=== PATIENT | female | born 1930 | race Caucasian/White ===

== ENCOUNTER 2016-07-08 20:26 | Inpatient (IN) | payer OTHER ==
[~2016-07-08] VITALS: Ht 152.4 cm; Wt 65.4 kg
[~2016-07-08 20:26] MED LIST: ALPR0.25 PO; ASPI-482 PO; ASPI81TA2 PO; BIMA2.5D EACHEYE; CALC-274 PO; CALC600T4 PO; CELE400C PO; CHOL20004 PO; CLON0.1T PO; DILT180C29 PO; DILT180C64 PO; DILT240C66 PO; DOCU-27 PO; DOCU50CA9 PO; FISH1CAP PO; FLUT12HF2 IH; GLUC100018 PO; HYDR-2666 PO; HYDR-971 PO; IPRA3AMP NEB; LANS15CA5 PO; LATA2.5D3 OP; LISI10TA2 PO; MAGN250T5 PO; METO-269 PO; MIRT15TA3 PO; MV,C1TAB19 PO; OXYB10TA PO; PRAV80TA2 PO; PRED20TA PO; PROAIR HFA8.5 GM INH; TIOT18CA IH; [UNRECOGNIZED DRUG - CODE] PO
[2016-07-08] MEDS ORDERED: IPRATRPIUM/ALBUTEROL 0.5/2.5MG 3 ML NEBU. NEB ONE (20:30)
[2016-07-08] MEDS ORDERED: methylPREDNISolone SOD SUCC PF 125 MG/2 ML VIAL. IV ONE (20:30)
[2016-07-08] MEDS ORDERED: NITROGLYCERIN PREMIX 250 ML IV ONE (21:00)
[2016-07-08 21:05] LABS: BASO # 0.1 x10^3/uL (0.0-0.2); BASO % 1 % (0-3); EOS % 0 % (0-3); HEMATOCRIT 34.8 % (36.0-47.0); HEMOGLOBIN 11.5 g/dL (12.0-15.5); LYMPH # 0.2 x10^3/uL (1.0-4.8); LYMPH % 1 % (24-48); MEAN CORPUSCULAR HEMOGLOBIN 31 pg (25-35); MEAN CORPUSCULAR HGB CONC 33 g/dL (31-37); MEAN CORPUSCULAR VOLUME 93 fL (79-100); MONO % 3 % (0-9); NEUT % 95 % (31-73); RED BLOOD COUNT 3.74 x10^6/uL (3.50-5.40); RED CELL DISTRIBUTION WIDTH 15.5 % (11.5-14.5); WHITE BLOOD COUNT 18.2 x10^3/uL (4.0-11.0)
[2016-07-08 21:07] LABS: PLATELET COUNT 960 x10^3/uL (140-400)
[2016-07-08 21:13] LABS: CALCIUM 9.1 mg/dL (8.5-10.1); CREATININE 0.6 mg/dL (0.6-1.0); POTASSIUM 3.8 mmol/L (3.5-5.1)
[2016-07-08 21:42] LABS: PLT ESTIMATE INCREASED (ADEQUATE)
[2016-07-08 22:03] LABS: OBC FLU VALID
--- NOTE | 2016-07-08 22:13 | PHYS DOC ---
Past Medical History Past Medical History: COPD, High Cholesterol, Heart Disease, Hypertension, Other Additional Past Medical Histor: Colon CA,L)hernia, chemotherapy, home oxygen Past Surgical History: Cancer Surgery, Hysterectomy, Oophorectomy, Pacemaker, Other Additional Past Surgical Histo: Colonoscopy,Breast cysts removed bilaterally, pacemaker Alcohol Use: None Drug Use: None Adult General Chief Complaint Chief Complaint: SHORTNESS OF BREATH HPI HPI This 86-year-old female presents via EMS for worsening shortness of breath. Per EMS, the patient was saturating in the mid 80s upon arrival and administered a breathing treatment with mild symptom resolution. She arrives here acutely short of air and requiring supplemental oxygenation. At this time is able to speak in complete sentences with mild respiratory distress. Patient does also have history of mild CHF has mild bilateral lower extremity swelling with her symptoms. She denies any chest pain. She denies any cough or fever. (Of an present really throughout the last week and had a recent hospital admission last week for similar symptoms. She states she never felt better. Review of Systems Review of Systems Constitutional: Denies fever or chills [] Eyes: Denies change in visual acuity, redness, or eye pain [] HENT: Denies nasal congestion or sore throat [] Respiratory: Denies cough, has shortness of breath [] Cardiovascular: No additional information not addressed in HPI [] GI: Denies abdominal pain, nausea, vomiting, bloody stools or diarrhea [] : Denies dysuria or hematuria [] Musculoskeletal: Denies back pain or joint pain [] Integument: Denies rash or skin lesions [] Neurologic: Denies headache, focal weakness or sensory changes [] Endocrine: Denies polyuria or polydipsia [] Current Medications Current Medications Current Medications Medications (Trade) Dose Ordered Sig/Shu Start Time Stop Time Status Last Admin Dose Admin Albuterol/ Ipratropium (Duoneb) 3 ml 1X ONCE 07/08/16 20:30 07/08/16 20:31 DC 07/08/16 20:40 3 ML Methylprednisolone Sodium Succinate 125 mg 125 mg 1X ONCE 07/08/16 20:30 07/08/16 20:31 DC 07/08/16 21:00 125 MG Nitroglycerin/ Dextrose (Nitroglycerin Drip) 250 ml @ 0 mls/hr 1X ONCE 07/08/16 21:00 07/08/16 22:56 DC 07/08/16 21:21 1.5 MLS/HR Allergies Allergies Allergies Coded Allergies Type Severity Reaction Last Updated Verified No Known Drug Allergies 08/19/15 No Physical Exam Physical Exam Constitutional: Well developed, well nourished, no acute distress, non-toxic appearance. [] HENT: Normocephalic, atraumatic, bilateral external ears normal, oropharynx moist, no oral exudates, nose normal. [] Eyes: PERRLA, EOMI, conjunctiva normal, no discharge. [] Neck: Normal range of motion, no tenderness, supple, no stridor. [] Cardiovascular:Heart rate regular rhythm, no murmur [] Lungs & Thorax: Decreased bilateral with mild expiratory wheeze heard bilaterally [] Abdomen: Bowel sounds normal, soft, no tenderness, no masses, no pulsatile masses. [] Skin: Warm, dry, no erythema, no rash. [] Back: No tenderness, no CVA tenderness. [] Extremities: No tenderness, no cyanosis, no clubbing, ROM intact, edema of the bilateral lower extremities. [] Neurologic: Alert and oriented X 3, normal motor function, normal sensory function, no focal deficits noted. [] Psychologic: Affect normal, judgement normal, mood normal. [] Current Patient Data Vital Signs Vital Signs Date Time Temp Pulse Resp B/P Pulse Ox O2 Delivery O2 Flow Rate FiO2 07/08/16 21:46 104 19 139/59 94 Nasal Cannula 2 07/08/16 20:30 98.4 98.4 Lab Values Laboratory Tests Test 07/08/16 20:35 07/08/16 20:50 07/08/16 21:38 Influenza Type A Antigen Negative (NEGATIVE) Influenza Type B Antigen Negative (NEGATIVE) White Blood Count 18.2x10^3/uL (4.0-11.0) H Red Blood Count 3.74x10^6/uL (3.50-5.40) Hemoglobin 11.5g/dL (12.0-15.5) L Hematocrit 34.8% (36.0-47.0) L Mean Corpuscular Volume 93fL (79-100) Mean Corpuscular Hemoglobin 31pg (25-35) Mean Corpuscular Hemoglobin Concent 33g/dL (31-37) Red Cell Distribution Width 15.5% (11.5-14.5) H Platelet Count 960x10^3/uL (140-400) *H Neutrophils (%) (Auto) 95% (31-73) H Lymphocytes (%) (Auto) 1% (24-48) L Monocytes (%) (Auto) 3% (0-9) Eosinophils (%) (Auto) 0% (0-3) Basophils (%) (Auto) 1% (0-3) Neutrophils # (Auto) 17.3x10^3uL (1.8-7.7) H Lymphocytes # (Auto) 0.2x10^3/uL (1.0-4.8) L Monocytes # (Auto) 0.5x10^3/uL (0.0-1.1) Eosinophils # (Auto) 0.1x10^3/uL (0.0-0.7) Basophils # (Auto) 0.1x10^3/uL (0.0-0.2) Platelet Estimate Increased (ADEQUATE) Large Platelets Mod Sodium Level 137mmol/L (136-145) Potassium Level 3.8mmol/L (3.5-5.1) Chloride Level 100mmol/L (98-107) Carbon Dioxide Level 29mmol/L (21-32) Anion Gap 8 (6-14) Blood Urea Nitrogen 15mg/dL (7-20) Creatinine 0.6mg/dL (0.6-1.0) Estimated GFR (Cockcroft-Gault) 95.0 Glucose Level 136mg/dL (70-99) H Calcium Level 9.1mg/dL (8.5-10.1) Troponin I Quantitative 0.065ng/mL (0.000-0.055) QT-Myg-I-Type Natriuretic Peptide 1892pg/mL (0-449) H Lactic Acid Level 1.0mmol/L (0.4-2.0) Laboratory Tests 07/08/16 20:50 Laboratory Tests 07/08/16 20:50 EKG EKG EKG interpreted by me shows a sinus tachycardia with a rate of 116 bpm. There are no acute ischemic findings. Radiology/Procedures Radiology/Procedures Portable one view of the chest as interpreted by me shows a left-sided effusion but no other acute abnormalities. Course & Med Decision Making Course & Med Decision Making Pertinent Labs and Imaging studies reviewed. (See chart for details) This patient with ongoing shortness of breath will be admitted for likely COPD exacerbation and mild CHF exacerbation. She has a mildly elevated BNP of 1800. Her chest film shows a mild left-sided pleural effusion. An IV Solu-Medrol and a breathing treatment and also was placed on IV nitroglycerin drip with significant improvement of her symptoms. Nitroglycerin drip was eventually discontinued and the patient will be admitted to the medical's on a every 4 for repeat DuoNeb treatments and will be evaluated by the hospitalist, Dr. Rolon, in the a.m. The case was discussed with Dr. Rolon who agreed with this assessment and plan. Her laboratory workup does reveal an elevated white count of 18.2 and elevated platelet count of 960 but at this time there is no obvious source of infection and so antibiotics were not administered. Dragon Disclaimer Dragon Disclaimer This electronic medical record was generated, in whole or in part, using a voice recognition dictation system. Departure Departure Impression: Primary Impression: CHF (congestive heart failure) Additional Impression: COPD exacerbation Disposition: ADMITTED INPATIENT Admitting Physician: Carlos Rolon Condition: STABLE Referrals: IAN BLAKE MD (PCP) Problem Qualifiers HEMA MACK DO Jul 08, 2016 22:13
[2016-07-08] MEDS ORDERED: ONDANSETRON PF 4 MG/2 ML VIAL. IV PRN (22:15)
[2016-07-08] MEDS ORDERED: ACETAMINOPHEN 325 MG TABLET. PO PRN (22:15)
[2016-07-08 23:00] VITALS: BP 184/82
[2016-07-08 23:45] VITALS: BP 184/82
--- NOTE | 2016-07-08 23:52 | ACF ---
Admission Forms Criteria HEART FAILURE: COMMON COMPLICATIONS Clinical Indications for Inpatient Care (Place 'X' for any and all applicable criteria): Ongoing inpatient care may be indicated for heart failure with ANY ONE of the following (1)(2)(3)(4)(5): [ ]I. Ongoing need for care for primary condition requiring frequent therapy adjustments because of changes in cardiac function (eg, drug dosage changes for drugs that are renally metabolized) [ ]II. New-onset heart failure [ ]III. Heart failure with decreased urine output not responsive to attempts to optimize volume status [ ]IV. Acute cardiac ischemia causing or associated with failure [X]V. Complications of heart failure, including ANY ONE of the following: [ ]a) Pericardial effusion [ ]b) Symptomatic pleural effusion [ ]c) O2 saturation <90% or PO2 < 60 mm Hg (8.0 kPa) on room air or require baseline supplemental O2 [ ]d) Tachypnea [X]e) Dyspnea [ ]f) Syncope [ ]g) Change in mental status [ ]h) Acute renal insufficiency that is severe (reduction of more than 50% in estimated glomerular filtration rate from baseline) or progressive reduction of more than 25% in estimated glomerular filtration rate from baseline, with creatinine continuing to rise) [ ]i) Hemodynamic instability [ ]j) Anasarca [ ]k) Clinically significant metabolic abnormalities due to heart failure (eg, new-onset metabolic acidosis) Extended stay beyond goal length of stay for primary condition may be needed until ALL of the following are present(1)(3): [ ]a) Stable and effective diuretic regimen established (or patient on stable dialysis regimen if in chronic renal failure) [ ]b) Breathing comfortably at rest [ ]c) Saturation of arterial oxygen greater than 90% or at acceptable baseline [ ]d) Pulmonary edema absent or improved [ ]e) Hemodynamic stability [ ]f) Volume status acceptable on oral medication [ ]g) Peripheral or sacral edema absent or improved [ ]h) Renal function stable and manageable at a lower level of care [ ]i) Complications (eg, pleural effusion) resolved or manageable at a lower level of care [ ]j) Patient or caregiver has received written discharge instructions or educational material addressing activity level, diet, discharge medications, follow-up appointment, weight monitoring, and what to do if symptoms worsen The original [email or web address] content created by [employer] has been revised. The portions of the content which have been revised are identified through the use of italic text or in bold, and [facility] has neither reviewed nor approved the modified material.All other unmodified content is copyright [facility]. Please see references footnoted in the original [facility] edition 2016 Admission Criteria Met?: Yes ROBERTO DARBY Jul 08, 2016 23:51
[2016-07-09] MEDS: CLONIDINE HCL 0.1 MG TABLET PO SCH ×4 (01:12→20:53)
[2016-07-09] MEDS: METOPROLOL SUCC 24HR ER 50 MG TAB.ER.24H. PO SCH ×2 (01:12→20:54)
[2016-07-09 03:00] VITALS: BP 169/80
[2016-07-09 04:54] LABS: BASO % 0 % (0-3); EOS % 0 % (0-3); HEMATOCRIT 28.5 % (36.0-47.0); HEMOGLOBIN 9.5 g/dL (12.0-15.5); LYMPH # 0.2 x10^3/uL (1.0-4.8); LYMPH % 2 % (24-48); MEAN CORPUSCULAR HEMOGLOBIN 31 pg (25-35); MEAN CORPUSCULAR HGB CONC 34 g/dL (31-37); MEAN CORPUSCULAR VOLUME 93 fL (79-100); MONO % 0 % (0-9); NEUT % 97 % (31-73); PLATELET COUNT 821 x10^3/uL (140-400); RED BLOOD COUNT 3.06 x10^6/uL (3.50-5.40); RED CELL DISTRIBUTION WIDTH 15.4 % (11.5-14.5); WHITE BLOOD COUNT 10.6 x10^3/uL (4.0-11.0)
[2016-07-09 05:37] LABS: CALCIUM 9.8 mg/dL (8.5-10.1); CREATININE 0.5 mg/dL (0.6-1.0); GFR 117.3; POTASSIUM 3.7 mmol/L (3.5-5.1)
--- NOTE | 2016-07-09 06:33 | EKG ---
[facility] [address] [place] [address] Test Date: 2016-07-08 Test Time: 20:31:12 Pat Name: GLO GALAN Department: Room: 562 Gender: F Director Summer Sessions: : 1930 Requested By: HEMA MACK Order Number: [id number] Reading MD: Ezra Dale Measurements Intervals [place] Rate: 116 P: 68 [place]: 182 QRS: 50 QRSD: 84 T: 49 QT: 312 QTc: 439 Interpretive Statements SINUS TACHYCARDIA Electronically Signed On 07-09-2016 14:53:51 PIZZA HUT ASSISTANT by Ezra Dale
[2016-07-09 06:50] LABS: ANISOCYTOSIS SLIGHT
[2016-07-09 07:00] VITALS: BP 168/81
--- NOTE | 2016-07-09 07:40 | RAD ---
Indication: Shortness of breath. Time of exam 2111 hours. Comparison is made with prior chest from 06/26/2016. The heart size is stable. The left subclavian cardiac pacer remains in place. The lungs are hyperinflated consistent with COPD. Trace pleural fluid on the left is again noted. No parenchymal infiltrate is seen. There is no pneumothorax. Impression: Stable chest since exam from 06/26/2016.
[2016-07-09] MEDS ORDERED: HYDROCODONE/APAP 5/325MG TABLET. PO PRN (07:45)
[2016-07-09] MEDS ORDERED: IOHEXOL 300 MG/ML 75 ML VIAL IV ONE (08:00)
[2016-07-09] MEDS ORDERED: DEXTROSE 50% 25 GM / 50ML DISP.SYRIN. IV PRN (08:00)
[2016-07-09] MEDS ORDERED: IPRATRPIUM/ALBUTEROL 0.5/2.5MG 3 ML NEBU. NEB SCH (08:00)
[2016-07-09] MEDS ORDERED: ALBUTEROL SULFATE 2.5 MG/3 ML NEBU. NEB PRN (08:00)
[2016-07-09] MEDS: INSULIN ASPART 300 UNITS/3 ML INSULN.PEN SQ SCH ×3 (08:00→17:27)
--- NOTE | 2016-07-09 08:01 | PDOC ---
Provider Note Provider Note See admission H&P dictation #[id number] Impression: 1. Acute on chronic respiratory failure, probably due to COPD exacerbation and CHF: 2. COPD exacerbation: 3. CHF, diastolic dysfunction: 4. Hypertension: 5. Glucose intolerance: 6. Right shoulder blade pain: 7. Thrombocytosis: 8. Debilitation: 9. History of tachyarrhythmias: 10. Mildly elevated troponins: MAJOR HICKMAN MD Jul 09, 2016 08:00
[2016-07-09 08:02] LABS: PLT ESTIMATE INCREASED (ADEQUATE)
[2016-07-09] MEDS: MULTIVITAMIN with MINERAL TABLET. PO SCH (08:41)
[2016-07-09] MEDS: DILTIAZEM HCL 180 MG CAP.ER.24H PO SCH (08:41)
[2016-07-09] MEDS: LISINOPRIL 10 MG TABLET PO SCH (08:41)
[2016-07-09] MEDS: CALCIUM CARBONATE 500 MG TABLET PO SCH ×2 (08:42→17:17)
[2016-07-09] MEDS: ASPIRIN ENTERIC COATED 81 MG TABLET.DR. PO SCH (08:42)
[2016-07-09] MEDS: PREDNISONE 10 MG TABLET PO SCH (08:42)
[2016-07-09] MEDS: OXYBUTYNIN CHLORIDE 5 MG TABLET PO SCH ×2 (08:42→20:52)
[2016-07-09] MEDS ORDERED: GLUCOSAMINE SULFATE 1500 MG PO SCH (09:00)
--- NOTE | 2016-07-09 10:21 | HP ---
ADMIT DATE: 07/09/2016 ATTENDING PHYSICIAN: Ansley Mulligan MD CHIEF COMPLAINT: Shortness of breath. HISTORY OF PRESENT ILLNESS: The patient is an 86-year-old female with a history of COPD, who had recently been hospitalized for sepsis due to urinary tract infection and tachyarrhythmia. She was residing at [facility] doing rehab when she reported that she has been having worsening shortness of breath over the last several days. This became significantly worse on the day of admission and was noted that her O2 sats were in the mid 80s. Despite using supplemental oxygen, which she normally uses anyhow, due to the hypoxia, she was sent to the Emergency Room for further evaluation. The patient denies any cough. She denies any chest pain. She has had some palpitations. She does note that she has some increased swelling in her lower legs in the last day or two. She denies any leg pain. She also complains of left posterior shoulder pain. PAST MEDICAL HISTORY: Significant for COPD with chronic respiratory failure on oxygen, hypertension, hyperlipidemia, chronic anxiety, chronic back pain due to spinal stenosis, overactive bladder, colon cancer in 2014, tachyarrhythmia, glucose intolerance, debilitation and recent sepsis with urinary tract infection approximately 1-2 weeks ago. PAST SURGICAL HISTORY: Right hemicolectomy in 03/2015, permanent pacemaker placement in 11/2013, bilateral cyst removal on the breast, hysterectomy, right ankle surgery. ALLERGIES TO MEDICATIONS: No known drug allergies. FAMILY HISTORY: Noncontributory. SOCIAL HISTORY: The patient is . She smoked cigarettes for many years, but quit in 1996. She does not drink alcohol. Her disabled nephew lives with her and provides for her care. MEDICATIONS: At the time of admission are albuterol metered dose inhaler 2 puffs q.i.d. p.r.n., aspirin 81 mg p.o. daily, [place] 1 drop each eye at bedtime, calcium carbonate 1200 mg p.o. b.i.d., clonidine 0.1 mg p.o. t.i.d., diltiazem CD 180 mg p.o. daily, glucosamine 1500 mg p.o. b.i.d., [place] 5/325 one p.o. q. 6 hours p.r.n., DuoNeb q.i.d., Prevacid 15 mg p.o. daily, lisinopril 10 mg p.o. daily, Toprol-XL 50 mg p.o. at bedtime, Remeron 15 mg one-half tablet at bedtime, multivitamin 1 p.o. daily, oxybutynin extended release 10 mg 1 p.o. daily, pravastatin 80 mg p.o. daily. REVIEW OF SYSTEMS: The patient denies any fevers. She denies any upper respiratory congestion. She has been swallowing without difficulty. She denies any cough. She has had the shortness of breath. She denies any chest pain. She has had some sensation of palpitations. She has had increased lower extremity swelling. She denies any heartburn, reflux, nausea, vomiting, diarrhea, constipation. She did have some constipation when she first got to [facility] but that has resolved and she has had a couple of loose stools after treatment for her constipation, but is doing better overall. She denies any dysuria or hematuria. She is voiding okay. She denies any pain in her lower extremities. She has been weak and that is why she was over at [facility] for rehab. Her mood has been okay. She does have a history of anxiety. PHYSICAL EXAMINATION: VITAL SIGNS: At the time of admission, temperature 98.4, pulse 115, respiratory rate 30, blood pressure 186/102, O2 sat 94% on room air. GENERAL: The patient is alert and appears oriented to person, place. She is in no acute distress at present. She is able to speak in full sentences. She does have nasal cannula oxygen on. HEENT: The pupils are equal and round. The extraocular motions are intact. Sclerae are anicteric. The oropharynx is little bit dry, but otherwise pink. NECK: Without JVD or bruit. There is no thyromegaly. CHEST: Decreased air movement throughout. No wheezes, no rales. There is some minimal tenderness to palpation along the medial superior border of the right scapula, but without any deformity. CARDIOVASCULAR: The heart has a regular rhythm. There is no murmur. She is slightly tachycardic. ABDOMEN: Positive bowel sounds, soft, nontender, mildly distended. No guarding or rebound. EXTREMITIES: There is 1+ edema in the bilateral lower extremities. She currently has KIMMY hose on. NEUROLOGIC: Grossly intact and nonfocal. PSYCHIATRIC: Mood and affect appear appropriate. LABORATORY DATA: At the time of admission, sodium 137, potassium 3.8, chloride 100, CO2 29, BUN 15, creatinine 0.6, glucose 136. WBC 18.2, which improved to 10.6 this morning, hemoglobin 11.5, which decreased to 9.5 this morning, hematocrit 34.8, platelets 960, which decreased slightly to 821. Differential on this morning, CBC shows 93 segs and 6 bands. Influenza A and B was negative. Chest x-ray shows a possible left-sided effusion. EKG on preliminary read shows a sinus tachycardia with a rate of 116, no acute ischemic findings. IMPRESSION: 1. [id number] respiratory failure, probably due to chronic obstructive pulmonary disease exacerbation and possibly congestive heart failure. 2. Chronic obstructive pulmonary disease exacerbation. 3. Apparent probable congestive heart failure with diastolic dysfunction. 4. Hypertension. 5. Glucose intolerance. 6. Right shoulder blade pain. 7. Thrombocytosis, probably reactive since this is new in the past 10 days. 8. Debilitation. 9. History of tachyarrhythmias. 10. Mildly elevated troponins. PLAN: The patient is admitted. Cardiology has been consulted regarding the possible CHF and the tachyarrhythmias. We will restart her usual medications to see if that helps. She has received a dose of Lasix, which did seem to improve her symptoms somewhat. We will do a CTA of the chest to evaluate for pulmonary embolism as she does have some thrombocytosis. We will also begin Lovenox. We will check an ultrasound of the lower extremities to rule out DVT with her recent swelling. We will continue her nebulizer treatments with additional albuterol treatments as needed. We will continue her home medications. We will use sliding scale insulin for her glucose. We will have physical therapy see the patient. Further treatment will be based on how she responds to the above interventions and labs. Consider oncology evaluation if she has continued thrombocytosis. We will check that again tomorrow. MAJOR HICKMAN MD DR: ALONDRA/panda JOB#: [id number] / [id number] BENITA
[2016-07-09 10:57] VITALS: BP 151/73
--- NOTE | 2016-07-09 11:01 | RAD ---
Indication: Bilateral leg swelling. Grayscale, color-flow and duplex Doppler evaluation of both lower extremity deep venous systems was performed. FINDINGS: There is no evidence of right or left lower extremity DVT. Both lower extremity deep venous systems showed normal compressibility with normal response to augmentation and Valsalva. No fluid collection or mass is detected. IMPRESSION: No evidence of right or left lower extremity DVT.
--- NOTE | 2016-07-09 11:19 | RAD ---
Indication: Shortness of air and chest pain. Axial imaging through the chest was performed after the administration of intravenous contrast and utilizing the CT angiography protocol. Multiplanar, 3-D and MIP reformations were also performed. Comparison is made with prior CT chest from 02/12/2016. Left chest wall cardiac pacemaker is in place. Evaluation of the pulmonary arterial system is without evidence of thromboembolism. No filling defects are identified. The thoracic aorta is heavily calcified but nonaneurysmal. No dissection is seen. No pericardial effusion is identified. There are small bilateral pleural effusions, slightly larger on the left. The esophagus appears to be diffusely dilated and fluid-filled. No axillary lymphadenopathy is detected. No definite hilar or mediastinal lymphadenopathy is detected. Parenchymal evaluation demonstrates significant emphysematous changes throughout both lungs. There is dependent atelectasis in the lower lobes. No discrete mass is seen. The upper abdomen is unremarkable. Impression: 1. No evidence of pulmonary embolism or thoracic aortic dissection. 2. Small bilateral pleural effusions. 3. Severe emphysematous changes bilaterally with bibasilar atelectasis. 4. Diffusely dilated and fluid-filled esophagus. PQRS Compliance Statement: One or more of the following individualized dose reduction techniques were utilized for this examination: 1. Automated exposure control 2. Adjustment of the mA and/or kV according to patient size 3. Use of iterative reconstruction technique
--- NOTE | 2016-07-09 11:32 | PDOC2 ---
ELA BORGES HEAD TENNIS PROFESSIONAL 07/09/16 1132: CARDIAC CONSULT DATE OF CONSULT Date of Consult DATE: 07/09/16 TIME: 11:05 REASON FOR CONSULT Reason for Consult: CHF exacerbation REFERRING PHYSICIAN Referring Physician: Wisam SOURCE Source: Chart review, Patient HISTORY OF PRESENT ILLNESS HISTORY OF PRESENT ILLNESS This is a pleasant 86 yo female admitted for complains on increasing SOA. Noted with dyspnea but at the same time continues to have nasal congestion. Noted with 80% O2 sat upon admission compensated by O2 and breathing treatment. Denies any chest pain, palpitations. She was recently discharge and was transferred to [facility] [place] home. Has been having some insomnia and continue to have intermittent mid upper back pain. PAST MEDICAL HISTORY Past Medical History Cardiovascular: HTN, Hyperlipidemia, Other (aortic atherosclerosis; carotid sinus hypersensitivity) Pulmonary: COPD Heme/Onc: Cancer (colon) Psych: Anxiety Musculoskeletal: low back pain (chronic), Osteoarthritis Infectious disease: No pertinent hx ENT: Other (glaucoma) Renal/: Urinary Incontinence (OAB) Endocrine: Osteopenia Dermatology: No pertinent hx PAST SURGICAL HISTORY Past Surgical History Pacemaker (11/2013), Arthroscopy (right ankle), Hysterectomy, Colon Resection ( Right hemicolectomy in 03/2015), Other (bilateral cyst removal on breast) FAMILY HISTORY Family History noncontributory SOCIAL HISTORY Social History Smoke: No (quit) ALCOHOL: none Drugs: None Lives: with Family (nephew) CURRENT MEDICATIONS CURRENT MEDICATIONS Current Medications Medications (Trade) Dose Ordered Sig/Shu Route PRN Reason Start Time Stop Time Status Last Admin Dose Admin Albuterol/ Ipratropium (Duoneb) 3 ml 1X ONCE NEB 07/08/16 20:30 07/08/16 20:31 DC 07/08/16 20:40 Methylprednisolone Sodium Succinate 125 mg 125 mg 1X ONCE IV 07/08/16 20:30 07/08/16 20:31 DC 07/08/16 21:00 Nitroglycerin/ Dextrose (Nitroglycerin Drip) 250 ml @ 0 mls/hr 1X ONCE IV 07/08/16 21:00 07/08/16 22:56 DC 07/08/16 21:21 Albuterol/ Ipratropium (Duoneb) 3 ml RTQID NEB 07/09/16 08:00 07/09/16 09:26 DC 07/09/16 08:53 Clonidine HCl (Catapres) 0.1 mg TID PO 07/09/16 00:45 07/09/16 08:41 Metoprolol Succinate (Toprol Xl) 50 mg HS PO 07/09/16 01:00 07/09/16 01:12 Aspirin (Ecotrin) 81 mg DAILY PO 07/09/16 09:00 07/09/16 08:42 Diltiazem HCl (Cardizem 24hr Cd) 180 mg DAILY PO 07/09/16 09:00 07/09/16 08:41 Lisinopril (Prinivil) 10 mg DAILY PO 07/09/16 09:00 07/09/16 08:41 Calcium Carbonate/ Glycine (Oscal) 1,000 mg BIDAFTMEAL PO 07/09/16 09:00 07/09/16 08:42 Multivitamins/ Calcium (Thera M Plus) 1 tab DAILY PO 07/09/16 09:00 07/09/16 08:41 Oxybutynin Chloride (Ditropan) 5 mg BID PO 07/09/16 09:00 07/09/16 08:42 Prednisone (Prednisone) 30 mg DAILY PO 07/09/16 09:00 07/09/16 08:42 Iohexol (Omnipaque 300 Mg/ml) 75 ml 1X ONCE IV 07/09/16 08:00 07/09/16 08:04 DC 07/09/16 10:59 ALLERGIES ALLERGIES: Coded Allergies: No Known Drug Allergies (Unverified , 08/19/15) ROS Review of System 14 point ROS evaluated with pertinent positives noted per HPI PHYSICAL EXAM General: Alert, Oriented X3, Cooperative, mild distress HEENT: Atraumatic, Mucous membr. moist/pink Lungs: Other (bibasilar crackles) Heart: Regular rate, Normal S1, Normal S2, Other (2/6 systolic murmur to LLS border) Abdomen: Soft, No tenderness Extremities: No cyanosis, Other (2+ bilateral LE pitting edema) Skin: No breakdown Neuro: Normal speech, Sensation intact Psych/Mental Status: Mental status NL, Mood NL MUSCULOSKELETAL: Osteoarthritic changes both hands VITALS VITALS Vital Signs Date Time Temp Pulse Resp B/P Pulse Ox O2 Delivery O2 Flow Rate FiO2 07/09/16 10:57 97.9 84 18 151/73 93 Nasal Cannula 2.0 97.9 LABS Lab: Laboratory Tests Test 07/08/16 20:35 07/08/16 20:50 07/08/16 21:38 07/09/16 04:30 Influenza Type A Antigen Negative (NEGATIVE) Influenza Type B Antigen Negative (NEGATIVE) White Blood Count 18.2x10^3/uL (4.0-11.0) 10.6x10^3/uL (4.0-11.0) Red Blood Count 3.74x10^6/uL (3.50-5.40) 3.06x10^6/uL (3.50-5.40) Hemoglobin 11.5g/dL (12.0-15.5) 9.5g/dL (12.0-15.5) Hematocrit 34.8% (36.0-47.0) 28.5% (36.0-47.0) Mean Corpuscular Volume 93fL (79-100) 93fL (79-100) Mean Corpuscular Hemoglobin 31pg (25-35) 31pg (25-35) Mean Corpuscular Hemoglobin Concent 33g/dL (31-37) 34g/dL (31-37) Red Cell Distribution Width 15.5% (11.5-14.5) 15.4% (11.5-14.5) Platelet Count 960x10^3/uL (140-400) 821x10^3/uL (140-400) Neutrophils (%) (Auto) 95% (31-73) 97% (31-73) Lymphocytes (%) (Auto) 1% (24-48) 2% (24-48) Monocytes (%) (Auto) 3% (0-9) 0% (0-9) Eosinophils (%) (Auto) 0% (0-3) 0% (0-3) Basophils (%) (Auto) 1% (0-3) 0% (0-3) Neutrophils # (Auto) 17.3x10^3uL (1.8-7.7) 10.3x10^3uL (1.8-7.7) Lymphocytes # (Auto) 0.2x10^3/uL (1.0-4.8) 0.2x10^3/uL (1.0-4.8) Monocytes # (Auto) 0.5x10^3/uL (0.0-1.1) 0.0x10^3/uL (0.0-1.1) Eosinophils # (Auto) 0.1x10^3/uL (0.0-0.7) 0.0x10^3/uL (0.0-0.7) Basophils # (Auto) 0.1x10^3/uL (0.0-0.2) 0.0x10^3/uL (0.0-0.2) Platelet Estimate Increased (ADEQUATE) Increased (ADEQUATE) Large Platelets Mod Sodium Level 137mmol/L (136-145) 139mmol/L (136-145) Potassium Level 3.8mmol/L (3.5-5.1) 3.7mmol/L (3.5-5.1) Chloride Level 100mmol/L (98-107) 104mmol/L (98-107) Carbon Dioxide Level 29mmol/L (21-32) 26mmol/L (21-32) Anion Gap 8 (6-14) 9 (6-14) Blood Urea Nitrogen 15mg/dL (7-20) 14mg/dL (7-20) Creatinine 0.6mg/dL (0.6-1.0) 0.5mg/dL (0.6-1.0) Estimated GFR (Cockcroft-Gault) 95.0 117.3 Glucose Level 136mg/dL (70-99) 157mg/dL (70-99) Calcium Level 9.1mg/dL (8.5-10.1) 9.8mg/dL (8.5-10.1) Troponin I Quantitative 0.065ng/mL (0.000-0.055) 0.065ng/mL (0.000-0.055) SQ-Hso-T-Type Natriuretic Peptide 1892pg/mL (0-449) Lactic Acid Level 1.0mmol/L (0.4-2.0) Segmented Neutrophils % 93% (35-66) Band Neutrophils % 6% (0-9) Lymphocytes % 1% (24-48) Anisocytosis Slight Test 07/09/16 08:08 Glucose (Fingerstick) 141mg/dL (70-99) ECHOCARDIOGRAM ECHOCARDIOGRAM <Conclusion> The left ventricular systolic function is normal and the ejection fraction is within normal range. The Ejection Fraction is 65-70%. There is normal LV segmental wall motion. The right ventricular systolic function is normal. DATE: 06/26/16 1738 STRESS TEST STRESS TEST Conclusion 1. No evidence of significant ischemia or previous myocardial infarction appreciated. 2. Ejection fraction documented to be 91% with normal wall motion on gated SPECT images. Calculations appeared to be visually overestimated. 3. Normal nuclear imaging scan. DATE: 11/17/13 1329 ASSESSMENT/PLAN ASSESSMENT/PLAN 1. Dyspnea/hypoxia: highly suspect AECOPD. Demand mediated minimal elevation in troponin at 0.06 s/t hypoxia, EKG sinus tach without acute changes. Possible viral syndrome with COPD and will defer to PCP. 2. Leukocytosis/thrombocytosis: Reactive? PLT 810. Recent sepsis/UTI. Defer to PCP. 3. Acute on Chronic diastolic CHF: Superimposed by AECOPD notable for small bilateral pleural effusion via CT chest. Appears better while upright, currently with nasal congestion. Recent TTE with normal wall motion and EF. x1 IV lasix. 4. Accelerated HTN: improving. Continue with regimen 6. 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 Recent setting adjustment due to arrhythmia described below otherwise normal functioning device per interrogation 7. HLP: on statin. 8. Arrhythmia: Prior atrial tach. Remains to have episode of possible PMTs x2 episodes overnight otherwise has been SR. Was recently placed on amiodarone for short term therapy and now off? Continue on metoprolol and cardizem. Will discuss with primary manpower development manager. 9. Possible achalasia: Noted with diffusely dilated and fluid-filled esophagus which could be contributing to her mid upper back pain. Defer to PCP, GI consult? Problems: RASHID TREVINO MD 07/10/16 1653: CARDIAC CONSULT ALLERGIES ALLERGIES: Coded Allergies: No Known Drug Allergies (Unverified , 08/19/15) ASSESSMENT/PLAN ASSESSMENT/PLAN Patient seen and examined 07/09/16. Agree with TRANSPORTATION CONSULTANT's assessment and plan. Acute resp failure due to combination of acute COPD exacerbation and acute on chronic syst HF. Continue intravenous lasix for diuresis. Recent echo showed normal LV function. BP better controlled since admission. Continue current meds. Thank you for your consultation. Problems: ELA BORGES HEAD TENNIS PROFESSIONAL Jul 09, 2016 11:32 RASHID TREVINO MD Jul 10, 2016 16:53
[2016-07-09 14:49] VITALS: BP 154/76
[2016-07-09] MEDS: PANTOPRAZOLE 40 MG TABLET. PO SCH (15:21)
[2016-07-09] MEDS: IPRATRPIUM/ALBUTEROL 0.5/2.5MG 3 ML NEBU. NEB SCH ×2 (15:29→21:20)
[2016-07-09] MEDS ORDERED: FUROSEMIDE 20 MG/2 ML VIAL IVP ONE (16:00)
[2016-07-09] MEDS: ENOXAPARIN 40 MG/0.4 ML DISP.SYRIN. SQ SCH (17:13)
[2016-07-09 19:00] VITALS: BP 143/68
[2016-07-09] MEDS: ATORVASTATIN CALCIUM 20 MG TABLET PO SCH (20:54)
[2016-07-09] MEDS: MIRTAZAPINE 15 MG TABLET PO SCH (20:54)
[2016-07-09 23:11] VITALS: BP 137/68
[2016-07-10] VITALS (7 sets, daily range): BP systolic 126–164; BP diastolic 49–72
[2016-07-10] MEDS: LATANOPROST 0.005% OPHTH SOLUTION 2.5ML BOTTLE. OU SCH ×2 (00:43→21:21)
[2016-07-10] MEDS: INSULIN ASPART 300 UNITS/3 ML INSULN.PEN SQ SCH ×4 (00:48→21:18)
[2016-07-10 05:40] LABS: BASO % 0 % (0-3); EOS % 0 % (0-3); HEMOGLOBIN 8.8 g/dL (12.0-15.5); LYMPH # 0.7 x10^3/uL (1.0-4.8); LYMPH % 6 % (24-48); MEAN CORPUSCULAR HEMOGLOBIN 32 pg (25-35); MEAN CORPUSCULAR HGB CONC 34 g/dL (31-37); MEAN CORPUSCULAR VOLUME 93 fL (79-100); MONO % 11 % (0-9); NEUT % 84 % (31-73); PLATELET COUNT 757 x10^3/uL (140-400); RED BLOOD COUNT 2.81 x10^6/uL (3.50-5.40); RED CELL DISTRIBUTION WIDTH 15.2 % (11.5-14.5); WHITE BLOOD COUNT 11.9 x10^3/uL (4.0-11.0)
[2016-07-10 06:15] LABS: CALCIUM 8.6 mg/dL (8.5-10.1); CREATININE 0.6 mg/dL (0.6-1.0); POTASSIUM 4.1 mmol/L (3.5-5.1)
[2016-07-10 07:25] LABS: BILIRUBIN,URINE NEGATIVE (NEG); GLUCOSE,URINE NEGATIVE (NEG); NITRITE,URINE POSITIVE (NEG); PROTEIN,URINE NEGATIVE (NEG-TRACE); UROBILINOGEN,URINE 0.2 mg/dL (0.2 mg/dL)
[2016-07-10 07:42] LABS: BACTERIA,URINE MANY /HPF (0-FEW); RBC,URINE RARE /HPF (0-2); SQUAMOUS EPITHELIAL CELL,UR FEW /LPF; WBC,URINE 20-40 /HPF (0-4)
[2016-07-10] MEDS: IPRATRPIUM/ALBUTEROL 0.5/2.5MG 3 ML NEBU. NEB SCH ×4 (08:00→20:05)
[2016-07-10] MEDS: DILTIAZEM HCL 180 MG CAP.ER.24H PO SCH (08:29)
[2016-07-10] MEDS: PREDNISONE 10 MG TABLET PO SCH (08:29)
[2016-07-10] MEDS: CALCIUM CARBONATE 500 MG TABLET PO SCH ×2 (08:30→17:05)
[2016-07-10] MEDS: LISINOPRIL 10 MG TABLET PO SCH (08:30)
[2016-07-10] MEDS: CLONIDINE HCL 0.1 MG TABLET PO SCH ×3 (08:30→21:20)
[2016-07-10] MEDS: MULTIVITAMIN with MINERAL TABLET. PO SCH (08:31)
[2016-07-10] MEDS: OXYBUTYNIN CHLORIDE 5 MG TABLET PO SCH ×2 (08:31→21:11)
[2016-07-10] MEDS: ASPIRIN ENTERIC COATED 81 MG TABLET.DR. PO SCH (08:31)
--- NOTE | 2016-07-10 08:56 | PDOC ---
PROGRESS NOTES Subjective Subjective Patient reports breathing is some better. Denies feeling of dysphagia, still having some mid-back pain. Objective Objective Vital Signs Date Time Temp Pulse Resp B/P Pulse Ox O2 Delivery O2 Flow Rate FiO2 07/10/16 07:00 96.5 69 20 161/49 96 Nasal Cannula 3.0 96.5 Intake and Output 07/10/16 07:00 Intake Total 1100 ml Output Total 1050 ml Balance 50 ml Intake Oral 1100 ml Output Urine Total 1050 ml # Voids 5 # Bowel Movements 1 Physical Exam Abdomen: Normal bowel sounds, Soft, No tenderness Heart: Regular rate Extremities: No edema General: Alert, Oriented X3, No acute distress Lungs: Other (BS moderately decreased throughout but otherwise CTA) Assessment Assessment Problems Medical Problems: (1) CHF (congestive heart failure) Status: Acute (2) COPD (chronic obstructive pulmonary disease) Status: Acute (3) COPD exacerbation Status: Acute Plan Plan of Care 1. Acute on chronic respiratory failure with COPD - stable, not hypoxic on her usual O2 per NC. Continue nebs and po Prednisone. CTA chest negative for PE. 2. possible achalasia - CTA chest showed dilated, fluid-filled esophagus. Consult GI for help with further tx. Patient denies a history of esophageal stenosis. Does not feel she has difficulty swallowing. Does have the recent persistent mid-back pain. 3. CHF with mild diastolic dysfunction - stable. 4. tachyarrhythmias - stable, continue meds as per cardiology. 5. glucose intolerance - FSBG elevated because patient received 125mg Solumedrol in ER. Should improve, continue SS insulin. Change to ADA diet. 6. possible UTI - UA with 20-40 WBC's. Patient denies symptoms, await culture report. 7. thrombocytosis - reactive? Slowly improving, continue to follow. Continue Lovenox. 8. HTN - controlled, continue present meds. 9. debility - continue therapies while she is here. Comment Review of Relevant I have reviewed the following items forest (where applicable) has been applied. Labs Laboratory Tests Test 07/08/16 20:35 07/08/16 20:50 07/08/16 21:38 07/08/16 23:26 Influenza Type A Antigen Negative (NEGATIVE) Influenza Type B Antigen Negative (NEGATIVE) White Blood Count 18.2x10^3/uL (4.0-11.0) Red Blood Count 3.74x10^6/uL (3.50-5.40) Hemoglobin 11.5g/dL (12.0-15.5) Hematocrit 34.8% (36.0-47.0) Mean Corpuscular Volume 93fL (79-100) Mean Corpuscular Hemoglobin 31pg (25-35) Mean Corpuscular Hemoglobin Concent 33g/dL (31-37) Red Cell Distribution Width 15.5% (11.5-14.5) Platelet Count 960x10^3/uL (140-400) Neutrophils (%) (Auto) 95% (31-73) Lymphocytes (%) (Auto) 1% (24-48) Monocytes (%) (Auto) 3% (0-9) Eosinophils (%) (Auto) 0% (0-3) Basophils (%) (Auto) 1% (0-3) Neutrophils # (Auto) 17.3x10^3uL (1.8-7.7) Lymphocytes # (Auto) 0.2x10^3/uL (1.0-4.8) Monocytes # (Auto) 0.5x10^3/uL (0.0-1.1) Eosinophils # (Auto) 0.1x10^3/uL (0.0-0.7) Basophils # (Auto) 0.1x10^3/uL (0.0-0.2) Platelet Estimate Increased (ADEQUATE) Large Platelets Mod Sodium Level 137mmol/L (136-145) Potassium Level 3.8mmol/L (3.5-5.1) Chloride Level 100mmol/L (98-107) Carbon Dioxide Level 29mmol/L (21-32) Anion Gap 8 (6-14) Blood Urea Nitrogen 15mg/dL (7-20) Creatinine 0.6mg/dL (0.6-1.0) Estimated GFR (Cockcroft-Gault) 95.0 Glucose Level 136mg/dL (70-99) Calcium Level 9.1mg/dL (8.5-10.1) Troponin I Quantitative 0.065ng/mL (0.000-0.055) SY-Jyq-T-Type Natriuretic Peptide 1892pg/mL (0-449) Lactic Acid Level 1.0mmol/L (0.4-2.0) Nasal Screen MRSA (PCR) Negative (Negative) Test 07/09/16 04:30 07/09/16 08:08 07/09/16 11:25 07/09/16 12:00 White Blood Count 10.6x10^3/uL (4.0-11.0) Red Blood Count 3.06x10^6/uL (3.50-5.40) Hemoglobin 9.5g/dL (12.0-15.5) Hematocrit 28.5% (36.0-47.0) Mean Corpuscular Volume 93fL (79-100) Mean Corpuscular Hemoglobin 31pg (25-35) Mean Corpuscular Hemoglobin Concent 34g/dL (31-37) Red Cell Distribution Width 15.4% (11.5-14.5) Platelet Count 821x10^3/uL (140-400) Neutrophils (%) (Auto) 97% (31-73) Lymphocytes (%) (Auto) 2% (24-48) Monocytes (%) (Auto) 0% (0-9) Eosinophils (%) (Auto) 0% (0-3) Basophils (%) (Auto) 0% (0-3) Neutrophils # (Auto) 10.3x10^3uL (1.8-7.7) Lymphocytes # (Auto) 0.2x10^3/uL (1.0-4.8) Monocytes # (Auto) 0.0x10^3/uL (0.0-1.1) Eosinophils # (Auto) 0.0x10^3/uL (0.0-0.7) Basophils # (Auto) 0.0x10^3/uL (0.0-0.2) Segmented Neutrophils % 93% (35-66) Band Neutrophils % 6% (0-9) Lymphocytes % 1% (24-48) Platelet Estimate Increased (ADEQUATE) Anisocytosis Slight Sodium Level 139mmol/L (136-145) Potassium Level 3.7mmol/L (3.5-5.1) Chloride Level 104mmol/L (98-107) Carbon Dioxide Level 26mmol/L (21-32) Anion Gap 9 (6-14) Blood Urea Nitrogen 14mg/dL (7-20) Creatinine 0.5mg/dL (0.6-1.0) Estimated GFR (Cockcroft-Gault) 117.3 Glucose Level 157mg/dL (70-99) Calcium Level 9.8mg/dL (8.5-10.1) Troponin I Quantitative 0.065ng/mL (0.000-0.055) 0.063ng/mL (0.000-0.055) Glucose (Fingerstick) 141mg/dL (70-99) 159mg/dL (70-99) Test 07/09/16 16:35 07/09/16 20:54 07/10/16 04:45 07/10/16 06:30 Glucose (Fingerstick) 192mg/dL (70-99) 164mg/dL (70-99) White Blood Count 11.9x10^3/uL (4.0-11.0) Red Blood Count 2.81x10^6/uL (3.50-5.40) Hemoglobin 8.8g/dL (12.0-15.5) Hematocrit 26.0% (36.0-47.0) Mean Corpuscular Volume 93fL (79-100) Mean Corpuscular Hemoglobin 32pg (25-35) Mean Corpuscular Hemoglobin Concent 34g/dL (31-37) Red Cell Distribution Width 15.2% (11.5-14.5) Platelet Count 757x10^3/uL (140-400) Neutrophils (%) (Auto) 84% (31-73) Lymphocytes (%) (Auto) 6% (24-48) Monocytes (%) (Auto) 11% (0-9) Eosinophils (%) (Auto) 0% (0-3) Basophils (%) (Auto) 0% (0-3) Neutrophils # (Auto) 9.9x10^3uL (1.8-7.7) Lymphocytes # (Auto) 0.7x10^3/uL (1.0-4.8) Monocytes # (Auto) 1.3x10^3/uL (0.0-1.1) Eosinophils # (Auto) 0.0x10^3/uL (0.0-0.7) Basophils # (Auto) 0.0x10^3/uL (0.0-0.2) Sodium Level 141mmol/L (136-145) Potassium Level 4.1mmol/L (3.5-5.1) Chloride Level 105mmol/L (98-107) Carbon Dioxide Level 30mmol/L (21-32) Anion Gap 6 (6-14) Blood Urea Nitrogen 16mg/dL (7-20) Creatinine 0.6mg/dL (0.6-1.0) Estimated GFR (Cockcroft-Gault) 95.0 Glucose Level 110mg/dL (70-99) Calcium Level 8.6mg/dL (8.5-10.1) Urine Collection Type Unknown Urine Color Yellow Urine Clarity Clear Urine pH 6.0 Urine Specific [place] 1.010 Urine Protein Negativemg/dL (NEG-TRACE) Urine Glucose (UA) Negativemg/dL (NEG) Urine Ketones (Stick) Negativemg/dL (NEG) Urine Blood Negative (NEG) Urine Nitrite Positive (NEG) Urine Bilirubin Negative (NEG) Urine Urobilinogen Dipstick 0.2mg/dL (0.2 mg/dL) Urine Leukocyte Esterase Moderate (NEG) Urine RBC Rare/HPF (0-2) Urine WBC 20-40/HPF (0-4) Urine Squamous Epithelial Cells Few/LPF Urine Bacteria Many/HPF (0-FEW) Test 07/10/16 07:35 Glucose (Fingerstick) 103mg/dL (70-99) Laboratory Tests Test 07/09/16 11:25 07/09/16 12:00 07/09/16 16:35 07/09/16 20:54 Glucose (Fingerstick) 159mg/dL (70-99) 192mg/dL (70-99) 164mg/dL (70-99) Troponin I Quantitative 0.063ng/mL (0.000-0.055) Test 07/10/16 04:45 07/10/16 06:30 07/10/16 07:35 White Blood Count 11.9x10^3/uL (4.0-11.0) Red Blood Count 2.81x10^6/uL (3.50-5.40) Hemoglobin 8.8g/dL (12.0-15.5) Hematocrit 26.0% (36.0-47.0) Mean Corpuscular Volume 93fL (79-100) Mean Corpuscular Hemoglobin 32pg (25-35) Mean Corpuscular Hemoglobin Concent 34g/dL (31-37) Red Cell Distribution Width 15.2% (11.5-14.5) Platelet Count 757x10^3/uL (140-400) Neutrophils (%) (Auto) 84% (31-73) Lymphocytes (%) (Auto) 6% (24-48) Monocytes (%) (Auto) 11% (0-9) Eosinophils (%) (Auto) 0% (0-3) Basophils (%) (Auto) 0% (0-3) Neutrophils # (Auto) 9.9x10^3uL (1.8-7.7) Lymphocytes # (Auto) 0.7x10^3/uL (1.0-4.8) Monocytes # (Auto) 1.3x10^3/uL (0.0-1.1) Eosinophils # (Auto) 0.0x10^3/uL (0.0-0.7) Basophils # (Auto) 0.0x10^3/uL (0.0-0.2) Sodium Level 141mmol/L (136-145) Potassium Level 4.1mmol/L (3.5-5.1) Chloride Level 105mmol/L (98-107) Carbon Dioxide Level 30mmol/L (21-32) Anion Gap 6 (6-14) Blood Urea Nitrogen 16mg/dL (7-20) Creatinine 0.6mg/dL (0.6-1.0) Estimated GFR (Cockcroft-Gault) 95.0 Glucose Level 110mg/dL (70-99) Calcium Level 8.6mg/dL (8.5-10.1) Urine Collection Type Unknown Urine Color Yellow Urine Clarity Clear Urine pH 6.0 Urine Specific [place] 1.010 Urine Protein Negativemg/dL (NEG-TRACE) Urine Glucose (UA) Negativemg/dL (NEG) Urine Ketones (Stick) Negativemg/dL (NEG) Urine Blood Negative (NEG) Urine Nitrite Positive (NEG) Urine Bilirubin Negative (NEG) Urine Urobilinogen Dipstick 0.2mg/dL (0.2 mg/dL) Urine Leukocyte Esterase Moderate (NEG) Urine RBC Rare/HPF (0-2) Urine WBC 20-40/HPF (0-4) Urine Squamous Epithelial Cells Few/LPF Urine Bacteria Many/HPF (0-FEW) Glucose (Fingerstick) 103mg/dL (70-99) Microbiology 07/08/16 Blood Culture - Preliminary, Resulted NO GROWTH AFTER 1 DAY Medications Current Medications Albuterol/ Ipratropium (Duoneb) 3 ml 1X ONCE NEB Last administered on 20:40; Start 07/08/16 at 20:30; Stop 07/08/16 at 20:31; Status DC Methylprednisolone Sodium Succinate 125 mg 125 mg 1X ONCE IV Last administered on 07/08/16 21:00; Start 07/08/16 at 20:30; Stop 07/08/16 at 20:31 ; Status DC Nitroglycerin/ Dextrose (Nitroglycerin Drip) 250 ml @ 0 mls/hr 1X ONCE IV Last administered on 07/08/16 21:21; Start 07/08/16 at 21:00; Stop 07/08/16 at 22:56; Status DC Ondansetron HCl (Zofran) 4 mg PRN Q8HRS PRN IV NAUSEA/VOMITING; Start 07/08/16 at 22:15; Stop 07/09/16 at 22:14; Status DC Acetaminophen (Tylenol) 650 mg PRN Q4HRS PRN PO FEVER; Start 07/08/16 at 22:15 ; Stop 07/09/16 at 22:14; Status DC Albuterol/ Ipratropium (Duoneb) 3 ml RTQID NEB Last administered on 07/09/16 08:53; Start 07/09/16 at 08:00; Stop 07/09/16 at 09:26; Status DC Clonidine HCl (Catapres) 0.1 mg TID PO Last administered on 07/09/16 20:53; Start 07/09/16 at 00:45 Metoprolol Succinate (Toprol Xl) 50 mg HS PO Last administered on 07/09/16 20: 54; Start 07/09/16 at 01:00 Acetaminophen/ Hydrocodone Bitart (Lortab 5/325) 1 tab PRN Q6HRS PRN PO PAIN; Start 07/09/16 at 00:45 Enoxaparin Sodium (Lovenox Per Pharmacy Prophylaxis Dosing) 1 each PRN DAILY PRN MC SEE COMMENTS; Start 07/09/16 at 07:45; Stop 07/09/16 at 16:14; Status DC Aspirin (Ecotrin) 81 mg DAILY PO Last administered on 07/09/16 08:42; Start at 09:00 Diltiazem HCl (Cardizem 24hr Cd) 180 mg DAILY PO Last administered on 08:41; Start 07/09/16 at 09:00 Acetaminophen/ Hydrocodone Bitart (Lortab 5/325) 1 tab PRN Q6HRS PRN PO PAIN; Start 07/09/16 at 07:45; Stop 07/09/16 at 16:14; Status DC Albuterol/ Ipratropium (Duoneb) 3 ml RTQID NEB Last administered on 07/09/16 21:20; Start 07/09/16 at 09:00 Lisinopril (Prinivil) 10 mg DAILY PO Last administered on 07/09/16 08:41; Start 07/09/16 at 09:00 Mirtazapine (Remeron) 15 mg QHS PO Last administered on 07/09/16 20:54; Start 07/09/16 at 21:00 Latanoprost (Xalatan) 1 drop QHS OU Last administered on 07/10/16 00:43; Start 07/09/16 at 21:00 Calcium Carbonate/ Glycine (Oscal) 1,000 mg BIDAFTMEAL PO Last administered on 07/09/16 17:17; Start 07/09/16 at 09:00 Non-Formulary Medication 1,500 mg BID PO ; Start 07/09/16 at 09:00; Stop at 09:00; Status DC Pantoprazole Sodium (Protonix) 40 mg DAILYBFRLUN PO Last administered on 15:21; Start 07/09/16 at 11:30 Multivitamins/ Calcium (Thera M Plus) 1 tab DAILY PO Last administered on 08:41; Start 07/09/16 at 09:00 Oxybutynin Chloride (Ditropan) 5 mg BID PO Last administered on 07/09/16 20:52 ; Start 07/09/16 at 09:00 Atorvastatin Calcium (Lipitor) 20 mg QHS PO Last administered on 07/09/16 20: 54; Start 07/09/16 at 21:00 Albuterol Sulfate (Ventolin Neb Soln) 2.5 mg PRN Q4HRS PRN NEB SHORTNESS OF BREATH; Start 07/09/16 at 08:00 Prednisone (Prednisone) 30 mg DAILY PO Last administered on 07/09/16 08:42; Start 07/09/16 at 09:00 Insulin Aspart (Novolog) 0-7 UNITS TIDWMEALS SQ Last administered on 07/10/16 00:48; Start 07/09/16 at 08:00 Dextrose 12.5 gm PRN Q15MIN PRN IV SEE COMMENTS; Start 07/09/16 at 08:00 Iohexol (Omnipaque 300 Mg/ml) 75 ml 1X ONCE IV Last administered on 07/09/16 10:59; Start 07/09/16 at 08:00; Stop 07/09/16 at 08:04; Status DC Furosemide (Lasix) 20 mg 1X ONCE IVP Last administered on 07/09/16 17:13; Start 07/09/16 at 16:00; Stop 07/09/16 at 16:01; Status DC Enoxaparin Sodium (Lovenox 40mg Syringe) 40 mg Q24H SQ Last administered on 17:13; Start 07/09/16 at 17:00 Active Scripts Active Duoneb 0.5-3(2.5) Mg/3 Ml (Albuterol/Ipratropium) 3 Ml Ampul.neb 3 Ml NEB QID Reported Ledbetter 5-325 Tablet (Acetaminophen/Hydrocodone Bitart) 1 Each Tablet 1 Tab PO PRN Q6HRS PRN Oxybutynin Chloride Er (Oxybutynin Chloride) 10 Mg Tab.er.24 1 Tab PO DAILY Mirtazapine 15 Mg Tablet 0.5 Tab PO QHS Lisinopril 10 Mg Tablet 1 Tab PO DAILY Aspir 81 (Aspirin) 81 Mg Tablet.dr 1 Tab PO DAILY Clonidine Hcl 0.1 Mg Tablet 1 Tab PO TID Lumigan (Bimatoprost) 2.5 Ml Drops 1 Drop EACHEYE QHS Calcium (Calcium Carbonate) 600 Mg Tablet 1,200 Mg PO BID Glucosamine Sulfate (Glucosamine Sulfate 2KCL) 1,000 Mg Tablet 1,500 Mg PO BID Pravastatin Sodium 80 Mg Tablet 80 Mg PO HS Toprol Xl (Metoprolol Succinate) 50 Mg Tab.er.24h 50 Mg PO HS Diltiazem 24HR Cd (Diltiazem Hcl) 180 Mg Cap.er.24h 180 Mg PO DAILY Multi For Her Tablet (Mv,Ca,Min/Iron Fum/Fa/Vit K) 1 Each Tablet 1 Each PO DAILY Lansoprazole 15 Mg Capsule.dr 15 Mg PO DAILYBFRLUN Proair Hfa Inhaler (Albuterol Sulfate) 8.5 Gm Hfa.aer.ad 2 Puff INH PRN Q6HRS PRN Vitals/I & O Vital Sign - Last 24 Hours 07/09/16 07/09/16 07/09/16 07/09/16 08:54 10:57 11:28 14:49 Temp 97.9 98.0 97.9 98.0 Pulse 84 89 Resp 18 18 B/P 151/73 154/76 Pulse Ox 89 93 90 O2 Delivery Room Air Nasal Cannula Nasal Cannula Nasal Cannula O2 Flow Rate 2.0 2.0 2.0 07/09/16 07/09/16 07/09/16 07/09/16 15:22 15:30 19:00 20:00 Temp 98.3 98.3 Pulse 89 79 Resp 18 B/P 154/76 143/68 Pulse Ox 94 O2 Delivery Nasal Cannula Room Air Nasal Cannula O2 Flow Rate 2.0 3.0 07/09/16 07/09/16 07/09/16 07/09/16 20:53 20:54 21:22 23:11 Temp 98.1 98.1 Pulse 84 84 87 Resp 20 B/P 144/67 144/67 137/68 Pulse Ox 85 96 O2 Delivery Nasal Cannula Nasal Cannula O2 Flow Rate 2.0 2.0 07/10/16 07/10/16 03:39 07:00 Temp 97.9 96.5 97.9 96.5 Pulse 73 69 Resp 18 20 B/P 126/64 161/49 Pulse Ox 94 96 O2 Delivery Nasal Cannula Nasal Cannula O2 Flow Rate 2.0 3.0 Intake and Output 07/09/16 07/09/16 07/10/16 15:00 23:00 07:00 Intake Total 380 ml 720 ml Output Total 700 ml 350 ml Balance 380 ml 20 ml -350 ml IAN BLAKE MD Jul 10, 2016 08:56
--- NOTE | 2016-07-10 10:08 | PDOC2 ---
GI CONSULT Reason For Consult: Achalasia HPI: HPI: 86 y/o female admitted for dyspnea/hypoxia (improving). Had Chest CTA yesterday which was significant for diffusely dilated and fluid-filled esophagus ; GI consulted for possible achalasia. Denies dysphagia, odynophagia, chest pain. Has had some right shoulder blade pain for awhile which at first she thought was related to an injury/overuse or arthritis, but now denies aggravating or alleviating factors. No weight loss, change in appetite - eating well. H/o GERD controlled w/ Nexium. 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 Has a little constipation now, planning to drink some prune juice. H/o colon cancer diagnosed on colonoscopy by Dr. Shama Jo in 02/2015, s/p right colectomy 2014. PMH: PMH: HTN, HLD, aortic atherosclerosis, CHF, COPD, GERD, colon cancer, anxiety, back pain, OA, glaucoma, urinary incontinence, osteopenia, pacemaker, right ankle arthroscopy, hysterectomy, right colectomy, breast surgery (removal of cysts) FH: Family History: No pertinent hx Social History: Smoke: Quit ALCOHOL: rare Drugs: None ROS: GEN: Denies fevers, chills, sweats HEENT: Denies blurred vision, sore throat CV: Denies chest pain RESP: +SOA GI: Per HPI : Denies hematuria, dysuria ENDO: Denies weight changes NEURO: Denies confusion, dizziness MSK: +back pain SKIN: Denies jaundice, pruritus VItals: Vitals: Vital Signs Date Time Temp Pulse Resp B/P Pulse Ox O2 Delivery O2 Flow Rate FiO2 07/10/16 08:30 69 161/49 07/10/16 07:00 96.5 20 96 Nasal Cannula 3.0 96.5 Labs: Labs: Laboratory Tests Test 07/09/16 11:25 07/09/16 12:00 07/09/16 16:35 07/09/16 20:54 Glucose (Fingerstick) 159mg/dL (70-99) 192mg/dL (70-99) 164mg/dL (70-99) Troponin I Quantitative 0.063ng/mL (0.000-0.055) Test 07/10/16 04:45 07/10/16 06:30 07/10/16 07:35 White Blood Count 11.9x10^3/uL (4.0-11.0) Red Blood Count 2.81x10^6/uL (3.50-5.40) Hemoglobin 8.8g/dL (12.0-15.5) Hematocrit 26.0% (36.0-47.0) Mean Corpuscular Volume 93fL (79-100) Mean Corpuscular Hemoglobin 32pg (25-35) Mean Corpuscular Hemoglobin Concent 34g/dL (31-37) Red Cell Distribution Width 15.2% (11.5-14.5) Platelet Count 757x10^3/uL (140-400) Neutrophils (%) (Auto) 84% (31-73) Lymphocytes (%) (Auto) 6% (24-48) Monocytes (%) (Auto) 11% (0-9) Eosinophils (%) (Auto) 0% (0-3) Basophils (%) (Auto) 0% (0-3) Neutrophils # (Auto) 9.9x10^3uL (1.8-7.7) Lymphocytes # (Auto) 0.7x10^3/uL (1.0-4.8) Monocytes # (Auto) 1.3x10^3/uL (0.0-1.1) Eosinophils # (Auto) 0.0x10^3/uL (0.0-0.7) Basophils # (Auto) 0.0x10^3/uL (0.0-0.2) Sodium Level 141mmol/L (136-145) Potassium Level 4.1mmol/L (3.5-5.1) Chloride Level 105mmol/L (98-107) Carbon Dioxide Level 30mmol/L (21-32) Anion Gap 6 (6-14) Blood Urea Nitrogen 16mg/dL (7-20) Creatinine 0.6mg/dL (0.6-1.0) Estimated GFR (Cockcroft-Gault) 95.0 Glucose Level 110mg/dL (70-99) Calcium Level 8.6mg/dL (8.5-10.1) Urine Collection Type Unknown Urine Color Yellow Urine Clarity Clear Urine pH 6.0 Urine Specific [place] 1.010 Urine Protein Negativemg/dL (NEG-TRACE) Urine Glucose (UA) Negativemg/dL (NEG) Urine Ketones (Stick) Negativemg/dL (NEG) Urine Blood Negative (NEG) Urine Nitrite Positive (NEG) Urine Bilirubin Negative (NEG) Urine Urobilinogen Dipstick 0.2mg/dL (0.2 mg/dL) Urine Leukocyte Esterase Moderate (NEG) Urine RBC Rare/HPF (0-2) Urine WBC 20-40/HPF (0-4) Urine Squamous Epithelial Cells Few/LPF Urine Bacteria Many/HPF (0-FEW) Glucose (Fingerstick) 103mg/dL (70-99) Allergies: Coded Allergies: No Known Drug Allergies (Unverified , 08/19/15) Medications: Current Medications Medications (Trade) Dose Ordered Sig/Shu Route PRN Reason Start Time Stop Time Status Last Admin Dose Admin Mirtazapine (Remeron) 15 mg QHS PO 07/09/16 21:00 07/09/16 20:54 Latanoprost (Xalatan) 1 drop QHS OU 07/09/16 21:00 07/10/16 00:43 Pantoprazole Sodium (Protonix) 40 mg DAILYBFRLUN PO 07/09/16 11:30 07/09/16 15:21 Atorvastatin Calcium (Lipitor) 20 mg QHS PO 07/09/16 21:00 07/09/16 20:54 Furosemide (Lasix) 20 mg 1X ONCE IVP 07/09/16 16:00 07/09/16 16:01 DC 07/09/16 17:13 Enoxaparin Sodium (Lovenox 40mg Syringe) 40 mg Q24H SQ 07/09/16 17:00 07/09/16 17:13 Imaging: Imaging: CXR 07/08/16 Impression: Stable chest since exam from 06/26/2016. LE US 07/09/16 IMPRESSION: No evidence of right or left lower extremity DVT. Chest CTA 07/09/16 Impression: 1. No evidence of pulmonary embolism or thoracic aortic dissection. 2. Small bilateral pleural effusions. 3. Severe emphysematous changes bilaterally with bibasilar atelectasis. 4. Diffusely dilated and fluid-filled esophagus. PE: GEN: NAD HEENT: Atraumatic, PERRLA LUNGS: CTAB HEART: RRR, no murmurs ABD: NABS, S/ND/NT, no masses EXTREMITY: No edema SKIN: No rashes, no jaundice NEURO/PSYCH: A & O 3 A/P: A/P: Abnormal CT chest w/ dilated, fluid-dilled esophagus -no dysphagia/odynophagia, does have back pain (right shoulder blade) H/o GERD, Casillas's -last EGD 08/2015, symptoms controlled w/ PPI H/o colon cancer s/p right colectomy -colonoscopy 02/2015, surgery 03/2015 Constipation -just recently, plans to drink pruce juice Leukocytosis, thrombocytosis, anemia -- ?achalasia - no dysphagia, does have some back pain. Will review w/ Dr. Kirkland - ?barium swallow ?esophageal manometry w/ Dr. Shetty as outpt. Continue PPI, will add Miralax. IDALIA MEHTA Jul 10, 2016 10:08
[2016-07-10] MEDS: PANTOPRAZOLE 40 MG TABLET. PO SCH (11:52)
[2016-07-10] MEDS: POLYETHYLENE GLYCOL 3350 17 GM PACKET. PO SCH (11:52)
--- NOTE | 2016-07-10 13:00 | PDOC ---
ELA BORGES PERSONAL LINES ACCOUNT MANAGER 07/10/16 1300: CARDIO Progress Notes Date and Time Date of Service 07/10/2016 Time of Evaluation 1230 Subjective Subjective: No Chest Pain, No shortness of breath, No Palpitations, No Dizziness, Other (slept well last night, appetite better) Vitals Vitals Vital Signs Date Time Temp Pulse Resp B/P Pulse Ox O2 Delivery O2 Flow Rate FiO2 07/10/16 11:46 98 Nasal Cannula 2.0 07/10/16 11:12 96.5 74 20 161/62 96.5 Weight Weight [ ] Input and Output Intake and Output Intake and Output 07/10/16 07:00 Intake Total 1100 ml Output Total 1050 ml Balance 50 ml Intake Oral 1100 ml Output Urine Total 1050 ml # Voids 5 # Bowel Movements 1 Laboratory Labs Laboratory Tests Test 07/09/16 16:35 07/09/16 20:54 07/10/16 04:45 07/10/16 06:30 Glucose (Fingerstick) 192mg/dL (70-99) 164mg/dL (70-99) White Blood Count 11.9x10^3/uL (4.0-11.0) Red Blood Count 2.81x10^6/uL (3.50-5.40) Hemoglobin 8.8g/dL (12.0-15.5) Hematocrit 26.0% (36.0-47.0) Mean Corpuscular Volume 93fL (79-100) Mean Corpuscular Hemoglobin 32pg (25-35) Mean Corpuscular Hemoglobin Concent 34g/dL (31-37) Red Cell Distribution Width 15.2% (11.5-14.5) Platelet Count 757x10^3/uL (140-400) Neutrophils (%) (Auto) 84% (31-73) Lymphocytes (%) (Auto) 6% (24-48) Monocytes (%) (Auto) 11% (0-9) Eosinophils (%) (Auto) 0% (0-3) Basophils (%) (Auto) 0% (0-3) Neutrophils # (Auto) 9.9x10^3uL (1.8-7.7) Lymphocytes # (Auto) 0.7x10^3/uL (1.0-4.8) Monocytes # (Auto) 1.3x10^3/uL (0.0-1.1) Eosinophils # (Auto) 0.0x10^3/uL (0.0-0.7) Basophils # (Auto) 0.0x10^3/uL (0.0-0.2) Sodium Level 141mmol/L (136-145) Potassium Level 4.1mmol/L (3.5-5.1) Chloride Level 105mmol/L (98-107) Carbon Dioxide Level 30mmol/L (21-32) Anion Gap 6 (6-14) Blood Urea Nitrogen 16mg/dL (7-20) Creatinine 0.6mg/dL (0.6-1.0) Estimated GFR (Cockcroft-Gault) 95.0 Glucose Level 110mg/dL (70-99) Calcium Level 8.6mg/dL (8.5-10.1) Urine Collection Type Unknown Urine Color Yellow Urine Clarity Clear Urine pH 6.0 Urine Specific [place] 1.010 Urine Protein Negativemg/dL (NEG-TRACE) Urine Glucose (UA) Negativemg/dL (NEG) Urine Ketones (Stick) Negativemg/dL (NEG) Urine Blood Negative (NEG) Urine Nitrite Positive (NEG) Urine Bilirubin Negative (NEG) Urine Urobilinogen Dipstick 0.2mg/dL (0.2 mg/dL) Urine Leukocyte Esterase Moderate (NEG) Urine RBC Rare/HPF (0-2) Urine WBC 20-40/HPF (0-4) Urine Squamous Epithelial Cells Few/LPF Urine Bacteria Many/HPF (0-FEW) Test 07/10/16 07:35 07/10/16 10:49 Glucose (Fingerstick) 103mg/dL (70-99) 122mg/dL (70-99) Microbiology Micro Microbiology 07/08/16 Blood Culture - Preliminary, Resulted NO GROWTH AFTER 1 DAY Physical Exam HEENT: Neck Supple W Full Motion Chest: Symmetric LUNGS: Other (faint bibasialr crackles, diminished) Heart: S1S2, murmurs (3/6 systolic murmur to LLS border) Abdomen: Soft N/T Extremities: No Calf Tenderness, Other (trace LE edema) Neurology: alert, oriented, follow commands Assessment Assessment 1. Dyspnea/hypoxia: highly suspect AECOPD. Demand mediated minimal elevation in troponin at 0.06 r/t hypoxia, EKG sinus tach without acute changes. Possible viral syndrome with COPD and will defer to PCP. Much better today. 2. Leukocytosis/thrombocytosis: Reactive? PLT 810. Recent sepsis/UTI. Defer to PCP. 3. Acute on Chronic diastolic CHF: Superimposed by AECOPD notable for small bilateral pleural effusion via CT chest. Received x1 lasix yesterday. Clinically compensated. Nothing further at this time. 4. Accelerated HTN: mildly labile. Continue current regimen, uptitration, defer to PCP 6. 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 Recent setting adjustment due to arrhythmia described below otherwise normal functioning device per interrogation 7. HLP: on statin. 8. Arrhythmia: Prior atrial tach. Remains to have episode of possible PMTs and atrial tach in the 100-120 but asymptomatic. Was recently placed on amiodarone for short term therapy and now off, suspect due to severe COPD. Continue on metoprolol and cardizem. 9. Possible achalasia: Noted with diffusely dilated and fluid-filled esophagus which could be contributing to her mid upper back pain. GI has been consulted. RASHID TREVINO MD 07/10/16 1654: CARDIO Progress Notes Assessment Assessment Patient seen and examined. Agree with PEDIATRIC CLINICAL DIETICIAN's assessment and plan. Acute on chronic diastolic HF better compensated. BP better controlled. Continue current medical regimen. ELA BORGES APRN Jul 10, 2016 13:00 RASHID TREVINO MD Jul 10, 2016 16:54
[2016-07-10] MEDS ORDERED: BARIUM SULFATE 98% 135 ML SUSP PO ONE (14:00)
[2016-07-10] MEDS ORDERED: BARIUM SULFATE 60% 355 ML SUSP PO ONE (14:00)
--- NOTE | 2016-07-10 14:49 | RAD ---
Indication: Abnormal CT chest demonstrating esophageal dilatation. The patient ingested thin barium and imaging over the esophagus was performed. Correlation is made with recent CT chest from 1 day earlier. The esophagus has a smooth contour. Occasional tertiary contractions are noted. There is decreased primary peristaltic waves consistent with presbyesophagus with mild dilatation present. No esophageal mass or stricture is identified. There is a moderate-sized hiatal hernia. No significant gastroesophageal reflux was identified. Impression: Presbyesophagus. There is a hiatal hernia. The study is otherwise unremarkable.
[2016-07-10] MEDS: ENOXAPARIN 40 MG/0.4 ML DISP.SYRIN. SQ SCH (17:06)
[2016-07-10] MEDS: METOPROLOL SUCC 24HR ER 50 MG TAB.ER.24H. PO SCH (21:00)
[2016-07-10] MEDS: ATORVASTATIN CALCIUM 20 MG TABLET PO SCH (21:10)
[2016-07-10] MEDS: MIRTAZAPINE 15 MG TABLET PO SCH (21:11)
[2016-07-11 02:56] VITALS: BP 132/61
[2016-07-11] MEDS: HYDROCODONE/APAP 5/325MG TABLET. PO PRN ×2 (04:45→22:43)
[2016-07-11 06:22] LABS: HEMATOCRIT 26.8 % (36.0-47.0); HEMOGLOBIN 8.7 g/dL (12.0-15.5); RED BLOOD COUNT 2.88 x10^6/uL (3.50-5.40); RED CELL DISTRIBUTION WIDTH 15.3 % (11.5-14.5); WHITE BLOOD COUNT 11.6 x10^3/uL (4.0-11.0)
[2016-07-11 07:00] VITALS: BP 144/63
[2016-07-11] MEDS: IPRATRPIUM/ALBUTEROL 0.5/2.5MG 3 ML NEBU. NEB SCH ×4 (07:24→20:03)
[2016-07-11] MEDS: POLYETHYLENE GLYCOL 3350 17 GM PACKET. PO SCH (08:45)
[2016-07-11] MEDS: DILTIAZEM HCL 180 MG CAP.ER.24H PO SCH (08:45)
[2016-07-11] MEDS: PREDNISONE 10 MG TABLET PO SCH (08:45)
[2016-07-11] MEDS: CALCIUM CARBONATE 500 MG TABLET PO SCH ×2 (08:45→17:58)
[2016-07-11] MEDS: ASPIRIN ENTERIC COATED 81 MG TABLET.DR. PO SCH (08:45)
[2016-07-11] MEDS: CLONIDINE HCL 0.1 MG TABLET PO SCH ×3 (08:46→20:36)
[2016-07-11] MEDS: OXYBUTYNIN CHLORIDE 5 MG TABLET PO SCH ×2 (08:46→20:36)
[2016-07-11] MEDS: MULTIVITAMIN with MINERAL TABLET. PO SCH (08:46)
[2016-07-11] MEDS: LISINOPRIL 10 MG TABLET PO SCH (08:46)
[2016-07-11 11:00] VITALS: BP 116/70
[2016-07-11] MEDS: PANTOPRAZOLE 40 MG TABLET. PO SCH (11:48)
[2016-07-11] MEDS: INSULIN ASPART 300 UNITS/3 ML INSULN.PEN SQ SCH ×2 (11:48→17:27)
--- NOTE | 2016-07-11 13:24 | PDOC ---
PROGRESS NOTES Subjective Subjective Patient reports intermittent dysphagia, feels like things "stick" in the back of her throat. Denies CP. Does admit to [facility]. Objective Objective Vital Signs Date Time Temp Pulse Resp B/P Pulse Ox O2 Delivery O2 Flow Rate FiO2 07/11/16 11:25 96 Nasal Cannula 2.0 07/11/16 11:00 97.9 70 18 116/70 97.9 Intake and Output 07/11/16 07:00 Intake Total 536 ml Output Total 1000 ml Balance -464 ml Intake Oral 536 ml Output Urine Total 1000 ml # Voids 1 Physical Exam Abdomen: Normal bowel sounds, Soft, No tenderness Heart: Regular rate Extremities: No edema General: Alert, Oriented X3, No acute distress Lungs: Other (BS decreased throughout but CTA) Assessment Assessment Problems Medical Problems: (1) CHF (congestive heart failure) Status: Acute (2) COPD (chronic obstructive pulmonary disease) Status: Acute (3) COPD exacerbation Status: Acute Plan Plan of Care 1. Acute on chronic respiratory failure with AE COPD - doing better. Did have significant hypoxia with PT yesterday. Continue O2, nebs and po Prednisone. 2. CHF with mild diastolic dysfunction - stable, continue present meds. 3. hx tachyarrhythmias - stable. 4. possible UTI - await urine culture report. Blood culture with one bottle positive for gram positive cocci, suspect contaminant. No abx presently, await culture reports. 5. glucose intolerance - FSBG much improved. Continue ADA diet. 6. thrombocytosis - reactive? Slowly decreasing. Continue Lovenox. 7. possible achalasia/dysphagia - barium swallow showed hiatal hernia and presbyesophagus, patient now reports other symptoms. Await further GI input on Wednesday. 8. debility - patient was at [facility] prior to this admission. Continue PT and OT while she is here. Unclear at present whether she will be able to go home at discharge or need to return to . Comment Review of Relevant I have reviewed the following items forest (where applicable) has been applied. Labs Laboratory Tests Test 07/09/16 16:35 07/09/16 20:54 07/10/16 04:45 07/10/16 06:30 Glucose (Fingerstick) 192mg/dL (70-99) 164mg/dL (70-99) White Blood Count 11.9x10^3/uL (4.0-11.0) Red Blood Count 2.81x10^6/uL (3.50-5.40) Hemoglobin 8.8g/dL (12.0-15.5) Hematocrit 26.0% (36.0-47.0) Mean Corpuscular Volume 93fL (79-100) Mean Corpuscular Hemoglobin 32pg (25-35) Mean Corpuscular Hemoglobin Concent 34g/dL (31-37) Red Cell Distribution Width 15.2% (11.5-14.5) Platelet Count 757x10^3/uL (140-400) Neutrophils (%) (Auto) 84% (31-73) Lymphocytes (%) (Auto) 6% (24-48) Monocytes (%) (Auto) 11% (0-9) Eosinophils (%) (Auto) 0% (0-3) Basophils (%) (Auto) 0% (0-3) Neutrophils # (Auto) 9.9x10^3uL (1.8-7.7) Lymphocytes # (Auto) 0.7x10^3/uL (1.0-4.8) Monocytes # (Auto) 1.3x10^3/uL (0.0-1.1) Eosinophils # (Auto) 0.0x10^3/uL (0.0-0.7) Basophils # (Auto) 0.0x10^3/uL (0.0-0.2) Sodium Level 141mmol/L (136-145) Potassium Level 4.1mmol/L (3.5-5.1) Chloride Level 105mmol/L (98-107) Carbon Dioxide Level 30mmol/L (21-32) Anion Gap 6 (6-14) Blood Urea Nitrogen 16mg/dL (7-20) Creatinine 0.6mg/dL (0.6-1.0) Estimated GFR (Cockcroft-Gault) 95.0 Glucose Level 110mg/dL (70-99) Calcium Level 8.6mg/dL (8.5-10.1) Urine Collection Type Unknown Urine Color Yellow Urine Clarity Clear Urine pH 6.0 Urine Specific [place] 1.010 Urine Protein Negativemg/dL (NEG-TRACE) Urine Glucose (UA) Negativemg/dL (NEG) Urine Ketones (Stick) Negativemg/dL (NEG) Urine Blood Negative (NEG) Urine Nitrite Positive (NEG) Urine Bilirubin Negative (NEG) Urine Urobilinogen Dipstick 0.2mg/dL (0.2 mg/dL) Urine Leukocyte Esterase Moderate (NEG) Urine RBC Rare/HPF (0-2) Urine WBC 20-40/HPF (0-4) Urine Squamous Epithelial Cells Few/LPF Urine Bacteria Many/HPF (0-FEW) Test 07/10/16 07:35 07/10/16 10:49 07/10/16 16:07 07/10/16 20:47 Glucose (Fingerstick) 103mg/dL (70-99) 122mg/dL (70-99) 153mg/dL (70-99) 186mg/dL (70-99) Test 07/11/16 05:00 07/11/16 07:49 07/11/16 11:31 White Blood Count 11.6x10^3/uL (4.0-11.0) Red Blood Count 2.88x10^6/uL (3.50-5.40) Hemoglobin 8.7g/dL (12.0-15.5) Hematocrit 26.8% (36.0-47.0) Mean Corpuscular Volume 93fL (79-100) Mean Corpuscular Hemoglobin 30pg (25-35) Mean Corpuscular Hemoglobin Concent 33g/dL (31-37) Red Cell Distribution Width 15.3% (11.5-14.5) Platelet Count 752x10^3/uL (140-400) Glucose (Fingerstick) 79mg/dL (70-99) 123mg/dL (70-99) Laboratory Tests Test 07/10/16 16:07 07/10/16 20:47 07/11/16 05:00 07/11/16 07:49 Glucose (Fingerstick) 153mg/dL (70-99) 186mg/dL (70-99) 79mg/dL (70-99) White Blood Count 11.6x10^3/uL (4.0-11.0) Red Blood Count 2.88x10^6/uL (3.50-5.40) Hemoglobin 8.7g/dL (12.0-15.5) Hematocrit 26.8% (36.0-47.0) Mean Corpuscular Volume 93fL (79-100) Mean Corpuscular Hemoglobin 30pg (25-35) Mean Corpuscular Hemoglobin Concent 33g/dL (31-37) Red Cell Distribution Width 15.3% (11.5-14.5) Platelet Count 752x10^3/uL (140-400) Test 07/11/16 11:31 Glucose (Fingerstick) 123mg/dL (70-99) Microbiology 07/08/16 Blood Culture - Final, Complete Medications Current Medications Albuterol/ Ipratropium (Duoneb) 3 ml 1X ONCE NEB Last administered on 20:40; Start 07/08/16 at 20:30; Stop 07/08/16 at 20:31; Status DC Methylprednisolone Sodium Succinate 125 mg 125 mg 1X ONCE IV Last administered on 07/08/16 21:00; Start 07/08/16 at 20:30; Stop 07/08/16 at 20:31 ; Status DC Nitroglycerin/ Dextrose (Nitroglycerin Drip) 250 ml @ 0 mls/hr 1X ONCE IV Last administered on 07/08/16 21:21; Start 07/08/16 at 21:00; Stop 07/08/16 at 22:56; Status DC Ondansetron HCl (Zofran) 4 mg PRN Q8HRS PRN IV NAUSEA/VOMITING; Start 07/08/16 at 22:15; Stop 07/09/16 at 22:14; Status DC Acetaminophen (Tylenol) 650 mg PRN Q4HRS PRN PO FEVER; Start 07/08/16 at 22:15 ; Stop 07/09/16 at 22:14; Status DC Albuterol/ Ipratropium (Duoneb) 3 ml RTQID NEB Last administered on 07/09/16 08:53; Start 07/09/16 at 08:00; Stop 07/09/16 at 09:26; Status DC Clonidine HCl (Catapres) 0.1 mg TID PO Last administered on 07/11/16 08:46; Start 07/09/16 at 00:45 Metoprolol Succinate (Toprol Xl) 50 mg HS PO Last administered on 07/10/16 21: 00; Start 07/09/16 at 01:00 Acetaminophen/ Hydrocodone Bitart (Lortab 5/325) 1 tab PRN Q6HRS PRN PO PAIN Last administered on 07/11/16 04:45; Start 07/09/16 at 00:45 Enoxaparin Sodium (Lovenox Per Pharmacy Prophylaxis Dosing) 1 each PRN DAILY PRN MC SEE COMMENTS; Start 07/09/16 at 07:45; Stop 07/09/16 at 16:14; Status DC Aspirin (Ecotrin) 81 mg DAILY PO Last administered on 07/11/16 08:45; Start at 09:00 Diltiazem HCl (Cardizem 24hr Cd) 180 mg DAILY PO Last administered on 08:45; Start 07/09/16 at 09:00 Acetaminophen/ Hydrocodone Bitart (Lortab 5/325) 1 tab PRN Q6HRS PRN PO PAIN; Start 07/09/16 at 07:45; Stop 07/09/16 at 16:14; Status DC Albuterol/ Ipratropium (Duoneb) 3 ml RTQID NEB Last administered on 07/11/16 11:24; Start 07/09/16 at 09:00 Lisinopril (Prinivil) 10 mg DAILY PO Last administered on 07/11/16 08:46; Start 07/09/16 at 09:00 Mirtazapine (Remeron) 15 mg QHS PO Last administered on 07/10/16 21:11; Start 07/09/16 at 21:00 Latanoprost (Xalatan) 1 drop QHS OU Last administered on 07/10/16 21:21; Start 07/09/16 at 21:00 Calcium Carbonate/ Glycine (Oscal) 1,000 mg BIDAFTMEAL PO Last administered on 07/11/16 08:45; Start 07/09/16 at 09:00 Non-Formulary Medication 1,500 mg BID PO ; Start 07/09/16 at 09:00; Stop at 09:00; Status DC Pantoprazole Sodium (Protonix) 40 mg DAILYBFRLUN PO Last administered on 11:48; Start 07/09/16 at 11:30 Multivitamins/ Calcium (Thera M Plus) 1 tab DAILY PO Last administered on 08:46; Start 07/09/16 at 09:00 Oxybutynin Chloride (Ditropan) 5 mg BID PO Last administered on 07/11/16 08:46 ; Start 07/09/16 at 09:00 Atorvastatin Calcium (Lipitor) 20 mg QHS PO Last administered on 07/10/16 21: 10; Start 07/09/16 at 21:00 Albuterol Sulfate (Ventolin Neb Soln) 2.5 mg PRN Q4HRS PRN NEB SHORTNESS OF BREATH Last administered on 07/11/16 01:56; Start 07/09/16 at 08:00 Prednisone (Prednisone) 30 mg DAILY PO Last administered on 07/11/16 08:45; Start 07/09/16 at 09:00 Insulin Aspart (Novolog) 0-7 UNITS TIDWMEALS SQ Last administered on 07/10/16 21:18; Start 07/09/16 at 08:00 Dextrose 12.5 gm PRN Q15MIN PRN IV SEE COMMENTS; Start 07/09/16 at 08:00 Iohexol (Omnipaque 300 Mg/ml) 75 ml 1X ONCE IV Last administered on 07/09/16 10:59; Start 07/09/16 at 08:00; Stop 07/09/16 at 08:04; Status DC Furosemide (Lasix) 20 mg 1X ONCE IVP Last administered on 07/09/16 17:13; Start 07/09/16 at 16:00; Stop 07/09/16 at 16:01; Status DC Enoxaparin Sodium (Lovenox 40mg Syringe) 40 mg Q24H SQ Last administered on 17:06; Start 07/09/16 at 17:00 Polyethylene Glycol (miraLAX PACKET) 17 gm DAILY PO Last administered on 08:45; Start 07/10/16 at 11:00 Barium Sulfate (Liquid E-Z Paque) 355 ml 1X ONCE PO Last administered on 14:39; Start 07/10/16 at 14:00; Stop 07/10/16 at 14:06; Status DC Barium Sulfate (E-Z-Hd) 135 ml 1X ONCE PO ; Start 07/10/16 at 14:00; Stop 07/10 at 14:06; Status DC Active Scripts Active Duoneb 0.5-3(2.5) Mg/3 Ml (Albuterol/Ipratropium) 3 Ml Ampul.neb 3 Ml NEB QID Reported Steele 5-325 Tablet (Acetaminophen/Hydrocodone Bitart) 1 Each Tablet 1 Tab PO PRN Q6HRS PRN Oxybutynin Chloride Er (Oxybutynin Chloride) 10 Mg Tab.er.24 1 Tab PO DAILY Mirtazapine 15 Mg Tablet 0.5 Tab PO QHS Lisinopril 10 Mg Tablet 1 Tab PO DAILY Aspir 81 (Aspirin) 81 Mg Tablet. 1 Tab PO DAILY Clonidine Hcl 0.1 Mg Tablet 1 Tab PO TID Lumigan (Bimatoprost) 2.5 Ml Drops 1 Drop EACHEYE QHS Calcium (Calcium Carbonate) 600 Mg Tablet 1,200 Mg PO BID Glucosamine Sulfate (Glucosamine Sulfate 2KCL) 1,000 Mg Tablet 1,500 Mg PO BID Pravastatin Sodium 80 Mg Tablet 80 Mg PO HS Toprol Xl (Metoprolol Succinate) 50 Mg Tab.er.24h 50 Mg PO HS Diltiazem 24HR Cd (Diltiazem Hcl) 180 Mg Cap.er.24h 180 Mg PO DAILY Multi For Her Tablet (Mv,Ca,Min/Iron Fum/Fa/Vit K) 1 Each Tablet 1 Each PO DAILY Lansoprazole 15 Mg Capsule. 15 Mg PO DAILYBFRLUN Proair Hfa Inhaler (Albuterol Sulfate) 8.5 Gm Hfa.aer.ad 2 Puff INH PRN Q6HRS PRN Vitals/I & O Vital Sign - Last 24 Hours 07/10/16 07/10/16 07/10/16 07/10/16 15:18 15:21 15:28 15:30 Temp 97.9 97.9 Pulse 75 75 79 Resp 20 18 B/P 151/70 151/70 164/58 Pulse Ox 95 97 O2 Delivery Nasal Cannula Nasal Cannula Nasal Cannula O2 Flow Rate 2.0 2.0 2.0 07/10/16 07/10/16 07/10/16 07/10/16 19:00 20:00 20:07 21:00 Temp 97.8 97.8 Pulse 75 75 Resp 18 B/P 154/69 154/69 Pulse Ox 95 97 O2 Delivery Nasal Cannula Nasal Cannula Nasal Cannula O2 Flow Rate 2.0 3.0 2.0 07/10/16 07/10/16 07/11/16 07/11/16 21:20 23:00 01:56 02:56 Temp 98.0 97.9 98.0 97.9 Pulse 75 83 74 Resp 20 18 B/P 154/69 138/72 132/61 Pulse Ox 96 96 98 O2 Delivery Room Air Nasal Cannula Nasal Cannula O2 Flow Rate 2.0 3.0 07/11/16 07/11/16 07/11/16 07/11/16 04:45 05:45 07:00 07:25 Temp 98.0 98.0 Pulse 71 Resp 18 B/P 144/63 Pulse Ox 98 98 96 96 O2 Delivery Nasal Cannula Nasal Cannula Nasal Cannula Nasal Cannula O2 Flow Rate 3.0 3.0 2.0 2.0 07/11/16 07/11/16 07/11/16 07/11/16 08:00 08:45 08:46 08:46 Pulse 74 74 74 B/P 132/61 132/61 132/61 O2 Delivery Nasal Cannula O2 Flow Rate 2.0 07/11/16 07/11/16 11:00 11:25 Temp 97.9 97.9 Pulse 70 Resp 18 B/P 116/70 Pulse Ox 94 96 O2 Delivery Nasal Cannula Nasal Cannula O2 Flow Rate 2.0 2.0 Intake and Output 07/10/16 07/10/16 07/11/16 15:00 23:00 07:00 Intake Total 236 ml 300 ml Output Total 1000 ml Balance 236 ml 300 ml -1000 ml IAN BLAKE MD Jul 11, 2016 13:24
[2016-07-11 15:00] VITALS: BP 149/67
[2016-07-11] MEDS: ENOXAPARIN 40 MG/0.4 ML DISP.SYRIN. SQ SCH (17:17)
[2016-07-11 19:00] VITALS: BP 145/82
[2016-07-11] MEDS: ATORVASTATIN CALCIUM 20 MG TABLET PO SCH (20:35)
[2016-07-11] MEDS: LATANOPROST 0.005% OPHTH SOLUTION 2.5ML BOTTLE. OU SCH (20:35)
[2016-07-11] MEDS: MIRTAZAPINE 15 MG TABLET PO SCH (20:35)
[2016-07-11] MEDS: METOPROLOL SUCC 24HR ER 50 MG TAB.ER.24H. PO SCH (20:36)
[2016-07-11 23:04] VITALS: BP 159/83
[2016-07-12 03:00] VITALS: BP 159/69
[2016-07-12 07:00] VITALS: BP 187/89
[2016-07-12] MEDS: IPRATRPIUM/ALBUTEROL 0.5/2.5MG 3 ML NEBU. NEB SCH ×4 (07:12→20:58)
[2016-07-12] MEDS: INSULIN ASPART 300 UNITS/3 ML INSULN.PEN SQ SCH ×3 (07:53→16:49)
[2016-07-12] MEDS: POLYETHYLENE GLYCOL 3350 17 GM PACKET. PO SCH (07:59)
[2016-07-12] MEDS: PREDNISONE 10 MG TABLET PO SCH (07:59)
[2016-07-12] MEDS: LISINOPRIL 10 MG TABLET PO SCH (08:00)
[2016-07-12] MEDS: DILTIAZEM HCL 180 MG CAP.ER.24H PO SCH (08:00)
[2016-07-12] MEDS: CLONIDINE HCL 0.1 MG TABLET PO SCH ×3 (08:00→20:50)
[2016-07-12] MEDS: MULTIVITAMIN with MINERAL TABLET. PO SCH (08:00)
[2016-07-12] MEDS: ASPIRIN ENTERIC COATED 81 MG TABLET.DR. PO SCH (08:00)
[2016-07-12] MEDS: CALCIUM CARBONATE 500 MG TABLET PO SCH ×2 (08:00→17:29)
[2016-07-12] MEDS: OXYBUTYNIN CHLORIDE 5 MG TABLET PO SCH ×2 (08:00→20:49)
[2016-07-12] MEDS: HYDROCODONE/APAP 5/325MG TABLET. PO PRN (08:13)
[2016-07-12 11:00] VITALS: BP 182/74
--- NOTE | 2016-07-12 11:21 | PDOC ---
PROGRESS NOTES Subjective Subjective Patient without complaint. Less GREEN. Objective Objective Vital Signs Date Time Temp Pulse Resp B/P Pulse Ox O2 Delivery O2 Flow Rate FiO2 07/12/16 09:52 Room Air 07/12/16 08:00 2.0 07/12/16 08:00 68 187/89 07/12/16 07:12 95 07/12/16 07:00 97.5 22 97.5 Intake and Output 07/12/16 07:00 Intake Total 680 ml Output Total 1250 ml Balance -570 ml Intake Oral 680 ml Output Urine Total 1250 ml # Voids 1 Physical Exam Abdomen: Normal bowel sounds, Soft, No tenderness Heart: Regular rate Extremities: No edema General: Alert, Oriented X3, No acute distress Lungs: Other (BS decreased throughout but otherwise CTA) Assessment Assessment Problems Medical Problems: (1) CHF (congestive heart failure) Status: Acute (2) COPD (chronic obstructive pulmonary disease) Status: Acute (3) COPD exacerbation Status: Acute Plan Plan of Care 1. Acute on chronic respiratory failure with AE COPD - slowly improving, continue O2 and po Prednisone. 2. UTI - preliminary culture with 100K gram negative rods - will start her on Augmentin. Blood culture with contaminant only. 3. CHF with mild diastolic dysfunction - stable, continue present meds. 4. thrombocytosis - reactive? Was slowly decreasing, check lab in AM. 5. glucose intolerance - diet controlled. 6. HTN - BP labile, continue present meds and follow. 7. tachyarrhythmias - appears stable, continue present meds. 8. dysphagia/possible achalasia - patient reports intermittent feelings of food sticking in the back of her throat. Barium swallow did show hiatal hernia and presbyesophagus. Await GI input tomorrow. 9. debility - slowly improving. Patient not sure yet whether she will feel ready to go home at discharge or whether a little more time at [facility] would be good for her. Continue therapies. SW consult pending. Should be ready for discharge soon. Comment Review of Relevant I have reviewed the following items forest (where applicable) has been applied. Labs Laboratory Tests Test 07/10/16 16:07 07/10/16 20:47 07/11/16 05:00 07/11/16 07:49 Glucose (Fingerstick) 153mg/dL (70-99) 186mg/dL (70-99) 79mg/dL (70-99) White Blood Count 11.6x10^3/uL (4.0-11.0) Red Blood Count 2.88x10^6/uL (3.50-5.40) Hemoglobin 8.7g/dL (12.0-15.5) Hematocrit 26.8% (36.0-47.0) Mean Corpuscular Volume 93fL (79-100) Mean Corpuscular Hemoglobin 30pg (25-35) Mean Corpuscular Hemoglobin Concent 33g/dL (31-37) Red Cell Distribution Width 15.3% (11.5-14.5) Platelet Count 752x10^3/uL (140-400) Test 07/11/16 11:31 07/11/16 16:20 07/11/16 21:13 07/12/16 07:35 Glucose (Fingerstick) 123mg/dL (70-99) 163mg/dL (70-99) 153mg/dL (70-99) 68mg/dL (70-99) Laboratory Tests Test 07/11/16 11:31 07/11/16 16:20 07/11/16 21:13 07/12/16 07:35 Glucose (Fingerstick) 123mg/dL (70-99) 163mg/dL (70-99) 153mg/dL (70-99) 68mg/dL (70-99) Microbiology 07/08/16 Blood Culture - Preliminary, Resulted 07/08/16 Blood Culture Result 1 (JAGDISH) - Preliminary, Resulted 07/10/16 Urine Culture - Preliminary, Resulted 07/10/16 Urine Culture Result 1 (JAGDISH) - Preliminary, Resulted Medications Current Medications Albuterol/ Ipratropium (Duoneb) 3 ml 1X ONCE NEB Last administered on 20:40; Start 07/08/16 at 20:30; Stop 07/08/16 at 20:31; Status DC Methylprednisolone Sodium Succinate 125 mg 125 mg 1X ONCE IV Last administered on 07/08/16 21:00; Start 07/08/16 at 20:30; Stop 07/08/16 at 20:31 ; Status DC Nitroglycerin/ Dextrose (Nitroglycerin Drip) 250 ml @ 0 mls/hr 1X ONCE IV Last administered on 07/08/16 21:21; Start 07/08/16 at 21:00; Stop 07/08/16 at 22:56; Status DC Ondansetron HCl (Zofran) 4 mg PRN Q8HRS PRN IV NAUSEA/VOMITING; Start 07/08/16 at 22:15; Stop 07/09/16 at 22:14; Status DC Acetaminophen (Tylenol) 650 mg PRN Q4HRS PRN PO FEVER; Start 07/08/16 at 22:15 ; Stop 07/09/16 at 22:14; Status DC Albuterol/ Ipratropium (Duoneb) 3 ml RTQID NEB Last administered on 07/09/16 08:53; Start 07/09/16 at 08:00; Stop 07/09/16 at 09:26; Status DC Clonidine HCl (Catapres) 0.1 mg TID PO Last administered on 07/12/16 08:00; Start 07/09/16 at 00:45 Metoprolol Succinate (Toprol Xl) 50 mg HS PO Last administered on 07/11/16 20: 36; Start 07/09/16 at 01:00 Acetaminophen/ Hydrocodone Bitart (Lortab 5/325) 1 tab PRN Q6HRS PRN PO PAIN Last administered on 07/12/16 08:13; Start 07/09/16 at 00:45 Enoxaparin Sodium (Lovenox Per Pharmacy Prophylaxis Dosing) 1 each PRN DAILY PRN MC SEE COMMENTS; Start 07/09/16 at 07:45; Stop 07/09/16 at 16:14; Status DC Aspirin (Ecotrin) 81 mg DAILY PO Last administered on 07/12/16 08:00; Start at 09:00 Diltiazem HCl (Cardizem 24hr Cd) 180 mg DAILY PO Last administered on 08:00; Start 07/09/16 at 09:00 Acetaminophen/ Hydrocodone Bitart (Lortab 5/325) 1 tab PRN Q6HRS PRN PO PAIN; Start 07/09/16 at 07:45; Stop 07/09/16 at 16:14; Status DC Albuterol/ Ipratropium (Duoneb) 3 ml RTQID NEB Last administered on 07/12/16 10:57; Start 07/09/16 at 09:00 Lisinopril (Prinivil) 10 mg DAILY PO Last administered on 07/12/16 08:00; Start 07/09/16 at 09:00 Mirtazapine (Remeron) 15 mg QHS PO Last administered on 07/11/16 20:35; Start 07/09/16 at 21:00 Latanoprost (Xalatan) 1 drop QHS OU Last administered on 07/11/16 20:35; Start 07/09/16 at 21:00 Calcium Carbonate/ Glycine (Oscal) 1,000 mg BIDAFTMEAL PO Last administered on 07/12/16 08:00; Start 07/09/16 at 09:00 Non-Formulary Medication 1,500 mg BID PO ; Start 07/09/16 at 09:00; Stop at 09:00; Status DC Pantoprazole Sodium (Protonix) 40 mg DAILYBFRLUN PO Last administered on 11:48; Start 07/09/16 at 11:30 Multivitamins/ Calcium (Thera M Plus) 1 tab DAILY PO Last administered on 08:00; Start 07/09/16 at 09:00 Oxybutynin Chloride (Ditropan) 5 mg BID PO Last administered on 07/12/16 08:00 ; Start 07/09/16 at 09:00 Atorvastatin Calcium (Lipitor) 20 mg QHS PO Last administered on 07/11/16 20: 35; Start 07/09/16 at 21:00 Albuterol Sulfate (Ventolin Neb Soln) 2.5 mg PRN Q4HRS PRN NEB SHORTNESS OF BREATH Last administered on 07/11/16 01:56; Start 07/09/16 at 08:00 Prednisone (Prednisone) 30 mg DAILY PO Last administered on 07/12/16 07:59; Start 07/09/16 at 09:00 Insulin Aspart (Novolog) 0-7 UNITS TIDWMEALS SQ Last administered on 07/11/16 17:27; Start 07/09/16 at 08:00 Dextrose 12.5 gm PRN Q15MIN PRN IV SEE COMMENTS; Start 07/09/16 at 08:00 Iohexol (Omnipaque 300 Mg/ml) 75 ml 1X ONCE IV Last administered on 07/09/16 10:59; Start 07/09/16 at 08:00; Stop 07/09/16 at 08:04; Status DC Furosemide (Lasix) 20 mg 1X ONCE IVP Last administered on 07/09/16 17:13; Start 07/09/16 at 16:00; Stop 07/09/16 at 16:01; Status DC Enoxaparin Sodium (Lovenox 40mg Syringe) 40 mg Q24H SQ Last administered on 17:17; Start 07/09/16 at 17:00 Polyethylene Glycol (miraLAX PACKET) 17 gm DAILY PO Last administered on 07:59; Start 07/10/16 at 11:00 Barium Sulfate (Liquid E-Z Paque) 355 ml 1X ONCE PO Last administered on 14:39; Start 07/10/16 at 14:00; Stop 07/10/16 at 14:06; Status DC Barium Sulfate (E-Z-Hd) 135 ml 1X ONCE PO ; Start 07/10/16 at 14:00; Stop 07/10 at 14:06; Status DC Active Scripts Active Duoneb 0.5-3(2.5) Mg/3 Ml (Albuterol/Ipratropium) 3 Ml Ampul.neb 3 Ml NEB QID Reported [place] 5-325 Tablet (Acetaminophen/Hydrocodone Bitart) 1 Each Tablet 1 Tab PO PRN Q6HRS PRN Oxybutynin Chloride Er (Oxybutynin Chloride) 10 Mg Tab.er.24 1 Tab PO DAILY Mirtazapine 15 Mg Tablet 0.5 Tab PO QHS Lisinopril 10 Mg Tablet 1 Tab PO DAILY Aspir 81 (Aspirin) 81 Mg Tablet.dr 1 Tab PO DAILY Clonidine Hcl 0.1 Mg Tablet 1 Tab PO TID Lumigan (Bimatoprost) 2.5 Ml Drops 1 Drop EACHEYE QHS Calcium (Calcium Carbonate) 600 Mg Tablet 1,200 Mg PO BID Glucosamine Sulfate (Glucosamine Sulfate 2KCL) 1,000 Mg Tablet 1,500 Mg PO BID Pravastatin Sodium 80 Mg Tablet 80 Mg PO HS Toprol Xl (Metoprolol Succinate) 50 Mg Tab.er.24h 50 Mg PO HS Diltiazem 24HR Cd (Diltiazem Hcl) 180 Mg Cap.er.24h 180 Mg PO DAILY Multi For Her Tablet (Mv,Ca,Min/Iron Fum/Fa/Vit K) 1 Each Tablet 1 Each PO DAILY Lansoprazole 15 Mg Capsule.dr 15 Mg PO DAILYBFRLUN Proair Hfa Inhaler (Albuterol Sulfate) 8.5 Gm Hfa.aer.ad 2 Puff INH PRN Q6HRS PRN Vitals/I & O Vital Sign - Last 24 Hours 07/11/16 07/11/16 07/11/16 07/11/16 11:25 14:51 15:00 15:04 Temp 98.0 98.0 Pulse 70 70 Resp 16 B/P 116/70 149/67 Pulse Ox 96 95 96 O2 Delivery Nasal Cannula Nasal Cannula Nasal Cannula O2 Flow Rate 2.0 2.0 2.0 07/11/16 07/11/16 07/11/16 07/11/16 19:00 19:45 20:04 20:36 Temp 97.4 97.4 Pulse 80 80 Resp 24 B/P 145/82 145/82 Pulse Ox 94 95 O2 Delivery Nasal Cannula Nasal Cannula Nasal Cannula O2 Flow Rate 2.0 2.0 2.0 07/11/16 07/11/16 07/11/16 07/11/16 20:36 22:43 23:04 23:43 Temp 97.4 97.4 Pulse 80 73 Resp 18 20 14 B/P 145/82 159/83 Pulse Ox 94 94 O2 Delivery Nasal Cannula Nasal Cannula O2 Flow Rate 2.0 2.0 07/12/16 07/12/16 07/12/16 07/12/16 03:00 07:00 07:12 08:00 Temp 97.5 97.5 97.5 97.5 Pulse 64 68 68 Resp 20 22 B/P 159/69 187/89 187/89 Pulse Ox 95 96 95 O2 Delivery Nasal Cannula Nasal Cannula Nasal Cannula O2 Flow Rate 2.0 2.0 2.0 07/12/16 07/12/16 07/12/16 07/12/16 08:00 08:00 08:00 08:13 Pulse 68 68 B/P 187/89 187/89 O2 Delivery Nasal Cannula Nasal Cannula O2 Flow Rate 2.0 07/12/16 09:52 O2 Delivery Room Air Intake and Output 07/11/16 07/11/16 07/12/16 15:00 23:00 07:00 Intake Total 480 ml 200 ml Output Total 300 ml 650 ml 300 ml Balance 180 ml -650 ml -100 ml IAN BLAKE MD Jul 12, 2016 11:21
[2016-07-12] MEDS: AMOXICILLIN/K CLAV 875/125MG TABLET. PO SCH ×2 (11:38→20:48)
[2016-07-12] MEDS: PANTOPRAZOLE 40 MG TABLET. PO SCH (11:38)
[2016-07-12 15:00] VITALS: BP 178/88
[2016-07-12] MEDS: ENOXAPARIN 40 MG/0.4 ML DISP.SYRIN. SQ SCH (17:29)
[2016-07-12 19:00] VITALS: BP 147/68
[2016-07-12] MEDS: ATORVASTATIN CALCIUM 20 MG TABLET PO SCH (20:48)
[2016-07-12] MEDS: MIRTAZAPINE 15 MG TABLET PO SCH (20:48)
[2016-07-12] MEDS: LATANOPROST 0.005% OPHTH SOLUTION 2.5ML BOTTLE. OU SCH (20:48)
[2016-07-12] MEDS: METOPROLOL SUCC 24HR ER 50 MG TAB.ER.24H. PO SCH (20:49)
[2016-07-12 23:00] VITALS: BP 164/85
[2016-07-13 03:00] VITALS: BP 165/74
[2016-07-13 07:45] VITALS: BP 212/94
[2016-07-13] MEDS: INSULIN ASPART 300 UNITS/3 ML INSULN.PEN SQ SCH ×3 (08:00→17:00)
[2016-07-13] MEDS: MULTIVITAMIN with MINERAL TABLET. PO SCH (08:12)
--- NOTE | 2016-07-13 08:12 | EKG ---
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
[2016-07-13] MEDS: HYDROCODONE/APAP 5/325MG TABLET. PO PRN (08:13)
[2016-07-13] MEDS: PREDNISONE 10 MG TABLET PO SCH (08:13)
[2016-07-13] MEDS: DILTIAZEM HCL 180 MG CAP.ER.24H PO SCH (08:14)
[2016-07-13] MEDS: CLONIDINE HCL 0.1 MG TABLET PO SCH ×3 (08:14→20:32)
[2016-07-13] MEDS: CALCIUM CARBONATE 500 MG TABLET PO SCH ×2 (08:15→17:28)
[2016-07-13] MEDS: ASPIRIN ENTERIC COATED 81 MG TABLET.DR. PO SCH (08:15)
[2016-07-13] MEDS: AMOXICILLIN/K CLAV 875/125MG TABLET. PO SCH ×2 (08:15→20:31)
[2016-07-13] MEDS ORDERED: LIDO:MAALOX:DONNATAL 1:1:1 15 ML SINGLE DOSE SWSW PRN (08:15)
[2016-07-13] MEDS: OXYBUTYNIN CHLORIDE 5 MG TABLET PO SCH ×2 (08:15→20:32)
[2016-07-13] MEDS: LISINOPRIL 10 MG TABLET PO SCH (08:15)
[2016-07-13] MEDS: POLYETHYLENE GLYCOL 3350 17 GM PACKET. PO SCH (08:15)
--- NOTE | 2016-07-13 08:19 | PDOC ---
PROGRESS NOTES Subjective Subjective Patient reported some substernal chest pain this morning. No SOA. Objective Objective Vital Signs Date Time Temp Pulse Resp B/P Pulse Ox O2 Delivery O2 Flow Rate FiO2 07/13/16 03:00 97.0 66 20 165/74 99 Nasal Cannula 2.0 97.0 Intake and Output 07/13/16 07:00 Intake Total 600 ml Output Total 1100 ml Balance -500 ml Intake Oral 600 ml Output Urine Total 1100 ml # Voids 1 # Bowel Movements 1 Physical Exam Abdomen: Normal bowel sounds, Soft, No tenderness Heart: Regular rate Extremities: No edema General: Alert, Oriented X3, No acute distress Lungs: Other (BS decreased throughout but CTA) Assessment Assessment Problems Medical Problems: (1) CHF (congestive heart failure) Status: Acute (2) COPD (chronic obstructive pulmonary disease) Status: Acute (3) COPD exacerbation Status: Acute Plan Plan of Care 1. Chest pain - suspect GI origin, patient states "maybe I'm hungry". Patient without hx of CAD, had normal Echo several months ago. Will try GI cocktail. Check Troponin. Tele shows sinus/paced rhythm. Cardiology is following her also. 2. Acute on chronic respiratory failure with AE COPD - stable, continue po Prednisone and O2. 3. UTI - culture shows E Coli which is preciado-sensitive, continue po Augmentin. 4. CHF with mild diastolic dysfunction - stable. 5. hx tachyarrhythmias - stable, continue to monitor on tele. 6. thrombocytopenia - reactive? Has been slowly decreasing, lab for today is pending. Continue Lovenox. 7. dysphagia/possible achalasia - barium swallow noted. Patient continues to report intermittent sensation of food sticking. Await further GI input today. 8. chronic anxiety - stable, continue home meds. 9. HTN - somewhat labile, continue present meds and follow. 10. Debility - slowly improving, anticipate patient would benefit from a little more time at [facility] when ready for discharge from the hospital. She agrees with this. Continue therapies while here. Comment Review of Relevant I have reviewed the following items forest (where applicable) has been applied. Labs Laboratory Tests Test 07/11/16 11:31 07/11/16 16:20 07/11/16 21:13 07/12/16 07:35 Glucose (Fingerstick) 123mg/dL (70-99) 163mg/dL (70-99) 153mg/dL (70-99) 68mg/dL (70-99) Test 07/12/16 11:56 07/12/16 16:42 07/12/16 21:05 Glucose (Fingerstick) 141mg/dL (70-99) 152mg/dL (70-99) 169mg/dL (70-99) Laboratory Tests Test 07/12/16 11:56 07/12/16 16:42 07/12/16 21:05 Glucose (Fingerstick) 141mg/dL (70-99) 152mg/dL (70-99) 169mg/dL (70-99) Microbiology 07/08/16 Blood Culture - Preliminary, Resulted 07/08/16 Blood Culture Result 1 (JAGDISH) - Preliminary, Resulted 07/10/16 Urine Culture - Final, Complete 07/10/16 Urine Culture Result 1 (JAGDISH) - Final, Complete 07/10/16 Antimicrobic Susceptibility - Final, Complete Medications Current Medications Albuterol/ Ipratropium (Duoneb) 3 ml 1X ONCE NEB Last administered on 20:40; Start 07/08/16 at 20:30; Stop 07/08/16 at 20:31; Status DC Methylprednisolone Sodium Succinate 125 mg 125 mg 1X ONCE IV Last administered on 07/08/16 21:00; Start 07/08/16 at 20:30; Stop 07/08/16 at 20:31 ; Status DC Nitroglycerin/ Dextrose (Nitroglycerin Drip) 250 ml @ 0 mls/hr 1X ONCE IV Last administered on 07/08/16 21:21; Start 07/08/16 at 21:00; Stop 07/08/16 at 22:56; Status DC Ondansetron HCl (Zofran) 4 mg PRN Q8HRS PRN IV NAUSEA/VOMITING; Start 07/08/16 at 22:15; Stop 07/09/16 at 22:14; Status DC Acetaminophen (Tylenol) 650 mg PRN Q4HRS PRN PO FEVER; Start 07/08/16 at 22:15 ; Stop 07/09/16 at 22:14; Status DC Albuterol/ Ipratropium (Duoneb) 3 ml RTQID NEB Last administered on 07/09/16 08:53; Start 07/09/16 at 08:00; Stop 07/09/16 at 09:26; Status DC Clonidine HCl (Catapres) 0.1 mg TID PO Last administered on 07/12/16 20:50; Start 07/09/16 at 00:45 Metoprolol Succinate (Toprol Xl) 50 mg HS PO Last administered on 07/12/16 20: 49; Start 07/09/16 at 01:00 Acetaminophen/ Hydrocodone Bitart (Lortab 5/325) 1 tab PRN Q6HRS PRN PO PAIN Last administered on 07/12/16 08:13; Start 07/09/16 at 00:45 Enoxaparin Sodium (Lovenox Per Pharmacy Prophylaxis Dosing) 1 each PRN DAILY PRN MC SEE COMMENTS; Start 07/09/16 at 07:45; Stop 07/09/16 at 16:14; Status DC Aspirin (Ecotrin) 81 mg DAILY PO Last administered on 07/12/16 08:00; Start at 09:00 Diltiazem HCl (Cardizem 24hr Cd) 180 mg DAILY PO Last administered on 08:00; Start 07/09/16 at 09:00 Acetaminophen/ Hydrocodone Bitart (Lortab 5/325) 1 tab PRN Q6HRS PRN PO PAIN; Start 07/09/16 at 07:45; Stop 07/09/16 at 16:14; Status DC Albuterol/ Ipratropium (Duoneb) 3 ml RTQID NEB Last administered on 07/12/16 20:58; Start 07/09/16 at 09:00 Lisinopril (Prinivil) 10 mg DAILY PO Last administered on 07/12/16 08:00; Start 07/09/16 at 09:00 Mirtazapine (Remeron) 15 mg QHS PO Last administered on 07/12/16 20:48; Start 07/09/16 at 21:00 Latanoprost (Xalatan) 1 drop QHS OU Last administered on 07/12/16 20:48; Start 07/09/16 at 21:00 Calcium Carbonate/ Glycine (Oscal) 1,000 mg BIDAFTMEAL PO Last administered on 07/12/16 17:29; Start 07/09/16 at 09:00 Non-Formulary Medication 1,500 mg BID PO ; Start 07/09/16 at 09:00; Stop at 09:00; Status DC Pantoprazole Sodium (Protonix) 40 mg DAILYBFRLUN PO Last administered on 11:38; Start 07/09/16 at 11:30 Multivitamins/ Calcium (Thera M Plus) 1 tab DAILY PO Last administered on 08:00; Start 07/09/16 at 09:00 Oxybutynin Chloride (Ditropan) 5 mg BID PO Last administered on 07/12/16 20:49 ; Start 07/09/16 at 09:00 Atorvastatin Calcium (Lipitor) 20 mg QHS PO Last administered on 07/12/16 20: 48; Start 07/09/16 at 21:00 Albuterol Sulfate (Ventolin Neb Soln) 2.5 mg PRN Q4HRS PRN NEB SHORTNESS OF BREATH Last administered on 07/11/16 01:56; Start 07/09/16 at 08:00 Prednisone (Prednisone) 30 mg DAILY PO Last administered on 07/12/16 07:59; Start 07/09/16 at 09:00 Insulin Aspart (Novolog) 0-7 UNITS TIDWMEALS SQ Last administered on 07/11/16 17:27; Start 07/09/16 at 08:00 Dextrose 12.5 gm PRN Q15MIN PRN IV SEE COMMENTS; Start 07/09/16 at 08:00 Iohexol (Omnipaque 300 Mg/ml) 75 ml 1X ONCE IV Last administered on 07/09/16 10:59; Start 07/09/16 at 08:00; Stop 07/09/16 at 08:04; Status DC Furosemide (Lasix) 20 mg 1X ONCE IVP Last administered on 07/09/16 17:13; Start 07/09/16 at 16:00; Stop 07/09/16 at 16:01; Status DC Enoxaparin Sodium (Lovenox 40mg Syringe) 40 mg Q24H SQ Last administered on 17:29; Start 07/09/16 at 17:00 Polyethylene Glycol (miraLAX PACKET) 17 gm DAILY PO Last administered on 07:59; Start 07/10/16 at 11:00 Barium Sulfate (Liquid E-Z Paque) 355 ml 1X ONCE PO Last administered on 14:39; Start 07/10/16 at 14:00; Stop 07/10/16 at 14:06; Status DC Barium Sulfate (E-Z-Hd) 135 ml 1X ONCE PO ; Start 07/10/16 at 14:00; Stop 07/10 at 14:06; Status DC Amoxicillin/ Clavulanate Potassium (Augmentin 875/ 125mg) 1 tab BID PO Last administered on 07/12/16 20:48; Start 07/12/16 at 11:30 Active Scripts Active Duoneb 0.5-3(2.5) Mg/3 Ml (Albuterol/Ipratropium) 3 Ml Ampul.neb 3 Ml NEB QID Reported [place] 5-325 Tablet (Acetaminophen/Hydrocodone Bitart) 1 Each Tablet 1 Tab PO PRN Q6HRS PRN Oxybutynin Chloride Er (Oxybutynin Chloride) 10 Mg Tab.er.24 1 Tab PO DAILY Mirtazapine 15 Mg Tablet 0.5 Tab PO QHS Lisinopril 10 Mg Tablet 1 Tab PO DAILY Aspir 81 (Aspirin) 81 Mg Tablet. 1 Tab PO DAILY Clonidine Hcl 0.1 Mg Tablet 1 Tab PO TID Lumigan (Bimatoprost) 2.5 Ml Drops 1 Drop EACHEYE QHS Calcium (Calcium Carbonate) 600 Mg Tablet 1,200 Mg PO BID Glucosamine Sulfate (Glucosamine Sulfate 2KCL) 1,000 Mg Tablet 1,500 Mg PO BID Pravastatin Sodium 80 Mg Tablet 80 Mg PO HS Toprol Xl (Metoprolol Succinate) 50 Mg Tab.er.24h 50 Mg PO HS Diltiazem 24HR Cd (Diltiazem Hcl) 180 Mg Cap.er.24h 180 Mg PO DAILY Multi For Her Tablet (Mv,Ca,Min/Iron Fum/Fa/Vit K) 1 Each Tablet 1 Each PO DAILY Lansoprazole 15 Mg Capsule.dr 15 Mg PO DAILYBFRLUN Proair Hfa Inhaler (Albuterol Sulfate) 8.5 Gm Hfa.aer.ad 2 Puff INH PRN Q6HRS PRN Vitals/I & O Vital Sign - Last 24 Hours 1/29/07/12/16 07/12/16 07/12/16 08:13 09:52 10:58 11:00 Temp 97.7 97.7 Pulse 74 Resp 24 B/P 182/74 Pulse Ox 95 94 O2 Delivery Nasal Cannula Room Air Nasal Cannula Nasal Cannula O2 Flow Rate 2.0 2.0 07/12/16 07/12/16 07/12/16 07/12/16 15:00 15:41 15:51 19:00 Temp 97.9 97.7 97.9 97.7 Pulse 72 75 71 Resp 20 20 B/P 178/88 172/88 147/68 Pulse Ox 92 95 O2 Delivery Nasal Cannula Nasal Cannula Nasal Cannula O2 Flow Rate 2.0 2.0 2.0 07/12/16 07/12/16 07/12/16 07/12/16 20:00 20:49 20:50 20:58 Pulse 71 71 B/P 147/68 147/68 Pulse Ox 97 O2 Delivery Nasal Cannula Nasal Cannula O2 Flow Rate 2.0 2.0 07/12/16 07/13/16 23:00 03:00 Temp 97.4 97.0 97.4 97.0 Pulse 73 66 Resp 20 20 B/P 164/85 165/74 Pulse Ox 93 99 O2 Delivery Room Air Nasal Cannula O2 Flow Rate 2.0 Intake and Output 07/12/16 07/12/16 07/13/16 15:00 23:00 07:00 Intake Total 480 ml 120 ml Output Total 600 ml 500 ml Balance -120 ml -380 ml IAN BLAKE MD Jul 13, 2016 08:19
[2016-07-13] MEDS: IPRATRPIUM/ALBUTEROL 0.5/2.5MG 3 ML NEBU. NEB SCH ×4 (08:44→19:46)
[2016-07-13 09:30] LABS: CALCIUM 9.9 mg/dL (8.5-10.1); CREATININE 0.7 mg/dL (0.6-1.0); GFR 79.5
[2016-07-13 09:33] LABS: POTASSIUM 5.4 mmol/L (3.5-5.1)
[2016-07-13 10:16] LABS: HEMATOCRIT 30.9 % (36.0-47.0); HEMOGLOBIN 10.1 g/dL (12.0-15.5); RED BLOOD COUNT 3.34 x10^6/uL (3.50-5.40); RED CELL DISTRIBUTION WIDTH 15.4 % (11.5-14.5); WHITE BLOOD COUNT 13.4 x10^3/uL (4.0-11.0)
[2016-07-13 11:00] VITALS: BP 132/54
--- NOTE | 2016-07-13 11:24 | PDOC ---
Subjective: Subjective: Per pt - no pain now. Had dysphagia yesterday, none today. Chest pain this a.m. while in bed before eating breakfast. "Problems w/ esophagus my whole life" - clarifies she means reflux (not dysphagia). Objective: Objective: Per RN - chest pain this morning, no dysphagia, eating okay. Received GI cocktail. Vital Signs: Vital Signs Date Time Temp Pulse Resp B/P Pulse Ox O2 Delivery O2 Flow Rate FiO2 07/13/16 09:13 99 Nasal Cannula 2.0 07/13/16 08:15 67 212/94 07/13/16 07:45 97.5 18 97.5 Labs: Laboratory Tests Test 07/12/16 11:56 07/12/16 16:42 07/12/16 21:05 07/13/16 08:04 Glucose (Fingerstick) 141mg/dL 152mg/dL 169mg/dL 72mg/dL Test 07/13/16 08:39 07/13/16 10:00 Sodium Level 142mmol/L Potassium Level 5.4mmol/L Chloride Level 103mmol/L Carbon Dioxide Level 33mmol/L Anion Gap 6 Blood Urea Nitrogen 11mg/dL Creatinine 0.7mg/dL Estimated GFR (Cockcroft-Gault) 79.5 Glucose Level 100mg/dL Calcium Level 9.9mg/dL Troponin I Quantitative 0.049ng/mL White Blood Count 13.4x10^3/uL Red Blood Count 3.34x10^6/uL Hemoglobin 10.1g/dL Hematocrit 30.9% Mean Corpuscular Volume 93fL Mean Corpuscular Hemoglobin 30pg Mean Corpuscular Hemoglobin Concent 33g/dL Red Cell Distribution Width 15.4% Platelet Count 760x10^3/uL Imaging: Esophagram 07/10/16 Impression: Presbyesophagus. There is a hiatal hernia. The study is otherwise unremarkable. PE: GEN: NAD, up to chair LUNGS: CTAB HEART: RRR ABD: NABS, S/ND/NT NEURO/PSYCH: A & O 3 A/P: Abnormal CT chest w/ dilated, fluid-dilled esophagus -previously denied dysphagia but now says this occurred yesterday (now resolved) -esophagram w/ presbyesophagus, hiatal hernia Chest pain, right shoulder pain -rapid response this a.m., received GI cocktail -troponin ordered, cardio following GERD, Casillas's esophagus -last EGD 08/2015, symptoms controlled w/ PPI H/o colon cancer s/p right colectomy -colonoscopy 02/2015, surgery 03/2015 Hyperkalemia -per primary Leukocytosis, thrombocytosis Acute/chronic resp failure -- Will review need for EGD w/ Dr. Kirkladn. IDALIA MEHTA Jul 13, 2016 11:24
[2016-07-13] MEDS: PANTOPRAZOLE 40 MG TABLET. PO SCH (12:42)
[2016-07-13 15:00] VITALS: BP 148/53
[2016-07-13] MEDS: ENOXAPARIN 40 MG/0.4 ML DISP.SYRIN. SQ SCH (17:29)
[2016-07-13 19:00] VITALS: BP 177/53
[2016-07-13] MEDS: LATANOPROST 0.005% OPHTH SOLUTION 2.5ML BOTTLE. OU SCH (20:30)
[2016-07-13] MEDS: ATORVASTATIN CALCIUM 20 MG TABLET PO SCH (20:31)
[2016-07-13] MEDS: MIRTAZAPINE 15 MG TABLET PO SCH (20:31)
[2016-07-13] MEDS: METOPROLOL SUCC 24HR ER 50 MG TAB.ER.24H. PO SCH (20:32)
[2016-07-13 23:00] VITALS: BP 151/62
[2016-07-14 03:00] VITALS: BP 181/100
[2016-07-14 07:00] VITALS: BP 168/76
[2016-07-14] MEDS: IPRATRPIUM/ALBUTEROL 0.5/2.5MG 3 ML NEBU. NEB SCH ×2 (07:00→12:05)
--- NOTE | 2016-07-14 07:49 | PDOC ---
Provider Note Provider Note See discharge summary dictation #[id number] Further GI workup if needed can be done as an outpatient or through retirement if needed. MAJOR HICKMAN MD Jul 14, 2016 07:49
--- NOTE | 2016-07-14 07:59 | DISCH ---
DISCHARGE DISCHARGE DATE: Jul 14, 2016 FINAL DIAGNOSIS Problems Medical Problems: (1) CHF (congestive heart failure) Status: Acute (2) COPD (chronic obstructive pulmonary disease) Status: Acute (3) COPD exacerbation Status: Acute CONDITION ON DISCHARGE: Stable SNF STAY <30 DAYS: Yes POST DISCHARGE ORDERS ACTIVITY ORDERS: Activity as tolerated WEIGHT BEARING STATUS: No restrictions DIET AFTER DISCHARGE: Cardiac WOUND/INCISION CARE: No wound care needed CHECKS AFTER DISCHARGE CHECKS AFTER DISCHARGE: Check blood press - daily, Check blood sugar, ac/hs FOLLOW-UP PHYSICIAN FOLLOW-UP: Dr Mulligan after discharge from SNU ADDITIONAL FOLLOW-UP: GI per their rec LAB ORDERS FOR FOLLOW-UP: CBC in one week TREATMENT/EQUIPMENT ORDERS ADAPTIVE EQUIPMENT NEEDED: None MAJOR HICKMAN MD Jul 14, 2016 07:59
[2016-07-14] MEDS: INSULIN ASPART 300 UNITS/3 ML INSULN.PEN SQ SCH ×2 (08:00→12:00)
[2016-07-14] MEDS: POLYETHYLENE GLYCOL 3350 17 GM PACKET. PO SCH (08:09)
[2016-07-14] MEDS: LISINOPRIL 10 MG TABLET PO SCH (08:10)
[2016-07-14] MEDS: MULTIVITAMIN with MINERAL TABLET. PO SCH (08:10)
[2016-07-14] MEDS: PREDNISONE 10 MG TABLET PO SCH (08:10)
[2016-07-14] MEDS: CLONIDINE HCL 0.1 MG TABLET PO SCH ×2 (08:12→12:58)
[2016-07-14] MEDS: CALCIUM CARBONATE 500 MG TABLET PO SCH (08:12)
[2016-07-14] MEDS: AMOXICILLIN/K CLAV 875/125MG TABLET. PO SCH (08:13)
[2016-07-14] MEDS: ASPIRIN ENTERIC COATED 81 MG TABLET.DR. PO SCH (08:13)
[2016-07-14] MEDS: DILTIAZEM HCL 180 MG CAP.ER.24H PO SCH (08:13)
[2016-07-14] MEDS: OXYBUTYNIN CHLORIDE 5 MG TABLET PO SCH (08:13)
--- NOTE | 2016-07-14 08:31 | DS ---
DATE OF DISCHARGE: 07/14/2016 ATTENDING PHYSICIAN: Ansley Mulligan M.D. CHIEF COMPLAINT: Shortness of breath. HISTORY OF PRESENT ILLNESS: The patient is an 86-year-old female with a history of COPD who had been having worsening shortness of breath over the several days prior to admission with O2 sats in the mid 80s on the day of admission, despite supplemental oxygen. HOSPITAL COURSE: The patient was seen in the Emergency Room where it was noted that she was hypoxic. She did appear to be having a mild worsening of congestive heart failure with diastolic dysfunction, but primarily this was due to COPD. She responded to nebulizer treatments, steroids, and supplemental oxygen. She was seen in consultation with Cardiology as well due to the congestive heart failure. It was felt that she was relatively compensated after receiving Lasix. She was also having some difficulty with possible dysphagia symptoms. She was seen in consultation with GI. 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 She did have an episode of chest pain during the hospital stay, but that resolved with GI cocktail and it was felt that was likely GI in etiology. She was also noted to have a urinary tract infection and was started on antibiotics for that. At the time of discharge, she was only complaining of some right posterior shoulder pain which was chronic for her. It was controlled. She was eating okay, her breathing was okay with supplemental oxygen. She was not having any chest or abdominal pain. She was afebrile. PHYSICAL EXAMINATION: VITAL SIGNS: Stable. GENERAL: She was alert. CHEST: Had minimal crackles at the bilateral bases with decreased air movement throughout, but was otherwise clear. HEART: Had a regular rate and rhythm without murmur. ABDOMEN: Soft and nontender, without any guarding. LABORATORY DATA: CTA of the chest did not show any pulmonary embolism. There was small bilateral pleural effusions with severe emphysematous changes bilaterally with bibasilar atelectasis. Lower extremity ultrasound did not show any evidence of DVT. The barium swallow was as noted above. DISCHARGE DIAGNOSES: 1. Kpijk-oe-ejjzkhs respiratory failure with acute exacerbation of chronic obstructive pulmonary disease. 2. Urinary tract infection with Escherichia coli. 3. Congestive heart failure with mild diastolic dysfunction. 4. History of tachyarrhythmias. 5. Thrombocytosis. 6. 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 7. Hypertension. 8. Episode of chest pain, noncardiac in etiology. 9. Debilitation. DISCHARGE DIET: Cardiac diet. DISCHARGE ACTIVITY: As tolerated. She will continue with [facility]dc, physical therapy and occupational therapy at the time of discharge. FOLLOWUP: The patient is to follow up with Dr. Mulligan on discharge from the [facility] facility. She will be seen by the physicians at the [facility]. DISCHARGE MEDICATIONS: At the time of discharge are albuterol nebulizer treatments q. 4 hours p.r.n., Augmentin 875 one 1 p.o. b.i.d. for 5 more days, aspirin 81 mg p.o. daily, 1200 mg p.o. b.i.d., clonidine 0.1 mg p.o. t.i.d., diltiazem CD 180 mg p.o. daily, [place] 5/325 one p.o. q. 6 hours p.r.n., sliding scale insulin, DuoNeb q.i.d., GI cocktail p.r.n. chest pain, lisinopril 10 mg p.o. daily, Toprol-XL 50 mg p.o. daily, Remeron 15 mg p.o. at bedtime, multivitamin 1 p.o. daily, oxybutynin ER 10 mg p.o. daily, Protonix 40 mg p.o. daily, MiraLax 17 grams p.o. daily, prednisone 30 mg daily x 2 days, then 20 mg x 2 days, then 10 mg x 2 days, Lumigan one drop each eye at bedtime, glucosamine 1500 mg p.o. b.i.d., and pravastatin 80 mg p.o. daily. MAJOR HICKMAN MD DR: ALONDRA/panda JOB#: [id number] / [id number]
[2016-07-14] MEDS: HYDROCODONE/APAP 5/325MG TABLET. PO PRN (08:37)
--- NOTE | 2016-07-14 10:54 | PDOC ---
Subjective: Subjective: Relates now she recalls occasional difficult swallowing dry biscuits and bread. Also says she has difficult swallowing when she talks while eating. Excited to DC. Objective: Vital Signs: Vital Signs Date Time Temp Pulse Resp B/P Pulse Ox O2 Delivery O2 Flow Rate FiO2 07/14/16 09:37 99 Nasal Cannula 2.0 07/14/16 08:37 2 07/14/16 08:13 64 168/76 07/14/16 07:00 98.2 98.2 Labs: Laboratory Tests Test 07/13/16 11:34 07/13/16 17:56 07/13/16 21:43 Glucose (Fingerstick) 116mg/dL 166mg/dL 185mg/dL PE: GEN: NAD, up to chair LUNGS: nasal cannula HEART: RRR ABD: NABS, S/ND/NT NEURO/PSYCH: A & O 3 A/P: Abnormal CT chest w/ dilated, fluid-filled esophagus -now reports occasional dysphagia w/ bread and w/ talking while eating -esophagram w/ presbyesophagus, hiatal hernia GERD, Casillas's esophagus -last EGD 08/2015, symptoms controlled w/ PPI H/o colon cancer s/p right colectomy -colonoscopy 02/2015, surgery 03/2015 -- Note DC plans today - okay per GI. She doesn't believe she's had a follow-up colonoscopy since cancer diagnosis. Consider as outpatient, along w/ EGD if dysphagia worsens. IDALIA MEHTA Jul 14, 2016 10:54
[2016-07-14 11:21] VITALS: BP 148/61
[2016-07-14] MEDS: PANTOPRAZOLE 40 MG TABLET. PO SCH (11:30)
[2016-07-14 12:58] VITALS: BP 148/61
== END 2016-07-14 17:19 | disposition home health service (06) | DRG 291 ==
LOC: ER 20:26 → 5 SOUTH 21:49
PROVIDERS: ADMIT Family Medicine; ATTEND Family Medicine
DX: I50.33 Acute on chronic diastolic (congestive) heart failure (principal); J96.21 Acute and chronic respiratory failure with hypoxia; J44.1 Chronic obstructive pulmonary disease with (acute) exacerbation; N39.0 Urinary tract infection, site not specified; I11.0 Hypertensive heart disease with heart failure; B96.20 Unspecified Escherichia coli [E. coli] as the cause of diseases classified elsewhere; D47.3 Essential (hemorrhagic) thrombocythemia; E78.00 Pure hypercholesterolemia, unspecified; E78.5 Hyperlipidemia, unspecified; E87.5 Hyperkalemia; F41.9 Anxiety disorder, unspecified; G47.00 Insomnia, unspecified; H40.9 Unspecified glaucoma; K21.9 Gastro-esophageal reflux disease without esophagitis; K59.00 Constipation, unspecified; M85.80 Other specified disorders of bone density and structure, unspecified site; K22.8 Other specified diseases of esophagus; G89.29 Other chronic pain; M54.5 Low back pain; Z85.038 Personal history of other malignant neoplasm of large intestine; Z87.891 Personal history of nicotine dependence; Z90.49 Acquired absence of other specified parts of digestive tract; Z95.0 Presence of cardiac pacemaker; Z90.710 Acquired absence of both cervix and uterus; Z90.721 Acquired absence of ovaries, unilateral; K22.719 Barrett's esophagus with dysplasia, unspecified; K44.9 Diaphragmatic hernia without obstruction or gangrene
CPT/HCPCS: 36415; 71010; 71275; 74220; 80048; 81001; 82947; 83605; 83880; 84484; 85007; 85027; 87040; 87086; 87186; 87205; 87641; 87804; 93005; 93970; 94250; 94620; 94640; 94760; 96365; 96375; J1650; J1815; J2930; J3490; J7512; J7620; Q9967; 97110; 97116; 97530; 99285-25

== ENCOUNTER → 2016-08-11 | Outpatient (CLI) | payer OTHER ==
[2016-07-14 12:58] VITALS: BP 148/61
[~2016-08-11] MED LIST changes: +IOHEXOL 240 MG/ML 50ML VIAL. PO ONE; +IOHEXOL 300 MG/ML 75 ML VIAL IV ONE
--- NOTE | 2016-08-11 11:23 | RAD ---
CT of the chest, abdomen and pelvis with contrast, 08/11/2016: History: Hepatic carcinoma, colon carcinoma Multidetector CT imaging was performed following oral and IV administration of contrast. Comparison is made to a study from 02/12/2016. There are extensive emphysematous changes in the lungs. There are scattered calcified granulomata. There are a few scattered linear parenchymal opacities compatible with atelectasis and/or scarring. These have worsened slightly in the left lower chest. No pulmonary mass or consolidation is seen. There is slight pleural thickening or a trace amount of pleural fluid in the posterior costophrenic angle on the left. There is moderate calcific plaquing of the aorta without evidence of aneurysm. Mild coronary artery calcifications are present. A left-sided transvenous pacemaker remains in place. No mediastinal or hilar adenopathy is evident. There is a small hiatal hernia. No hepatic mass or bile duct dilatation is evident. The gallbladder is unremarkable. No pancreatic abnormality is seen. The spleen is of normal size. Two tiny low-density areas in the left kidney are too small to definitively characterize but are probably cysts. Mild enlargement of the left adrenal gland is unchanged since 05/15/2015. There is moderate aortoiliac atherosclerotic plaquing. No abdominal or pelvic adenopathy is seen. The uterus is surgically absent. There is a moderate amount stool in the colon. Sigmoid diverticula are noted. There is no evidence of bowel obstruction. No free fluid is evident in the abdomen or pelvis. There is a thoracolumbar scoliosis with moderate multilevel degenerative change. IMPRESSION: 1. Emphysema with parenchymal scarring. 2. Aortic atherosclerosis with mild coronary artery calcifications. 3. Small hiatal hernia. 4. Stable mild left adrenal enlargement, suggesting a benign etiology. 5. No specific evidence of metastatic disease in the chest, abdomen or pelvis. PQRS Compliance Statement: One or more of the following individualized dose reduction techniques were utilized for this examination: 1. Automated exposure control 2. Adjustment of the mA and/or kV according to patient size 3. Use of iterative reconstruction technique
== END | disposition home or self-care (01) ==
LOC: CT 08:32
PROVIDERS: ATTEND Internal Medicine Hematology & Oncology
DX: C18.3 Malignant neoplasm of hepatic flexure (principal); J43.9 Emphysema, unspecified; I70.0 Atherosclerosis of aorta; I25.10 Atherosclerotic heart disease of native coronary artery without angina pectoris
CPT/HCPCS: 71260; 74177; Q9966; Q9967

== ENCOUNTER 2016-09-11 17:38 | Emergency (ER) | payer OTHER ==
[~2016-09-11] VITALS: Ht 152.4 cm; Wt 52.2 kg
[~2016-09-11 17:38] MED LIST changes: -IOHEXOL 240 MG/ML 50ML VIAL. PO ONE; -IOHEXOL 300 MG/ML 75 ML VIAL IV ONE
[2016-09-11] MEDS ORDERED: CLONIDINE HCL 0.1 MG TABLET PO ONE (18:45)
--- NOTE | 2016-09-11 19:26 | PHYS DOC ---
Past Medical History Past Medical History: Cancer, COPD, High Cholesterol, Heart Disease, Hypertension, Other Additional Past Medical Histor: Colon CA,L)hernia, chemotherapy, home oxygen Past Surgical History: Cancer Surgery, Hysterectomy, Oophorectomy, Pacemaker, Other Additional Past Surgical Histo: Colonoscopy,Breast cysts removed bilaterally, pacemaker Alcohol Use: None Drug Use: None Adult General Chief Complaint Chief Complaint: HYPERTENSION HPI HPI Patient is a 86 year old female who presents with hypertension. Patient reports her blood pressure has been "too high for a long time". In particular, patient reports that in the morning her BP is high. Today she checked her BP at home and noted SBP >200 and DBP >100. She has been taking her BP meds as scheduled, which include: clonidine, diltiazem, lisinopril, metoprolol. She is feeling well, and denies any complaints. No pain, no MARCELO, no SOB. She did become concerned about her BP when her home health nurse told her if it is ever that high she needs to see a doctor DEMARCUS. Patient did get appt scheduled with her PCP for Wednesday. Review of Systems Review of Systems Constitutional: Denies fever or chills Eyes: Denies change in visual acuity or eye pain HENT: Denies nasal congestion or sore throat Respiratory: Denies cough or shortness of breath Cardiovascular: Denies chest pain GI: Denies abdominal pain, nausea, vomiting, bloody stools or diarrhea : Denies dysuria or hematuria Musculoskeletal: Denies back pain or joint pain Integument: Denies rash or skin lesions Neurologic: Denies headache, focal weakness or sensory changes Current Medications Current Medications Current Medications Medications (Trade) Dose Ordered Sig/Shu Start Time Stop Time Status Last Admin Dose Admin Clonidine HCl (Catapres) 0.1 mg 1X ONCE 09/11/16 18:45 09/11/16 18:46 DC 09/11/16 19:10 0.1 MG Allergies Allergies Allergies Coded Allergies Type Severity Reaction Last Updated Verified No Known Drug Allergies 08/19/15 No Physical Exam Physical Exam Constitutional: Well developed, well nourished, no acute distress, non-toxic appearance HENT: Normocephalic, atraumatic, bilateral external ears normal. Nasal cannula in place (baseline O2) Eyes: EOMI, conjunctiva normal, no discharge Neck: Normal range of motion, no stridor Cardiovascular: Heart rate normal, regular rhythm, no murmur Lungs & Thorax: Bilateral breath sounds clear to auscultation Abdomen: Bowel sounds normal, soft, non-distended, no TTP Skin: Warm, dry, no erythema, no rash Extremities: No obvious deformity, no edema Neurologic: Alert and oriented X 3, no gross deficits noted Psychologic: Affect normal, judgement normal, mood normal Current Patient Data Vital Signs Vital Signs Date Time Temp Pulse Resp B/P Pulse Ox O2 Delivery O2 Flow Rate FiO2 09/11/16 19:10 65 161/70 09/11/16 18:30 16 97 Nasal Cannula 2 09/11/16 17:43 96.6 96.6 EKG EKG [] Radiology/Procedures Radiology/Procedures [] Course & Med Decision Making Course & Med Decision Making Pertinent Labs and Imaging studies reviewed. (See chart for details) Patient is 86 year old female who presents with elevated blood pressure. As she is asymptomatic with no concerning findings on physical exam, will not pursue workup. Will give additional dose of PO clonidine and monitor. Repeat BP 170/76 after meds. Patient remains asymptomatic. I discussed the importance of follow with PCP for management of HTN meds (and she already has appt scheduled for Wednesday). I also gave strict return precautions if she does develop any concerning symptoms. Patient discharged home. Dragon Disclaimer Dragon Disclaimer This electronic medical record was generated, in whole or in part, using a voice recognition dictation system. Departure Departure Impression: Primary Impression: Elevated blood pressure reading Disposition: HOME, SELF-CARE Condition: STABLE Referrals: IAN BLAKE MD (PCP) Patient Instructions: Managing Your High Blood Pressure Additional Instructions: Thank you for allowing us to provide care today in the Emergency Department. Continue to take your blood pressure medication that has already been prescribed. Keep your scheduled follow up appointment with your primary care doctor. Return promptly to the Emergency Department if you develop any new or concerning symptoms. PAULY JEAN MD Sep 11, 2016 19:26
[2016-09-11 19:30] VITALS: BP 164/70
== END 2016-09-11 20:02 | disposition home or self-care (01) ==
LOC: ER 17:38
DX: I11.9 Hypertensive heart disease without heart failure (principal); J45.909 Unspecified asthma, uncomplicated; E78.00 Pure hypercholesterolemia, unspecified; Z90.710 Acquired absence of both cervix and uterus; Z95.0 Presence of cardiac pacemaker; Z90.722 Acquired absence of ovaries, bilateral; Z85.038 Personal history of other malignant neoplasm of large intestine; Z51.11 Encounter for antineoplastic chemotherapy
CPT/HCPCS: 99283

== ENCOUNTER → 2016-12-22 | Outpatient (CLI) | payer OTHER ==
[~2016-12-22] MED LIST changes: +ASPI-630 PO; -ASPI81TA2 PO; -CHOL20004 PO; +CHOL200074 PO; +DOCU-109 PO; -DOCU-27 PO; -HYDR-2666 PO; +HYDR-2758 PO; +MAGN250T10 PO; -MAGN250T5 PO
--- NOTE | 2016-12-22 14:37 | RAD ---
Chest radiograph 12/22/2016 at 1401 hours Indication: Shortness of air Comparison: Chest radiographs 07/08/2016, 06/26/2016 Technique: PA and lateral views of the chest are provided. Findings: A left-sided cardiac device is identified with leads projecting over the right atrium and right ventricle. Cardiomediastinal silhouette is within normal limits. Stable blunting of the left costophrenic angle which may be secondary to small pleural effusion, scarring and/or pleural thickening. Subsegmental atelectasis and/or scarring is noted at the left lung base. Senescent calcifications of the thoracic aorta are present. No pulmonary vascular congestion or pneumothorax. Stable 3 mm calcified pulmonary nodule in the right lung apex. Moderate degenerative changes are identified at the thoracolumbar junction. Impression: 1. Stable blunting of the left costophrenic angle, likely secondary to small pleural effusion, pleural thickening or scarring. 2. No acute airspace disease is identified.
== END | disposition home or self-care (01) ==
LOC: RAD 13:44
PROVIDERS: ATTEND Internal Medicine Pulmonary Disease
DX: R05 Cough (principal); M47.895 Other spondylosis, thoracolumbar region
CPT/HCPCS: 71020

== ENCOUNTER → 2017-02-08 | Outpatient (CLI) | payer OTHER ==
[~2017-02-08] MED LIST changes: +CONTRAST GIVEN MC PRN; +IOHEXOL 240 MG/ML 50ML VIAL. PO ONE; +IOHEXOL 300 MG/ML 75 ML VIAL IV ONE
--- NOTE | 2017-02-08 11:28 | RAD ---
Exam performed: CT chest, abdomen and pelvis with contrast. History: Restaging colon cancer. Date of service: 02/08/17. Comparison: CT chest abdomen pelvis from 08/11/16. Technique: Contiguous helical acquisitions are obtained through the chest, abdomen and pelvis during intravenous administration of 75 cc of Omnipaque 300. Sagittal and coronal reformatted images are obtained and reviewed. CT chest, abdomen and pelvis findings: Extensive bilateral emphysematous changes with linear bibasal scarring. There are a few calcified nodules in both lungs. There are also a couple tiny 2 to 3 mm noncalcified nodules in the left lung base. There is no mediastinal or hilar adenopathy. Extensive atheromatous aortic and coronary calcification is seen. Heart size is normal. No pleural effusion or pneumothorax. Small hiatal hernia. Pacemaker remains in place. Liver, gallbladder, spleen and pancreas appear normal. Unchanged Left adrenal nodule. The right adrenal gland appears normal. Bilateral kidneys are normal in size and attenuation with symmetric excretion of contrast through both kidneys. Tiny cyst in the right inferior renal pole. Diffuse atheromatous calcification of the aorta without aneurysm. There is a new ventral abdominal defect containing omental fat. Small bowel loops are nondilated and unremarkable. Extensive scattered stool in the colon. Urinary bladder is distended. Uterus is not seen, probably hysterectomy. No pelvic lymphadenopathy or fluid collections are seen. No free or focal fluid collections. Interrogation of bone windows demonstrates no bony abnormality is. Spondylotic changes and multilevel degenerative disc disease noted. Impression: 1. No evidence of metastatic disease seen in the chest, abdomen and pelvis. 2. Emphysematous lungs with scattered parenchymal scarring. 3. Atherosclerotic aortic and coronary calcification. 4. Small hiatal hernia and stable left adrenal nodule, possibly benign. 5. New ventral abdominal hernia containing omental fat. 6. Extensive scattered stool throughout the colon. Correlate clinically for constipation. PQRS Compliance Statement: One or more of the following individualized dose reduction techniques were utilized for this examination: 1. Automated exposure control 2. Adjustment of the mA and/or kV according to patient size 3. Use of iterative reconstruction technique
== END | disposition home or self-care (01) ==
LOC: CT 08:38
PROVIDERS: ATTEND Internal Medicine Hematology & Oncology
DX: C18.3 Malignant neoplasm of hepatic flexure (principal); K44.9 Diaphragmatic hernia without obstruction or gangrene; E27.8 Other specified disorders of adrenal gland; K43.9 Ventral hernia without obstruction or gangrene; K59.00 Constipation, unspecified; I10 Essential (primary) hypertension; J44.9 Chronic obstructive pulmonary disease, unspecified; I48.91 Unspecified atrial fibrillation; I50.9 Heart failure, unspecified; Z87.891 Personal history of nicotine dependence; Z79.899 Other long term (current) drug therapy
CPT/HCPCS: 71260; 74177; Q9966; Q9967

== ENCOUNTER → 2017-08-10 | Outpatient (CLI) | payer BC ==
[~2017-08-10] MED LIST changes: -ALPR0.25 PO; -ASPI-482 PO; -ASPI-630 PO; -BIMA2.5D EACHEYE; -CALC-274 PO; -CALC600T4 PO; -CELE400C PO; -CHOL200074 PO; -CLON0.1T PO; +CONTRAST GIVEN MC; -CONTRAST GIVEN MC PRN; -DILT180C29 PO; -DILT180C64 PO; -DILT240C66 PO; -DOCU-109 PO; -DOCU50CA9 PO; -FISH1CAP PO; -FLUT12HF2 IH; -GLUC100018 PO; -HYDR-2758 PO; -HYDR-971 PO; -IOHEXOL 240 MG/ML 50ML VIAL. PO ONE; -IOHEXOL 300 MG/ML 75 ML VIAL IV ONE; -IPRA3AMP NEB; -LANS15CA5 PO; -LATA2.5D3 OP; -LISI10TA2 PO; -MAGN250T10 PO; -METO-269 PO; -MIRT15TA3 PO; -MV,C1TAB19 PO; -OXYB10TA PO; -PRAV80TA2 PO; -PRED20TA PO; -PROAIR HFA8.5 GM INH; -TIOT18CA IH; -[UNRECOGNIZED DRUG - CODE] PO
[2017-08-10] MEDS: IOHEXOL 240 MG/ML 50ML VIAL. PO (09:00)
[2017-08-10] MEDS: IOHEXOL 300 MG/ML 100ML VIAL. IV (10:17)
== END | disposition home or self-care (01) ==
LOC: CT 08:51
DX: C18.3 Malignant neoplasm of hepatic flexure (principal); I77.811 Abdominal aortic ectasia; I70.0 Atherosclerosis of aorta; J43.9 Emphysema, unspecified; J84.10 Pulmonary fibrosis, unspecified; M43.06 Spondylolysis, lumbar region; K44.9 Diaphragmatic hernia without obstruction or gangrene; M41.86 Other forms of scoliosis, lumbar region; K43.9 Ventral hernia without obstruction or gangrene
CPT/HCPCS: 71260; 74177; Q9966; Q9967

== ENCOUNTER 2017-08-26 13:37 | Inpatient (IN) | payer BC ==
[2017-08-26] MEDS: IPRATRPIUM/ALBUTEROL 0.5/2.5MG 3 ML NEBU. NEB ×2 (14:10→21:10)
[2017-08-26 14:12] LABS: ADD MAN DIFF? NO
[2017-08-26 14:15] LABS: BASO % 0 % (0-3); EOS # 0.2 x10^3/uL (0.0-0.7); EOS % 2 % (0-3); HEMATOCRIT 38.3 % (36.0-47.0); HEMOGLOBIN 12.6 g/dL (12.0-15.5); LYMPH # 1.5 x10^3/uL (1.0-4.8); LYMPH % 15 % (24-48); MEAN CORPUSCULAR HEMOGLOBIN 31 pg (25-35); MEAN CORPUSCULAR HGB CONC 33 g/dL (31-37); MEAN CORPUSCULAR VOLUME 94 fL (79-100); MONO # 0.7 x10^3/uL (0.0-1.1); MONO % 7 % (0-9); NEUT # 7.6 x10^3uL (1.8-7.7); NEUT % 75 % (31-73); PLATELET COUNT 282 x10^3/uL (140-400); RED BLOOD COUNT 4.07 x10^6/uL (3.50-5.40); RED CELL DISTRIBUTION WIDTH 14.6 % (11.5-14.5); WHITE BLOOD COUNT 10.1 x10^3/uL (4.0-11.0)
[2017-08-26 14:25] LABS: INR 0.9 (0.8-1.1); PROTHROMBIN TIME PATIENT 11.9 SEC (11.7-14.0)
[2017-08-26 14:34] LABS: ANION GAP 5 (6-14); BLOOD UREA NITROGEN 13 mg/dL (7-20); CALCIUM 9.6 mg/dL (8.5-10.1); CARBON DIOXIDE 30 mmol/L (21-32); CHLORIDE 103 mmol/L (98-107); CREATININE 0.7 mg/dL (0.6-1.0); GFR 79.3; GLUCOSE 113 mg/dL (70-99); POTASSIUM 3.9 mmol/L (3.5-5.1); SODIUM 138 mmol/L (136-145)
[2017-08-26 14:39] LABS: ALBUMIN 3.4 g/dL (3.4-5.0); ALK PHOS 66 U/L (46-116); ALT (SGPT) 25 U/L (14-59); AST (SGOT) 25 U/L (15-37); DIRECT BILIRUBIN < 0.1 mg/dL (0.0-0.2); LIPASE 108 U/L (73-393); MAGNESIUM 1.9 mg/dL (1.8-2.4); TOTAL BILIRUBIN 0.1 mg/dL (0.2-1.0); TOTAL PROTEIN 6.5 g/dL (6.4-8.2)
[2017-08-26 14:41] LABS: TROPONINI < 0.017 ng/mL (0.000-0.055)
[2017-08-26 14:47] LABS: THYROID STIM HORMONE (TSH) 1.796 uIU/mL (0.358-3.74)
[2017-08-26 14:49] LABS: CKMB INDEX 4.6 % (0-4); CKMB MASS 3.8 ng/mL (0.0-3.6); CREATINE KINASE 83 U/L (26-192)
[2017-08-26 14:49] LABS: NT-PRO BNP 434 pg/mL (0-449)
[2017-08-26 14:55] LABS: LACTIC ACID 1.4 mmol/L (0.4-2.0)
[2017-08-26 15:13] LABS: BILIRUBIN,URINE NEGATIVE (NEG); CLARITY,URINE CLEAR; COLOR,URINE YELLOW; GLUCOSE,URINE NEGATIVE (NEG); NITRITE,URINE POSITIVE (NEG); PROTEIN,URINE NEGATIVE (NEG-TRACE); UROBILINOGEN,URINE 0.2 mg/dL (0.2 mg/dL)
[2017-08-26 15:18] LABS: AMPHETAMINE/METHAMPHETAMINE NEG (NEG); BARBITURATES NEG (NEG); BENZODIAZEPINES NEG (NEG); CANNABINOIDS NEG (NEG); COCAINE NEG (NEG); ETHANOL, URINE NEG (NEG); METHADONE NEG (NEG); OPIATES NEG (NEG); PHENCYCLIDINE NEG (NEG)
[2017-08-26 15:23] LABS: BACTERIA,URINE MANY /HPF (0-FEW); RBC,URINE OCC /HPF (0-2); SQUAMOUS EPITHELIAL CELL,UR FEW /LPF
[2017-08-26] MEDS: AZITHRMYCN 500MG IVPB FOR OMNI 250 ML IV (15:25)
[2017-08-26] MEDS: methylPREDNISolone SOD SUCC PF 125 MG/2 ML VIAL. IV (15:25)
[2017-08-26] MEDS ORDERED: ONDANSETRON PF 4 MG/2 ML VIAL. IV (15:45)
[2017-08-26] MEDS: hydrALAZINE 20 MG/ML VIAL. IVP (16:45)
[2017-08-26 19:00] LABS: TROPONINI < 0.017 ng/mL (0.000-0.055)
[2017-08-26] MEDS: cloNIDine HCL 0.1 MG TABLET PO (20:49)
[2017-08-26] MEDS: ATORVASTATIN CALCIUM 20 MG TABLET PO (20:49)
[2017-08-26] MEDS: METOPROLOL SUCC 24HR ER 50 MG TAB.ER.24H. PO (20:50)
[2017-08-26] MEDS: MIRTAZAPINE 15 MG TABLET PO (20:50)
[2017-08-26] MEDS: OXYBUTYNIN CHLORIDE 5 MG TABLET PO (20:50)
[2017-08-26] MEDS: LATANOPROST 0.005% OPHTH SOLUTION 2.5ML BOTTLE. OU (20:57)
[2017-08-26] MEDS ORDERED: GLUCOSAMINE SULFATE 1500 MG PO (21:00)
[2017-08-26] MEDS ORDERED: OXYBUTYNIN CHLORIDE 5 MG TABLET PO (21:45)
[2017-08-26] MEDS: BRIMONIDINE 0.2% OPHTH SOLUTION 5ML BOTTLE. OU (22:28)
[2017-08-26 22:55] LABS: TROPONINI < 0.017 ng/mL (0.000-0.055)
[2017-08-27] MEDS: ALBUTEROL SULFATE 2.5 MG/3 ML NEBU. NEB (04:09)
[2017-08-27] MEDS: cloNIDine HCL 0.1 MG TABLET PO ×4 (04:33→20:23)
[2017-08-27 05:34] LABS: ANION GAP 13 (6-14); BLOOD UREA NITROGEN 14 mg/dL (7-20); CALCIUM 10.2 mg/dL (8.5-10.1); CARBON DIOXIDE 27 mmol/L (21-32); CHLORIDE 102 mmol/L (98-107); CREATININE 0.9 mg/dL (0.6-1.0); GFR 59.4; GLUCOSE 208 mg/dL (70-99); POTASSIUM 3.7 mmol/L (3.5-5.1); SODIUM 142 mmol/L (136-145)
[2017-08-27 05:36] LABS: BASO % 0 % (0-3); EOS % 0 % (0-3); HEMATOCRIT 44.2 % (36.0-47.0); HEMOGLOBIN 14.6 g/dL (12.0-15.5); LYMPH # 0.7 x10^3/uL (1.0-4.8); LYMPH % 6 % (24-48); MEAN CORPUSCULAR HEMOGLOBIN 31 pg (25-35); MEAN CORPUSCULAR HGB CONC 33 g/dL (31-37); MEAN CORPUSCULAR VOLUME 94 fL (79-100); MONO # 0.1 x10^3/uL (0.0-1.1); MONO % 1 % (0-9); NEUT # 10.8 x10^3uL (1.8-7.7); NEUT % 93 % (31-73); PLATELET COUNT 311 x10^3/uL (140-400); RED BLOOD COUNT 4.69 x10^6/uL (3.50-5.40); RED CELL DISTRIBUTION WIDTH 14.8 % (11.5-14.5); WHITE BLOOD COUNT 11.5 x10^3/uL (4.0-11.0)
[2017-08-27 05:42] LABS: ADD MAN DIFF? YES
[2017-08-27] MEDS: IPRATRPIUM/ALBUTEROL 0.5/2.5MG 3 ML NEBU. NEB ×4 (07:16→20:07)
[2017-08-27] MEDS: CALCIUM CARB/VIT D3 500/200 TABLET. PO ×2 (08:00→17:44)
[2017-08-27] MEDS: CALCIUM CARBONATE 500 MG TABLET PO (08:20)
[2017-08-27] MEDS: ASPIRIN ENTERIC COATED 81 MG TABLET.DR. PO (08:21)
[2017-08-27] MEDS: LISINOPRIL 20 MG TABLET PO (08:21)
[2017-08-27] MEDS: MULTIVITAMIN with MINERAL TABLET. PO (08:21)
[2017-08-27] MEDS: OXYBUTYNIN CHLORIDE 5 MG TABLET PO ×2 (08:22→20:22)
[2017-08-27] MEDS: POLYETHYLENE GLYCOL 3350 17 GM PACKET. PO (08:23)
[2017-08-27] MEDS: BRIMONIDINE 0.2% OPHTH SOLUTION 5ML BOTTLE. OU ×2 (08:24→20:21)
[2017-08-27] MEDS ORDERED: NON FORMULARY ITEM (Tiotropium Bromide (Spiriva) 1 CAP) IH (09:00)
[2017-08-27 09:20] LABS: % BANDS 5 % (0-9); % LYMPHS 3 % (24-48); % MONOS 1 % (0-10); % SEGS 91 % (35-66); PLT ESTIMATE ADEQUATE (ADEQUATE)
[2017-08-27] MEDS: methylPREDNISolone SOD SUCC PF 125 MG/2 ML VIAL. IV ×3 (09:27→21:13)
[2017-08-27] MEDS: PANTOPRAZOLE 40 MG TABLET.DR. PO (12:03)
[2017-08-27] MEDS: cefTRIAXone IV Push 1 GM VIAL. IVP (17:45)
[2017-08-27] MEDS: LATANOPROST 0.005% OPHTH SOLUTION 2.5ML BOTTLE. OU (20:21)
[2017-08-27] MEDS: ATORVASTATIN CALCIUM 20 MG TABLET PO (20:22)
[2017-08-27] MEDS: METOPROLOL SUCC 24HR ER 50 MG TAB.ER.24H. PO (20:24)
[2017-08-27] MEDS: MIRTAZAPINE 15 MG TABLET PO (20:24)
[2017-08-27] MEDS ORDERED: LATANOPROST 0.005% OPHTH SOLUTION 2.5ML BOTTLE. OU (21:00)
[2017-08-28] MEDS: ALBUTEROL SULFATE 2.5 MG/3 ML NEBU. NEB (01:39)
[2017-08-28] MEDS: methylPREDNISolone SOD SUCC PF 125 MG/2 ML VIAL. IV ×2 (05:57→20:45)
[2017-08-28] MEDS: IPRATRPIUM/ALBUTEROL 0.5/2.5MG 3 ML NEBU. NEB ×4 (07:25→19:30)
[2017-08-28] MEDS: ASPIRIN ENTERIC COATED 81 MG TABLET.DR. PO (09:17)
[2017-08-28] MEDS: MULTIVITAMIN with MINERAL TABLET. PO (09:17)
[2017-08-28] MEDS: cloNIDine HCL 0.1 MG TABLET PO ×3 (09:17→20:46)
[2017-08-28] MEDS: OXYBUTYNIN CHLORIDE 5 MG TABLET PO ×2 (09:17→20:46)
[2017-08-28] MEDS: CALCIUM CARB/VIT D3 500/200 TABLET. PO ×2 (09:18→16:56)
[2017-08-28] MEDS: POLYETHYLENE GLYCOL 3350 17 GM PACKET. PO (09:18)
[2017-08-28] MEDS: LISINOPRIL 20 MG TABLET PO (09:18)
[2017-08-28] MEDS: PANTOPRAZOLE 40 MG TABLET.DR. PO (09:18)
[2017-08-28] MEDS: BRIMONIDINE 0.2% OPHTH SOLUTION 5ML BOTTLE. OU ×2 (09:23→20:45)
[2017-08-28] MEDS: LACTOBACILLUS RHAMNOSUS GG 1 CAPSULE. PO ×2 (16:56→20:46)
[2017-08-28] MEDS: cefTRIAXone IV Push 1 GM VIAL. IVP (16:57)
[2017-08-28] MEDS: LATANOPROST 0.005% OPHTH SOLUTION 2.5ML BOTTLE. OU (20:45)
[2017-08-28] MEDS: ATORVASTATIN CALCIUM 20 MG TABLET PO (20:46)
[2017-08-28] MEDS: METOPROLOL SUCC 24HR ER 50 MG TAB.ER.24H. PO (20:46)
[2017-08-28] MEDS: MIRTAZAPINE 15 MG TABLET PO (20:46)
[2017-08-29] MEDS: IPRATRPIUM/ALBUTEROL 0.5/2.5MG 3 ML NEBU. NEB ×2 (07:24→11:14)
[2017-08-29] MEDS: MULTIVITAMIN with MINERAL TABLET. PO (09:24)
[2017-08-29] MEDS: LACTOBACILLUS RHAMNOSUS GG 1 CAPSULE. PO (09:24)
[2017-08-29] MEDS: OXYBUTYNIN CHLORIDE 5 MG TABLET PO (09:24)
[2017-08-29] MEDS: LISINOPRIL 20 MG TABLET PO (09:24)
[2017-08-29] MEDS: CALCIUM CARB/VIT D3 500/200 TABLET. PO (09:24)
[2017-08-29] MEDS: predniSONE 10 MG TABLET PO (09:24)
[2017-08-29] MEDS: ASPIRIN ENTERIC COATED 81 MG TABLET.DR. PO (09:25)
[2017-08-29] MEDS: cloNIDine HCL 0.1 MG TABLET PO (09:25)
[2017-08-29] MEDS: PANTOPRAZOLE 40 MG TABLET.DR. PO (09:25)
[2017-08-29] MEDS: BRIMONIDINE 0.2% OPHTH SOLUTION 5ML BOTTLE. OU (09:25)
[2017-08-29] MEDS: POLYETHYLENE GLYCOL 3350 17 GM PACKET. PO (09:26)
== END 2017-08-29 14:35 | disposition home or self-care (01) | DRG 189 ==
LOC: ER 13:37 → 5 SOUTH 14:30
DX: J96.21 Acute and chronic respiratory failure with hypoxia (principal); J44.0 Chronic obstructive pulmonary disease with (acute) lower respiratory infection; N39.0 Urinary tract infection, site not specified; J44.1 Chronic obstructive pulmonary disease with (acute) exacerbation; J20.9 Acute bronchitis, unspecified; E78.5 Hyperlipidemia, unspecified; F41.9 Anxiety disorder, unspecified; H40.9 Unspecified glaucoma; I10 Essential (primary) hypertension; I16.0 Hypertensive urgency; K21.9 Gastro-esophageal reflux disease without esophagitis; K22.70 Barrett's esophagus without dysplasia; M19.90 Unspecified osteoarthritis, unspecified site; K44.9 Diaphragmatic hernia without obstruction or gangrene; M85.80 Other specified disorders of bone density and structure, unspecified site; E78.00 Pure hypercholesterolemia, unspecified; N32.81 Overactive bladder; Z85.038 Personal history of other malignant neoplasm of large intestine; Z87.891 Personal history of nicotine dependence; Z90.710 Acquired absence of both cervix and uterus; Z95.0 Presence of cardiac pacemaker; Z92.21 Personal history of antineoplastic chemotherapy
CPT/HCPCS: 36415; 71045; 80048; 80076; 80307; 81001; 82553; 83605; 83690; 83735; 83880; 84443; 84484; 85007; 85025; 85610; 87086; 87186; 93005; 94640; 94760; 96374; 96375; 99285; 99285-25; J0360; J0456; J0696; J2930; J7512; J7613; J7620

== ENCOUNTER → 2017-08-30 | Outpatient (CLI) | payer BC | END | disposition home or self-care (01) | LOC: ECHO 13:26 | DX: I50.32 Chronic diastolic (congestive) heart failure (principal); I27.20 Pulmonary hypertension, unspecified; R09.89 Other specified symptoms and signs involving the circulatory and respiratory systems | CPT/HCPCS: 93306; 93880 ==

== ENCOUNTER 2017-10-28 10:36 | Emergency (ER) | payer BC ==
[2017-10-28] MEDS: KETOROLAC 60 MG/2 ML INJ. IM (11:23)
== END 2017-10-28 12:05 | disposition home or self-care (01) ==
LOC: ER 10:36
DX: M54.9 Dorsalgia, unspecified (principal); E78.00 Pure hypercholesterolemia, unspecified; I10 Essential (primary) hypertension; J44.9 Chronic obstructive pulmonary disease, unspecified; Z85.038 Personal history of other malignant neoplasm of large intestine; Z95.0 Presence of cardiac pacemaker; M19.90 Unspecified osteoarthritis, unspecified site; Z98.890 Other specified postprocedural states
CPT/HCPCS: 72072; 72100; 96372; 99284; J1885

== ENCOUNTER → 2018-02-08 | Outpatient (CLI) | payer BC ==
[2017-11-10 10:56] VITALS: BP 134/62
[~2018-02-08] MED LIST changes: +ALPR0.25 PO; +AMOX1TAB61 PO; +ASPI-482 PO; +ASPI-630 PO; +BIMA2.5D EACHEYE; +BRIM5DRO EACHEYE; +BRIM5DRO3 EACHEYE; +BUDE10.2 IH; +CALC-274 PO; +CALC-31 PO; +CALC600T4 PO; +CELE400C PO; +CHOL200074 PO; +CLON0.1T PO; -CONTRAST GIVEN MC; +CONTRAST GIVEN. MC PRN; +DILT180C29 PO; +DILT180C64 PO; +DILT240C32 PO; +DILT240C66 PO; +DOCU-109 PO; +DOCU50CA9 PO; +ESOM20CA PO; +FISH1CAP PO; +FLUT12HF2 IH; +GLUC100018 PO; +HYDR-2758 PO; +HYDR-971 PO; +IOHEXOL 240 MG/ML 50ML VIAL. PO ONE; +IOHEXOL 300 MG/ML 100ML VIAL. IV ONE; +IPRA3AMP29 NEB; +LANS15CA5 PO; +LATA2.5D3 OP; +LISI-130 PO; +LISI10TA2 PO; +MAGN250T10 PO; +METO-269 PO; +MIRT15TA3 PO; +MV,C1TAB19 PO; +OXYB10TA PO; +OXYB5TAB7 PO; +POLY17PO29 PO; +PRAV80TA2 PO; +PRED-220 PO; +PRED20TA PO; +PRED50TA PO; +PROAIR HFA8.5 GM INH; +TIOT18CA IH; +TRAM50TA PO; +[UNRECOGNIZED DRUG - CODE] PO
--- NOTE | 2018-02-08 13:53 | RAD ---
CT CHEST ABD PELVIS W/CONTRAST Indication: COLON CA, [id number], PRIOR SENT Technique: Postcontrast CT imaging was performed of the chest, abdomen, pelvis, multiplanar reconstruction images submitted. One or more of the following individualized dose reduction techniques were utilized for this examination: 1. Automated exposure control 2. Adjustment of the mA and/or kV according to patient size 3. Use of iterative reconstruction technique. Contrast: 75 cc Omnipaque 300 Comparison: November 06, [address] exams 08/10/2017 CHEST: Findings: There is coronary calcification. There are again some small mediastinal nodes, no new significantly enlarged nodes identified of the chest. There is some residual pleural-based density on the left most notable at site of previously seen left chest tube on November 06, 2017 exam, component which appears to be some very minimal pleural fluid. However findings have decreased compared with the previous November 06, 2017 exam. There is no significant right pleural fluid. There is again severe emphysema. There is no pneumothorax. There is left electronic cardiac device. There is atherosclerotic calcification thoracic aorta. IMPRESSION: 1. There is some residual left pleural based density, component which appears to be minimal fluid, overall decreased compared with the October 2017 exam. There is again severe emphysema. There is no new significant lymphadenopathy. 2. There is coronary calcification. Abdomen and pelvis: FINDINGS: There is a small hiatal hernia. Both kidneys enhance, no significant hydronephrosis. Small hypodense lesion of the inferior right kidney about 0.4 cm is too small to accurately characterize, stable. There are also a couple of small hypodense foci of the mid to inferior left kidney also which are stable, too small to characterize. Gallbladder is present without obvious intraluminal abnormality by CT. There is atherosclerotic calcification of the abdominal aorta. There is ectasia of the infrarenal abdominal aorta as seen previously up to 2.7 cm, associated irregular plaque and mural thrombosis. There is also plaque of the iliac arteries bilaterally at which there are likely significant stenoses. There is similar nodularity of the left adrenal gland about 2 cm, no right adrenal nodularity. No new focal abnormality is identified of the liver, spleen, pancreas. There is a ventral hernia of the superior abdomen as seen previously, now containing partial wall of the proximal transverse colon as well as some adjacent fat. There is prominent retained stool greatest of the transverse colon. Small bowel is not significantly dilated. Appendix is not confidently identified if still present. There is moderate lumbar levoscoliosis. There is multilevel lumbar degenerative disc disease, greatest L2-3 and L4-5. There is grade 1 anterior spondylolisthesis L5-S1 due to bilateral L5 spondylolysis. There is some variable multilevel lumbar neural foramina compromise such as on the right at L2-3 and on the left L4-5 and L5-S1. There is multilevel lumbar facet degenerative change. Urinary bladder is again somewhat distended. Impression 1. There is stable left adrenal nodularity. 2. There is stable ectatic infrarenal abdominal aorta with associated irregular plaque. There are stenoses of the iliac arteries bilaterally. 3. There is prominent retained stool greater of the transverse colon. There is now partial wall of the proximal transverse colon in superior ventral abdominal hernia. Electronically signed by: Ganesh Nagel MD (02/08/2018 1:49 PM) [id number]
== END | disposition home or self-care (01) ==
LOC: CT 10:05
PROVIDERS: ATTEND Internal Medicine Hematology & Oncology
DX: I77.811 Abdominal aortic ectasia (principal); I70.8 Atherosclerosis of other arteries; K45.8 Other specified abdominal hernia without obstruction or gangrene; M51.36 Other intervertebral disc degeneration, lumbar region; M43.17 Spondylolisthesis, lumbosacral region; J43.9 Emphysema, unspecified; I25.10 Atherosclerotic heart disease of native coronary artery without angina pectoris; I11.9 Hypertensive heart disease without heart failure; E78.5 Hyperlipidemia, unspecified; E78.00 Pure hypercholesterolemia, unspecified; E87.5 Hyperkalemia; K21.9 Gastro-esophageal reflux disease without esophagitis; Z86.2 Personal history of diseases of the blood and blood-forming organs and certain disorders involving the immune mechanism; Z86.79 Personal history of other diseases of the circulatory system; Z87.891 Personal history of nicotine dependence; Z85.038 Personal history of other malignant neoplasm of large intestine; Z85.3 Personal history of malignant neoplasm of breast; Z86.010 Personal history of colon polyps; Z92.21 Personal history of antineoplastic chemotherapy; Z90.722 Acquired absence of ovaries, bilateral; Z90.49 Acquired absence of other specified parts of digestive tract; Z90.710 Acquired absence of both cervix and uterus
CPT/HCPCS: 71260; 74177; Q9966; Q9967

== ENCOUNTER 2018-08-05 08:44 | Inpatient (IN) | payer BC ==
[~2018-08-05] VITALS: Ht 160 cm; Wt 49.2 kg
[2018-08-05] VITALS (25 sets, daily range): BP systolic 93–176; BP diastolic 47–97
[~2018-08-05 08:44] MED LIST changes: +ALBU2.5V8 INH; -CONTRAST GIVEN. MC PRN; +GLUC100020 PO; -HYDR-2758 PO; +HYDR-2761 PO; +HYDR-3164 PO; -HYDR-971 PO; -IOHEXOL 240 MG/ML 50ML VIAL. PO ONE; -IOHEXOL 300 MG/ML 100ML VIAL. IV ONE; -PROAIR HFA8.5 GM INH; -[UNRECOGNIZED DRUG - CODE] PO
[2018-08-05] MEDS ORDERED: LABETALOL 20 MG/4 ML DISP.SYRIN. IVP ONE (09:00)
--- NOTE | 2018-08-05 09:25 | PHYS DOC ---
Past Medical History Past Medical History: Arthritis, Cancer, COPD, GERD, Glaucoma, High Cholesterol , Heart Disease, Hypertension, Other Additional Past Medical Histor: Colon CA,L)hernia,chemotherapy,home oxygen, SPINAL/CAROTID STENOSIS Past Surgical History: Cancer Surgery, Hysterectomy, Oophorectomy, Pacemaker, Other Additional Past Surgical Histo: Colonoscopy,Breast cysts removed bilaterally, pacemaker Alcohol Use: None Drug Use: None Adult General Chief Complaint Chief Complaint: HYPERTENSION HPI HPI Patient is a 88 year old female brought in by embolus with shortness of breath and pressure was 260 for the paramedics patient denies chest pain really is just a very mild frontal headache that is actually resolving she does feel shortness of breath on and off on a long-standing basis she does have COPD she did not take her blood pressure medication yet Review of Systems Review of Systems Constitutional: Denies fever or chills [] Eyes: Denies change in visual acuity, redness, or eye pain [] HENT: Denies nasal congestion or sore throat [] Respiratory: GI: Denies abdominal pain, nausea, vomiting, bloody stools or diarrhea [] : Denies dysuria or hematuria [] Musculoskeletal: Denies back pain or joint pain [] Integument: Denies rash or skin lesions [] All other systems were reviewed and found to be within normal limits, except as documented in this note. Current Medications Current Medications Current Medications Medications (Trade) Dose Ordered Sig/Shu Start Time Stop Time Status Last Admin Dose Admin Labetalol HCl (Normodyne Iv Push) 20 mg 1X ONCE 08/05/18 09:00 08/05/18 09:01 DC 08/05/18 09:08 20 MG Allergies Allergies Allergies Coded Allergies Type Severity Reaction Last Updated Verified No Known Drug Allergies 08/19/15 No Physical Exam Physical Exam Constitutional: Well developed,cachectic, no acute distress, non-toxic appearance. [] HENT: Normocephalic, atraumatic, bilateral external ears normal, oropharynx moist, no oral exudates, nose normal. [] Eyes: PERRLA, EOMI, conjunctiva normal, no discharge. [] Neck: Normal range of motion, no tenderness, supple, no stridor. [] Cardiovascular:Heart rate regular rhythm, Lungs & Thorax: faint crackles lung bases. Abdomen: Bowel sounds normal, soft, no tenderness, no masses, no pulsatile masses. [] Skin: Warm, dry, no erythema, no rash. [] Extremities: No tenderness, no cyanosis, no clubbing, ROM intact, no edema. [] Neurologic: Alert and oriented X 3, normal motor function, normal sensory function, no focal deficits noted. [] Psychologic: Affect normal, judgement normal, mood anxious. [] Current Patient Data Vital Signs Vital Signs Date Time Temp Pulse Resp B/P (MAP) Pulse Ox O2 Delivery O2 Flow Rate FiO2 08/05/18 09:15 76 20 96 08/05/18 09:08 247/113 08/05/18 08:51 97.7 Nasal Cannula 2.0 97.7 Lab Values Laboratory Tests Test 08/05/18 08:45 White Blood Count 11.1 x10^3/uL (4.0-11.0) H Red Blood Count 4.82 x10^6/uL (3.50-5.40) Hemoglobin 14.8 g/dL (12.0-15.5) Hematocrit 45.0 % (36.0-47.0) Mean Corpuscular Volume 93 fL (79-100) Mean Corpuscular Hemoglobin 31 pg (25-35) Mean Corpuscular Hemoglobin Concent 33 g/dL (31-37) Red Cell Distribution Width 15.4 % (11.5-14.5) H Platelet Count 346 x10^3/uL (140-400) Neutrophils (%) (Auto) 80 % (31-73) H Lymphocytes (%) (Auto) 12 % (24-48) L Monocytes (%) (Auto) 7 % (0-9) Eosinophils (%) (Auto) 1 % (0-3) Basophils (%) (Auto) 0 % (0-3) Neutrophils # (Auto) 8.9 x10^3uL (1.8-7.7) H Lymphocytes # (Auto) 1.3 x10^3/uL (1.0-4.8) Monocytes # (Auto) 0.7 x10^3/uL (0.0-1.1) Eosinophils # (Auto) 0.1 x10^3/uL (0.0-0.7) Basophils # (Auto) 0.0 x10^3/uL (0.0-0.2) Prothrombin Time 11.6 SEC (11.7-14.0) L Prothrombin Time INR 0.9 (0.8-1.1) Sodium Level 138 mmol/L (136-145) Potassium Level 3.6 mmol/L (3.5-5.1) Chloride Level 98 mmol/L (98-107) Carbon Dioxide Level 27 mmol/L (21-32) Anion Gap 13 (6-14) Blood Urea Nitrogen 11 mg/dL (7-20) Creatinine 0.6 mg/dL (0.6-1.0) Estimated GFR (Cockcroft-Gault) 94.6 BUN/Creatinine Ratio 18 (6-20) Glucose Level 106 mg/dL (70-99) H Lactic Acid Level 1.4 mmol/L (0.4-2.0) Calcium Level 9.6 mg/dL (8.5-10.1) Total Bilirubin 0.4 mg/dL (0.2-1.0) Aspartate Amino Transferase (AST) 27 U/L (15-37) Alanine Aminotransferase (ALT) 26 U/L (14-59) Alkaline Phosphatase 69 U/L (46-116) Troponin I Quantitative 0.041 ng/mL (0.000-0.055) BE-Orj-S-Type Natriuretic Peptide 1280 pg/mL (0-449) H Total Protein 7.5 g/dL (6.4-8.2) Albumin 3.9 g/dL (3.4-5.0) Albumin/Globulin Ratio 1.1 (1.0-1.7) Laboratory Tests 08/05/18 08:45 Laboratory Tests 08/05/18 08:45 EKG EKG []EKG shows a normal sinus rhythm rate of 91 no STEMI or ischemia identified QTC 449 interpreted by me the time of encounter. Radiology/Procedures Radiology/Procedures [] Impressions: COMPARISON:11/02/2017 FINDINGS: Heart is normal in size. Stable position of left chest wall cardiac pacer with its leads projecting over the heart. Lungs are hyperinflated. No focal consolidation. No pneumothorax or pleural effusion. Mild prominence of interstitium in the left lower lobe. Visualized bony thorax is within normal limits. IMPRESSION: Findings of COPD with superimposed atypical/viral infection not ruled out. Electronically signed by: Alex Remy DO (08/05/2018 9:41 AM) [id number] DICTATED and SIGNED BY: ALEX REMY DO DATE: 08/05/18 0940 Course & Med Decision Making Course & Med Decision Making Pertinent Labs and Imaging studies reviewed. (See chart for details) [] Critical care time was 40 minutes exclusive of procedures. for mgmt of htn emergency bp 275 systolic iv labetalol given in the eR. then bp down to 210 then up to 238 so nicardipine initiated d/w shyann for admit Dragon Disclaimer Dragon Disclaimer This electronic medical record was generated, in whole or in part, using a voice recognition dictation system. Departure Departure Impression: Primary Impression: Hypertensive emergency Disposition: ADMITTED INPATIENT Admitting Physician: Ansley Mulligan Condition: STABLE Referrals: ANSLEY MULLIGAN MD (PCP) JESS GRIFFITH MD Aug 05, 2018 09:25
[2018-08-05 09:32] LABS: BASO % 0 % (0-3); EOS # 0.1 x10^3/uL (0.0-0.7); EOS % 1 % (0-3); HEMOGLOBIN 14.8 g/dL (12.0-15.5); LYMPH # 1.3 x10^3/uL (1.0-4.8); LYMPH % 12 % (24-48); MEAN CORPUSCULAR HEMOGLOBIN 31 pg (25-35); MEAN CORPUSCULAR HGB CONC 33 g/dL (31-37); MEAN CORPUSCULAR VOLUME 93 fL (79-100); MONO # 0.7 x10^3/uL (0.0-1.1); MONO % 7 % (0-9); NEUT # 8.9 x10^3uL (1.8-7.7); NEUT % 80 % (31-73); PLATELET COUNT 346 x10^3/uL (140-400); RED BLOOD COUNT 4.82 x10^6/uL (3.50-5.40); RED CELL DISTRIBUTION WIDTH 15.4 % (11.5-14.5); WHITE BLOOD COUNT 11.1 x10^3/uL (4.0-11.0)
[2018-08-05 09:38] LABS: CALCIUM 9.6 mg/dL (8.5-10.1); CREATININE 0.6 mg/dL (0.6-1.0); GFR 94.6; POTASSIUM 3.6 mmol/L (3.5-5.1)
[2018-08-05 09:43] LABS: PROTHROMBIN TIME PATIENT 11.6 SEC (11.7-14.0)
[2018-08-05 09:44] LABS: ALBUMIN 3.9 g/dL (3.4-5.0); ALBUMIN/GLOBULIN RATIO 1.1 (1.0-1.7); TOTAL BILIRUBIN 0.4 mg/dL (0.2-1.0); TOTAL PROTEIN 7.5 g/dL (6.4-8.2)
--- NOTE | 2018-08-05 09:44 | RAD ---
Indication:weakness, soa x2 days TECHNIQUE:Portable AP chest X-ray COMPARISON:11/02/2017 FINDINGS: Heart is normal in size. Stable position of left chest wall cardiac pacer with its leads projecting over the heart. Lungs are hyperinflated. No focal consolidation. No pneumothorax or pleural effusion. Mild prominence of interstitium in the left lower lobe. Visualized bony thorax is within normal limits. IMPRESSION: Findings of COPD with superimposed atypical/viral infection not ruled out. Electronically signed by: Alex Remy DO (08/05/2018 9:41 AM) [id number]
[2018-08-05] MEDS ORDERED: DOXYCYCLINE HYCLATE 100 MG in IV DEXTROSE 5% 100ML 100 ML IV ONE (10:30)
[2018-08-05] MEDS ORDERED: IPRATRPIUM/ALBUTEROL 0.5/2.5MG 3 ML NEBU. NEB PRN (10:45)
[2018-08-05 10:54] LABS: BILIRUBIN,URINE NEGATIVE (NEG); COLOR,URINE YELLOW; NITRITE,URINE NEGATIVE (NEG); PROTEIN,URINE NEGATIVE (NEG-TRACE); UROBILINOGEN,URINE 0.2 mg/dL (0.2 mg/dL)
[2018-08-05 10:59] LABS: CLARITY,URINE CLEAR; SQUAMOUS EPITHELIAL CELL,UR FEW /LPF
[2018-08-05 11:00] LABS: AMORPHOUS SEDIMENT,UR PRESENT /HPF
[2018-08-05 11:01] LABS: BACTERIA,URINE FEW /HPF (0-FEW); WBC,URINE OCC /HPF (0-4)
--- NOTE | 2018-08-05 11:29 | EKG ---
[facility] [address] [place] [address] Test Date: 2018-08-05 Test Time: 08:56:34 Pat Name: GLO GALAN Department: Room: 105 1 Gender: F [employer]: : [id number] Requested By: JESS GRIFFITH Order Number: [id number] Reading MD: Ezra Dale Measurements Intervals [place] Rate: 91 P: 66 WV: 198 QRS: 46 QRSD: 92 T: 30 QT: 364 QTc: 449 Interpretive Statements SINUS RHYTHM Electronically Signed On 08-16-2018 10:22:42 FINISHER POLISHER by Ezra Dale
[2018-08-05] MEDS ORDERED: PRED-220 PO ×2 (13:13→13:35)
[2018-08-05] MEDS ORDERED: LATA2.5D3 EACHEYE (13:13)
[2018-08-05] MEDS ORDERED: OXYB5TAB7 PO (13:13)
[2018-08-05] MEDS ORDERED: CLON0.1T PO (13:13)
[2018-08-05] MEDS ORDERED: GLUC100018 PO (13:15)
[2018-08-05] MEDS ORDERED: ACET500T68 PO (13:35)
[2018-08-05] MEDS ORDERED: LISINOPRIL 20 MG TABLET PO ONE (14:15)
[2018-08-05] MEDS ORDERED: ACETAMINOPHEN 325 MG TABLET. PO PRN (14:30)
[2018-08-05] MEDS: ASPIRIN ENTERIC COATED 81 MG TABLET.DR. PO SCH (14:36)
[2018-08-05] MEDS: LISINOPRIL 20 MG TABLET PO SCH (14:36)
[2018-08-05] MEDS: OXYBUTYNIN CHLORIDE 5 MG TABLET PO SCH ×2 (14:37→20:51)
[2018-08-05] MEDS: predniSONE 10 MG TABLET PO SCH (14:37)
[2018-08-05] MEDS: cloNIDine HCL 0.1 MG TABLET PO SCH ×2 (14:38→20:50)
[2018-08-05] MEDS: POLYETHYLENE GLYCOL 3350 17 GM PACKET. PO SCH (14:38)
--- NOTE | 2018-08-05 15:47 | NUR ---
Patient of Dr Mulligan admitted to room 105 at 1210. Arrived on Cardene drip at a rate of 5mg/hr. SBP on arrival was in the 170's. Titrated till SBP <160. Patient lives with nephwilfredo Horan who was at bedside at time of admission. Patient did not take any of her BP meds today. Dr Mulligan was called, patients home medications restarted. Patient up to commode with assistance. Had a hard, small, dark colored stool. Will Titrate Cardene off as home medications take affect. Patient ate 75% of lunch, is in no apparent distress. Will continue to monitor.
[2018-08-05] MEDS ORDERED: IPRATRPIUM/ALBUTEROL 0.5/2.5MG 3 ML NEBU. NEB SCH ×2 (16:00)
[2018-08-05] MEDS ORDERED: ACETAMINOPHEN 500 MG TABLET PO PRN (17:15)
[2018-08-05] MEDS: CALCIUM CARB/VIT D3 500/200 TABLET. PO SCH (17:20)
[2018-08-05] MEDS ORDERED: ALBUTEROL SULFATE 2.5 MG/3 ML NEBU. NEB PRN (18:45)
[2018-08-05] MEDS: BUDESONIDE 0.5 MG/2 ML NEBU. NEB SCH (19:41)
[2018-08-05] MEDS ORDERED: LATANOPROST 0.005% OPHTH SOLUTION 2.5ML BOTTLE. OU SCH (21:00)
[2018-08-05] MEDS ORDERED: NON FORMULARY ITEM (Budesonide/Formoterol Fumarate (Symbicort 160-4.5 Mcg Inhaler) 2 PUFF) IH SCH (21:00)
[2018-08-05] MEDS ORDERED: MIRTAZAPINE 7.5 MG TABLET. PO SCH (21:00)
[2018-08-05] MEDS ORDERED: NON FORMULARY ITEM (Glucosamine Sulfate 2KCL (Glucosamine) 500 MG) PO SCH (21:00)
[2018-08-05] MEDS ORDERED: ATORVASTATIN CALCIUM 20 MG TABLET PO SCH (21:00)
[2018-08-06] VITALS (12 sets, daily range): BP systolic 121–164; BP diastolic 57–80
[2018-08-06] MEDS ORDERED: PANTOPRAZOLE 40 MG TABLET.DR. PO SCH (07:30)
[2018-08-06] MEDS: CALCIUM CARB/VIT D3 500/200 TABLET. PO SCH (08:52)
[2018-08-06] MEDS: OXYBUTYNIN CHLORIDE 5 MG TABLET PO SCH (08:53)
[2018-08-06] MEDS: LISINOPRIL 20 MG TABLET PO SCH (08:53)
[2018-08-06] MEDS: BUDESONIDE 0.5 MG/2 ML NEBU. NEB SCH (08:53)
[2018-08-06] MEDS: predniSONE 10 MG TABLET PO SCH (08:53)
[2018-08-06] MEDS: cloNIDine HCL 0.1 MG TABLET PO SCH (08:53)
[2018-08-06] MEDS: POLYETHYLENE GLYCOL 3350 17 GM PACKET. PO SCH (08:54)
[2018-08-06] MEDS: ASPIRIN ENTERIC COATED 81 MG TABLET.DR. PO SCH (08:54)
[2018-08-06] MEDS ORDERED: NON FORMULARY ITEM (Tiotropium Bromide (Spiriva) 1 CAP) IH SCH (09:00)
--- NOTE | 2018-08-06 10:18 | PDOC ---
PROGRESS NOTES Subjective Subjective Patient without complaint, states she feels "much better". Objective Objective Vital Signs Date Time Temp Pulse Resp B/P (MAP) Pulse Ox O2 Delivery O2 Flow Rate FiO2 08/06/18 09:00 58 16 142/74 (96) 98 Nasal Cannula 2.0 08/06/18 08:00 98.0 98.0 Intake and Output 08/06/18 07:00 Intake Total 1026 ml Output Total 300 ml Balance 726 ml Intake Oral 720 ml IV Total 306 ml Output Urine Total 300 ml # Voids 1 # Bowel Movements 1 Physical Exam Abdomen: Normal bowel sounds, Soft, No tenderness Heart: Regular rate Extremities: No edema General: Alert, Oriented X3, No acute distress Lungs: Other (BS decreased throughout but otherwise CTA, no wheezes, no cough during exam) Assessment Assessment Problems Medical Problems: (1) Hypertensive emergency Status: Acute Plan Plan of Care 1. Hypertensive emergency - BP quickly improved with Cardene gtt and initiation of her usual po meds. BP now well controlled, home today on her usual medications. 2. fatigue and malaise - may have had mild viral illness which appears to have resolved. No evidence of UTI on lab. Afebrile, CXR without acute infiltrate. 3. chronic respiratory failure with COPD - stable, not hypoxic on her usual O2. Comment Review of Relevant I have reviewed the following items forest (where applicable) has been applied. Labs Laboratory Tests Test 08/05/18 08:45 08/05/18 10:30 08/05/18 12:13 White Blood Count 11.1 x10^3/uL (4.0-11.0) Red Blood Count 4.82 x10^6/uL (3.50-5.40) Hemoglobin 14.8 g/dL (12.0-15.5) Hematocrit 45.0 % (36.0-47.0) Mean Corpuscular Volume 93 fL (79-100) Mean Corpuscular Hemoglobin 31 pg (25-35) Mean Corpuscular Hemoglobin Concent 33 g/dL (31-37) Red Cell Distribution Width 15.4 % (11.5-14.5) Platelet Count 346 x10^3/uL (140-400) Neutrophils (%) (Auto) 80 % (31-73) Lymphocytes (%) (Auto) 12 % (24-48) Monocytes (%) (Auto) 7 % (0-9) Eosinophils (%) (Auto) 1 % (0-3) Basophils (%) (Auto) 0 % (0-3) Neutrophils # (Auto) 8.9 x10^3uL (1.8-7.7) Lymphocytes # (Auto) 1.3 x10^3/uL (1.0-4.8) Monocytes # (Auto) 0.7 x10^3/uL (0.0-1.1) Eosinophils # (Auto) 0.1 x10^3/uL (0.0-0.7) Basophils # (Auto) 0.0 x10^3/uL (0.0-0.2) Prothrombin Time 11.6 SEC (11.7-14.0) Prothromb Time International Ratio 0.9 (0.8-1.1) Sodium Level 138 mmol/L (136-145) Potassium Level 3.6 mmol/L (3.5-5.1) Chloride Level 98 mmol/L (98-107) Carbon Dioxide Level 27 mmol/L (21-32) Anion Gap 13 (6-14) Blood Urea Nitrogen 11 mg/dL (7-20) Creatinine 0.6 mg/dL (0.6-1.0) Estimated GFR (Cockcroft-Gault) 94.6 BUN/Creatinine Ratio 18 (6-20) Glucose Level 106 mg/dL (70-99) Lactic Acid Level 1.4 mmol/L (0.4-2.0) Calcium Level 9.6 mg/dL (8.5-10.1) Magnesium Level 2.1 mg/dL (1.8-2.4) Total Bilirubin 0.4 mg/dL (0.2-1.0) Aspartate Amino Transf (AST/SGOT) 27 U/L (15-37) Alanine Aminotransferase (ALT/SGPT) 26 U/L (14-59) Alkaline Phosphatase 69 U/L (46-116) Troponin I Quantitative 0.041 ng/mL (0.000-0.055) OE-Gef-N-Type Natriuretic Peptide 1280 pg/mL (0-449) Total Protein 7.5 g/dL (6.4-8.2) Albumin 3.9 g/dL (3.4-5.0) Albumin/Globulin Ratio 1.1 (1.0-1.7) Urine Collection Type Unknown Urine Color Yellow Urine Clarity Clear Urine pH 8.0 Urine Specific [place] 1.010 Urine Protein Negative mg/dL (NEG-TRACE) Urine Glucose (UA) Negative mg/dL (NEG) Urine Ketones (Stick) Trace mg/dL (NEG) Urine Blood Negative (NEG) Urine Nitrite Negative (NEG) Urine Bilirubin Negative (NEG) Urine Urobilinogen Dipstick 0.2 mg/dL (0.2 mg/dL) Urine Leukocyte Esterase Negative (NEG) Urine RBC 1-2 /HPF (0-2) Urine WBC Occ /HPF (0-4) Urine Squamous Epithelial Cells Few /LPF Urine Amorphous Sediment Present /HPF Urine Bacteria Few /HPF (0-FEW) Urine Mucus Slight /LPF Nasal Screen MRSA (PCR) Negative (Negative) Laboratory Tests Test 08/05/18 10:30 08/05/18 12:13 Urine Collection Type Unknown Urine Color Yellow Urine Clarity Clear Urine pH 8.0 Urine Specific [place] 1.010 Urine Protein Negative mg/dL (NEG-TRACE) Urine Glucose (UA) Negative mg/dL (NEG) Urine Ketones (Stick) Trace mg/dL (NEG) Urine Blood Negative (NEG) Urine Nitrite Negative (NEG) Urine Bilirubin Negative (NEG) Urine Urobilinogen Dipstick 0.2 mg/dL (0.2 mg/dL) Urine Leukocyte Esterase Negative (NEG) Urine RBC 1-2 /HPF (0-2) Urine WBC Occ /HPF (0-4) Urine Squamous Epithelial Cells Few /LPF Urine Amorphous Sediment Present /HPF Urine Bacteria Few /HPF (0-FEW) Urine Mucus Slight /LPF Nasal Screen MRSA (PCR) Negative (Negative) Medications Current Medications Labetalol HCl (Normodyne Iv Push) 20 mg 1X ONCE IVP Last administered on at 09:08; Start 08/05/18 at 09:00; Stop 08/05/18 at 09:01; Status DC Doxycycline Hyclate 100 mg/ Dextrose 100 ml @ 50 mls/hr 1X ONCE IV Last administered on 08/05/18at 10:16; Start 08/05/18 at 10:30; Stop 08/05/18 at 12:29 ; Status DC Nicardipine HCl 50 mg/Sodium Chloride 250 ml @ 25 mls/hr CONT PRN IV SEE I/O RECORD Last administered on 08/05/18 10:03; Start 08/05/18 at 10:00 Albuterol/ Ipratropium (Duoneb) 3 ml PRN Q6HRS PRN NEB COUGH; Start 08/05/18 at 10:45; Stop 08/05/18 at 11:32; Status DC Aspirin (Ecotrin) 81 mg DAILY PO Last administered on 08/06/18 08:54; Start at 15:00 Clonidine HCl (Catapres) 0.1 mg TID PO Last administered on 08/06/18 08:53; Start 08/05/18 at 15:00 Lisinopril (Prinivil) 40 mg DAILY PO Last administered on 08/06/18 08:53; Start 08/05/18 at 15:00 Oxybutynin Chloride (Ditropan) 5 mg TID PO Last administered on 08/06/18 08:53 ; Start 08/05/18 at 15:00 Prednisone (Prednisone) 5 mg DAILY PO Last administered on 08/06/18 08:53; Start 08/05/18 at 15:00 Acetaminophen (Tylenol) 650 mg PRN Q6HRS PRN PO MILD PAIN / TEMP Last administered on 08/05/18 14:37; Start 08/05/18 at 14:30; Stop 08/05/18 at 17:08 ; Status DC Non-Formulary Medication (Budesonide/ Formoterol Fumarate (Symbicort 160-4.5 Mcg Inhaler)) 2 puff BID IH ; Start 08/05/18 at 21:00; Status UNV Calcium/Vitamin D (Oscal D 500mg/ 200uts) 1 tab BIDWMEALS PO Last administered on 08/06/18 08:52; Start 08/05/18 at 17:00 Diltiazem HCl (Cardizem 24hr Cd) 240 mg DAILY PO Last administered on 08:52; Start 08/05/18 at 15:00 Pantoprazole Sodium (Protonix) 40 mg DAILYAC PO Last administered on 08/06/18 08:51; Start 08/06/18 at 07:30 Non-Formulary Medication (Glucosamine Sulfate 2KCL (Glucosamine)) 500 mg BID PO ; Start 08/05/18 at 21:00; Status UNV Latanoprost (Xalatan) 1 drop QHS OU Last administered on 08/05/18 20:51; Start 08/05/18 at 21:00 Metoprolol Succinate (Toprol Xl) 50 mg QHS PO Last administered on 08/05/18at 20 :51; Start 08/05/18 at 21:00 Mirtazapine (Remeron) 7.5 mg QHS PO Last administered on 08/05/18 20:50; Start 08/05/18 at 21:00 Polyethylene Glycol (miraLAX PACKET) 17 gm DAILY PO Last administered on 08:54; Start 08/05/18 at 15:00 Atorvastatin Calcium (Lipitor) 20 mg QHS PO Last administered on 08/05/18at 20: 50; Start 08/05/18 at 21:00 Non-Formulary Medication (Tiotropium [place] (Spiriva)) 1 cap DAILY IH ; Start 08/06/18 at 09:00; Status UNV Albuterol/ Ipratropium (Duoneb) 3 ml RTQID NEB ; Start 08/05/18 at 16:00; Stop 08/05/18 at 18:37; Status DC Diltiazem HCl (Cardizem 24hr Cd) 240 mg 1X ONCE PO ; Start 08/05/18 at 14:15; Stop 08/05/18 at 14:16; Status UNV Lisinopril (Prinivil) 40 mg 1X ONCE PO ; Start 08/05/18 at 14:15; Stop at 14:16; Status UNV Albuterol/ Ipratropium (Duoneb) 3 ml RTQID NEB ; Start 08/05/18 at 16:00; Status Cancel Budesonide (Pulmicort) 0.5 mg RTBID NEB Last administered on 08/06/18 08:53; Start 08/05/18 at 20:00 Acetaminophen (Tylenol) 1,000 mg PRN Q6HRS PRN PO MILD PAIN / TEMP Last administered on 08/05/18at 23:42; Start 08/05/18 at 17:15 Albuterol Sulfate (Ventolin Neb Soln) 2.5 mg PRN Q6HRS PRN NEB SHORTNESS OF BREATH Last administered on 2/22/19at 19:41; Start 08/05/18 at 18:45 Active Scripts Active Nexium Capsule (Esomeprazole Magnesium) 20 Mg Capsule.dr 1 Cap PO DAILY OTC. Symbicort 160-4.5 Mcg Inhaler (Budesonide/Formoterol Fumarate) 10.2 Gm Hfa.aer.ad 2 Puff IH BID Reported Acetaminophen 500 Mg Tablet 2 Tab PO PRN Q6HRS PRN Prednisone (Prednisone) 10 Mg Tablet 5 Mg PO DAILY Glucosamine (Glucosamine Sulfate 2KCL) 1,000 Mg Tablet 500 Mg PO BID Oxybutynin Chloride 5 Mg Tablet 5 Mg PO TID Latanoprost 2.5 Ml Drops 1 Drop EACHEYE QHS Clonidine Hcl 0.1 Mg Tablet 0.1 Mg PO TID Miralax (Polyethylene Glycol 3350) 17 Gm Powd.pack 1 Pkt PO DAILY Calcium 500 + D Tablet (Calcium Carbonate/Vitamin D3) 1 Each Tablet 1 Each PO BID Diltiazem 24HR Cd (Diltiazem Hcl) 240 Mg Cap.er.24h 240 Mg PO DAILY Lisinopril 40 Mg Tablet 1 Tab PO DAILY Spiriva (Tiotropium [place]) 18 Mcg Cap.w.dev 1 Cap IH DAILY Mirtazapine 15 Mg Tablet 0.5 Tab PO QHS Aspir 81 (Aspirin) 81 Mg Tablet.dr 1 Tab PO DAILY Pravastatin Sodium 80 Mg Tablet 80 Mg PO HS Toprol Xl (Metoprolol Succinate) 50 Mg Tab.er.24h 50 Mg PO HS Proair Hfa Inhaler (Albuterol Sulfate) 8.5 Gm Hfa.aer.ad 2 Puff INH PRN Q6HRS PRN Vitals/I & O Vital Sign - Last 24 Hours 08/05/18 08/05/18 08/05/18 08/05/18 10:15 10:45 11:09 12:00 Temp 98.1 98.1 Pulse 90 92 90 96 Resp 20 20 18 20 B/P (MAP) 176/82 (113) Pulse Ox 95 93 93 93 O2 Delivery Nasal Cannula O2 Flow Rate 2.0 08/05/18 08/05/18 08/05/18 08/05/18 12:00 12:15 12:30 12:45 Pulse 96 96 96 B/P (MAP) 123/97 (106) 173/77 (109) 172/71 (104) O2 Delivery Nasal Cannula O2 Flow Rate 2.0 08/05/18 08/05/18 08/05/18 08/05/18 13:00 13:15 13:30 13:45 Pulse 86 84 86 94 Resp 18 B/P (MAP) 113/65 (81) 93/47 (62) 121/55 (77) 102/66 (78) Pulse Ox 94 O2 Delivery Nasal Cannula O2 Flow Rate 2.0 08/05/18 08/05/18 08/05/18 08/05/18 14:00 14:15 14:30 14:36 Pulse 92 94 96 98 Resp 18 B/P (MAP) 128/61 (83) 133/59 (83) 141/70 (93) 141/72 Pulse Ox 94 O2 Delivery Nasal Cannula O2 Flow Rate 2.0 08/05/18 08/05/18 08/05/18 08/05/18 14:37 14:38 14:45 15:00 Pulse 99 99 102 108 Resp 20 B/P (MAP) 141/72 141/72 125/64 (84) 150/66 (94) Pulse Ox 94 O2 Delivery Nasal Cannula O2 Flow Rate 2.0 08/05/18 08/05/18 08/05/18 08/05/18 15:15 15:30 15:45 16:00 Temp 97.6 97.6 Pulse 120 96 92 96 Resp 22 B/P (MAP) 117/60 (79) 106/58 (74) 112/53 (72) 114/48 (70) Pulse Ox 96 O2 Delivery Nasal Cannula O2 Flow Rate 2.0 08/05/18 08/05/18 08/05/18 08/05/18 16:00 16:15 17:00 18:00 Pulse 100 109 100 Resp 18 20 B/P (MAP) 145/69 (94) 112/65 (81) 119/61 (80) Pulse Ox 94 93 O2 Delivery Nasal Cannula Nasal Cannula Nasal Cannula O2 Flow Rate 2.0 2.0 2.0 08/05/18 08/05/18 08/05/18 08/05/18 19:00 19:25 20:00 20:00 Temp 98.4 98.4 Pulse 77 80 Resp 20 20 B/P (MAP) 108/57 (74) 115/58 (77) Pulse Ox 98 97 98 O2 Delivery Nasal Cannula Nasal Cannula Nasal Cannula Nasal Cannula O2 Flow Rate 2.0 2.0 2.0 2.0 08/05/18 08/05/18 08/05/18 08/05/18 20:50 20:51 21:00 22:00 Pulse 78 78 83 89 Resp 20 18 B/P (MAP) 115/58 115/58 115/58 (77) 125/58 (80) Pulse Ox 98 98 O2 Delivery Nasal Cannula Nasal Cannula O2 Flow Rate 2.0 2.0 08/05/18 08/05/18 08/06/18 08/06/18 23:00 23:47 00:00 01:00 Temp 97.7 97.7 Pulse 74 76 80 Resp 22 17 14 B/P (MAP) 116/57 (76) 145/68 (93) 132/67 (88) Pulse Ox 97 98 97 O2 Delivery Nasal Cannula Nasal Cannula Nasal Cannula Nasal Cannula O2 Flow Rate 2.0 2.0 2.0 2.0 08/06/18 08/06/18 08/06/18 08/06/18 02:00 03:00 03:31 04:00 Temp 97.8 97.8 Pulse 80 76 69 Resp 16 16 16 B/P (MAP) 164/80 (108) 121/62 (81) 135/66 (89) Pulse Ox 98 98 98 O2 Delivery Nasal Cannula Nasal Cannula Nasal Cannula Nasal Cannula O2 Flow Rate 2.0 2.0 2.0 2.0 08/06/18 08/06/18 08/06/18 08/06/18 05:00 06:00 07:00 08:00 Pulse 62 65 66 Resp 14 14 16 B/P (MAP) 122/61 (81) 148/57 (87) 133/60 (84) Pulse Ox 98 96 95 O2 Delivery Nasal Cannula Nasal Cannula Nasal Cannula Nasal Cannula O2 Flow Rate 2.0 2.0 2.0 2.0 08/06/18 08/06/18 08/06/18 08/06/18 08:00 08:52 08:53 08:53 Temp 98.0 98.0 Pulse 67 69 69 69 Resp 18 B/P (MAP) 135/68 (90) 142/74 142/74 142/74 Pulse Ox 98 O2 Delivery Nasal Cannula O2 Flow Rate 2.0 08/06/18 08/06/18 08:53 09:00 Pulse 58 Resp 16 B/P (MAP) 142/74 (96) Pulse Ox 97 98 O2 Delivery Nasal Cannula Nasal Cannula O2 Flow Rate 2.0 2.0 Intake and Output 08/05/18 08/05/18 08/06/18 15:00 23:00 07:00 Intake Total 290 ml 736 ml Output Total 300 ml 0 ml Balance -10 ml 736 ml IAN BLAKE MD Aug 06, 2018 10:18
--- NOTE | 2018-08-06 11:01 | NUR ---
Discharge Note: GLO GALAN [address] ICU Discharge instructions and discharge home medications reviewed with Patient and a copy given. All questions have been answered and understanding verbalized. The following instructions and handouts were given: f/u appointment with Dr Mulligan on , med rec. Discontinued lines and drains: dressing clean dry and intact. Patient discharged to home with self care via family
--- NOTE | 2018-08-06 11:13 | SSS ---
ADMIT DATE: 08/06/2018 CHIEF COMPLAINT: Fatigue and malaise. HISTORY OF PRESENT ILLNESS: The patient is an 88-year-old female who was brought to the Emergency Room by ambulance with the above complaint. Her nephew is her caregiver at home. He reports that she had just seemed unwell for the past several days and he grew concerned when her symptoms persisted, so he called 911. The paramedics found her systolic blood pressure to be over 200. She was brought to the Emergency Room and her initial blood pressure was 247/113. Treatment was started and she was admitted for further care. PAST MEDICAL HISTORY: Chronic respiratory failure due to chronic obstructive pulmonary disease, hypertension, chronic anxiety, glucose intolerance, GERD with Casillas's esophagus, hiatal hernia, overactive bladder, osteoarthritis, glaucoma, osteopenia, colon cancer in 2014. PAST SURGICAL HISTORY: Hysterectomy, right ankle surgery, permanent pacemaker placement in 2013, right hemicolectomy in 2014. ALLERGIES: The patient has no known drug allergies. HOME MEDICATIONS: Albuterol p.r.n., aspirin 81 mg daily, Lumigan and Alphagan eye drops, Symbicort 160/4.5 two puffs b.i.d., calcium with vitamin D b.i.d., iron 325 mg daily, clonidine 0.1 mg b.i.d., diltiazem CD 240 mg daily, Nexium 20 mg daily, lisinopril 40 mg daily, Toprol-XL 50 mg daily, mirtazapine 15 mg 1/2 tablet at bedtime, MiraLax 17 grams daily, pravastatin 80 mg at bedtime, Spiriva 1 puff daily, prednisone 5 mg daily. FAMILY HISTORY: Noncontributory. SOCIAL HISTORY: The patient is . She lives with her disabled nephew who takes very good care of her at home. She has a long smoking history, but quit smoking cigarettes in the . She does not drink alcohol. REVIEW OF SYSTEMS: The patient has not had fever or chills. She has some chronic dyspnea on exertion due to her COPD, but this does not seem worse to her recently. She has not had an unusual cough. She already received her flu shot for this season. She has been using her usual inhalers and does not feel short of breath at rest on her usual oxygen per nasal cannula. She has not had chest pain or palpitations. She has not had abdominal pain, nausea or vomiting. Her chronic constipation has been good with taking MiraLax almost every day. Her stools look black chronically, but she attributes this to the iron that she takes. She has not had lower extremity swelling. Her mood has been good with her usual medication. She has some chronic mild forgetfulness, which seemed a little worse to her nephew, but she has not noticed any new problems with her memory. PHYSICAL EXAMINATION: GENERAL: The patient is alert and oriented x 3, is sitting up in a chair, in no acute distress. HEENT: PERRL, EOMI, sclerae clear. Oropharynx: Mucous membranes moist. NECK: Supple, without lymphadenopathy. CHEST: Breath sounds decreased throughout, but otherwise clear to auscultation. No wheezes heard. No cough during exam. CARDIOVASCULAR: Regular rhythm without murmur. ABDOMEN: Soft and nontender. Normoactive bowel sounds are present. EXTREMITIES: Without edema. HOSPITAL COURSE: The patient was started on a Cardene drip for control of her hypertensive emergency. Her blood pressure quickly improved with this. She was then given her usual oral medication, which she had not taken yet on the day of admission. The Cardene drip was discontinued and her blood pressure is now very well controlled on her usual medications. The patient does report a several-day history of some mild fatigue and malaise. Her urine is without evidence of infection. A chest x-ray did not show an acute infiltrate. The patient has been afebrile since her admission and states that she feels much better. She may have had a mild viral illness contributing to her symptoms, but this appears to have resolved. Her chronic respiratory failure is stable and she is not hypoxic on her usual oxygen per nasal cannula. The patient states she feels much better and will be discharged home today. FINAL DIAGNOSES: 1. Hypertensive emergency. 2. Fatigue and malaise, probable viral illness. 3. Chronic respiratory failure with chronic obstructive pulmonary disease. 4. Chronic anxiety. 5. Glucose intolerance. DISCHARGE MEDICATIONS: Remain the same as at admission. FOLLOWUP: With Dr. Mulligan next week. IAN MULLIGAN MD DR: NANCI/panda JOB#: [id number] / [id number] MTDD
[2018-09-29] MEDS ORDERED: CEPH-264 PO (08:18)
== END 2018-08-06 10:45 | disposition home or self-care (01) | DRG 305 ==
LOC: ER 08:44 → 1 WEST ICU 09:25
PROVIDERS: ADMIT Family Medicine; ATTEND Family Medicine
DX: I16.1 Hypertensive emergency (principal); J96.10 Chronic respiratory failure, unspecified whether with hypoxia or hypercapnia; B34.9 Viral infection, unspecified; E74.39 Other disorders of intestinal carbohydrate absorption; E78.00 Pure hypercholesterolemia, unspecified; F41.9 Anxiety disorder, unspecified; H40.9 Unspecified glaucoma; I10 Essential (primary) hypertension; J44.9 Chronic obstructive pulmonary disease, unspecified; K21.9 Gastro-esophageal reflux disease without esophagitis; K22.70 Barrett's esophagus without dysplasia; K59.09 Other constipation; M85.80 Other specified disorders of bone density and structure, unspecified site; N32.81 Overactive bladder; M19.90 Unspecified osteoarthritis, unspecified site; Z85.038 Personal history of other malignant neoplasm of large intestine; Z87.891 Personal history of nicotine dependence; Z90.49 Acquired absence of other specified parts of digestive tract; Z90.710 Acquired absence of both cervix and uterus; Z95.0 Presence of cardiac pacemaker
CPT/HCPCS: 36415; 71045; 80053; 81001; 83605; 83735; 83880; 84484; 85025; 85610; 87040; 87641; 93005; 94640; 94760; 96365; 96368; 96375; J3490; J7050; J7512; J7613; J7626; 99291-25; J7030

== ENCOUNTER → 2018-09-15 | Outpatient (CLI) | payer BC, MEDICARE ==
[2018-08-06 10:45] VITALS: BP 121/70
[~2018-09-15] MED LIST changes: +ACET500T68 PO; +CEPH-264 PO; +CONTRAST GIVEN. MC PRN; +IOHEXOL 240 MG/ML 50ML VIAL. PO ONE; +IOHEXOL 300 MG/ML 100ML VIAL. IV ONE; +LATA2.5D3 EACHEYE
--- NOTE | 2018-09-15 17:33 | RAD ---
CT of the abdomen and pelvis with contrast, 09/15/2018: HISTORY: Follow-up hepatic flexure cancer Multidetector CT imaging was performed following oral and IV administration of contrast. Comparison is made to a study from 07/11/2018. There are emphysematous changes in the lung bases with parenchymal scarring. No hepatic mass is seen. No pancreatic abnormality is seen. The spleen is of normal size. There are several tiny low density lesions in both kidneys. These are too small to definitively characterize but are probably cysts. The kidneys show no evidence of obstruction. There is mild low density thickening of the left adrenal gland. There is moderate irregular aortoiliac calcific plaquing with slight dilatation of the infrarenal abdominal aorta. No abdominal or pelvic adenopathy is seen. The uterus appears to be surgically absent. There is increased stool throughout the colon. The small bowel loops are unremarkable. A small hiatal hernia is evident. No free fluid is present in the abdomen. There is a midline ventral hernia along the superior aspect of the umbilicus. There is currently bulging of a knuckle of large bowel into the subcutaneous soft tissues without evidence of incarceration. There is a moderate thoracolumbar scoliosis with moderate associated multilevel degenerative change. changes are present in the spine. IMPRESSION: 1. No CT evidence of metastatic disease in the abdomen or pelvis. 2. Increased stool throughout the colon. 3. Small periumbilical hernia. 4. Additional chronic findings as described above. PQRS Compliance Statement: One or more of the following individualized dose reduction techniques were utilized for this examination: 1. Automated exposure control 2. Adjustment of the mA and/or kV according to patient size 3. Use of iterative reconstruction technique Electronically signed by: Adilson Tejada MD (09/15/2018 5:30 PM) [facility]
== END | disposition home or self-care (01) ==
LOC: CT 10:02
PROVIDERS: ATTEND Internal Medicine Hematology & Oncology
DX: C18.3 Malignant neoplasm of hepatic flexure (principal); J43.9 Emphysema, unspecified; K44.9 Diaphragmatic hernia without obstruction or gangrene; K43.9 Ventral hernia without obstruction or gangrene; M41.85 Other forms of scoliosis, thoracolumbar region; M47.815 Spondylosis without myelopathy or radiculopathy, thoracolumbar region; K42.9 Umbilical hernia without obstruction or gangrene; E27.9 Disorder of adrenal gland, unspecified
CPT/HCPCS: 74177; Q9966; Q9967

== ENCOUNTER 2018-09-23 15:21 | Inpatient (IN) | payer SELFPAY ==
[~2018-09-23] VITALS: Ht 157.5 cm; Wt 48.1 kg
[~2018-09-23 15:21] MED LIST changes: -CEPH-264 PO; -CONTRAST GIVEN. MC PRN; -IOHEXOL 240 MG/ML 50ML VIAL. PO ONE; -IOHEXOL 300 MG/ML 100ML VIAL. IV ONE
--- NOTE | 2018-09-23 16:05 | EKG ---
[facility] [address] [place] [address] Test Date: 2018-09-23 Test Time: 15:39:10 Pat Name: GLO GALAN Department: Room: Gender: F Slope Tender: : 1930 Requested By: MARISELA PARK Order Number: [id number] Reading MD: Ezra Dale Measurements Intervals [place] Rate: 75 P: GA: QRS: 60 QRSD: 84 T: 49 QT: 380 QTc: 427 Interpretive Statements SINUS RHYTHM T ABNORMALITY IN INFERIOR LEADS ABNORMAL ECG RI6.01 Electronically Signed On 10-03-2018 12:33:59 CDT by Ezra Dale
[2018-09-23 16:12] LABS: BASO % 1 % (0-3); EOS # 0.2 x10^3/uL (0.0-0.7); EOS % 2 % (0-3); HEMATOCRIT 43.3 % (36.0-47.0); HEMOGLOBIN 14.1 g/dL (12.0-15.5); LYMPH # 1.1 x10^3/uL (1.0-4.8); LYMPH % 12 % (24-48); MEAN CORPUSCULAR HEMOGLOBIN 31 pg (25-35); MEAN CORPUSCULAR HGB CONC 32 g/dL (31-37); MEAN CORPUSCULAR VOLUME 95 fL (79-100); MONO # 0.8 x10^3/uL (0.0-1.1); MONO % 9 % (0-9); NEUT # 6.8 x10^3uL (1.8-7.7); NEUT % 76 % (31-73); PLATELET COUNT 331 x10^3/uL (140-400); RED BLOOD COUNT 4.56 x10^6/uL (3.50-5.40); RED CELL DISTRIBUTION WIDTH 15.3 % (11.5-14.5); WHITE BLOOD COUNT 8.9 x10^3/uL (4.0-11.0)
[2018-09-23 16:16] LABS: ANION GAP 11 (6-14); BLOOD UREA NITROGEN 17 mg/dL (7-20); CALCIUM 9.9 mg/dL (8.5-10.1); CARBON DIOXIDE 29 mmol/L (21-32); CHLORIDE 101 mmol/L (98-107); CREATININE 0.7 mg/dL (0.6-1.0); GFR 79.2; GLUCOSE 119 mg/dL (70-99); POTASSIUM 3.8 mmol/L (3.5-5.1); SODIUM 141 mmol/L (136-145)
[2018-09-23 16:22] LABS: ALBUMIN 3.9 g/dL (3.4-5.0); ALK PHOS 56 U/L (46-116); ALT (SGPT) 24 U/L (14-59); AST (SGOT) 22 U/L (15-37); DIRECT BILIRUBIN < 0.1 mg/dL (0.0-0.2); LIPASE 123 U/L (73-393); TOTAL BILIRUBIN 0.3 mg/dL (0.2-1.0); TOTAL PROTEIN 7.2 g/dL (6.4-8.2)
--- NOTE | 2018-09-23 16:56 | PHYS DOC ---
Past Medical History Past Medical History: Arthritis, Cancer, COPD, GERD, Glaucoma, High Cholesterol , Heart Disease, Hypertension, Other Additional Past Medical Histor: Colon CA,L)hernia,chemotherapy,home oxygen, SPINAL/CAROTID STENOSIS Past Surgical History: Cancer Surgery, Hysterectomy, Oophorectomy, Pacemaker, Other Additional Past Surgical Histo: Colonoscopy,Breast cysts removed bilaterally, pacemaker Alcohol Use: None Drug Use: None Adult General Chief Complaint Chief Complaint: ABDOMINAL PAIN HPI HPI 88-year-old female presenting the emergency department today with abdominal pain and abdominal distention that started today. She describes it as 5 out of 10. It happened after she ate earlier today. It is a sharp shooting pain that is nonradiating intermittent and without alleviating factors. Yesterday she was feeling fine and before eating earlier today she was without any symptoms. Review of systems is negative for vomiting fevers chills chest pain shortness of breath. All other review of systems is negative. ED course: 88-year-old female presenting with abdominal pain. Labs obtained along with CT abdomen pelvis. Patient is hypertensive here in the emergency department about 230 systolic. Patient was given IV labetalol. Blood work shows normal chemistry. CBC within normal limits. Lactic acid within normal limits. Patient signed out to oncoming team with plans to follow-up on abdominal CT. Current Medications Current Medications Current Medications Medications (Trade) Dose Ordered Sig/Shu Start Time Stop Time Status Last Admin Dose Admin Info (CONTRAST GIVEN -- Rx MONITORING) 1 each PRN DAILY PRN 09/23/18 17:15 09/25/18 17:14 Iohexol (Omnipaque 300 Mg/ml) 75 ml 1X ONCE 09/23/18 17:15 09/23/18 17:16 DC 09/23/18 17:42 75 ML Labetalol HCl (Normodyne Iv Push) 10 mg 1X ONCE 09/23/18 17:30 09/23/18 17:31 DC Allergies Allergies Allergies Coded Allergies Type Severity Reaction Last Updated Verified No Known Drug Allergies 08/19/15 No Physical Exam Physical Exam Constitutional: Well developed, well nourished, no acute distress, non-toxic appearance. [] HENT: Normocephalic, atraumatic, bilateral external ears normal, oropharynx moist, no oral exudates, nose normal. [] Eyes: PERRLA, EOMI, conjunctiva normal, no discharge. [] Neck: Normal range of motion, no tenderness, supple, no stridor. [] Cardiovascular:Heart rate regular rhythm, no murmur [] Lungs & Thorax: Bilateral breath sounds clear to auscultation [] Abdomen: Bowel sounds normal, soft, no tenderness, no masses, no pulsatile masses. mild distension. Skin: Warm, dry, no erythema, no rash. [] Back: No tenderness, no CVA tenderness. [] Extremities: No tenderness, no cyanosis, no clubbing, ROM intact, no edema. Neurologic: Alert and oriented X 3, normal motor function, normal sensory function, no focal deficits noted. [] Psychologic: Affect normal, judgement normal, mood normal. Current Patient Data Vital Signs Vital Signs Date Time Temp Pulse Resp B/P (MAP) Pulse Ox O2 Delivery O2 Flow Rate FiO2 09/23/18 15:21 98.0 78 20 233/111 (151) 97 Room Air 98.0 Lab Values Laboratory Tests Test 09/23/18 15:45 White Blood Count 8.9 x10^3/uL (4.0-11.0) Red Blood Count 4.56 x10^6/uL (3.50-5.40) Hemoglobin 14.1 g/dL (12.0-15.5) Hematocrit 43.3 % (36.0-47.0) Mean Corpuscular Volume 95 fL (79-100) Mean Corpuscular Hemoglobin 31 pg (25-35) Mean Corpuscular Hemoglobin Concent 32 g/dL (31-37) Red Cell Distribution Width 15.3 % (11.5-14.5) H Platelet Count 331 x10^3/uL (140-400) Neutrophils (%) (Auto) 76 % (31-73) H Lymphocytes (%) (Auto) 12 % (24-48) L Monocytes (%) (Auto) 9 % (0-9) Eosinophils (%) (Auto) 2 % (0-3) Basophils (%) (Auto) 1 % (0-3) Neutrophils # (Auto) 6.8 x10^3uL (1.8-7.7) Lymphocytes # (Auto) 1.1 x10^3/uL (1.0-4.8) Monocytes # (Auto) 0.8 x10^3/uL (0.0-1.1) Eosinophils # (Auto) 0.2 x10^3/uL (0.0-0.7) Basophils # (Auto) 0.0 x10^3/uL (0.0-0.2) Sodium Level 141 mmol/L (136-145) Potassium Level 3.8 mmol/L (3.5-5.1) Chloride Level 101 mmol/L (98-107) Carbon Dioxide Level 29 mmol/L (21-32) Anion Gap 11 (6-14) Blood Urea Nitrogen 17 mg/dL (7-20) Creatinine 0.7 mg/dL (0.6-1.0) Estimated GFR (Cockcroft-Gault) 79.2 Glucose Level 119 mg/dL (70-99) H Lactic Acid Level 1.2 mmol/L (0.4-2.0) Calcium Level 9.9 mg/dL (8.5-10.1) Total Bilirubin 0.3 mg/dL (0.2-1.0) Direct Bilirubin < 0.1 mg/dL (0.0-0.2) Aspartate Amino Transferase (AST) 22 U/L (15-37) Alanine Aminotransferase (ALT) 24 U/L (14-59) Alkaline Phosphatase 56 U/L (46-116) Troponin I Quantitative 0.025 ng/mL (0.000-0.055) JR-[id number]-Type Natriuretic Peptide 240 pg/mL (0-449) Total Protein 7.2 g/dL (6.4-8.2) Albumin 3.9 g/dL (3.4-5.0) Lipase 123 U/L (73-393) Laboratory Tests 09/23/18 15:45 Laboratory Tests 09/23/18 15:45 EKG EKG [] Radiology/Procedures Radiology/Procedures [] Course & Med Decision Making Course & Med Decision Making Pertinent Labs and Imaging studies reviewed. (See chart for details) [] Dragon Disclaimer Dragon Disclaimer This electronic medical record was generated, in whole or in part, using a voice recognition dictation system. Departure Departure Impression: Primary Impression: Abdominal pain Referrals: IAN BLAKE MD (PCP) MARISELA PARK MD Sep 23, 2018 16:56
[2018-09-23] MEDS ORDERED: IOHEXOL 300 MG/ML 100ML VIAL. IV ONE (17:15)
[2018-09-23] MEDS ORDERED: CONTRAST GIVEN. MC PRN (17:15)
[2018-09-23] MEDS ORDERED: LABETALOL 20 MG/4 ML DISP.SYRIN. IVP ONE (17:30)
[2018-09-23 18:00] LABS: BILIRUBIN,URINE NEGATIVE (NEG); CLARITY,URINE CLEAR; COLOR,URINE YELLOW; NITRITE,URINE POSITIVE (NEG); PROTEIN,URINE NEGATIVE (NEG-TRACE); UROBILINOGEN,URINE 0.2 mg/dL (0.2 mg/dL)
[2018-09-23 18:31] LABS: BACTERIA,URINE MANY /HPF (0-FEW); RBC,URINE 0 /HPF (0-2); SQUAMOUS EPITHELIAL CELL,UR OCC /LPF
--- NOTE | 2018-09-23 18:38 | RAD ---
INDICATION: ABD PAIN, CONSTIPATION; OMNI 300, 75ML COMPARISON: September 15, 2018 TECHNIQUE: Axial CT images obtained through the abdomen and pelvis with contrast. One or more of the following individualized dose reduction techniques were utilized for this examination: 1. Automated exposure control; 2. Adjustment of the mA and/or kV according to patient size; 3. Use of iterative reconstruction technique. FINDINGS: Lucency at lung bases could be from causes such as emphysema. There is some probable scarring at left lung base. Small hiatal hernia with fluid within. Pacemaker lead partially seen. Severe calcific atherosclerosis with some soft plaque seen as well. Small free fluid. No peripancreatic fluid collection. Splenic calcified granulomas. Nodular thickening of the left adrenal gland measuring up to about 28 mm. No left-sided hydronephrosis. Urinary bladder is partially distended. No right-sided hydronephrosis. Free fluid is seen Large mass stool in a portion of the colon. Anterior abdominal wall hernia with a portion of the stomach extending into the defect. There are some dilated loops of small bowel seen within the abdomen with more distal decompression. There is some edema of the mesentery. The suspected transition point is in the right lower quadrant. Multiple loops converge on this location therefore it is possible that this is from causes such as internal hernia. Degenerative changes the spine with scoliotic curvature with central canal neural foraminal stenosis. Osseous demineralization. Pars defects L5. IMPRESSION: 1. Dilated loops of bowel are identified with more distal decompression. Suspected transition point at right lower quadrant. There is also some edema within the mesentery as well as free fluid and mild wall thickening of some of the loops of small bowel. This is concerning for small bowel obstruction and given the mesenteric edema and fluid is worrisome for higher grade cause. 2. Severe calcific atherosclerosis. 3. Left adrenal nodule. 4. Cystic changes lung bases could be from emphysema. Electronically signed by: Reilly Bazzi MD (09/23/2018 6:35 PM) [facility]
[2018-09-23] MEDS ORDERED: IV NORMAL SALINE 1000ML BAG 1,000 ML IV ONE (18:45)
[2018-09-23] MEDS ORDERED: cefTRIAXone IV Push 1 GM VIAL. IVP ONE (18:45)
[2018-09-23] MEDS ORDERED: hydrALAZINE 20 MG/ML VIAL. IVP ONE (18:45)
[2018-09-23] MEDS ORDERED: ONDANSETRON PF 4 MG/2 ML VIAL. IV PRN (19:00)
[2018-09-23] MEDS: fentaNYL PF VIAL 100 MCG/2 ML VIAL IV PRN ×2 (19:11→22:44)
[2018-09-23] MEDS ORDERED: BENZOCAINE ONE 20% MUCOSAL SPRAY. MM (19:45)
[2018-09-23 20:45] VITALS: BP 204/87
[2018-09-23] MEDS ORDERED: LABETALOL 20 MG/4 ML DISP.SYRIN. IVP PRN (22:00)
[2018-09-23 23:40] VITALS: BP 191/99
[2018-09-24 03:15] VITALS: BP 190/84
[2018-09-24 08:00] VITALS: BP 200/86
--- NOTE | 2018-09-24 08:04 | RAD ---
Abdomen one view including most of the chest HISTORY: NG placement Single view was taken of the upper abdomen and the chest. There is an NG tube which extends just into the stomach. There is mild bowel distention poorly evaluated on the film. Heart is within normal limits in size. There is linear scarring or atelectasis in the left lung base without other confluent infiltrates. IMPRESSION: 1. NG tube extends just into the stomach. Electronically signed by: Chilo Tong MD (09/24/2018 8:01 AM) [facility]
--- NOTE | 2018-09-24 09:58 | RAD ---
Abdomen one view. HISTORY: NG placement Single view the abdomen shows an NG tube in good position in the stomach. There is mild bowel distention. There is scoliosis and degenerative change in lumbar spine. IMPRESSION: 1. NG tube in good position. Electronically signed by: Chilo Tong MD (09/24/2018 9:56 AM) [facility]
[2018-09-24 11:01] VITALS: BP 196/87
--- NOTE | 2018-09-24 11:43 | PDOC2 ---
CONSULT Date of Consult Date of Consult DATE: 09/24/18 TIME: 11:36 Reason for Consult Reason for Consult: SBO Referring Physician Referring Physician: Dr Manriquez Identification/Chief Complaint Chief Complaint abdominal pain Source Source: Chart review, Patient History of Present Illness Reason for Visit: Ms Ramos is a shilpi 88 yo lady admitted yesterday with c/o abdominal pain. Denies n/v. Has had previous surgery or her colon per history. Past Medical History Cardiovascular: HTN, Hyperlipidemia, Other Pulmonary: COPD CENTRAL NERVOUS SYSTEM: Other GI: Diverticulosis, GERD, Other Heme/Onc: Cancer Hepatobiliary: No pertinent hx Psych: Anxiety Musculoskeletal: low back pain, Osteoarthritis Rheumatologic: No pertinent hx Infectious disease: No pertinent hx Renal/: Urinary Incontinence Endocrine: Osteopenia Past Surgical History Past Surgical History: Pacemaker, Arthroscopy, Hysterectomy, Colon Resection, Other Family History Family History: No Significant Social History ALCOHOL: rare Drugs: None Lives: with Family Domestic Violence: Neg Current Problem List Problem List Problems Medical Problems: (1) Abdominal pain Status: Acute (2) Urinary tract infection Status: Acute Current Medications Current Medications Current Medications Iohexol (Omnipaque 300 Mg/ml) 75 ml 1X ONCE IV Last administered on 09/23/18at 17:42; Start 09/23/18 at 17:15; Stop 09/23/18 at 17:16; Status DC Info (CONTRAST GIVEN -- Rx MONITORING) 1 each PRN DAILY PRN MC SEE COMMENTS; Start 09/23/18 at 17:15; Stop 09/25/18 at 17:14 Labetalol HCl (Normodyne Iv Push) 10 mg 1X ONCE IVP Last administered on at 17:52; Start 09/23/18 at 17:30; Stop 09/23/18 at 17:31; Status DC Ceftriaxone Sodium (Rocephin) 1 gm 1X ONCE IVP Last administered on 09/23/18at 18:45; Start 09/23/18 at 18:45; Stop 09/23/18 at 18:46; Status DC Sodium Chloride 1,000 ml @ 100 mls/hr 1X ONCE IV Last administered on at 18:44; Start 09/23/18 at 18:45; Stop 09/24/18 at 04:44; Status DC Hydralazine HCl (Apresoline Inj) 20 mg 1X ONCE IVP Last administered on at 18:45; Start 09/23/18 at 18:45; Stop 09/23/18 at 18:46; Status DC Ondansetron HCl (Zofran) 4 mg PRN Q8HRS PRN IV NAUSEA/VOMITING Last administered on 09/23/18at 19:10; Start 09/23/18 at 19:00; Stop 09/24/18 at 18:59 Fentanyl Citrate (Fentanyl 2ml Vial) 25 mcg PRN Q2HRS PRN IV PAIN Last administered on 09/23/18at 22:44; Start 09/23/18 at 19:00 Hydralazine HCl (Apresoline Inj) 20 mg Q4HRS PRN IVP HYPERTENSION, SEE COMMENTS ; Start 09/23/18 at 19:15 Benzocaine (Hurricaine One) 1 spray 1X ONCE MM Last administered on 09/23/18at 19:45; Start 09/23/18 at 19:45; Stop 09/23/18 at 19:46; Status DC Labetalol HCl (Normodyne Iv Push) 10 mg PRN Q6HRS PRN IVP HYPERTENSION, SEE COMMENTS Last administered on 09/23/18at 22:33; Start 09/23/18 at 22:00 Active Scripts Active Nexium Capsule (Esomeprazole Magnesium) 20 Mg Capsule.dr 1 Cap PO DAILY OTC. Symbicort 160-4.5 Mcg Inhaler (Budesonide/Formoterol Fumarate) 10.2 Gm Hfa.aer.ad 2 Puff IH BID Reported Acetaminophen 500 Mg Tablet 2 Tab PO PRN Q6HRS PRN Prednisone (Prednisone) 10 Mg Tablet 5 Mg PO DAILY Glucosamine (Glucosamine Sulfate 2KCL) 1,000 Mg Tablet 500 Mg PO BID Oxybutynin Chloride 5 Mg Tablet 5 Mg PO TID Latanoprost 2.5 Ml Drops 1 Drop EACHEYE QHS Clonidine Hcl 0.1 Mg Tablet 0.1 Mg PO TID Miralax (Polyethylene Glycol 3350) 17 Gm Powd.pack 1 Pkt PO DAILY Calcium 500 + D Tablet (Calcium Carbonate/Vitamin D3) 1 Each Tablet 1 Each PO BID Diltiazem 24HR Cd (Diltiazem Hcl) 240 Mg Cap.er.24h 240 Mg PO DAILY Lisinopril 40 Mg Tablet 1 Tab PO DAILY Spiriva (Tiotropium [place]) 18 Mcg Cap.w.dev 1 Cap IH DAILY Mirtazapine 15 Mg Tablet 0.5 Tab PO QHS Aspir 81 (Aspirin) 81 Mg Tablet.dr 1 Tab PO DAILY Pravastatin Sodium 80 Mg Tablet 80 Mg PO HS Toprol Xl (Metoprolol Succinate) 50 Mg Tab.er.24h 50 Mg PO HS Proair Hfa Inhaler (Albuterol Sulfate) 8.5 Gm Hfa.aer.ad 2 Puff INH PRN Q6HRS PRN Allergies Allergies: Coded Allergies: No Known Drug Allergies (Unverified , 08/19/15) ROS Review of System negative with exception of present complaints Physical Exam General: Alert, No acute distress HEENT: Atraumatic Lungs: Normal air movement Heart: Regular rate, Other (left upper chest pacemaker in place) Abdomen: Soft, Other (slightly distended, tympanitic, not TTP, well healed midline scar above umbilicus) Skin: Other (warm, dry) Neuro: Normal speech Vitals VITALS Vital Signs Date Time Temp Pulse Resp B/P (MAP) Pulse Ox O2 Delivery O2 Flow Rate FiO2 09/24/18 11:01 98.1 84 18 196/87 (123) 98 Nasal Cannula 3.0 98.1 Labs Labs Laboratory Tests Test 09/23/18 15:45 09/23/18 17:30 White Blood Count 8.9 x10^3/uL (4.0-11.0) Red Blood Count 4.56 x10^6/uL (3.50-5.40) Hemoglobin 14.1 g/dL (12.0-15.5) Hematocrit 43.3 % (36.0-47.0) Mean Corpuscular Volume 95 fL (79-100) Mean Corpuscular Hemoglobin 31 pg (25-35) Mean Corpuscular Hemoglobin Concent 32 g/dL (31-37) Red Cell Distribution Width 15.3 % (11.5-14.5) Platelet Count 331 x10^3/uL (140-400) Neutrophils (%) (Auto) 76 % (31-73) Lymphocytes (%) (Auto) 12 % (24-48) Monocytes (%) (Auto) 9 % (0-9) Eosinophils (%) (Auto) 2 % (0-3) Basophils (%) (Auto) 1 % (0-3) Neutrophils # (Auto) 6.8 x10^3uL (1.8-7.7) Lymphocytes # (Auto) 1.1 x10^3/uL (1.0-4.8) Monocytes # (Auto) 0.8 x10^3/uL (0.0-1.1) Eosinophils # (Auto) 0.2 x10^3/uL (0.0-0.7) Basophils # (Auto) 0.0 x10^3/uL (0.0-0.2) Sodium Level 141 mmol/L (136-145) Potassium Level 3.8 mmol/L (3.5-5.1) Chloride Level 101 mmol/L (98-107) Carbon Dioxide Level 29 mmol/L (21-32) Anion Gap 11 (6-14) Blood Urea Nitrogen 17 mg/dL (7-20) Creatinine 0.7 mg/dL (0.6-1.0) Estimated GFR (Cockcroft-Gault) 79.2 Glucose Level 119 mg/dL (70-99) Lactic Acid Level 1.2 mmol/L (0.4-2.0) Calcium Level 9.9 mg/dL (8.5-10.1) Total Bilirubin 0.3 mg/dL (0.2-1.0) Direct Bilirubin < 0.1 mg/dL (0.0-0.2) Aspartate Amino Transf (AST/SGOT) 22 U/L (15-37) Alanine Aminotransferase (ALT/SGPT) 24 U/L (14-59) Alkaline Phosphatase 56 U/L (46-116) Troponin I Quantitative 0.025 ng/mL (0.000-0.055) WD-Uyz-P-Type Natriuretic Peptide 240 pg/mL (0-449) Total Protein 7.2 g/dL (6.4-8.2) Albumin 3.9 g/dL (3.4-5.0) Lipase 123 U/L (73-393) Urine Color Yellow Urine Clarity Clear Urine pH 7.0 Urine Specific [place] 1.010 Urine Protein Negative mg/dL (NEG-TRACE) Urine Glucose (UA) Negative mg/dL (NEG) Urine Ketones (Stick) Negative mg/dL (NEG) Urine Blood Negative (NEG) Urine Nitrite Positive (NEG) Urine Bilirubin Negative (NEG) Urine Urobilinogen Dipstick 0.2 mg/dL (0.2 mg/dL) Urine Leukocyte Esterase Moderate (NEG) Urine RBC 0 /HPF (0-2) Urine WBC 11-20 /HPF (0-4) Urine Squamous Epithelial Cells Occ /LPF Urine Bacteria Many /HPF (0-FEW) Laboratory Tests Test 09/23/18 15:45 09/23/18 17:30 White Blood Count 8.9 x10^3/uL (4.0-11.0) Red Blood Count 4.56 x10^6/uL (3.50-5.40) Hemoglobin 14.1 g/dL (12.0-15.5) Hematocrit 43.3 % (36.0-47.0) Mean Corpuscular Volume 95 fL (79-100) Mean Corpuscular Hemoglobin 31 pg (25-35) Mean Corpuscular Hemoglobin Concent 32 g/dL (31-37) Red Cell Distribution Width 15.3 % (11.5-14.5) Platelet Count 331 x10^3/uL (140-400) Neutrophils (%) (Auto) 76 % (31-73) Lymphocytes (%) (Auto) 12 % (24-48) Monocytes (%) (Auto) 9 % (0-9) Eosinophils (%) (Auto) 2 % (0-3) Basophils (%) (Auto) 1 % (0-3) Neutrophils # (Auto) 6.8 x10^3uL (1.8-7.7) Lymphocytes # (Auto) 1.1 x10^3/uL (1.0-4.8) Monocytes # (Auto) 0.8 x10^3/uL (0.0-1.1) Eosinophils # (Auto) 0.2 x10^3/uL (0.0-0.7) Basophils # (Auto) 0.0 x10^3/uL (0.0-0.2) Sodium Level 141 mmol/L (136-145) Potassium Level 3.8 mmol/L (3.5-5.1) Chloride Level 101 mmol/L (98-107) Carbon Dioxide Level 29 mmol/L (21-32) Anion Gap 11 (6-14) Blood Urea Nitrogen 17 mg/dL (7-20) Creatinine 0.7 mg/dL (0.6-1.0) Estimated GFR (Cockcroft-Gault) 79.2 Glucose Level 119 mg/dL (70-99) Lactic Acid Level 1.2 mmol/L (0.4-2.0) Calcium Level 9.9 mg/dL (8.5-10.1) Total Bilirubin 0.3 mg/dL (0.2-1.0) Direct Bilirubin < 0.1 mg/dL (0.0-0.2) Aspartate Amino Transf (AST/SGOT) 22 U/L (15-37) Alanine Aminotransferase (ALT/SGPT) 24 U/L (14-59) Alkaline Phosphatase 56 U/L (46-116) Troponin I Quantitative 0.025 ng/mL (0.000-0.055) KB-Zfc-H-Type Natriuretic Peptide 240 pg/mL (0-449) Total Protein 7.2 g/dL (6.4-8.2) Albumin 3.9 g/dL (3.4-5.0) Lipase 123 U/L (73-393) Urine Color Yellow Urine Clarity Clear Urine pH 7.0 Urine Specific [place] 1.010 Urine Protein Negative mg/dL (NEG-TRACE) Urine Glucose (UA) Negative mg/dL (NEG) Urine Ketones (Stick) Negative mg/dL (NEG) Urine Blood Negative (NEG) Urine Nitrite Positive (NEG) Urine Bilirubin Negative (NEG) Urine Urobilinogen Dipstick 0.2 mg/dL (0.2 mg/dL) Urine Leukocyte Esterase Moderate (NEG) Urine RBC 0 /HPF (0-2) Urine WBC 11-20 /HPF (0-4) Urine Squamous Epithelial Cells Occ /LPF Urine Bacteria Many /HPF (0-FEW) Images Images CT done on admission is reviewed Assessment/Plan Assessment/Plan abdominal pain 2/2 SBO vs ileus rec gut rest, IV fluids, NG decompression, serial exams hopefully can manage non operatively if possible will follow Thanks for consult COLTON BRIONES MD Sep 24, 2018 11:43
[2018-09-24] MEDS ORDERED: BENZOCAINE/MENTHOL LOZENGE. PO PRN (11:45)
--- NOTE | 2018-09-24 13:55 | PDOC1 ---
History and Physical Date of Admission Date of Admission 09/23/18 Identification/Chief Complaint Chief Complaint abdominal pain started after eating oatmeal with a box of raisins and persisted during the day and came to ER and found to have a SBO per imaging, stable with NG, surgery has seen. She has been hypertensive but IV BP meds in ER caused hypotension which responded to fluid bolus Source Source: Patient History of Present Illness History of Present Illness abdominal pain started after eating oatmeal with a box of raisins and persisted during the day and came to ER and found to have a SBO per imaging, stable with NG, surgery has seen. She has been hypertensive but IV BP meds in ER caused hypotension which responded to fluid bolus Past Medical History Cardiovascular: HTN, Hyperlipidemia, Other Pulmonary: COPD CENTRAL NERVOUS SYSTEM: Other GI: Diverticulosis, GERD, Other Heme/Onc: Cancer Hepatobiliary: No pertinent hx Psych: Anxiety Rheumatologic: No pertinent hx Infectious disease: No pertinent hx Renal/: Urinary Incontinence Endocrine: Osteopenia Past Surgical History Past Surgical History: Pacemaker, Arthroscopy, Hysterectomy, Colon Resection, Other Family History Family History: No Significant Social History ALCOHOL: rare Drugs: None Current Problem List Problem List Problems Medical Problems: (1) Abdominal pain Status: Acute (2) Urinary tract infection Status: Acute Current Medications Current Medications Current Medications Medications (Trade) Dose Ordered Sig/Shu Start Time Stop Time Status Last Admin Dose Admin Amino Acids/ Glycerin/ Electrolytes 1,000 ml @ 80 mls/hr [id number] 09/24/18 13:30 UNV Benzocaine (Hurricaine One) 1 spray 1X ONCE 09/23/18 19:45 09/23/18 19:46 DC 09/23/18 19:45 1 SPRAY Ceftriaxone Sodium (Rocephin) 1 gm 1X ONCE 09/23/18 18:45 09/23/18 18:46 DC 09/23/18 18:45 1 GM Fentanyl Citrate (Fentanyl 2ml Vial) 25 mcg PRN Q2HRS PRN 09/23/18 19:00 09/23/18 22:44 25 MCG Hydralazine HCl (Apresoline Inj) 20 mg Q4HRS PRN 09/23/18 19:15 Info (CONTRAST GIVEN -- Rx MONITORING) 1 each PRN DAILY PRN 09/23/18 17:15 09/25/18 17:14 Iohexol (Omnipaque 300 Mg/ml) 75 ml 1X ONCE 09/23/18 17:15 09/23/18 17:16 DC 09/23/18 17:42 75 ML Labetalol HCl (Normodyne Iv Push) 10 mg PRN Q6HRS PRN 09/23/18 22:00 09/23/18 22:33 10 MG Ondansetron HCl (Zofran) 4 mg PRN Q8HRS PRN 09/23/18 19:00 09/24/18 18:59 09/23/18 19:10 4 MG Sodium Chloride 1,000 ml @ 100 mls/hr 1X ONCE 09/23/18 18:45 09/24/18 04:44 DC 09/23/18 18:44 100 MLS/HR Throat Lozenges (Cepacol Sore Throat Lozenge) 1 isadora PRN Q2HRS PRN 09/24/18 11:45 Throat Lozenges (Chloraseptic) 1 spray PRN Q2HR PRN 09/24/18 11:45 Allergies Allergies Allergies Coded Allergies Type Severity Reaction Last Updated Verified No Known Drug Allergies 08/19/15 No ROS Review of System CONSTITUTIONAL: No fever or chills EYES: No recent changes SKIN: No rash or itching CARDIOVASCULAR: No chest pain, syncope, palpitations, or edema RESPIRATORY: No SOB or cough GASTROINTESTINAL: see HPI NEUROLOGICAL: No headaches or weakness ENDOCRINE: No cold or heat intolerance GENITOURINARY: No urgency or frequency of urination MUSCULOSKELETAL: No back pain or joint pain LYMPHATICS: No enlarged lymph nodes PSYCHIATRIC: No anxiety or depression Physical Exam Physical Exam GEN.: No apparent distress. Alert and oriented. HEENT: Head is normocephalic, atraumatic NECK: Supple. LUNGS: Clear to auscultation. HEART: RRR, S1, S2 present. Peripheral pulses intact ABDOMEN: Soft, mild distension, no tenderness with palpation. EXTREMITIES: Without any cyanosis. NEUROLOGIC: Normal speech, normal tone PSYCHIATRIC: Normal affect, normal mood. SKIN: cheeks flushed, skin dry Vitals Vitals Vital Signs Date Time Temp Pulse Resp B/P (MAP) Pulse Ox O2 Delivery O2 Flow Rate FiO2 09/24/18 11:01 98.1 84 18 196/87 (123) 98 Nasal Cannula 3.0 98.1 Labs Labs Laboratory Tests Test 09/23/18 15:45 09/23/18 17:30 White Blood Count 8.9 x10^3/uL (4.0-11.0) Red Blood Count 4.56 x10^6/uL (3.50-5.40) Hemoglobin 14.1 g/dL (12.0-15.5) Hematocrit 43.3 % (36.0-47.0) Mean Corpuscular Volume 95 fL (79-100) Mean Corpuscular Hemoglobin 31 pg (25-35) Mean Corpuscular Hemoglobin Concent 32 g/dL (31-37) Red Cell Distribution Width 15.3 % (11.5-14.5) Platelet Count 331 x10^3/uL (140-400) Neutrophils (%) (Auto) 76 % (31-73) Lymphocytes (%) (Auto) 12 % (24-48) Monocytes (%) (Auto) 9 % (0-9) Eosinophils (%) (Auto) 2 % (0-3) Basophils (%) (Auto) 1 % (0-3) Neutrophils # (Auto) 6.8 x10^3uL (1.8-7.7) Lymphocytes # (Auto) 1.1 x10^3/uL (1.0-4.8) Monocytes # (Auto) 0.8 x10^3/uL (0.0-1.1) Eosinophils # (Auto) 0.2 x10^3/uL (0.0-0.7) Basophils # (Auto) 0.0 x10^3/uL (0.0-0.2) Sodium Level 141 mmol/L (136-145) Potassium Level 3.8 mmol/L (3.5-5.1) Chloride Level 101 mmol/L (98-107) Carbon Dioxide Level 29 mmol/L (21-32) Anion Gap 11 (6-14) Blood Urea Nitrogen 17 mg/dL (7-20) Creatinine 0.7 mg/dL (0.6-1.0) Estimated GFR (Cockcroft-Gault) 79.2 Glucose Level 119 mg/dL (70-99) Lactic Acid Level 1.2 mmol/L (0.4-2.0) Calcium Level 9.9 mg/dL (8.5-10.1) Total Bilirubin 0.3 mg/dL (0.2-1.0) Direct Bilirubin < 0.1 mg/dL (0.0-0.2) Aspartate Amino Transf (AST/SGOT) 22 U/L (15-37) Alanine Aminotransferase (ALT/SGPT) 24 U/L (14-59) Alkaline Phosphatase 56 U/L (46-116) Troponin I Quantitative 0.025 ng/mL (0.000-0.055) ND-Qvw-J-Type Natriuretic Peptide 240 pg/mL (0-449) Total Protein 7.2 g/dL (6.4-8.2) Albumin 3.9 g/dL (3.4-5.0) Lipase 123 U/L (73-393) Urine Color Yellow Urine Clarity Clear Urine pH 7.0 Urine Specific [place] 1.010 Urine Protein Negative mg/dL (NEG-TRACE) Urine Glucose (UA) Negative mg/dL (NEG) Urine Ketones (Stick) Negative mg/dL (NEG) Urine Blood Negative (NEG) Urine Nitrite Positive (NEG) Urine Bilirubin Negative (NEG) Urine Urobilinogen Dipstick 0.2 mg/dL (0.2 mg/dL) Urine Leukocyte Esterase Moderate (NEG) Urine RBC 0 /HPF (0-2) Urine WBC 11-20 /HPF (0-4) Urine Squamous Epithelial Cells Occ /LPF Urine Bacteria Many /HPF (0-FEW) Laboratory Tests Test 09/23/18 15:45 09/23/18 17:30 White Blood Count 8.9 x10^3/uL (4.0-11.0) Red Blood Count 4.56 x10^6/uL (3.50-5.40) Hemoglobin 14.1 g/dL (12.0-15.5) Hematocrit 43.3 % (36.0-47.0) Mean Corpuscular Volume 95 fL (79-100) Mean Corpuscular Hemoglobin 31 pg (25-35) Mean Corpuscular Hemoglobin Concent 32 g/dL (31-37) Red Cell Distribution Width 15.3 % (11.5-14.5) Platelet Count 331 x10^3/uL (140-400) Neutrophils (%) (Auto) 76 % (31-73) Lymphocytes (%) (Auto) 12 % (24-48) Monocytes (%) (Auto) 9 % (0-9) Eosinophils (%) (Auto) 2 % (0-3) Basophils (%) (Auto) 1 % (0-3) Neutrophils # (Auto) 6.8 x10^3uL (1.8-7.7) Lymphocytes # (Auto) 1.1 x10^3/uL (1.0-4.8) Monocytes # (Auto) 0.8 x10^3/uL (0.0-1.1) Eosinophils # (Auto) 0.2 x10^3/uL (0.0-0.7) Basophils # (Auto) 0.0 x10^3/uL (0.0-0.2) Sodium Level 141 mmol/L (136-145) Potassium Level 3.8 mmol/L (3.5-5.1) Chloride Level 101 mmol/L (98-107) Carbon Dioxide Level 29 mmol/L (21-32) Anion Gap 11 (6-14) Blood Urea Nitrogen 17 mg/dL (7-20) Creatinine 0.7 mg/dL (0.6-1.0) Estimated GFR (Cockcroft-Gault) 79.2 Glucose Level 119 mg/dL (70-99) Lactic Acid Level 1.2 mmol/L (0.4-2.0) Calcium Level 9.9 mg/dL (8.5-10.1) Total Bilirubin 0.3 mg/dL (0.2-1.0) Direct Bilirubin < 0.1 mg/dL (0.0-0.2) Aspartate Amino Transf (AST/SGOT) 22 U/L (15-37) Alanine Aminotransferase (ALT/SGPT) 24 U/L (14-59) Alkaline Phosphatase 56 U/L (46-116) Troponin I Quantitative 0.025 ng/mL (0.000-0.055) SF-Hyh-P-Type Natriuretic Peptide 240 pg/mL (0-449) Total Protein 7.2 g/dL (6.4-8.2) Albumin 3.9 g/dL (3.4-5.0) Lipase 123 U/L (73-393) Urine Color Yellow Urine Clarity Clear Urine pH 7.0 Urine Specific [place] 1.010 Urine Protein Negative mg/dL (NEG-TRACE) Urine Glucose (UA) Negative mg/dL (NEG) Urine Ketones (Stick) Negative mg/dL (NEG) Urine Blood Negative (NEG) Urine Nitrite Positive (NEG) Urine Bilirubin Negative (NEG) Urine Urobilinogen Dipstick 0.2 mg/dL (0.2 mg/dL) Urine Leukocyte Esterase Moderate (NEG) Urine RBC 0 /HPF (0-2) Urine WBC 11-20 /HPF (0-4) Urine Squamous Epithelial Cells Occ /LPF Urine Bacteria Many /HPF (0-FEW) Images Images REASON: abd pain with distension PROCEDURE: CT ABD PELV W/ IV CONTRST ONLY INDICATION: ABD PAIN, CONSTIPATION; OMNI 300, 75ML COMPARISON: September 15, 2018 TECHNIQUE: Axial CT images obtained through the abdomen and pelvis with contrast. One or more of the following individualized dose reduction techniques were utilized for this examination: 1. Automated exposure control; 2. Adjustment of the mA and/or kV according to patient size; 3. Use of iterative reconstruction technique. FINDINGS: Lucency at lung bases could be from causes such as emphysema. There is some probable scarring at left lung base. Small hiatal hernia with fluid within. Pacemaker lead partially seen. Severe calcific atherosclerosis with some soft plaque seen as well. Small free fluid. No peripancreatic fluid collection. Splenic calcified granulomas. Nodular thickening of the left adrenal gland measuring up to about 28 mm. No left-sided hydronephrosis. Urinary bladder is partially distended. No right-sided hydronephrosis. Free fluid is seen Large mass stool in a portion of the colon. Anterior abdominal wall hernia with a portion of the stomach extending into the defect. There are some dilated loops of small bowel seen within the abdomen with more distal decompression. There is some edema of the mesentery. The suspected transition point is in the right lower quadrant. Multiple loops converge on this location therefore it is possible that this is from causes such as internal hernia. Degenerative changes the spine with scoliotic curvature with central canal neural foraminal stenosis. Osseous demineralization. Pars defects L5. IMPRESSION: 1. Dilated loops of bowel are identified with more distal decompression. Suspected transition point at right lower quadrant. There is also some edema within the mesentery as well as free fluid and mild wall thickening of some of the loops of small bowel. This is concerning for small bowel obstruction and given the mesenteric edema and fluid is worrisome for higher grade cause. 2. Severe calcific atherosclerosis. 3. Left adrenal nodule. 4. Cystic changes lung bases could be from emphysema. VTE Prophylaxis Ordered VTE Prophylaxis Devices: Yes VTE Pharmacological Prophylaxi: No Assessment/Plan Assessment/Plan SBO - admitted for bowel rest, NG decompression, showing improvement on this ams imaging - start ProcalAmine for nutrition and hydration. Raisins likely causative HTN - IV meds until can resume po COPD - cont O2, neb tx Best MÉNDEZ MD Sep 24, 2018 13:55
[2018-09-24] MEDS: dilTIAZem INJ 125 MG in IV DEXTROSE 5% 100ML 100 ML IV PRN ×2 (15:18→22:41)
[2018-09-24 15:41] VITALS: BP 218/102
[2018-09-24] MEDS: ALBUTEROL SULFATE 2.5 MG/3 ML NEBU. NEB SCH ×2 (16:00→20:36)
[2018-09-24] MEDS: PHENOL ORAL SPRAY 177ML BOTTLE. PO PRN (16:08)
[2018-09-24] MEDS: AMINO AC 3%/ELECTROLYTE/GLYCER 1,000 ML IV SCH (16:09)
[2018-09-24] MEDS: hydrALAZINE 20 MG/ML VIAL. IVP PRN (17:03)
[2018-09-24] MEDS: ACETAMINOPHEN 650 MG SUPP.RECT. PR PRN (18:40)
[2018-09-24 19:35] VITALS: BP 168/72
[2018-09-24] MEDS: BUDESONIDE 0.5 MG/2 ML NEBU. NEB SCH (20:34)
[2018-09-24 23:00] VITALS: BP 161/74
[2018-09-25] VITALS (9 sets, daily range): BP systolic 152–188; BP diastolic 66–81
[2018-09-25] MEDS: hydrALAZINE 20 MG/ML VIAL. IVP PRN ×2 (03:52→08:45)
[2018-09-25] MEDS: AMINO AC 3%/ELECTROLYTE/GLYCER 1,000 ML IV SCH ×2 (03:52→17:00)
[2018-09-25] MEDS: dilTIAZem INJ 125 MG in IV DEXTROSE 5% 100ML 100 ML IV PRN ×2 (03:53→18:16)
[2018-09-25 04:20] LABS: BASO % 0 % (0-3); EOS # 0.1 x10^3/uL (0.0-0.7); EOS % 0 % (0-3); HEMATOCRIT 39.8 % (36.0-47.0); HEMOGLOBIN 13.2 g/dL (12.0-15.5); LYMPH # 1.4 x10^3/uL (1.0-4.8); LYMPH % 10 % (24-48); MEAN CORPUSCULAR HEMOGLOBIN 31 pg (25-35); MEAN CORPUSCULAR HGB CONC 33 g/dL (31-37); MEAN CORPUSCULAR VOLUME 95 fL (79-100); MONO # 1.4 x10^3/uL (0.0-1.1); MONO % 10 % (0-9); NEUT % 79 % (31-73); PLATELET COUNT 313 x10^3/uL (140-400); RED BLOOD COUNT 4.21 x10^6/uL (3.50-5.40); RED CELL DISTRIBUTION WIDTH 15.3 % (11.5-14.5)
[2018-09-25 04:42] LABS: CALCIUM 8.9 mg/dL (8.5-10.1); CREATININE 0.5 mg/dL (0.6-1.0); GFR 116.7; POTASSIUM 3.1 mmol/L (3.5-5.1)
--- NOTE | 2018-09-25 07:42 | RAD ---
Supine abdomen HISTORY: Small bowel obstruction AP view was taken of the abdomen. There is an NG tube in the stomach. There is moderate stool in the colon. There are dilated loops of small bowel in the midabdomen with little change compared to the prior study. There is some increased gas in the colon on today's study. IMPRESSION: 1. NG tube unchanged. 2. Persistent small bowel distention. 3. Moderate gas and stool in the colon. Electronically signed by: Chilo Tong MD (09/25/2018 7:39 AM) [facility]
[2018-09-25] MEDS: BUDESONIDE 0.5 MG/2 ML NEBU. NEB SCH ×2 (08:00→19:59)
[2018-09-25] MEDS: ALBUTEROL SULFATE 2.5 MG/3 ML NEBU. NEB SCH ×4 (08:24→19:59)
[2018-09-25] MEDS: PHENOL ORAL SPRAY 177ML BOTTLE. PO PRN (08:46)
--- NOTE | 2018-09-25 09:31 | PDOC ---
PROGRESS NOTES Subjective "I'm not going to make it". Denies abd pain, has mild headache, has discomfort in left cheek sinus. Imaging essentially the same, BP better but still high, WBC up, K+ down. IVF changed to Procalamine yesterday pm. On Cardizem drip and prn Hydralazine for BP Objective Afebrile General: worried Heart: RRR Lungs: CTAB Abd: mild distension but soft and non tender Ext: [no C/C/E WBC: 14 Hgb: 13.2 K+: 3.1 Creat: 0.5 Vital Signs Vital Signs Date Time Temp Pulse Resp B/P (MAP) Pulse Ox O2 Delivery O2 Flow Rate FiO2 09/25/18 08:45 99 191/76 09/25/18 08:26 96 Nasal Cannula 2.0 09/25/18 07:42 97.8 18 97.8 I & O Intake and Output 09/25/18 06:59 Intake Total 0 ml Output Total 550 ml Balance -550 ml Intake Oral 0 ml Output Urine Total 550 ml # Bowel Movements 1 Assessment and Plan A/P: (1) Abdominal pain - SBO - continue with NG decompression, Procalamine, surgery following Status: Acute (2) Urinary tract infection - ceftriaxone pending culture Status: Acute (3) hypertension - IV Cardizem and prn IV hydralazine (4) hypokalemia, monitor, replace Best MÉNDEZ MD Sep 25, 2018 09:31
[2018-09-25] MEDS: cefTRIAXone IV Push 1 GM VIAL. IVP SCH (09:52)
[2018-09-25] MEDS: POTASSIUM CHLORIDE 10MEQ 100 ML IV SCH ×2 (09:52→10:08)
[2018-09-25] MEDS: ACETAMINOPHEN 650 MG SUPP.RECT. PR PRN (09:53)
--- NOTE | 2018-09-25 10:48 | PDOC ---
SURGICAL PROGRESS NOTE Subjective no new complaints Vital Signs Vital Signs Date Time Temp Pulse Resp B/P (MAP) Pulse Ox O2 Delivery O2 Flow Rate FiO2 09/25/18 10:35 97.7 100 20 170/72 (104) 96 Nasal Cannula 2.0 97.7 I&O Intake and Output 09/25/18 07:00 Intake Total 0 ml Output Total 550 ml Balance -550 ml Intake Oral 0 ml Output Urine Total 550 ml # Bowel Movements 1 PATIENT HAS A JOHNSON: No General: No acute distress Abdomen: Soft, No tenderness Labs Laboratory Tests Test 09/23/18 15:45 09/23/18 17:30 09/25/18 03:30 White Blood Count 8.9 x10^3/uL (4.0-11.0) 14.0 x10^3/uL (4.0-11.0) Red Blood Count 4.56 x10^6/uL (3.50-5.40) 4.21 x10^6/uL (3.50-5.40) Hemoglobin 14.1 g/dL (12.0-15.5) 13.2 g/dL (12.0-15.5) Hematocrit 43.3 % (36.0-47.0) 39.8 % (36.0-47.0) Mean Corpuscular Volume 95 fL (79-100) 95 fL (79-100) Mean Corpuscular Hemoglobin 31 pg (25-35) 31 pg (25-35) Mean Corpuscular Hemoglobin Concent 32 g/dL (31-37) 33 g/dL (31-37) Red Cell Distribution Width 15.3 % (11.5-14.5) 15.3 % (11.5-14.5) Platelet Count 331 x10^3/uL (140-400) 313 x10^3/uL (140-400) Neutrophils (%) (Auto) 76 % (31-73) 79 % (31-73) Lymphocytes (%) (Auto) 12 % (24-48) 10 % (24-48) Monocytes (%) (Auto) 9 % (0-9) 10 % (0-9) Eosinophils (%) (Auto) 2 % (0-3) 0 % (0-3) Basophils (%) (Auto) 1 % (0-3) 0 % (0-3) Neutrophils # (Auto) 6.8 x10^3uL (1.8-7.7) 11.0 x10^3uL (1.8-7.7) Lymphocytes # (Auto) 1.1 x10^3/uL (1.0-4.8) 1.4 x10^3/uL (1.0-4.8) Monocytes # (Auto) 0.8 x10^3/uL (0.0-1.1) 1.4 x10^3/uL (0.0-1.1) Eosinophils # (Auto) 0.2 x10^3/uL (0.0-0.7) 0.1 x10^3/uL (0.0-0.7) Basophils # (Auto) 0.0 x10^3/uL (0.0-0.2) 0.0 x10^3/uL (0.0-0.2) Sodium Level 141 mmol/L (136-145) 141 mmol/L (136-145) Potassium Level 3.8 mmol/L (3.5-5.1) 3.1 mmol/L (3.5-5.1) Chloride Level 101 mmol/L (98-107) 104 mmol/L (98-107) Carbon Dioxide Level 29 mmol/L (21-32) 29 mmol/L (21-32) Anion Gap 11 (6-14) 8 (6-14) Blood Urea Nitrogen 17 mg/dL (7-20) 16 mg/dL (7-20) Creatinine 0.7 mg/dL (0.6-1.0) 0.5 mg/dL (0.6-1.0) Estimated GFR (Cockcroft-Gault) 79.2 116.7 Glucose Level 119 mg/dL (70-99) 133 mg/dL (70-99) Lactic Acid Level 1.2 mmol/L (0.4-2.0) Calcium Level 9.9 mg/dL (8.5-10.1) 8.9 mg/dL (8.5-10.1) Total Bilirubin 0.3 mg/dL (0.2-1.0) Direct Bilirubin < 0.1 mg/dL (0.0-0.2) Aspartate Amino Transf (AST/SGOT) 22 U/L (15-37) Alanine Aminotransferase (ALT/SGPT) 24 U/L (14-59) Alkaline Phosphatase 56 U/L (46-116) Troponin I Quantitative 0.025 ng/mL (0.000-0.055) QX-Hoc-T-Type Natriuretic Peptide 240 pg/mL (0-449) Total Protein 7.2 g/dL (6.4-8.2) Albumin 3.9 g/dL (3.4-5.0) Lipase 123 U/L (73-393) Urine Color Yellow Urine Clarity Clear Urine pH 7.0 Urine Specific [place] 1.010 Urine Protein Negative mg/dL (NEG-TRACE) Urine Glucose (UA) Negative mg/dL (NEG) Urine Ketones (Stick) Negative mg/dL (NEG) Urine Blood Negative (NEG) Urine Nitrite Positive (NEG) Urine Bilirubin Negative (NEG) Urine Urobilinogen Dipstick 0.2 mg/dL (0.2 mg/dL) Urine Leukocyte Esterase Moderate (NEG) Urine RBC 0 /HPF (0-2) Urine WBC 11-20 /HPF (0-4) Urine Squamous Epithelial Cells Occ /LPF Urine Bacteria Many /HPF (0-FEW) Laboratory Tests Test 09/25/18 03:30 White Blood Count 14.0 x10^3/uL (4.0-11.0) Red Blood Count 4.21 x10^6/uL (3.50-5.40) Hemoglobin 13.2 g/dL (12.0-15.5) Hematocrit 39.8 % (36.0-47.0) Mean Corpuscular Volume 95 fL (79-100) Mean Corpuscular Hemoglobin 31 pg (25-35) Mean Corpuscular Hemoglobin Concent 33 g/dL (31-37) Red Cell Distribution Width 15.3 % (11.5-14.5) Platelet Count 313 x10^3/uL (140-400) Neutrophils (%) (Auto) 79 % (31-73) Lymphocytes (%) (Auto) 10 % (24-48) Monocytes (%) (Auto) 10 % (0-9) Eosinophils (%) (Auto) 0 % (0-3) Basophils (%) (Auto) 0 % (0-3) Neutrophils # (Auto) 11.0 x10^3uL (1.8-7.7) Lymphocytes # (Auto) 1.4 x10^3/uL (1.0-4.8) Monocytes # (Auto) 1.4 x10^3/uL (0.0-1.1) Eosinophils # (Auto) 0.1 x10^3/uL (0.0-0.7) Basophils # (Auto) 0.0 x10^3/uL (0.0-0.2) Sodium Level 141 mmol/L (136-145) Potassium Level 3.1 mmol/L (3.5-5.1) Chloride Level 104 mmol/L (98-107) Carbon Dioxide Level 29 mmol/L (21-32) Anion Gap 8 (6-14) Blood Urea Nitrogen 16 mg/dL (7-20) Creatinine 0.5 mg/dL (0.6-1.0) Estimated GFR (Cockcroft-Gault) 116.7 Glucose Level 133 mg/dL (70-99) Calcium Level 8.9 mg/dL (8.5-10.1) I have reviewed the following plain films reviewed Problem List Problems Medical Problems: (1) Abdominal pain Status: Acute (2) Urinary tract infection Status: Acute Assessment/Plan SBO try sesame seed oil COLTON BRIONES MD Sep 25, 2018 10:48
[2018-09-26] VITALS (12 sets, daily range): BP systolic 141–191; BP diastolic 65–86
--- NOTE | 2018-09-26 00:39 | RAD ---
AP abdomen x-ray COMPARISON: Abdomen x-ray September 25, 2018. HISTORY: Nasogastric tube placement. FINDINGS: Nasogastric tube is abnormally positioned coiled back upon itself at the lower to midesophagus and should not be used until repositioning to the abdomen. Cardiac pacemaker. Heart size normal. Moderate gaseous distention of bowel loops at the upper abdomen. Large volume of stool. Lower abdomen and pelvis are outside the [id number]. IMPRESSION: Abnormal retrograde coiling of the nasogastric tube at the lower to midesophagus. This should be repositioned to the stomach prior to using. Electronically signed by: Philip Honeycutt MD (09/26/2018 12:36 AM) [facility]
[2018-09-26] MEDS: dilTIAZem INJ 125 MG in IV DEXTROSE 5% 100ML 100 ML IV PRN ×3 (01:10→17:53)
--- NOTE | 2018-09-26 01:49 | RAD ---
AP abdomen x-ray HISTORY: Nasogastric tube placement. COMPARISON: KUB September 26, 2018. FINDINGS: There has been repositioning of the nasogastric tube to the left upper quadrant abdomen radiographic region of the stomach. Lung bases unremarkable. Gaseous distention of the bowel at the upper abdomen and moderate volume of stool again demonstrated. Lower abdomen and pelvis outside the [id number]. IMPRESSION: Nasogastric intubation as described above. Electronically signed by: Philip Honeycutt MD (09/26/2018 1:46 AM) [facility]
[2018-09-26] MEDS: hydrALAZINE 20 MG/ML VIAL. IVP PRN (03:31)
[2018-09-26] MEDS: fentaNYL PF VIAL 100 MCG/2 ML VIAL IV PRN (03:36)
[2018-09-26] MEDS: AMINO AC 3%/ELECTROLYTE/GLYCER 1,000 ML IV SCH ×2 (03:36→18:54)
--- NOTE | 2018-09-26 04:04 | NUR ---
At 2300 pt accidentally removed NG tube. She is alert and oriented x4. She states it was an accident. So we replaced the NG and obtained a KUB. Tube was in wrong place, so it was repositioned and in the correct place after a second KUB. Securing device was placed on nose, tube reinforced with tape on cheek. At 0340, I checked on patient who complained of pain gave her a prn dose of pain medication. At 0400 I went to reassess her pain and patient was found holding NG tube. She had removed securing device and reinforced tape. She states that thing was uncomfortable and I couldn't take it any more. NG tube left out. Pt is still A&O x4. Pt is refusing NG at this time, will update physician in am.
[2018-09-26 06:58] LABS: BASO % 0 % (0-3); EOS % 0 % (0-3); HEMATOCRIT 39.7 % (36.0-47.0); HEMOGLOBIN 12.9 g/dL (12.0-15.5); LYMPH % 5 % (24-48); MEAN CORPUSCULAR HEMOGLOBIN 31 pg (25-35); MEAN CORPUSCULAR HGB CONC 33 g/dL (31-37); MEAN CORPUSCULAR VOLUME 94 fL (79-100); MONO # 1.7 x10^3/uL (0.0-1.1); MONO % 9 % (0-9); NEUT # 16.3 x10^3uL (1.8-7.7); NEUT % 86 % (31-73); PLATELET COUNT 342 x10^3/uL (140-400); RED CELL DISTRIBUTION WIDTH 15.4 % (11.5-14.5)
[2018-09-26 07:03] LABS: CALCIUM 8.4 mg/dL (8.5-10.1); CREATININE 0.6 mg/dL (0.6-1.0); GFR 94.6; POTASSIUM 3.2 mmol/L (3.5-5.1)
[2018-09-26] MEDS: ALBUTEROL SULFATE 2.5 MG/3 ML NEBU. NEB SCH ×4 (07:06→20:24)
[2018-09-26] MEDS: BUDESONIDE 0.5 MG/2 ML NEBU. NEB SCH ×2 (07:06→20:24)
--- NOTE | 2018-09-26 08:26 | PDOC ---
PROGRESS NOTES Subjective Subjective Patient denies abdominal pain or nausea, reports she had a large bowel movement this AM. Objective Objective Vital Signs Date Time Temp Pulse Resp B/P (MAP) Pulse Ox O2 Delivery O2 Flow Rate FiO2 09/26/18 07:42 99.0 108 28 141/69 (93) 96 Nasal Cannula 2.0 99.0 Intake and Output 09/26/18 07:00 Intake Total 1741 ml Output Total 950 ml Balance 791 ml Intake Oral 0 ml IV Total 1741 ml Output Urine Total 200 ml Gastric Drainage Total 750 ml # Voids 1 # Bowel Movements 1 Physical Exam Abdomen: Normal bowel sounds, Soft, No tenderness Heart: Regular rate Extremities: No edema General: Alert, Oriented X3 (mildly forgetful), No acute distress Lungs: Clear to auscultation (BS mildly decreased throughout) Assessment Assessment Problems Medical Problems: (1) Abdominal pain Status: Acute (2) Urinary tract infection Status: Acute Plan Plan of Care 1. SBO - appears to be improving. Good BS present. Patient pulled out several NG tubes last night and nursing had difficulty replacing the third one. Will try without NG today. Ice chips OK. Continue PPN. 2. possible UTI with leukocytosis - WBC's elevated today. Continue Rocephin, await urine culture report. 3. HTN - BP elevated without her usual po meds. Continue Cardizem gtt and add Clonidine patch. 4. COPD - stable, continue nebs and O2. 5. hypokalemia - replace IV today and follow lab. 6. chronic anxiety - stable, will give her usual Remeron tonight. Comment Review of Relevant I have reviewed the following items forest (where applicable) has been applied. Labs Laboratory Tests Test 09/25/18 03:30 09/26/18 05:57 White Blood Count 14.0 x10^3/uL (4.0-11.0) 19.0 x10^3/uL (4.0-11.0) Red Blood Count 4.21 x10^6/uL (3.50-5.40) 4.20 x10^6/uL (3.50-5.40) Hemoglobin 13.2 g/dL (12.0-15.5) 12.9 g/dL (12.0-15.5) Hematocrit 39.8 % (36.0-47.0) 39.7 % (36.0-47.0) Mean Corpuscular Volume 95 fL (79-100) 94 fL (79-100) Mean Corpuscular Hemoglobin 31 pg (25-35) 31 pg (25-35) Mean Corpuscular Hemoglobin Concent 33 g/dL (31-37) 33 g/dL (31-37) Red Cell Distribution Width 15.3 % (11.5-14.5) 15.4 % (11.5-14.5) Platelet Count 313 x10^3/uL (140-400) 342 x10^3/uL (140-400) Neutrophils (%) (Auto) 79 % (31-73) 86 % (31-73) Lymphocytes (%) (Auto) 10 % (24-48) 5 % (24-48) Monocytes (%) (Auto) 10 % (0-9) 9 % (0-9) Eosinophils (%) (Auto) 0 % (0-3) 0 % (0-3) Basophils (%) (Auto) 0 % (0-3) 0 % (0-3) Neutrophils # (Auto) 11.0 x10^3uL (1.8-7.7) 16.3 x10^3uL (1.8-7.7) Lymphocytes # (Auto) 1.4 x10^3/uL (1.0-4.8) 1.0 x10^3/uL (1.0-4.8) Monocytes # (Auto) 1.4 x10^3/uL (0.0-1.1) 1.7 x10^3/uL (0.0-1.1) Eosinophils # (Auto) 0.1 x10^3/uL (0.0-0.7) 0.0 x10^3/uL (0.0-0.7) Basophils # (Auto) 0.0 x10^3/uL (0.0-0.2) 0.0 x10^3/uL (0.0-0.2) Sodium Level 141 mmol/L (136-145) 140 mmol/L (136-145) Potassium Level 3.1 mmol/L (3.5-5.1) 3.2 mmol/L (3.5-5.1) Chloride Level 104 mmol/L (98-107) 103 mmol/L (98-107) Carbon Dioxide Level 29 mmol/L (21-32) 26 mmol/L (21-32) Anion Gap 8 (6-14) 11 (6-14) Blood Urea Nitrogen 16 mg/dL (7-20) 18 mg/dL (7-20) Creatinine 0.5 mg/dL (0.6-1.0) 0.6 mg/dL (0.6-1.0) Estimated GFR (Cockcroft-Gault) 116.7 94.6 Glucose Level 133 mg/dL (70-99) 133 mg/dL (70-99) Calcium Level 8.9 mg/dL (8.5-10.1) 8.4 mg/dL (8.5-10.1) Laboratory Tests Test 09/26/18 05:57 White Blood Count 19.0 x10^3/uL (4.0-11.0) Red Blood Count 4.20 x10^6/uL (3.50-5.40) Hemoglobin 12.9 g/dL (12.0-15.5) Hematocrit 39.7 % (36.0-47.0) Mean Corpuscular Volume 94 fL (79-100) Mean Corpuscular Hemoglobin 31 pg (25-35) Mean Corpuscular Hemoglobin Concent 33 g/dL (31-37) Red Cell Distribution Width 15.4 % (11.5-14.5) Platelet Count 342 x10^3/uL (140-400) Neutrophils (%) (Auto) 86 % (31-73) Lymphocytes (%) (Auto) 5 % (24-48) Monocytes (%) (Auto) 9 % (0-9) Eosinophils (%) (Auto) 0 % (0-3) Basophils (%) (Auto) 0 % (0-3) Neutrophils # (Auto) 16.3 x10^3uL (1.8-7.7) Lymphocytes # (Auto) 1.0 x10^3/uL (1.0-4.8) Monocytes # (Auto) 1.7 x10^3/uL (0.0-1.1) Eosinophils # (Auto) 0.0 x10^3/uL (0.0-0.7) Basophils # (Auto) 0.0 x10^3/uL (0.0-0.2) Sodium Level 140 mmol/L (136-145) Potassium Level 3.2 mmol/L (3.5-5.1) Chloride Level 103 mmol/L (98-107) Carbon Dioxide Level 26 mmol/L (21-32) Anion Gap 11 (6-14) Blood Urea Nitrogen 18 mg/dL (7-20) Creatinine 0.6 mg/dL (0.6-1.0) Estimated GFR (Cockcroft-Gault) 94.6 Glucose Level 133 mg/dL (70-99) Calcium Level 8.4 mg/dL (8.5-10.1) Medications Current Medications Iohexol (Omnipaque 300 Mg/ml) 75 ml 1X ONCE IV Last administered on 09/23/18at 17:42; Start 09/23/18 at 17:15; Stop 09/23/18 at 17:16; Status DC Info (CONTRAST GIVEN -- Rx MONITORING) 1 each PRN DAILY PRN MC SEE COMMENTS; Start 09/23/18 at 17:15; Stop 09/25/18 at 17:14; Status DC Labetalol HCl (Normodyne Iv Push) 10 mg 1X ONCE IVP Last administered on at 17:52; Start 09/23/18 at 17:30; Stop 09/23/18 at 17:31; Status DC Ceftriaxone Sodium (Rocephin) 1 gm 1X ONCE IVP Last administered on 09/23/18at 18:45; Start 09/23/18 at 18:45; Stop 09/23/18 at 18:46; Status DC Sodium Chloride 1,000 ml @ 100 mls/hr 1X ONCE IV Last administered on at 18:44; Start 09/23/18 at 18:45; Stop 09/24/18 at 04:44; Status DC Hydralazine HCl (Apresoline Inj) 20 mg 1X ONCE IVP Last administered on at 18:45; Start 09/23/18 at 18:45; Stop 09/23/18 at 18:46; Status DC Ondansetron HCl (Zofran) 4 mg PRN Q8HRS PRN IV NAUSEA/VOMITING Last administered on 09/23/18at 19:10; Start 09/23/18 at 19:00; Stop 09/24/18 at 18:59 ; Status DC Fentanyl Citrate (Fentanyl 2ml Vial) 25 mcg PRN Q2HRS PRN IV PAIN Last administered on 09/26/18 03:36; Start 09/23/18 at 19:00; Stop 09/26/18 at 08:10 ; Status DC Hydralazine HCl (Apresoline Inj) 20 mg Q4HRS PRN IVP HYPERTENSION, SEE COMMENTS Last administered on 09/26/18at 03:31; Start 09/23/18 at 19:15; Stop at 03:31; Status DC Benzocaine (Hurricaine One) 1 spray 1X ONCE MM Last administered on 09/23/18at 19:45; Start 09/23/18 at 19:45; Stop 09/23/18 at 19:46; Status DC Labetalol HCl (Normodyne Iv Push) 10 mg PRN Q6HRS PRN IVP HYPERTENSION, SEE COMMENTS Last administered on 09/23/18at 22:33; Start 09/23/18 at 22:00 Throat Lozenges (Cepacol Sore Throat Lozenge) 1 isadora PRN Q2HRS PRN PO SORE THROAT 1st Choice; Start 09/24/18 at 11:45 Throat Lozenges (Chloraseptic) 1 spray PRN Q2HR PRN PO SORE THROAT Last administered on 09/25/18at 08:46; Start 09/24/18 at 11:45 Amino Acids/ Glycerin/ Electrolytes 1,000 ml @ 80 mls/hr [id number] IV Last administered on 09/26/18at 03:36; Start 09/24/18 at 13:30 Albuterol Sulfate (Ventolin Neb Soln) 2.5 mg RTQID NEB Last administered on 07:06; Start 09/24/18 at 16:00 Diltiazem HCl 125 mg/Dextrose 125 ml @ 5 mls/hr CONT PRN IV SEE I/O RECORD Last administered on 09/26/18at 01:10; Start 09/24/18 at 14:00 Budesonide (Pulmicort) 0.5 mg RTBID NEB Last administered on 09/26/18at 07:06; Start 09/24/18 at 20:00 Acetaminophen (Tylenol Supp) 650 mg PRN Q6HRS PRN NV MILD PAIN / TEMP Last administered on 09/25/18at 09:53; Start 09/24/18 at 18:30 Potassium Chloride/Water 100 ml @ 100 mls/hr Q1H IV Last administered on at 10:08; Start 09/25/18 at 10:00; Stop 09/25/18 at 11:59; Status DC Ceftriaxone Sodium (Rocephin) 1 gm Q24H IVP Last administered on 09/25/18at 09: 52; Start 09/25/18 at 09:30 Clonidine HCl (Catapres Tts-1) 1 patch WEEKLY TD ; Start 09/26/18 at 09:00 Active Scripts Active Nexium Capsule (Esomeprazole Magnesium) 20 Mg Capsule.dr 1 Cap PO DAILY OTC. Symbicort 160-4.5 Mcg Inhaler (Budesonide/Formoterol Fumarate) 10.2 Gm Hfa.aer.ad 2 Puff IH BID Reported Acetaminophen 500 Mg Tablet 2 Tab PO PRN Q6HRS PRN Prednisone (Prednisone) 10 Mg Tablet 5 Mg PO DAILY Glucosamine (Glucosamine Sulfate 2KCL) 1,000 Mg Tablet 500 Mg PO BID Oxybutynin Chloride 5 Mg Tablet 5 Mg PO TID Latanoprost 2.5 Ml Drops 1 Drop EACHEYE QHS Clonidine Hcl 0.1 Mg Tablet 0.1 Mg PO TID Miralax (Polyethylene Glycol 3350) 17 Gm Powd.pack 1 Pkt PO DAILY Calcium 500 + D Tablet (Calcium Carbonate/Vitamin D3) 1 Each Tablet 1 Each PO BID Diltiazem 24HR Cd (Diltiazem Hcl) 240 Mg Cap.er.24h 240 Mg PO DAILY Lisinopril 40 Mg Tablet 1 Tab PO DAILY Spiriva (Tiotropium [place]) 18 Mcg Cap.w.dev 1 Cap IH DAILY Mirtazapine 15 Mg Tablet 0.5 Tab PO QHS Aspir 81 (Aspirin) 81 Mg Tablet.dr 1 Tab PO DAILY Pravastatin Sodium 80 Mg Tablet 80 Mg PO HS Toprol Xl (Metoprolol Succinate) 50 Mg Tab.er.24h 50 Mg PO HS Proair Hfa Inhaler (Albuterol Sulfate) 8.5 Gm Hfa.aer.ad 2 Puff INH PRN Q6HRS PRN Vitals/I & O Vital Sign - Last 24 Hours 09/25/18 09/25/18 09/25/18 09/25/18 08:26 08:45 10:35 14:26 Temp 97.7 98.1 97.7 98.1 Pulse 99 100 103 Resp 20 18 B/P (MAP) 191/76 170/72 (104) 181/81 (114) Pulse Ox 96 96 98 O2 Delivery Nasal Cannula Nasal Cannula Nasal Cannula O2 Flow Rate 2.0 2.0 2.0 09/25/18 09/25/18 09/25/18 09/25/18 16:05 19:25 19:35 19:59 Temp 98.6 98.6 Pulse 101 Resp 20 B/P (MAP) 173/76 (108) Pulse Ox 96 96 96 O2 Delivery Nasal Cannula Nasal Cannula Nasal Cannula Nasal Cannula O2 Flow Rate 3.0 2.0 2.0 2.0 09/25/18 09/25/18 09/25/18 09/25/18 20:00 21:00 22:00 23:10 Temp 98.1 98.1 Pulse 92 106 104 101 Resp 20 B/P (MAP) 181/79 (113) 152/66 (94) 162/71 (101) 162/71 (101) Pulse Ox 95 O2 Delivery Nasal Cannula O2 Flow Rate 2.0 09/26/18 09/26/18 09/26/18 09/26/18 00:01 01:00 02:00 03:15 Temp 98.1 98.1 Pulse 108 110 108 95 Resp 20 B/P (MAP) 178/86 (116) 183/81 (115) 178/79 (112) 178/79 (112) Pulse Ox 96 O2 Delivery Nasal Cannula O2 Flow Rate 2.0 09/26/18 09/26/18 09/26/18 09/26/18 03:31 03:36 04:00 04:06 Pulse 93 106 Resp 20 20 B/P (MAP) 202/86 157/68 (97) O2 Delivery Nasal Cannula O2 Flow Rate 2.0 09/26/18 09/26/18 09/26/18 05:00 07:07 07:42 Temp 99.0 99.0 Pulse 72 108 Resp 28 B/P (MAP) 164/71 (102) 141/69 (93) Pulse Ox 96 96 O2 Delivery Nasal Cannula Nasal Cannula O2 Flow Rate 2.0 2.0 Intake and Output 09/25/18 09/25/18 09/26/18 15:00 23:00 07:00 Intake Total 1200 ml 541 ml Output Total 750 ml 200 ml Balance 450 ml 341 ml IAN BLAKE MD Sep 26, 2018 08:26
--- NOTE | 2018-09-26 08:31 | RAD ---
ABDOMEN SUPINE UPRIGHT History: SMALL BOWEL OBSTRUCTION Comparison: KUB earlier the same day Findings: Single supine and upright views of the abdomen are submitted. Previously seen enteric catheter is no longer visualized. There is persistent gas dilated bowel probably unchanged, some gas in the colon although also likely loops of dilated small bowel. There is retained stool such as ascending through descending colon and also likely in the rectosigmoid colon. No convincing free air is identified. Impression: 1. Degree of gas distended bowel is likely unchanged. There is again retained stool in segments of the colon. Previously seen enteric catheter is no longer visualized. Electronically signed by: Ganesh Nagel MD (09/26/2018 8:28 AM) [id number]
[2018-09-26] MEDS ORDERED: cloNIDine TTS-1 1 PATCH PATCH.TDWK TD SCH (09:00)
[2018-09-26] MEDS: POTASSIUM CHLORIDE 10MEQ 100 ML IV SCH ×4 (09:05→13:29)
[2018-09-26] MEDS: cefTRIAXone IV Push 1 GM VIAL. IVP SCH (09:09)
[2018-09-26 09:20] LABS: % BANDS 2 % (0-9); % LYMPHS 3 % (24-48); % MONOS 5 % (0-10); % SEGS 90 % (35-66); PLT ESTIMATE ADEQUATE (ADEQUATE); TOXIC VACUOLATION SLIGHT
--- NOTE | 2018-09-26 09:40 | PDOC ---
[employer] 09/26/18 0940: SURGICAL PROGRESS NOTE Subjective large stool last night no pain no nausea Vital Signs Vital Signs Date Time Temp Pulse Resp B/P (MAP) Pulse Ox O2 Delivery O2 Flow Rate FiO2 09/26/18 07:42 99.0 108 28 141/69 (93) 96 Nasal Cannula 2.0 99.0 I&O Intake and Output 09/26/18 07:00 Intake Total 1741 ml Output Total 950 ml Balance 791 ml Intake Oral 0 ml IV Total 1741 ml Output Urine Total 200 ml Gastric Drainage Total 750 ml # Voids 1 # Bowel Movements 1 General: Alert, Oriented X3, Cooperative, No acute distress Abdomen: Soft, No tenderness Labs Laboratory Tests Test 09/25/18 03:30 09/26/18 05:57 White Blood Count 14.0 x10^3/uL (4.0-11.0) 19.0 x10^3/uL (4.0-11.0) Red Blood Count 4.21 x10^6/uL (3.50-5.40) 4.20 x10^6/uL (3.50-5.40) Hemoglobin 13.2 g/dL (12.0-15.5) 12.9 g/dL (12.0-15.5) Hematocrit 39.8 % (36.0-47.0) 39.7 % (36.0-47.0) Mean Corpuscular Volume 95 fL (79-100) 94 fL (79-100) Mean Corpuscular Hemoglobin 31 pg (25-35) 31 pg (25-35) Mean Corpuscular Hemoglobin Concent 33 g/dL (31-37) 33 g/dL (31-37) Red Cell Distribution Width 15.3 % (11.5-14.5) 15.4 % (11.5-14.5) Platelet Count 313 x10^3/uL (140-400) 342 x10^3/uL (140-400) Neutrophils (%) (Auto) 79 % (31-73) 86 % (31-73) Lymphocytes (%) (Auto) 10 % (24-48) 5 % (24-48) Monocytes (%) (Auto) 10 % (0-9) 9 % (0-9) Eosinophils (%) (Auto) 0 % (0-3) 0 % (0-3) Basophils (%) (Auto) 0 % (0-3) 0 % (0-3) Neutrophils # (Auto) 11.0 x10^3uL (1.8-7.7) 16.3 x10^3uL (1.8-7.7) Lymphocytes # (Auto) 1.4 x10^3/uL (1.0-4.8) 1.0 x10^3/uL (1.0-4.8) Monocytes # (Auto) 1.4 x10^3/uL (0.0-1.1) 1.7 x10^3/uL (0.0-1.1) Eosinophils # (Auto) 0.1 x10^3/uL (0.0-0.7) 0.0 x10^3/uL (0.0-0.7) Basophils # (Auto) 0.0 x10^3/uL (0.0-0.2) 0.0 x10^3/uL (0.0-0.2) Sodium Level 141 mmol/L (136-145) 140 mmol/L (136-145) Potassium Level 3.1 mmol/L (3.5-5.1) 3.2 mmol/L (3.5-5.1) Chloride Level 104 mmol/L (98-107) 103 mmol/L (98-107) Carbon Dioxide Level 29 mmol/L (21-32) 26 mmol/L (21-32) Anion Gap 8 (6-14) 11 (6-14) Blood Urea Nitrogen 16 mg/dL (7-20) 18 mg/dL (7-20) Creatinine 0.5 mg/dL (0.6-1.0) 0.6 mg/dL (0.6-1.0) Estimated GFR (Cockcroft-Gault) 116.7 94.6 Glucose Level 133 mg/dL (70-99) 133 mg/dL (70-99) Calcium Level 8.9 mg/dL (8.5-10.1) 8.4 mg/dL (8.5-10.1) Segmented Neutrophils % 90 % (35-66) Band Neutrophils % 2 % (0-9) Lymphocytes % 3 % (24-48) Monocytes % 5 % (0-10) Toxic Vacuolation Slight Platelet Estimate Adequate (ADEQUATE) Large Platelets Occ Giant Platelets Occ Laboratory Tests Test 09/26/18 05:57 White Blood Count 19.0 x10^3/uL (4.0-11.0) Red Blood Count 4.20 x10^6/uL (3.50-5.40) Hemoglobin 12.9 g/dL (12.0-15.5) Hematocrit 39.7 % (36.0-47.0) Mean Corpuscular Volume 94 fL (79-100) Mean Corpuscular Hemoglobin 31 pg (25-35) Mean Corpuscular Hemoglobin Concent 33 g/dL (31-37) Red Cell Distribution Width 15.4 % (11.5-14.5) Platelet Count 342 x10^3/uL (140-400) Neutrophils (%) (Auto) 86 % (31-73) Lymphocytes (%) (Auto) 5 % (24-48) Monocytes (%) (Auto) 9 % (0-9) Eosinophils (%) (Auto) 0 % (0-3) Basophils (%) (Auto) 0 % (0-3) Neutrophils # (Auto) 16.3 x10^3uL (1.8-7.7) Lymphocytes # (Auto) 1.0 x10^3/uL (1.0-4.8) Monocytes # (Auto) 1.7 x10^3/uL (0.0-1.1) Eosinophils # (Auto) 0.0 x10^3/uL (0.0-0.7) Basophils # (Auto) 0.0 x10^3/uL (0.0-0.2) Segmented Neutrophils % 90 % (35-66) Band Neutrophils % 2 % (0-9) Lymphocytes % 3 % (24-48) Monocytes % 5 % (0-10) Toxic Vacuolation Slight Platelet Estimate Adequate (ADEQUATE) Large Platelets Occ Giant Platelets Occ Sodium Level 140 mmol/L (136-145) Potassium Level 3.2 mmol/L (3.5-5.1) Chloride Level 103 mmol/L (98-107) Carbon Dioxide Level 26 mmol/L (21-32) Anion Gap 11 (6-14) Blood Urea Nitrogen 18 mg/dL (7-20) Creatinine 0.6 mg/dL (0.6-1.0) Estimated GFR (Cockcroft-Gault) 94.6 Glucose Level 133 mg/dL (70-99) Calcium Level 8.4 mg/dL (8.5-10.1) Problem List Problems Medical Problems: (1) Abdominal pain Status: Acute (2) Urinary tract infection Status: Acute Assessment/Plan SBO had stool NG out, monitor COLTON BRIONES MD 09/26/18 1609: SURGICAL PROGRESS NOTE Assessment/Plan pt seen agree with above no new surg recs JOSE HILL [employer] Sep 26, 2018 09:40 COLTON BRIONES MD Sep 26, 2018 16:09
--- NOTE | 2018-09-26 13:02 | NUR ---
SS following for discharge planning. SS reviewed pt chart. Pt is from home with family and is currently requiring oxygen. PT/OT ordered as pt may need rehab at discharge. SS will await PT/OT evaluations and recommendations and will proceed accordingly. SS will continue to follow for discharge planning.
[2018-09-26] MEDS: MIRTAZAPINE 7.5 MG TABLET. PO SCH (21:00)
[2018-09-26] MEDS: LACTOBACILLUS RHAMNOSUS GG 1 CAPSULE. PO SCH (21:00)
[2018-09-27] MEDS: dilTIAZem INJ 125 MG in IV DEXTROSE 5% 100ML 100 ML IV PRN (01:36)
[2018-09-27 03:05] VITALS: BP 177/79
[2018-09-27 04:27] LABS: HEMOGLOBIN 12.8 g/dL (12.0-15.5); RED BLOOD COUNT 4.14 x10^6/uL (3.50-5.40); RED CELL DISTRIBUTION WIDTH 15.2 % (11.5-14.5); WHITE BLOOD COUNT 10.5 x10^3/uL (4.0-11.0)
[2018-09-27 04:36] LABS: CALCIUM 8.4 mg/dL (8.5-10.1); CREATININE 0.5 mg/dL (0.6-1.0); GFR 116.7; POTASSIUM 3.6 mmol/L (3.5-5.1)
[2018-09-27] MEDS: AMINO AC 3%/ELECTROLYTE/GLYCER 1,000 ML IV SCH ×2 (04:40→21:42)
[2018-09-27 07:00] VITALS: BP 173/80
[2018-09-27] MEDS: ALBUTEROL SULFATE 2.5 MG/3 ML NEBU. NEB SCH ×4 (07:08→19:40)
[2018-09-27] MEDS: BUDESONIDE 0.5 MG/2 ML NEBU. NEB SCH ×2 (07:09→19:40)
--- NOTE | 2018-09-27 08:20 | PDOC ---
PROGRESS NOTES Subjective Subjective Patient denies abdominal pain or nausea. Would like to try clear liquids. Objective Objective Vital Signs Date Time Temp Pulse Resp B/P (MAP) Pulse Ox O2 Delivery O2 Flow Rate FiO2 09/27/18 07:28 96 Nasal Cannula 2.0 09/27/18 07:00 97.6 100 20 173/80 (111) 97.6 Intake and Output 09/27/18 07:00 Intake Total 1941 ml Output Total 850 ml Balance 1091 ml Intake Oral 0 ml IV Total 125 ml Other 1816 ml Output Urine Total 850 ml # Voids 2 # Bowel Movements 1 Physical Exam Abdomen: Normal bowel sounds, Soft, No tenderness Heart: Regular rate Extremities: No edema General: Alert, Oriented X3 (forgetful), No acute distress Lungs: Clear to auscultation (BS mildly decreased throughout) Assessment Assessment Problems Medical Problems: (1) Abdominal pain Status: Acute (2) Urinary tract infection Status: Acute Plan Plan of Care 1. SBO - improving, tolerating removal of NG tube. Exam benign. Will try clear liquids today. Continue PPN for now. 2. HTN - resume her usual po meds, d/c Clonidine patch and Cardizem gtt. 3. UTI - preliminary culture shows gram negative rods, continue Rocephin. WBC's now WNL.[id number]. 4. COPD - stable, continue nebs and O2. 5. chronic anxiety - stable, resume home medication. 6. mild memory loss - stable, continue supportive care. 7. debility - continue therapies, anticipate she will be able to return home with her nephew when ready for discharge. Comment Review of Relevant I have reviewed the following items forest (where applicable) has been applied. Labs Laboratory Tests Test 09/26/18 05:57 09/27/18 03:50 White Blood Count 19.0 x10^3/uL (4.0-11.0) 10.5 x10^3/uL (4.0-11.0) Red Blood Count 4.20 x10^6/uL (3.50-5.40) 4.14 x10^6/uL (3.50-5.40) Hemoglobin 12.9 g/dL (12.0-15.5) 12.8 g/dL (12.0-15.5) Hematocrit 39.7 % (36.0-47.0) 39.0 % (36.0-47.0) Mean Corpuscular Volume 94 fL (79-100) 94 fL (79-100) Mean Corpuscular Hemoglobin 31 pg (25-35) 31 pg (25-35) Mean Corpuscular Hemoglobin Concent 33 g/dL (31-37) 33 g/dL (31-37) Red Cell Distribution Width 15.4 % (11.5-14.5) 15.2 % (11.5-14.5) Platelet Count 342 x10^3/uL (140-400) 274 x10^3/uL (140-400) Neutrophils (%) (Auto) 86 % (31-73) Lymphocytes (%) (Auto) 5 % (24-48) Monocytes (%) (Auto) 9 % (0-9) Eosinophils (%) (Auto) 0 % (0-3) Basophils (%) (Auto) 0 % (0-3) Neutrophils # (Auto) 16.3 x10^3uL (1.8-7.7) Lymphocytes # (Auto) 1.0 x10^3/uL (1.0-4.8) Monocytes # (Auto) 1.7 x10^3/uL (0.0-1.1) Eosinophils # (Auto) 0.0 x10^3/uL (0.0-0.7) Basophils # (Auto) 0.0 x10^3/uL (0.0-0.2) Segmented Neutrophils % 90 % (35-66) Band Neutrophils % 2 % (0-9) Lymphocytes % 3 % (24-48) Monocytes % 5 % (0-10) Toxic Vacuolation Slight Platelet Estimate Adequate (ADEQUATE) Large Platelets Occ Giant Platelets Occ Sodium Level 140 mmol/L (136-145) 139 mmol/L (136-145) Potassium Level 3.2 mmol/L (3.5-5.1) 3.6 mmol/L (3.5-5.1) Chloride Level 103 mmol/L (98-107) 104 mmol/L (98-107) Carbon Dioxide Level 26 mmol/L (21-32) 26 mmol/L (21-32) Anion Gap 11 (6-14) 9 (6-14) Blood Urea Nitrogen 18 mg/dL (7-20) 15 mg/dL (7-20) Creatinine 0.6 mg/dL (0.6-1.0) 0.5 mg/dL (0.6-1.0) Estimated GFR (Cockcroft-Gault) 94.6 116.7 Glucose Level 133 mg/dL (70-99) 114 mg/dL (70-99) Calcium Level 8.4 mg/dL (8.5-10.1) 8.4 mg/dL (8.5-10.1) Laboratory Tests Test 09/27/18 03:50 White Blood Count 10.5 x10^3/uL (4.0-11.0) Red Blood Count 4.14 x10^6/uL (3.50-5.40) Hemoglobin 12.8 g/dL (12.0-15.5) Hematocrit 39.0 % (36.0-47.0) Mean Corpuscular Volume 94 fL (79-100) Mean Corpuscular Hemoglobin 31 pg (25-35) Mean Corpuscular Hemoglobin Concent 33 g/dL (31-37) Red Cell Distribution Width 15.2 % (11.5-14.5) Platelet Count 274 x10^3/uL (140-400) Sodium Level 139 mmol/L (136-145) Potassium Level 3.6 mmol/L (3.5-5.1) Chloride Level 104 mmol/L (98-107) Carbon Dioxide Level 26 mmol/L (21-32) Anion Gap 9 (6-14) Blood Urea Nitrogen 15 mg/dL (7-20) Creatinine 0.5 mg/dL (0.6-1.0) Estimated GFR (Cockcroft-Gault) 116.7 Glucose Level 114 mg/dL (70-99) Calcium Level 8.4 mg/dL (8.5-10.1) Microbiology 09/23/18 Urine Culture - Preliminary, Resulted 09/23/18 Urine Culture Result 1 (JAGDISH) - Preliminary, Resulted Medications Current Medications Iohexol (Omnipaque 300 Mg/ml) 75 ml 1X ONCE IV Last administered on 09/23/18at 17:42; Start 09/23/18 at 17:15; Stop 09/23/18 at 17:16; Status DC Info (CONTRAST GIVEN -- Rx MONITORING) 1 each PRN DAILY PRN MC SEE COMMENTS; Start 09/23/18 at 17:15; Stop 09/25/18 at 17:14; Status DC Labetalol HCl (Normodyne Iv Push) 10 mg 1X ONCE IVP Last administered on 17:52; Start 09/23/18 at 17:30; Stop 09/23/18 at 17:31; Status DC Ceftriaxone Sodium (Rocephin) 1 gm 1X ONCE IVP Last administered on 09/23/18 18:45; Start 09/23/18 at 18:45; Stop 09/23/18 at 18:46; Status DC Sodium Chloride 1,000 ml @ 100 mls/hr 1X ONCE IV Last administered on 18:44; Start 09/23/18 at 18:45; Stop 09/24/18 at 04:44; Status DC Hydralazine HCl (Apresoline Inj) 20 mg 1X ONCE IVP Last administered on 18:45; Start 09/23/18 at 18:45; Stop 09/23/18 at 18:46; Status DC Ondansetron HCl (Zofran) 4 mg PRN Q8HRS PRN IV NAUSEA/VOMITING Last administered on 09/23/18 19:10; Start 09/23/18 at 19:00; Stop 09/24/18 at 18:59 ; Status DC Fentanyl Citrate (Fentanyl 2ml Vial) 25 mcg PRN Q2HRS PRN IV PAIN Last administered on 09/26/18 03:36; Start 09/23/18 at 19:00; Stop 09/26/18 at 08:10 ; Status DC Hydralazine HCl (Apresoline Inj) 20 mg Q4HRS PRN IVP HYPERTENSION, SEE COMMENTS Last administered on 09/26/18at 03:31; Start 09/23/18 at 19:15; Stop at 03:31; Status DC Benzocaine (Hurricaine One) 1 spray 1X ONCE MM Last administered on 09/23/18 19:45; Start 09/23/18 at 19:45; Stop 09/23/18 at 19:46; Status DC Labetalol HCl (Normodyne Iv Push) 10 mg PRN Q6HRS PRN IVP HYPERTENSION, SEE COMMENTS Last administered on 09/23/18at 22:33; Start 09/23/18 at 22:00 Throat Lozenges (Cepacol Sore Throat Lozenge) 1 isadora PRN Q2HRS PRN PO SORE THROAT 1st Choice; Start 09/24/18 at 11:45 Throat Lozenges (Chloraseptic) 1 spray PRN Q2HR PRN PO SORE THROAT Last administered on 09/25/18 08:46; Start 09/24/18 at 11:45 Amino Acids/ Glycerin/ Electrolytes 1,000 ml @ 80 mls/hr [id number] IV Last administered on 09/27/18at 04:40; Start 09/24/18 at 13:30 Albuterol Sulfate (Ventolin Neb Soln) 2.5 mg RTQID NEB Last administered on 07:08; Start 09/24/18 at 16:00 Diltiazem HCl 125 mg/Dextrose 125 ml @ 5 mls/hr CONT PRN IV SEE I/O RECORD Last administered on 09/27/18 01:36; Start 09/24/18 at 14:00 Budesonide (Pulmicort) 0.5 mg RTBID NEB Last administered on 09/27/18 07:09; Start 09/24/18 at 20:00 Acetaminophen (Tylenol Supp) [address] MILD PAIN / TEMP Last administered on 09/25/18at 09:53; Start 09/24/18 at 18:30 Potassium Chloride/Water 100 ml @ 100 mls/hr Q1H IV Last administered on 10:08; Start 09/25/18 at 10:00; Stop 09/25/18 at 11:59; Status DC Ceftriaxone Sodium (Rocephin) 1 gm Q24H IVP Last administered on 09/26/18 09: 09; Start 09/25/18 at 09:30 Clonidine HCl (Catapres Tts-1) 1 patch WEEKLY TD Last administered on 09:16; Start 09/26/18 at 09:00; Stop 09/27/18 at 08:14; Status DC Potassium Chloride/Water 100 ml @ 100 mls/hr Q1H IV Last administered on 13:29; Start 09/26/18 at 08:30; Stop 09/26/18 at 12:29; Status DC Mirtazapine (Remeron) 7.5 mg QHS PO ; Start 09/26/18 at 21:00 Lactobacillus Rhamnosus (Culturelle) 1 cap BID PO ; Start 09/26/18 at 21:00 Aspirin (Ecotrin) 81 mg DAILY PO ; Start 09/27/18 at 09:00; Status UNV Clonidine HCl (Catapres) 0.1 mg TID PO ; Start 09/27/18 at 09:00; Status UNV Lisinopril (Prinivil) 40 mg DAILY PO ; Start 09/27/18 at 09:00; Status UNV Oxybutynin Chloride (Ditropan) 5 mg TID PO ; Start 09/27/18 at 09:00; Status UNV Non-Formulary Medication (Diltiazem Hcl (Diltiazem 24HR Cd)) 240 mg DAILY PO ; Start 09/27/18 at 09:00; Status UNV Non-Formulary Medication (Esomeprazole Magnesium (Nexium Capsule)) 1 cap DAILY PO ; Start 09/27/18 at 09:00; Status UNV Non-Formulary Medication (Latanoprost ) 1 drop QHS EACHEYE ; Start 09/27/18 at 21:00; Status UNV Non-Formulary Medication (Metoprolol Succinate (Toprol Xl)) 50 mg HS PO ; Start 09/27/18 at 21:00; Status UNV Non-Formulary Medication (Polyethylene Glycol 3350 (Miralax)) 1 pkt DAILY PO ; Start 09/27/18 at 09:00; Status UNV Non-Formulary Medication (Pravastatin Sodium ) 80 mg HS PO ; Start 09/27/18 at 21:00; Status UNV Active Scripts Active Nexium Capsule (Esomeprazole Magnesium) 20 Mg Capsule.dr 1 Cap PO DAILY OTC. Symbicort 160-4.5 Mcg Inhaler (Budesonide/Formoterol Fumarate) 10.2 Gm Hfa.aer.ad 2 Puff IH BID Reported Acetaminophen 500 Mg Tablet 2 Tab PO PRN Q6HRS PRN Prednisone (Prednisone) 10 Mg Tablet 5 Mg PO DAILY Glucosamine (Glucosamine Sulfate 2KCL) 1,000 Mg Tablet 500 Mg PO BID Oxybutynin Chloride 5 Mg Tablet 5 Mg PO TID Latanoprost 2.5 Ml Drops 1 Drop EACHEYE QHS Clonidine Hcl 0.1 Mg Tablet 0.1 Mg PO TID Miralax (Polyethylene Glycol 3350) 17 Gm Powd.pack 1 Pkt PO DAILY Calcium 500 + D Tablet (Calcium Carbonate/Vitamin D3) 1 Each Tablet 1 Each PO BID Diltiazem 24HR Cd (Diltiazem Hcl) 240 Mg Cap.er.24h 240 Mg PO DAILY Lisinopril 40 Mg Tablet 1 Tab PO DAILY Spiriva (Tiotropium [place]) 18 Mcg Cap.w.dev 1 Cap IH DAILY Mirtazapine 15 Mg Tablet 0.5 Tab PO QHS Aspir 81 (Aspirin) 81 Mg Tablet.dr 1 Tab PO DAILY Pravastatin Sodium 80 Mg Tablet 80 Mg PO HS Toprol Xl (Metoprolol Succinate) 50 Mg Tab.er.24h 50 Mg PO HS Proair Hfa Inhaler (Albuterol Sulfate) 8.5 Gm Hfa.aer.ad 2 Puff INH PRN Q6HRS PRN Vitals/I & O Vital Sign - Last 24 Hours 09/26/18 09/26/18 09/26/18 09/26/18 10:48 11:02 14:47 15:13 Temp 98.6 98.3 98.6 98.3 Pulse 109 106 Resp 33 33 B/P (MAP) 146/65 (92) 171/79 (109) Pulse Ox 96 96 97 97 O2 Delivery Nasal Cannula Nasal Cannula Nasal Cannula Nasal Cannula O2 Flow Rate 2.0 2.0 2.0 2.0 09/26/18 09/26/18 09/26/18 09/26/18 19:30 20:26 20:26 20:41 Temp 98.6 98.6 Pulse 102 Resp 22 B/P (MAP) 150/78 (102) Pulse Ox 97 97 97 O2 Delivery Nasal Cannula Nasal Cannula Nasal Cannula Nasal Cannula O2 Flow Rate 2.0 2.0 2.0 2.0 09/26/18 09/26/18 09/27/18 09/27/18 22:30 23:00 03:05 07:00 Temp 98.3 98.0 97.6 98.3 98.0 97.6 Pulse 94 104 86 100 Resp 20 20 20 B/P (MAP) 175/81 (112) 191/85 (120) 177/79 (111) 173/80 (111) Pulse Ox 96 97 97 O2 Delivery Nasal Cannula Nasal Cannula Nasal Cannula O2 Flow Rate 2.0 2.0 2.0 09/27/18 07:28 Pulse Ox 96 O2 Delivery Nasal Cannula O2 Flow Rate 2.0 Intake and Output 09/26/18 09/26/18 09/27/18 15:00 23:00 07:00 Intake Total 1816 ml 125 ml Output Total 200 ml 650 ml Balance 1616 ml -525 ml Nutrition Consultation Dietary Evaluation: Recommendations by RD: Increase Calorie Intake, Protein supplementation, PPN/ TPN Comments: Continue PPN for short-term nutrition needs REC advance diet as able per GI to regular REC oral supplements per pt choice to supply additional calories/protein Expected Outcomes/Goals: diet advancement Malnutrition Findings: Food and Nutrition Intake (Sev: <50% est energy req 5days Weight Status: Appropriate IAN BLAKE MD Sep 27, 2018 08:20
--- NOTE | 2018-09-27 08:47 | PDOC ---
JOSE HILL SENIOR ANDROID DEVELOPER 09/27/18 0847: SURGICAL PROGRESS NOTE Subjective denies pain no nausea stools noted starting clears Vital Signs Vital Signs Date Time Temp Pulse Resp B/P (MAP) Pulse Ox O2 Delivery O2 Flow Rate FiO2 09/27/18 07:28 96 Nasal Cannula 2.0 09/27/18 07:00 97.6 100 20 173/80 (111) 97.6 I&O Intake and Output 09/27/18 06:59 Intake Total 1941 ml Output Total 850 ml Balance 1091 ml Intake Oral 0 ml IV Total 125 ml Other 1816 ml Output Urine Total 850 ml # Voids 2 # Bowel Movements 1 General: Alert, Oriented X3, Cooperative, No acute distress Abdomen: Soft, No tenderness Labs Laboratory Tests Test 09/26/18 05:57 09/27/18 03:50 White Blood Count 19.0 x10^3/uL (4.0-11.0) 10.5 x10^3/uL (4.0-11.0) Red Blood Count 4.20 x10^6/uL (3.50-5.40) 4.14 x10^6/uL (3.50-5.40) Hemoglobin 12.9 g/dL (12.0-15.5) 12.8 g/dL (12.0-15.5) Hematocrit 39.7 % (36.0-47.0) 39.0 % (36.0-47.0) Mean Corpuscular Volume 94 fL (79-100) 94 fL (79-100) Mean Corpuscular Hemoglobin 31 pg (25-35) 31 pg (25-35) Mean Corpuscular Hemoglobin Concent 33 g/dL (31-37) 33 g/dL (31-37) Red Cell Distribution Width 15.4 % (11.5-14.5) 15.2 % (11.5-14.5) Platelet Count 342 x10^3/uL (140-400) 274 x10^3/uL (140-400) Neutrophils (%) (Auto) 86 % (31-73) Lymphocytes (%) (Auto) 5 % (24-48) Monocytes (%) (Auto) 9 % (0-9) Eosinophils (%) (Auto) 0 % (0-3) Basophils (%) (Auto) 0 % (0-3) Neutrophils # (Auto) 16.3 x10^3uL (1.8-7.7) Lymphocytes # (Auto) 1.0 x10^3/uL (1.0-4.8) Monocytes # (Auto) 1.7 x10^3/uL (0.0-1.1) Eosinophils # (Auto) 0.0 x10^3/uL (0.0-0.7) Basophils # (Auto) 0.0 x10^3/uL (0.0-0.2) Segmented Neutrophils % 90 % (35-66) Band Neutrophils % 2 % (0-9) Lymphocytes % 3 % (24-48) Monocytes % 5 % (0-10) Toxic Vacuolation Slight Platelet Estimate Adequate (ADEQUATE) Large Platelets Occ Giant Platelets Occ Sodium Level 140 mmol/L (136-145) 139 mmol/L (136-145) Potassium Level 3.2 mmol/L (3.5-5.1) 3.6 mmol/L (3.5-5.1) Chloride Level 103 mmol/L (98-107) 104 mmol/L (98-107) Carbon Dioxide Level 26 mmol/L (21-32) 26 mmol/L (21-32) Anion Gap 11 (6-14) 9 (6-14) Blood Urea Nitrogen 18 mg/dL (7-20) 15 mg/dL (7-20) Creatinine 0.6 mg/dL (0.6-1.0) 0.5 mg/dL (0.6-1.0) Estimated GFR (Cockcroft-Gault) 94.6 116.7 Glucose Level 133 mg/dL (70-99) 114 mg/dL (70-99) Calcium Level 8.4 mg/dL (8.5-10.1) 8.4 mg/dL (8.5-10.1) Laboratory Tests Test 09/27/18 03:50 White Blood Count 10.5 x10^3/uL (4.0-11.0) Red Blood Count 4.14 x10^6/uL (3.50-5.40) Hemoglobin 12.8 g/dL (12.0-15.5) Hematocrit 39.0 % (36.0-47.0) Mean Corpuscular Volume 94 fL (79-100) Mean Corpuscular Hemoglobin 31 pg (25-35) Mean Corpuscular Hemoglobin Concent 33 g/dL (31-37) Red Cell Distribution Width 15.2 % (11.5-14.5) Platelet Count 274 x10^3/uL (140-400) Sodium Level 139 mmol/L (136-145) Potassium Level 3.6 mmol/L (3.5-5.1) Chloride Level 104 mmol/L (98-107) Carbon Dioxide Level 26 mmol/L (21-32) Anion Gap 9 (6-14) Blood Urea Nitrogen 15 mg/dL (7-20) Creatinine 0.5 mg/dL (0.6-1.0) Estimated GFR (Cockcroft-Gault) 116.7 Glucose Level 114 mg/dL (70-99) Calcium Level 8.4 mg/dL (8.5-10.1) Problem List Problems Medical Problems: (1) Abdominal pain Status: Acute (2) Urinary tract infection Status: Acute Assessment/Plan improving starting diet COLTON BRIONES MD 09/27/18 1302: SURGICAL PROGRESS NOTE Assessment/Plan pt seen up walking the [place] doing better no surg recs will sign off please call if needed Thank you JOSE HILL APRN Sep 27, 2018 08:47 COLTON BRIONES MD Sep 27, 2018 13:02
[2018-09-27] MEDS: LISINOPRIL 20 MG TABLET PO SCH (09:34)
[2018-09-27] MEDS: LACTOBACILLUS RHAMNOSUS GG 1 CAPSULE. PO SCH ×2 (09:35→21:41)
[2018-09-27] MEDS: ASPIRIN ENTERIC COATED 81 MG TABLET.DR. PO SCH (09:35)
[2018-09-27] MEDS: PANTOPRAZOLE 40 MG TABLET.DR. PO SCH (09:35)
[2018-09-27] MEDS: OXYBUTYNIN CHLORIDE 5 MG TABLET PO SCH ×3 (09:35→21:41)
[2018-09-27] MEDS: cloNIDine HCL 0.1 MG TABLET PO SCH ×3 (09:36→21:42)
[2018-09-27] MEDS: POLYETHYLENE GLYCOL 3350 17 GM PACKET. PO SCH (09:36)
[2018-09-27] MEDS: cefTRIAXone IV Push 1 GM VIAL. IVP SCH (09:41)
[2018-09-27 11:00] VITALS: BP 139/99
[2018-09-27 15:00] VITALS: BP 150/70
[2018-09-27 19:20] VITALS: BP 152/66
[2018-09-27] MEDS: LATANOPROST 0.005% OPHTH SOLUTION 2.5ML BOTTLE. OU SCH (21:40)
[2018-09-27] MEDS: METOPROLOL SUCC 24HR ER 50 MG TAB.ER.24H. PO SCH (21:41)
[2018-09-27] MEDS: ATORVASTATIN CALCIUM 20 MG TABLET PO SCH (21:41)
[2018-09-27] MEDS: MIRTAZAPINE 7.5 MG TABLET. PO SCH (21:41)
[2018-09-27 23:20] VITALS: BP 124/58
[2018-09-28] VITALS (7 sets, daily range): BP systolic 123–173; BP diastolic 47–79
[2018-09-28] MEDS: ALBUTEROL SULFATE 2.5 MG/3 ML NEBU. NEB SCH ×4 (07:14→19:54)
[2018-09-28] MEDS: BUDESONIDE 0.5 MG/2 ML NEBU. NEB SCH ×2 (07:14→19:54)
[2018-09-28] MEDS: PANTOPRAZOLE 40 MG TABLET.DR. PO SCH (07:29)
--- NOTE | 2018-09-28 08:20 | PDOC ---
PROGRESS NOTES Subjective Subjective Patient without complaint, feels hungry. Denies abdominal pain. Had BM yesterday. Objective Objective Vital Signs Date Time Temp Pulse Resp B/P (MAP) Pulse Ox O2 Delivery O2 Flow Rate FiO2 09/28/18 07:15 Nasal Cannula 2.0 09/28/18 03:40 98.0 73 18 173/77 (109) 96 98.0 Intake and Output 09/28/18 06:59 Intake Total 1406 ml Output Total 2400 ml Balance -994 ml Intake Oral 400 ml Other 1006 ml Output Urine Total 2400 ml # Bowel Movements 1 Physical Exam Abdomen: Normal bowel sounds, Soft, No tenderness Heart: Regular rate Extremities: No edema General: Alert, Oriented X3 (mildly forgetful), No acute distress Lungs: Clear to auscultation Assessment Assessment Problems Medical Problems: (1) Abdominal pain Status: Acute (2) Urinary tract infection Status: Acute Plan Plan of Care 1. SBO - resolving well. Tolerating clears, will d/c PPN and advance to regular diet. Home tomorrow if patient continues to improve. 2. UTI - E Coli. Change Rocephin to Keflex. 3. HTN - fairly well controlled, continue all her usual home medications. 4. COPD with chronic respiratory failure - stable, continue O2 and nebs. 5. chronic anxiety - stable, continue home medication. 6. mild memory loss - stable, continue supportive care. 7. debility - about at baseline mobility. Has a walker with a seat at home, reminded to use this at all times. Her nephew provides very good care to her at home. Comment Review of Relevant I have reviewed the following items forest (where applicable) has been applied. Labs Laboratory Tests Test 09/27/18 03:50 White Blood Count 10.5 x10^3/uL (4.0-11.0) Red Blood Count 4.14 x10^6/uL (3.50-5.40) Hemoglobin 12.8 g/dL (12.0-15.5) Hematocrit 39.0 % (36.0-47.0) Mean Corpuscular Volume 94 fL (79-100) Mean Corpuscular Hemoglobin 31 pg (25-35) Mean Corpuscular Hemoglobin Concent 33 g/dL (31-37) Red Cell Distribution Width 15.2 % (11.5-14.5) Platelet Count 274 x10^3/uL (140-400) Sodium Level 139 mmol/L (136-145) Potassium Level 3.6 mmol/L (3.5-5.1) Chloride Level 104 mmol/L (98-107) Carbon Dioxide Level 26 mmol/L (21-32) Anion Gap 9 (6-14) Blood Urea Nitrogen 15 mg/dL (7-20) Creatinine 0.5 mg/dL (0.6-1.0) Estimated GFR (Cockcroft-Gault) 116.7 Glucose Level 114 mg/dL (70-99) Calcium Level 8.4 mg/dL (8.5-10.1) Microbiology 09/23/18 Urine Culture - Final, Complete 09/23/18 Urine Culture Result 1 (JAGDISH) - Final, Complete 09/23/18 Antimicrobic Susceptibility - Final, Complete Medications Current Medications Iohexol (Omnipaque 300 Mg/ml) 75 ml 1X ONCE IV Last administered on 09/23/18at 17:42; Start 09/23/18 at 17:15; Stop 09/23/18 at 17:16; Status DC Info (CONTRAST GIVEN -- Rx MONITORING) 1 each PRN DAILY PRN MC SEE COMMENTS; Start 09/23/18 at 17:15; Stop 09/25/18 at 17:14; Status DC Labetalol HCl (Normodyne Iv Push) 10 mg 1X ONCE IVP Last administered on at 17:52; Start 09/23/18 at 17:30; Stop 09/23/18 at 17:31; Status DC Ceftriaxone Sodium (Rocephin) 1 gm 1X ONCE IVP Last administered on 09/23/18at 18:45; Start 09/23/18 at 18:45; Stop 09/23/18 at 18:46; Status DC Sodium Chloride 1,000 ml @ 100 mls/hr 1X ONCE IV Last administered on at 18:44; Start 09/23/18 at 18:45; Stop 09/24/18 at 04:44; Status DC Hydralazine HCl (Apresoline Inj) 20 mg 1X ONCE IVP Last administered on at 18:45; Start 09/23/18 at 18:45; Stop 09/23/18 at 18:46; Status DC Ondansetron HCl (Zofran) 4 mg PRN Q8HRS PRN IV NAUSEA/VOMITING Last administered on 09/23/18 19:10; Start 09/23/18 at 19:00; Stop 09/24/18 at 18:59 ; Status DC Fentanyl Citrate (Fentanyl 2ml Vial) 25 mcg PRN Q2HRS PRN IV PAIN Last administered on 09/26/18 03:36; Start 09/23/18 at 19:00; Stop 09/26/18 at 08:10 ; Status DC Hydralazine HCl (Apresoline Inj) 20 mg Q4HRS PRN IVP HYPERTENSION, SEE COMMENTS Last administered on 09/26/18 03:31; Start 09/23/18 at 19:15; Stop at 03:31; Status DC Benzocaine (Hurricaine One) 1 spray 1X ONCE MM Last administered on 09/23/18at 19:45; Start 09/23/18 at 19:45; Stop 09/23/18 at 19:46; Status DC Labetalol HCl (Normodyne Iv Push) 10 mg PRN Q6HRS PRN IVP HYPERTENSION, SEE COMMENTS Last administered on 09/23/18at 22:33; Start 09/23/18 at 22:00 Throat Lozenges (Cepacol Sore Throat Lozenge) 1 isadora PRN Q2HRS PRN PO SORE THROAT 1st Choice; Start 09/24/18 at 11:45 Throat Lozenges (Chloraseptic) 1 spray PRN Q2HR PRN PO SORE THROAT, 2ND CHOICE Last administered on 09/25/18at 08:46; Start 09/24/18 at 11:45 Amino Acids/ Glycerin/ Electrolytes 1,000 ml @ 80 mls/hr [id number] IV Last administered on 09/27/18at 21:42; Start 09/24/18 at 13:30 Albuterol Sulfate (Ventolin Neb Soln) 2.5 mg RTQID NEB Last administered on at 07:14; Start 09/24/18 at 16:00 Diltiazem HCl 125 mg/Dextrose 125 ml @ 5 mls/hr CONT PRN IV SEE I/O RECORD Last administered on 09/27/18at 01:36; Start 09/24/18 at 14:00 Budesonide (Pulmicort) 0.5 mg RTBID NEB Last administered on 09/28/18 07:14; Start 09/24/18 at 20:00 Acetaminophen (Tylenol Supp) 650 mg PRN Q6HRS PRN ID MILD PAIN / TEMP Last administered on 09/25/18 09:53; Start 09/24/18 at 18:30 Potassium Chloride/Water 100 ml @ 100 mls/hr Q1H IV Last administered on 10:08; Start 09/25/18 at 10:00; Stop 09/25/18 at 11:59; Status DC Ceftriaxone Sodium (Rocephin) 1 gm Q24H IVP Last administered on 09/27/18 09: 41; Start 09/25/18 at 09:30 Clonidine HCl (Catapres Tts-1) 1 patch WEEKLY TD Last administered on 09:16; Start 09/26/18 at 09:00; Stop 09/27/18 at 08:14; Status DC Potassium Chloride/Water 100 ml @ 100 mls/hr Q1H IV Last administered on 13:29; Start 09/26/18 at 08:30; Stop 09/26/18 at 12:29; Status DC Mirtazapine (Remeron) 7.5 mg QHS PO Last administered on 09/27/18 21:41; Start 09/26/18 at 21:00 Lactobacillus Rhamnosus (Culturelle) 1 cap BID PO Last administered on 21:41; Start 09/26/18 at 21:00 Aspirin (Ecotrin) 81 mg DAILY PO Last administered on 09/27/18 09:35; Start at 09:00 Clonidine HCl (Catapres) 0.1 mg TID PO Last administered on 09/27/18 21:42; Start 09/27/18 at 09:00 Lisinopril (Prinivil) 40 mg DAILY PO Last administered on 09/27/18 09:34; Start 09/27/18 at 09:00 Oxybutynin Chloride (Ditropan) 5 mg TID PO Last administered on 09/27/18 21:41 ; Start 09/27/18 at 09:00 Diltiazem HCl (Cardizem 24hr Cd) 240 mg DAILY PO Last administered on 09:35; Start 09/27/18 at 09:00 Pantoprazole Sodium (Protonix) 40 mg DAILYAC PO Last administered on 09/28/18at 07:29; Start 09/27/18 at 08:00 Latanoprost (Xalatan) 1 drop QHS OU Last administered on 09/27/18 21:40; Start 09/27/18 at 21:00 Metoprolol Succinate (Toprol Xl) 50 mg HS PO Last administered on 09/27/18 21: 41; Start 09/27/18 at 21:00 Polyethylene Glycol (miraLAX PACKET) 17 gm DAILY PO Last administered on 09:36; Start 09/27/18 at 09:00 Atorvastatin Calcium (Lipitor) 20 mg QHS PO Last administered on 09/27/18 21: 41; Start 09/27/18 at 21:00 Active Scripts Active Nexium Capsule (Esomeprazole Magnesium) 20 Mg Capsule.dr 1 Cap PO DAILY OTC. Symbicort 160-4.5 Mcg Inhaler (Budesonide/Formoterol Fumarate) 10.2 Gm Hfa.aer.ad 2 Puff IH BID Reported Acetaminophen 500 Mg Tablet 2 Tab PO PRN Q6HRS PRN Prednisone (Prednisone) 10 Mg Tablet 5 Mg PO DAILY Glucosamine (Glucosamine Sulfate 2KCL) 1,000 Mg Tablet 500 Mg PO BID Oxybutynin Chloride 5 Mg Tablet 5 Mg PO TID Latanoprost 2.5 Ml Drops 1 Drop EACHEYE QHS Clonidine Hcl 0.1 Mg Tablet 0.1 Mg PO TID Miralax (Polyethylene Glycol 3350) 17 Gm Powd.pack 1 Pkt PO DAILY Calcium 500 + D Tablet (Calcium Carbonate/Vitamin D3) 1 Each Tablet 1 Each PO BID Diltiazem 24HR Cd (Diltiazem Hcl) 240 Mg Cap.er.24h 240 Mg PO DAILY Lisinopril 40 Mg Tablet 1 Tab PO DAILY Spiriva (Tiotropium [place]) 18 Mcg Cap.w.dev 1 Cap IH DAILY Mirtazapine 15 Mg Tablet 0.5 Tab PO QHS Aspir 81 (Aspirin) 81 Mg Tablet.dr 1 Tab PO DAILY Pravastatin Sodium 80 Mg Tablet 80 Mg PO HS Toprol Xl (Metoprolol Succinate) 50 Mg Tab.er.24h 50 Mg PO HS Proair Hfa Inhaler (Albuterol Sulfate) 8.5 Gm Hfa.aer.ad 2 Puff INH PRN Q6HRS PRN Vitals/I & O Vital Sign - Last 24 Hours 09/27/18 09/27/18 09/27/18 09/27/18 09:34 09:35 09:36 11:00 Temp 98.2 98.2 Pulse 100 100 100 99 Resp 20 B/P (MAP) 173/80 173/80 173/80 139/99 (112) Pulse Ox 97 O2 Delivery Nasal Cannula O2 Flow Rate 2.0 09/27/18 09/27/18 09/27/18 09/27/18 11:15 14:30 15:00 15:34 Temp 98.0 98.0 Pulse 90 79 Resp 20 B/P (MAP) 133/63 150/70 (96) Pulse Ox 99 98 99 O2 Delivery Nasal Cannula Nasal Cannula Nasal Cannula O2 Flow Rate 2.0 2.0 2.0 09/27/18 09/27/18 09/27/18 09/27/18 19:20 19:41 19:42 20:00 Temp 98.0 98.0 Pulse 88 Resp 18 B/P (MAP) 152/66 (94) Pulse Ox 96 99 99 O2 Delivery Nasal Cannula Nasal Cannula Nasal Cannula Nasal Cannula O2 Flow Rate 2.0 2.0 2.0 2.0 09/27/18 09/27/18 09/27/18 09/28/18 21:41 21:42 23:20 03:40 Temp 98.2 98.0 98.2 98.0 Pulse 88 88 80 73 Resp 18 18 B/P (MAP) 152/66 152/66 124/58 (80) 173/77 (109) Pulse Ox 95 96 O2 Delivery Nasal Cannula Nasal Cannula O2 Flow Rate 2.0 2.0 09/28/18 07:15 O2 Delivery Nasal Cannula O2 Flow Rate 2.0 Intake and Output 09/27/18 09/27/18 09/28/18 14:59 22:59 06:59 Intake Total 93 ml 913 ml 400 ml Output Total 300 ml 200 ml 1900 ml Balance -207 ml 713 ml -1500 ml Nutrition Consultation Dietary Evaluation: Recommendations by RD: Increase Calorie Intake, Protein supplementation, PPN/ TPN Comments: Continue PPN for short-term nutrition needs REC advance diet as able per GI to regular REC oral supplements per pt choice to supply additional calories/protein Expected Outcomes/Goals: diet advancement Malnutrition Findings: Food and Nutrition Intake (Sev: <50% est energy req 5days Weight Status: Appropriate IAN BLAKE MD Sep 28, 2018 08:20
[2018-09-28] MEDS: LACTOBACILLUS RHAMNOSUS GG 1 CAPSULE. PO SCH ×2 (09:03→20:23)
[2018-09-28] MEDS: ASPIRIN ENTERIC COATED 81 MG TABLET.DR. PO SCH (09:03)
[2018-09-28] MEDS: POLYETHYLENE GLYCOL 3350 17 GM PACKET. PO SCH (09:03)
[2018-09-28] MEDS: cloNIDine HCL 0.1 MG TABLET PO SCH ×3 (09:04→20:24)
[2018-09-28] MEDS: OXYBUTYNIN CHLORIDE 5 MG TABLET PO SCH ×3 (09:04→20:23)
[2018-09-28] MEDS: LISINOPRIL 20 MG TABLET PO SCH (09:05)
[2018-09-28] MEDS ORDERED: ACETAMINOPHEN 325 MG TABLET. PO PRN (09:45)
[2018-09-28] MEDS: CEPHALEXIN 250 MG CAPSULE. PO SCH ×2 (10:00→20:23)
--- NOTE | 2018-09-28 14:34 | NUR ---
SW following pt. Spoke with pt about PT/OT recommendation for SNU. Pt's stated she wants to go home as she has '5 cats waiting for her'. Pt confirmed her nephew lives with her and provides care she needs. Pt also stated she has home 02 and has used HH in the past. SW will arrange HH if ordered by Physician.
[2018-09-28] MEDS: ATORVASTATIN CALCIUM 20 MG TABLET PO SCH (20:22)
[2018-09-28] MEDS: MIRTAZAPINE 7.5 MG TABLET. PO SCH (20:23)
[2018-09-28] MEDS: LATANOPROST 0.005% OPHTH SOLUTION 2.5ML BOTTLE. OU SCH (20:23)
[2018-09-28] MEDS: METOPROLOL SUCC 24HR ER 50 MG TAB.ER.24H. PO SCH (20:27)
[2018-09-29 03:00] VITALS: BP 128/51
[2018-09-29 07:00] VITALS: BP 150/59
[2018-09-29] MEDS: BUDESONIDE 0.5 MG/2 ML NEBU. NEB SCH (07:51)
[2018-09-29] MEDS: ALBUTEROL SULFATE 2.5 MG/3 ML NEBU. NEB SCH ×2 (07:51→12:10)
--- NOTE | 2018-09-29 08:14 | PDOC ---
PROGRESS NOTES Subjective Subjective Patient wants to go home. Denies pain. Forgetful. Objective Objective Vital Signs Date Time Temp Pulse Resp B/P (MAP) Pulse Ox O2 Delivery O2 Flow Rate FiO2 09/29/18 07:53 96 Nasal Cannula 2.0 09/29/18 03:00 99.0 64 19 128/51 (76) 99.0 Intake and Output 09/29/18 07:00 Output Total 0 ml Balance 0 ml Output Urine Total 0 ml # Voids 2 Physical Exam Abdomen: Normal bowel sounds, Soft, No tenderness Heart: Regular rate Extremities: No edema General: Alert, Oriented X3 (forgetful of recent events), No acute distress Lungs: Clear to auscultation Assessment Assessment Problems Medical Problems: (1) Abdominal pain Status: Acute (2) Urinary tract infection Status: Acute Plan Plan of Care 1. Small bowel obstruction - resolved. Tolerating regular diet, no abdominal pain. Home today. Advised Miralax daily. 2. UTI - home on Keflex to complete 7 days of tx. 3. HTN - well controlled with her home medications. 4. chronic anxiety - stable. 5. mild memory loss - at baseline, continue supportive care. 6. COPD with chronic respiratory failure - stable, home on O2 and her usual inhalers. 7. debility - therapies recommending home health and patient agreeable to this, will order. Comment Review of Relevant I have reviewed the following items forest (where applicable) has been applied. Labs Microbiology 09/23/18 Urine Culture - Final, Complete 09/23/18 Urine Culture Result 1 (JAGDISH) - Final, Complete 09/23/18 Antimicrobic Susceptibility - Final, Complete Medications Current Medications Iohexol (Omnipaque 300 Mg/ml) 75 ml 1X ONCE IV Last administered on 09/23/18at 17:42; Start 09/23/18 at 17:15; Stop 09/23/18 at 17:16; Status DC Info (CONTRAST GIVEN -- Rx MONITORING) 1 each PRN DAILY PRN MC SEE COMMENTS; Start 09/23/18 at 17:15; Stop 09/25/18 at 17:14; Status DC Labetalol HCl (Normodyne Iv Push) 10 mg 1X ONCE IVP Last administered on at 17:52; Start 09/23/18 at 17:30; Stop 09/23/18 at 17:31; Status DC Ceftriaxone Sodium (Rocephin) 1 gm 1X ONCE IVP Last administered on 09/23/18 18:45; Start 09/23/18 at 18:45; Stop 09/23/18 at 18:46; Status DC Sodium Chloride 1,000 ml @ 100 mls/hr 1X ONCE IV Last administered on 18:44; Start 09/23/18 at 18:45; Stop 09/24/18 at 04:44; Status DC Hydralazine HCl (Apresoline Inj) 20 mg 1X ONCE IVP Last administered on 18:45; Start 09/23/18 at 18:45; Stop 09/23/18 at 18:46; Status DC Ondansetron HCl (Zofran) 4 mg PRN Q8HRS PRN IV NAUSEA/VOMITING Last administered on 09/23/18 19:10; Start 09/23/18 at 19:00; Stop 09/24/18 at 18:59 ; Status DC Fentanyl Citrate (Fentanyl 2ml Vial) 25 mcg PRN Q2HRS PRN IV PAIN Last administered on 09/26/18 03:36; Start 09/23/18 at 19:00; Stop 09/26/18 at 08:10 ; Status DC Hydralazine HCl (Apresoline Inj) 20 mg Q4HRS PRN IVP HYPERTENSION, SEE COMMENTS Last administered on 09/26/18 03:31; Start 09/23/18 at 19:15; Stop at 03:31; Status DC Benzocaine (Hurricaine One) 1 spray 1X ONCE MM Last administered on 09/23/18 19:45; Start 09/23/18 at 19:45; Stop 09/23/18 at 19:46; Status DC Labetalol HCl (Normodyne Iv Push) 10 mg PRN Q6HRS PRN IVP HYPERTENSION, SEE COMMENTS Last administered on 09/23/18at 22:33; Start 09/23/18 at 22:00 Throat Lozenges (Cepacol Sore Throat Lozenge) 1 isadora PRN Q2HRS PRN PO SORE THROAT 1st Choice; Start 09/24/18 at 11:45 Throat Lozenges (Chloraseptic) 1 spray PRN Q2HR PRN PO SORE THROAT, 2ND CHOICE Last administered on 09/25/18 08:46; Start 09/24/18 at 11:45 Amino Acids/ Glycerin/ Electrolytes 1,000 ml @ 80 mls/hr [id number] IV Last administered on 09/27/18at 21:42; Start 09/24/18 at 13:30; Stop 09/28/18 at 08:17 ; Status DC Albuterol Sulfate (Ventolin Neb Soln) 2.5 mg RTQID NEB Last administered on 07:51; Start 09/24/18 at 16:00 Diltiazem HCl 125 mg/Dextrose 125 ml @ 5 mls/hr CONT PRN IV SEE I/O RECORD Last administered on 09/27/18at 01:36; Start 09/24/18 at 14:00; Stop 09/28/18 at 08:17; Status DC Budesonide (Pulmicort) 0.5 mg RTBID NEB Last administered on 09/29/18 07:51; Start 09/24/18 at 20:00 Acetaminophen (Tylenol Supp) 650 mg PRN Q6HRS PRN AK MILD PAIN / TEMP Last administered on 09/25/18at 09:53; Start 09/24/18 at 18:30 Potassium Chloride/Water 100 ml @ 100 mls/hr Q1H IV Last administered on at 10:08; Start 09/25/18 at 10:00; Stop 09/25/18 at 11:59; Status DC Ceftriaxone Sodium (Rocephin) 1 gm Q24H IVP Last administered on 09/27/18 09: 41; Start 09/25/18 at 09:30; Stop 09/28/18 at 08:17; Status DC Clonidine HCl (Catapres Tts-1) 1 patch WEEKLY TD Last administered on 09:16; Start 09/26/18 at 09:00; Stop 09/27/18 at 08:14; Status DC Potassium Chloride/Water 100 ml @ 100 mls/hr Q1H IV Last administered on 13:29; Start 09/26/18 at 08:30; Stop 09/26/18 at 12:29; Status DC Mirtazapine (Remeron) 7.5 mg QHS PO Last administered on 09/28/18 20:23; Start 09/26/18 at 21:00 Lactobacillus Rhamnosus (Culturelle) 1 cap BID PO Last administered on 20:23; Start 09/26/18 at 21:00 Aspirin (Ecotrin) 81 mg DAILY PO Last administered on 09/28/18 09:03; Start at 09:00 Clonidine HCl (Catapres) 0.1 mg TID PO Last administered on 09/28/18 20:24; Start 09/27/18 at 09:00 Lisinopril (Prinivil) 40 mg DAILY PO Last administered on 09/28/18 09:05; Start 09/27/18 at 09:00 Oxybutynin Chloride (Ditropan) 5 mg TID PO Last administered on 09/28/18 20:23 ; Start 09/27/18 at 09:00 Diltiazem HCl (Cardizem 24hr Cd) 240 mg DAILY PO Last administered on 09:04; Start 09/27/18 at 09:00 Pantoprazole Sodium (Protonix) 40 mg DAILYAC PO Last administered on 09/28/18 07:29; Start 09/27/18 at 08:00 Latanoprost (Xalatan) 1 drop QHS OU Last administered on 09/28/18 20:23; Start 09/27/18 at 21:00 Metoprolol Succinate (Toprol Xl) 50 mg HS PO Last administered on 09/28/18 20: 27; Start 09/27/18 at 21:00 Polyethylene Glycol (miraLAX PACKET) 17 gm DAILY PO Last administered on 09:03; Start 09/27/18 at 09:00 Atorvastatin Calcium (Lipitor) 20 mg QHS PO Last administered on 09/28/18 20: 22; Start 09/27/18 at 21:00 Cephalexin HCl (Keflex) 1,000 mg BID PO Last administered on 09/28/18 20:23; Start 09/28/18 at 09:00 Acetaminophen (Tylenol) 650 mg PRN Q6HRS PRN PO MILD PAIN Last administered on 09/28/18 10:00; Start 09/28/18 at 09:45 Active Scripts Active Nexium Capsule (Esomeprazole Magnesium) 20 Mg Capsule.dr 1 Cap PO DAILY OTC. Symbicort 160-4.5 Mcg Inhaler (Budesonide/Formoterol Fumarate) 10.2 Gm Hfa.aer.ad 2 Puff IH BID Reported Acetaminophen 500 Mg Tablet 2 Tab PO PRN Q6HRS PRN Prednisone (Prednisone) 10 Mg Tablet 5 Mg PO DAILY Glucosamine (Glucosamine Sulfate 2KCL) 1,000 Mg Tablet 500 Mg PO BID Oxybutynin Chloride 5 Mg Tablet 5 Mg PO TID Latanoprost 2.5 Ml Drops 1 Drop EACHEYE QHS Clonidine Hcl 0.1 Mg Tablet 0.1 Mg PO TID Miralax (Polyethylene Glycol 3350) 17 Gm Powd.pack 1 Pkt PO DAILY Calcium 500 + D Tablet (Calcium Carbonate/Vitamin D3) 1 Each Tablet 1 Each PO BID Diltiazem 24HR Cd (Diltiazem Hcl) 240 Mg Cap.er.24h 240 Mg PO DAILY Lisinopril 40 Mg Tablet 1 Tab PO DAILY Spiriva (Tiotropium [place]) 18 Mcg Cap.w.dev 1 Cap IH DAILY Mirtazapine 15 Mg Tablet 0.5 Tab PO QHS Aspir 81 (Aspirin) 81 Mg Tablet.dr 1 Tab PO DAILY Pravastatin Sodium 80 Mg Tablet 80 Mg PO HS Toprol Xl (Metoprolol Succinate) 50 Mg Tab.er.24h 50 Mg PO HS Proair Hfa Inhaler (Albuterol Sulfate) 8.5 Gm Hfa.aer.ad 2 Puff INH PRN Q6HRS PRN Vitals/I & O Vital Sign - Last 24 Hours 09/28/18 09/28/18 09/28/18 09/28/18 09:04 09:04 09:05 11:00 Temp 97.7 97.7 Pulse 94 94 94 86 Resp 18 B/P (MAP) 165/79 165/79 165/79 168/71 (103) Pulse Ox 99 O2 Delivery Nasal Cannula O2 Flow Rate 2.0 09/28/18 09/28/18 09/28/18 09/28/18 11:58 15:00 16:02 16:06 Temp 98.3 98.3 Pulse 77 77 Resp 18 B/P (MAP) 129/53 (78) 129/53 Pulse Ox 99 96 97 O2 Delivery Nasal Cannula Nasal Cannula Nasal Cannula O2 Flow Rate 2.0 2.0 2.0 09/28/18 09/28/18 09/28/18 09/28/18 19:00 19:55 20:00 20:24 Temp 98.8 98.8 Pulse 87 87 Resp 17 B/P (MAP) 123/53 (76) 123/53 Pulse Ox 97 O2 Delivery Nasal Cannula Nasal Cannula Nasal Cannula O2 Flow Rate 2.0 2.0 2.0 09/28/18 09/28/18 09/29/18 09/29/18 20:27 22:53 03:00 07:53 Temp 98.9 99.0 98.9 99.0 Pulse 87 89 64 Resp 17 19 B/P (MAP) 123/53 132/47 (75) 128/51 (76) Pulse Ox 98 95 96 O2 Delivery Nasal Cannula Nasal Cannula Nasal Cannula O2 Flow Rate 2.0 2.0 2.0 Intake and Output 09/28/18 09/28/18 09/29/18 15:00 23:00 07:00 Output Total 0 ml Balance 0 ml Nutrition Consultation Dietary Evaluation: Recommendations by RD: Increase Calorie Intake, Protein supplementation, PPN/ TPN Comments: Continue PPN for short-term nutrition needs REC advance diet as able per GI to regular REC oral supplements per pt choice to supply additional calories/protein Expected Outcomes/Goals: diet advancement Malnutrition Findings: Food and Nutrition Intake (Sev: <50% est energy req 5days Weight Status: Appropriate IAN BLAKE MD Sep 29, 2018 08:14
[2018-09-29] MEDS ORDERED: CEPH-264 PO (08:18)
--- NOTE | 2018-09-29 08:20 | SNU/HH DC ---
DISCHARGE WITH HOME HEALTH DISCHARGE INFORMATION: Final Diagnosis: Problems Medical Problems: (1) Abdominal pain Status: Acute (2) Urinary tract infection Status: Acute Condition on Discharge: Stable CODE STATUS: Code Status: Full HOME HEALTH: Face to Face: I certify this patient is under my care and that I, or a nurse practitioner or physician's butcher assistant working with me, had a face to face encounter that meets the physician face to face encounter requirements with this patient on []. RN For Eval/Treatment: Yes Physical Therapy For: Evalulation/Treatment Occupational Therapy For: Evaluation/Treatment Pt Meets Homebound Status: Unsteady balance w/ amb,, Fatigue w/ amb. POST DISCHARGE ORDERS: Activity Instructions for Disc: Activity as tolerated Weight Bearing Status after Di: As tolerated DIET AFTER DISCHARGE: ADA Wound/Incision Care: No wound care needed CHECKS AFTER DISCHARGE: Checks after discharge: Check blood press - daily, Check blood sugar, ac/hs FOLLOW-UP: DC TO SNF LABS: CBC in one week TREATMENT/EQUIPMENT ORDERS: Adaptive Equipment Issued: None Discharge Respiratory Equipmen: Oxygen CERTIFICATION STATEMENT: Certification Statement: Certification Statement: Based on the above finding, I certify that this patient is confined to the home and needs intermittent custodial care, physical therapy and/or speech therapy, or continues to need occupational therapy.~ This patient is under my care, and I have initiated the establishment of the plan of care.~ This patient will be followed by myself or a community physician who will periodically review the plan of care. Home Meds Active Scripts Esomeprazole Magnesium (NEXIUM CAPSULE) 20 Mg Capsule.dr, 1 CAP PO DAILY, #30 CAP 2 Refills OTC. Prov:IAN BLAKE MD 09/28/17 Budesonide/Formoterol Fumarate (SYMBICORT 160-4.5 MCG INHALER) 10.2 Gm Hfa.aer.ad, 2 PUFF IH BID, #10.6 GM 3 Refills Prov:IAN BLAKE MD 09/28/17 Reported Medications Acetaminophen (ACETAMINOPHEN) 500 Mg Tablet, 2 TAB PO PRN Q6HRS PRN for PAIN, # 60 TAB 1 Refill 08/05/18 Prednisone (PREDNISONE ) 10 Mg Tablet, 5 MG PO DAILY for anti inflammatory, TAB 0 Refills 08/05/18 Glucosamine Sulfate 2KCL (GLUCOSAMINE) 1,000 Mg Tablet, 500 MG PO BID for joint pain, TAB 2/22/19 Oxybutynin Chloride (OXYBUTYNIN CHLORIDE) 5 Mg Tablet, 5 MG PO TID for bladder spasms, TAB 08/05/18 Latanoprost (LATANOPROST) 2.5 Ml Drops, 1 DROP EACHEYE QHS for glaucoma, #7.5 ML 3 Refills 08/05/18 Clonidine Hcl (CLONIDINE HCL) 0.1 Mg Tablet, 0.1 MG PO TID for hypertension, TAB 08/05/18 Polyethylene Glycol 3350 (MIRALAX) 17 Gm Powd.pack, 1 PKT PO DAILY, PKT 08/26/17 Calcium Carbonate/Vitamin D3 (CALCIUM 500 + D TABLET) 1 Each Tablet, 1 EACH PO BID, TAB 08/26/17 Diltiazem Hcl (DILTIAZEM 24HR CD) 240 Mg Cap.er.24h, 240 MG PO DAILY, CAP.SR 08/26/17 Lisinopril (LISINOPRIL) 40 Mg Tablet, 1 TAB PO DAILY, #30 TAB 5 Refills 08/26/17 Tiotropium [place] (SPIRIVA) 18 Mcg Cap.w.dev, 1 CAP IH DAILY, #30 CAP 3 Refills 08/26/17 Mirtazapine (MIRTAZAPINE) 15 Mg Tablet, 0.5 TAB PO QHS, #30 TAB 3 Refills 06/01/16 Aspirin (ASPIR 81) 81 Mg Tablet.dr, 1 TAB PO DAILY, #30 TAB 5 Refills 04/05/15 Pravastatin Sodium (PRAVASTATIN SODIUM) 80 Mg Tablet, 80 MG PO HS, TAB 02/16/15 Metoprolol Succinate (TOPROL XL) 50 Mg Tab.er.24h, 50 MG PO HS for FOR HYPERTENSION, #30 TAB 02/16/15 Albuterol Sulfate (PROAIR HFA INHALER) 8.5 Gm Hfa.aer.ad, 2 PUFF INH PRN Q6HRS PRN for SHORTNESS OF BREATH, INHALER 0 Refills 11/21/13 IAN BLAKE MD Sep 29, 2018 08:20
[2018-09-29] MEDS: ASPIRIN ENTERIC COATED 81 MG TABLET.DR. PO SCH (08:43)
[2018-09-29] MEDS: LACTOBACILLUS RHAMNOSUS GG 1 CAPSULE. PO SCH (08:43)
[2018-09-29] MEDS: CEPHALEXIN 250 MG CAPSULE. PO SCH (08:43)
[2018-09-29] MEDS: OXYBUTYNIN CHLORIDE 5 MG TABLET PO SCH (08:43)
[2018-09-29] MEDS: PANTOPRAZOLE 40 MG TABLET.DR. PO SCH (08:44)
[2018-09-29] MEDS: LISINOPRIL 20 MG TABLET PO SCH (08:45)
[2018-09-29] MEDS: cloNIDine HCL 0.1 MG TABLET PO SCH (08:45)
[2018-09-29] MEDS: POLYETHYLENE GLYCOL 3350 17 GM PACKET. PO SCH (08:46)
[2018-09-29 11:00] VITALS: BP 123/47
--- NOTE | 2018-09-29 11:54 | NUR ---
SW left a voice mail to pt's nephew requesting a call back regarding HH options. Pt did not remember the HH agency she used in the past. ALEXIS MAYES.
--- NOTE | 2018-09-29 12:15 | DS ---
DATE OF DISCHARGE: 09/29/2018 CHIEF COMPLAINT: Abdominal pain. HISTORY OF PRESENT ILLNESS: The patient is an 88-year-old female who presented to the Emergency Room with the above complaint. She reported the onset of abdominal pain and distention, which started earlier on the day of admission apparently after eating breakfast. Her symptoms worsened and she came to the Emergency Room. Evaluation there included a CAT scan of the abdomen and pelvis, which showed a partial small-bowel obstruction. The patient was also noted to be severely hypertensive with an initial blood pressure of 233 systolic. Treatment was started and she was admitted for further care. HOSPITAL COURSE: The patient was started on a Cardizem drip for treatment of her accelerated hypertension and had good improvement in her blood pressure with this. She was made n.p.o. and was started on PPN for nutritional support. She was seen in consultation by Dr. Lind who recommended conservative care. The patient had an NG tube for the first day or two. Her symptoms slowly improved and her abdominal exam also improved. She had a good return of bowel sounds and decreased pain in the abdominal area. The NG tube was discontinued. She was started on clear liquids and her diet was advanced. She is now tolerating a regular diet with a good appetite. She has had almost daily bowel movements since she has been here. She states that she feels much better and will be discharged to home today. She is advised to take MiraLax daily to avoid constipation. The patient had evidence of urinary tract infection at admission and was started on Rocephin. Urine culture was done and was positive for E. coli, which was preciado sensitive. She was changed to oral Keflex and will be discharged home with a prescription of this to complete 7 days of treatment. The patient has chronic respiratory failure due to COPD and is on oxygen at home. Her respiratory status remained stable while she was hospitalized and she is to resume her usual inhalers at home. The patient's usual oral blood pressure medications were resumed when she was no longer n.p.o. and her blood pressure is now well controlled with these. She has chronic anxiety, which is stable. She has some mild memory loss and appears at her baseline with this. She lives at home with her nephew who provides good care for her there. She was seen by physical and occupational therapy and found to have some debility. They recommended home health and the patient was in agreement with this; therefore, home health has been ordered. FINAL DIAGNOSES: 1. Small-bowel obstruction. 2. Urinary tract infection, present on admission. 3. Accelerated hypertension. 4. Chronic anxiety. 5. Mild memory loss. 6. Chronic obstructive pulmonary disease with chronic respiratory failure. 7. Debility. DISCHARGE MEDICATIONS: Remain the same as at admission for her with the addition of Keflex 500 mg 2 tablets b.i.d. x 3 days, then discontinue. FOLLOWUP: With Dr. Mulligan as needed. IAN MULLIGAN MD DR: NANCI/panda JOB#: [id number] / [id number] BENITA
--- NOTE | 2018-09-29 13:22 | NUR ---
KO following pt. Spoke with pt's nephew and pt had used [facility] in the past. KO phoned and faxed HH orders to [facility]. Pt's choice and rights forms signed by pt's nephew and copies placed in chart. ALEXIS MAYES.
--- NOTE | 2018-09-29 13:58 | NUR ---
Discharge Note: GLO GALAN [address] Discharge instructions and discharge home medications reviewed with patient and patient's nephew; and a copy given. All questions have been answered and understanding verbalized. The following instructions and handouts were given: Take Keflex 500 mg, 2 caps twice a day for 3 days (prescription given) Continue current home meds. Elevate right arm to help with the swelling. Patient educated bruising may take week/s to completely resolve. FF up with Dr. Mulligan as needed. Discontinued lines and drains: peripheral IV intact, patient tolerated removal, no complications noted. Patient discharged to home with home health services via wheelchair accompanied by patient's nephew at 1320.
== END 2018-09-29 15:55 | disposition home health service (06) | DRG 389 ==
LOC: ER 15:21 → 2 NORTH 18:50 → 6 SOUTH 09-28 11:23 → 2 NORTH 09-28 13:43 → 6 SOUTH 09-28 14:04
PROVIDERS: ADMIT Family Medicine; ATTEND Family Medicine
PROC: 0D9670Z Drainage of Stomach with Drainage Device, Via Natural or Artificial Opening (ICD-10-PCS; principal; 2018-09-23)
DX: K56.600 Partial intestinal obstruction, unspecified as to cause (principal); N39.0 Urinary tract infection, site not specified; J96.10 Chronic respiratory failure, unspecified whether with hypoxia or hypercapnia; K57.90 Diverticulosis of intestine, part unspecified, without perforation or abscess without bleeding; M19.90 Unspecified osteoarthritis, unspecified site; E27.8 Other specified disorders of adrenal gland; E78.00 Pure hypercholesterolemia, unspecified; E78.5 Hyperlipidemia, unspecified; E87.6 Hypokalemia; F41.9 Anxiety disorder, unspecified; I10 Essential (primary) hypertension; J44.9 Chronic obstructive pulmonary disease, unspecified; K21.9 Gastro-esophageal reflux disease without esophagitis; M85.80 Other specified disorders of bone density and structure, unspecified site; Z85.038 Personal history of other malignant neoplasm of large intestine; Z79.899 Other long term (current) drug therapy; Z90.710 Acquired absence of both cervix and uterus; Z99.81 Dependence on supplemental oxygen
CPT/HCPCS: 36415; 74018; 74021; 74177; 80048; 80076; 81001; 83605; 83690; 83880; 84484; 85007; 85025; 85027; 87086; 87186; 93005; 94640; 94760; 96361; 96374; 96375; J0360; J0696; J2405; J3010; J3480; J3490; J7030; J7613; J7626; Q9967; 97530; 97535; 99291-25

== ENCOUNTER 2018-12-11 15:23 | Emergency (ER) | payer BC ==
[~2018-12-11] VITALS: Ht 152.4 cm; Wt 48.1 kg
[~2018-12-11 15:23] MED LIST changes: +CEPH-264 PO
[2018-12-11] MEDS ORDERED: IV NORMAL SALINE 1000ML BAG 1,000 ML IV SCH (15:45)
--- NOTE | 2018-12-11 15:51 | PHYS DOC ---
Past Medical History Past Medical History: Arthritis, Cancer, COPD, GERD, Glaucoma, High Cholesterol, Heart Disease, Hypertension, UTI, Other Additional Past Medical Histor: Colon CA,L)hernia,chemotherapy,home oxygen,SPINAL/CAROTID STENOSIS Past Surgical History: Cancer Surgery, Hysterectomy, Oophorectomy, Pacemaker, Other Additional Past Surgical Histo: Colonoscopy,Breast cysts removed bilaterally, pacemaker Alcohol Use: None Drug Use: None Adult General Chief Complaint Chief Complaint: ABDOMINAL PAIN HPI HPI Patient is an 88-year-old female who presents to the emergency department for evaluation. She states that since yesterday evening, she began expressing some worsening generalized lower abdominal pain. She has not had any vomiting or fever. She has a history of COPD and is on oxygen chronically, but has also been having some increasing shortness of breath compared to baseline, which she reports is mild. She has not had any cough or chest pain. She has been having regular bowel movements, with the last bowel movement yesterday evening. There are no alleviating, or exacerbating factors to her symptoms otherwise he was hospitalized here a few months ago with a bowel obstruction, treated nonoperatively, reports from her recent hospital stay have been reviewed. The patient does report that her abdomen has been somewhat more distended than baseline recently. Review of Systems Review of Systems Constitutional: Denies fever or chills [] Eyes: Denies change in visual acuity, redness, or eye pain [] HENT: Denies nasal congestion or sore throat [] Respiratory: Denies cough or pleuritic pain[] Cardiovascular: The patient denies any chest pain, palpitations, or orthopnea [] GI: Denies nausea, vomiting, bloody stools or diarrhea [] : Denies dysuria or hematuria [] Musculoskeletal: Denies back pain or joint pain [] Integument: Denies rash or skin lesions [] Neurologic: Denies headache, focal weakness or sensory changes [] Endocrine: Denies polyuria or polydipsia [] All other systems were reviewed and found to be within normal limits, except as documented in this note. Current Medications Current Medications Current Medications Medications (Trade) Dose Ordered Sig/Shu Start Time Stop Time Status Last Admin Dose Admin Ceftriaxone Sodium (Rocephin) 1 gm 1X ONCE 12/11/18 17:30 12/11/18 17:31 DC Fentanyl Citrate (Fentanyl 2ml Vial) 50 mcg 1X ONCE 12/11/18 17:00 12/11/18 17:01 DC 12/11/18 17:24 50 MCG Info (CONTRAST GIVEN -- Rx MONITORING) 1 each PRN DAILY PRN 12/11/18 16:45 12/13/18 16:44 Iohexol (Omnipaque 240 Mg/ml) 50 ml 1X ONCE 12/11/18 16:45 12/11/18 16:46 DC 12/11/18 16:45 50 ML Iohexol (Omnipaque 300 Mg/ml) 75 ml 1X ONCE 12/11/18 16:45 12/11/18 16:46 DC 12/11/18 16:45 75 ML Ondansetron HCl (Zofran) 4 mg 1X ONCE 12/11/18 17:00 12/11/18 17:01 DC 12/11/18 17:24 4 MG Sodium Chloride 1,000 ml @ 100 mls/hr Q10H 12/11/18 15:45 12/12/18 01:44 12/11/18 16:11 100 MLS/HR Allergies Allergies Allergies Coded Allergies Type Severity Reaction Last Updated Verified No Known Drug Allergies 08/19/15 No Physical Exam Physical Exam PHYSICAL EXAM: CONSTITUTIONAL: Well developed, well nourished HEAD: normocephalic, atraumatic EENT: PERRL, EOMI. Conjunctivae normal color, sclerae non-icteric; moist mucous membranes. NECK: Supple, non-tender; no meningismus. LUNGS: There are globally diminished breath sounds, breathing even and unlabored. Normal air movement. HEART: Regular rate and rhythm, no murmur CHEST: No deformity; non-tender ABDOMEN: The abdomen is soft, mildly distended, and non-tender, no masses or bruits. Bowel sounds are diminished. EXTREM: Normal ROM; no deformity, no calf tenderness. Normal pulses palpable in all extremities. There is no pedal edema. SKIN: No rash; no diaphoresis NEURO: Alert; normal speech and cognition; CN's grossly intact; strength grossly intact without focal deficit. BACK: No CVA TTP. Current Patient Data Vital Signs Vital Signs Date Time Temp Pulse Resp B/P (MAP) Pulse Ox O2 Delivery O2 Flow Rate FiO2 12/11/18 17:24 16 12/11/18 15:29 98.4 66 214/98 (136) Nasal Cannula 2.0 98.4 Lab Values Laboratory Tests Test 12/11/18 16:00 12/11/18 16:56 White Blood Count 10.6 x10^3/uL (4.0-11.0) Red Blood Count 4.51 x10^6/uL (3.50-5.40) Hemoglobin 14.4 g/dL (12.0-15.5) Hematocrit 42.4 % (36.0-47.0) Mean Corpuscular Volume 94 fL (79-100) Mean Corpuscular Hemoglobin 32 pg (25-35) Mean Corpuscular Hemoglobin Concent 34 g/dL (31-37) Red Cell Distribution Width 14.2 % (11.5-14.5) Platelet Count 435 x10^3/uL (140-400) H Neutrophils (%) (Auto) 75 % (31-73) H Lymphocytes (%) (Auto) 13 % (24-48) L Monocytes (%) (Auto) 10 % (0-9) H Eosinophils (%) (Auto) 1 % (0-3) Basophils (%) (Auto) 1 % (0-3) Neutrophils # (Auto) 8.0 x10^3uL (1.8-7.7) H Lymphocytes # (Auto) 1.4 x10^3/uL (1.0-4.8) Monocytes # (Auto) 1.1 x10^3/uL (0.0-1.1) Eosinophils # (Auto) 0.1 x10^3/uL (0.0-0.7) Basophils # (Auto) 0.1 x10^3/uL (0.0-0.2) Sodium Level 138 mmol/L (136-145) Potassium Level 4.4 mmol/L (3.5-5.1) Chloride Level 101 mmol/L (98-107) Carbon Dioxide Level 29 mmol/L (21-32) Anion Gap 8 (6-14) Blood Urea Nitrogen 16 mg/dL (7-20) Creatinine 0.7 mg/dL (0.6-1.0) Estimated GFR (Cockcroft-Gault) 79.2 BUN/Creatinine Ratio 23 (6-20) H Glucose Level 123 mg/dL (70-99) H Lactic Acid Level 1.4 mmol/L (0.4-2.0) Calcium Level 10.0 mg/dL (8.5-10.1) Total Bilirubin 0.2 mg/dL (0.2-1.0) Aspartate Amino Transferase (AST) 23 U/L (15-37) Alanine Aminotransferase (ALT) 26 U/L (14-59) Alkaline Phosphatase 61 U/L (46-116) Troponin I Quantitative 0.019 ng/mL (0.000-0.055) RR-Kfz-Z-Type Natriuretic Peptide 437 pg/mL (0-449) Total Protein 7.3 g/dL (6.4-8.2) Albumin 3.8 g/dL (3.4-5.0) Albumin/Globulin Ratio 1.1 (1.0-1.7) Lipase 155 U/L (73-393) Urine Collection Type Unknown Urine Color Yellow Urine Clarity Clear Urine pH 6.5 Urine Specific [place] 1.010 Urine Protein Negative mg/dL (NEG-TRACE) Urine Glucose (UA) Negative mg/dL (NEG) Urine Ketones (Stick) Negative mg/dL (NEG) Urine Blood Negative (NEG) Urine Nitrite Positive (NEG) Urine Bilirubin Negative (NEG) Urine Urobilinogen Dipstick 0.2 mg/dL (0.2 mg/dL) Urine Leukocyte Esterase Large (NEG) Urine RBC Occ /HPF (0-2) Urine WBC Tntc /HPF (0-4) Urine Squamous Epithelial Cells Few /LPF Urine Bacteria Many /HPF (0-FEW) Laboratory Tests 12/11/18 16:00 Laboratory Tests 12/11/18 16:00 EKG EKG [Normal sinus rhythm at a rate of 62 bpm, normal axis, normal intervals. Nonspecific ST/T changes are present, not significantly changed compared to the Patient's prior EKG.] Radiology/Procedures Radiology/Procedures [PROCEDURE: CT ABD PELV W/ORAL&IV CONTRAST CT scan of the abdomen and pelvis with contrast 12/11/2018 CLINICAL HISTORY: Abdominal pain. History of small bowel obstruction. TECHNIQUE: After the oral and intravenous administration of contrast, contiguous, 5 mm axial sections were obtained through the abdomen and pelvis. 75 cc of Omnipaque 300 were administered intravenously during this examination. One or more of the following individualized dose reduction techniques were utilized for this study: 1. Automated exposure control. 2. Adjustment of the mA and/or kV according to patient size. 3. Use of iterative reconstruction technique. FINDINGS: Comparison study is dated 09/23/2018. Images through the lung bases demonstrate minimal dependent subsegmental atelectasis bilaterally. A 3 mm calcified granuloma is seen involving the right lower lobe. There is a small to moderate-sized sliding hiatal hernia. The liver, spleen, pancreas, and right adrenal gland are within normal limits. Fullness of the left adrenal gland is again seen, unchanged. Low-attenuation lesions are seen involving both kidneys which likely represent cysts. These measure 3 to 5 mm in size. Atherosclerotic calcification of the abdominal aorta and its branches is noted. The abdominal aorta tapers normally. A small fat-containing ventral hernia is seen within the midline upper abdomen. This measures 4.2 cm in size. A moderate to large amount of stool is seen throughout the colon. Fecalization and dilatation of distal ileal loops are seen without definite evidence of bowel obstruction. The small bowel obstruction seen on the previous examination has resolved. Images through the pelvis demonstrate the urinary bladder distended with urine. No free fluid is seen. Mild S-shaped curvature of the thoracolumbar spine is seen. Degenerative changes are seen involving lower thoracic and throughout the lumbar spine and both hips. IMPRESSION: No acute abnormality is seen.] PROCEDURE: PORTABLE CHEST 1V EXAM: CHEST 1 VIEW. HISTORY: Shortness of breath. COMPARISON: 08/05/2018. FINDINGS: A frontal view of the chest is obtained. A left-sided pacemaker has its leads in the right atrium and right ventricle. Hyperinflation is consistent with chronic obstructive pulmonary disease. Scarring in the lingula is chronic. A calcified granuloma is noted on the right. There are atherosclerotic calcifications of the aorta. Blunting of the left costophrenic angle is likely from scarring rather than a small effusion. There is no pneumothorax. The heart is mildly enlarged. IMPRESSION: 1. Chronic obstructive pulmonary disease. Chronic lingular scarring. 2. Mild cardiomegaly. Course & Med Decision Making Course & Med Decision Making Pertinent Labs and Imaging studies reviewed. (See chart for details) 5:55 PM:Patient remains stable. I discussed test results, the need for close follow-up, and return precautions. The patient states she does use a laxative daily, and I encouraged her to continue to do so, she is uncertain if she uses Dulcolax and MiraLAX. I recommended close follow-up with her PCP for further management. She will be given an enema in the emergency department. Dragon Disclaimer Dragon Disclaimer This electronic medical record was generated, in whole or in part, using a voice recognition dictation system. Departure Departure Impression: Primary Impression: Abdominal pain Additional Impressions: Urinary tract infection Constipation Disposition: HOME, SELF-CARE Condition: STABLE Referrals: IAN BLAKE MD (PCP) Patient Instructions: Abdominal Pain, Constipation, Adult, Urinary Tract Infection Scripts Sulfamethoxazole/Trimethoprim (BACTRIM DS TABLET) 1 Each Tablet 1 TAB PO BID, #14 TAB Prov: MONALISA BROWN MD 12/11/18 Problem Qualifiers MONALISA BROWN MD Dec 11, 2018 15:51
[2018-12-11 16:06] LABS: BASO # 0.1 x10^3/uL (0.0-0.2); BASO % 1 % (0-3); EOS # 0.1 x10^3/uL (0.0-0.7); EOS % 1 % (0-3); HEMATOCRIT 42.4 % (36.0-47.0); HEMOGLOBIN 14.4 g/dL (12.0-15.5); LYMPH # 1.4 x10^3/uL (1.0-4.8); LYMPH % 13 % (24-48); MEAN CORPUSCULAR HEMOGLOBIN 32 pg (25-35); MEAN CORPUSCULAR HGB CONC 34 g/dL (31-37); MEAN CORPUSCULAR VOLUME 94 fL (79-100); MONO # 1.1 x10^3/uL (0.0-1.1); MONO % 10 % (0-9); NEUT % 75 % (31-73); PLATELET COUNT 435 x10^3/uL (140-400); RED BLOOD COUNT 4.51 x10^6/uL (3.50-5.40); RED CELL DISTRIBUTION WIDTH 14.2 % (11.5-14.5); WHITE BLOOD COUNT 10.6 x10^3/uL (4.0-11.0)
[2018-12-11 16:31] LABS: CREATININE 0.7 mg/dL (0.6-1.0); GFR 79.2; POTASSIUM 4.4 mmol/L (3.5-5.1)
[2018-12-11 16:37] LABS: ALBUMIN 3.8 g/dL (3.4-5.0); ALBUMIN/GLOBULIN RATIO 1.1 (1.0-1.7); TOTAL BILIRUBIN 0.2 mg/dL (0.2-1.0); TOTAL PROTEIN 7.3 g/dL (6.4-8.2)
[2018-12-11] MEDS ORDERED: CONTRAST GIVEN. MC PRN (16:45)
[2018-12-11] MEDS ORDERED: IOHEXOL 240 MG/ML 50ML VIAL. PO ONE (16:45)
[2018-12-11] MEDS ORDERED: IOHEXOL 300 MG/ML 100ML VIAL. IV ONE (16:45)
[2018-12-11 16:59] LABS: BILIRUBIN,URINE NEGATIVE (NEG); CLARITY,URINE CLEAR; COLOR,URINE YELLOW; NITRITE,URINE POSITIVE (NEG); PH,URINE 6.5; PROTEIN,URINE NEGATIVE (NEG-TRACE); UROBILINOGEN,URINE 0.2 mg/dL (0.2 mg/dL)
[2018-12-11] MEDS ORDERED: ONDANSETRON PF 4 MG/2 ML VIAL. IV ONE (17:00)
[2018-12-11] MEDS ORDERED: fentaNYL PF VIAL 100 MCG/2 ML VIAL IV ONE (17:00)
[2018-12-11 17:06] LABS: BACTERIA,URINE MANY /HPF (0-FEW); RBC,URINE OCC /HPF (0-2); SQUAMOUS EPITHELIAL CELL,UR FEW /LPF; WBC,URINE TNTC /HPF (0-4)
--- NOTE | 2018-12-11 17:23 | RAD ---
EXAM: CHEST 1 VIEW. HISTORY: Shortness of breath. COMPARISON: 08/05/2018. FINDINGS: A frontal view of the chest is obtained. A left-sided pacemaker has its leads in the right atrium and right ventricle. Hyperinflation is consistent with chronic obstructive pulmonary disease. Scarring in the lingula is chronic. A calcified granuloma is noted on the right. There are atherosclerotic calcifications of the aorta. Blunting of the left costophrenic angle is likely from scarring rather than a small effusion. There is no pneumothorax. The heart is mildly enlarged. IMPRESSION: 1. Chronic obstructive pulmonary disease. Chronic lingular scarring. 2. Mild cardiomegaly. Electronically signed by: Ulisses Cordon MD (12/11/2018 5:21 PM) [facility]
[2018-12-11] MEDS ORDERED: cefTRIAXone IV Push 1 GM VIAL. IVP ONE (17:30)
--- NOTE | 2018-12-11 17:42 | RAD ---
CT scan of the abdomen and pelvis with contrast 12/11/2018 CLINICAL HISTORY: Abdominal pain. History of small bowel obstruction. TECHNIQUE: After the oral and intravenous administration of contrast, contiguous, 5 mm axial sections were obtained through the abdomen and pelvis. 75 cc of Omnipaque 300 were administered intravenously during this examination. One or more of the following individualized dose reduction techniques were utilized for this study: 1. Automated exposure control. 2. Adjustment of the mA and/or kV according to patient size. 3. Use of iterative reconstruction technique. FINDINGS: Comparison study is dated 09/23/2018. Images through the lung bases demonstrate minimal dependent subsegmental atelectasis bilaterally. A 3 mm calcified granuloma is seen involving the right lower lobe. There is a small to moderate-sized sliding hiatal hernia. The liver, spleen, pancreas, and right adrenal gland are within normal limits. Fullness of the left adrenal gland is again seen, unchanged. Low-attenuation lesions are seen involving both kidneys which likely represent cysts. These measure 3 to 5 mm in size. Atherosclerotic calcification of the abdominal aorta and its branches is noted. The abdominal aorta tapers normally. A small fat-containing ventral hernia is seen within the midline upper abdomen. This measures 4.2 cm in size. A moderate to large amount of stool is seen throughout the colon. Fecalization and dilatation of distal ileal loops are seen without definite evidence of bowel obstruction. The small bowel obstruction seen on the previous examination has resolved. Images through the pelvis demonstrate the urinary bladder distended with urine. No free fluid is seen. Mild S-shaped curvature of the thoracolumbar spine is seen. Degenerative changes are seen involving lower thoracic and throughout the lumbar spine and both hips. IMPRESSION: No acute abnormality is seen. Electronically signed by: Maxwell Hammer MD (12/11/2018 5:39 PM) [facility]
[2018-12-11] MEDS ORDERED: SULF1TAB24 PO (17:59)
[2018-12-11] MEDS ORDERED: SODIUM PHOSPHATES 19/7GM 133 ML ENEMA. PR ONE (18:00)
[2018-12-11] MEDS ORDERED: IPRATRPIUM/ALBUTEROL 0.5/2.5MG 3 ML NEBU. NEB ONE (18:15)
--- NOTE | 2018-12-11 18:24 | EKG ---
[facility] [address] [place] [address] Test Date: 2018-12-11 Test Time: 15:41:30 Pat Name: GLO GALAN Department: Room: Gender: F [employer]: : [id number] Requested By: MONALISA BROWN Order Number: [id number] Reading MD: Measurements Intervals Brave Rate: 65 P: [place]: QRS: 41 QRSD: 86 T: 48 QT: 384 QTc: 404 Interpretive Statements ATRIAL FIBRILLATION QRS(T) CONTOUR ABNORMALITY CANNOT RULE OUT ANTEROSEPTAL MYOCARDIAL DAMAGE ABNORMAL ECG No previous ECG available for comparison
[2018-12-11] MEDS ORDERED: ONDA4TAB7 PO (18:48)
[2018-12-11 19:05] VITALS: BP 132/77
== END 2018-12-11 19:00 | disposition home or self-care (01) ==
LOC: ER 15:23
DX: N39.0 Urinary tract infection, site not specified (principal); K59.00 Constipation, unspecified; I11.9 Hypertensive heart disease without heart failure; K21.9 Gastro-esophageal reflux disease without esophagitis; J44.9 Chronic obstructive pulmonary disease, unspecified; Z90.710 Acquired absence of both cervix and uterus; Z95.0 Presence of cardiac pacemaker; Z90.722 Acquired absence of ovaries, bilateral; Z85.038 Personal history of other malignant neoplasm of large intestine
CPT/HCPCS: 36415; 71045; 74177; 80053; 81001; 83605; 83690; 83880; 84484; 85025; 87086; 93005; 94640; 96374; 96375; 99285; J0696; J2405; J3010; J7030; J7620; Q9966; Q9967

== ENCOUNTER 2019-05-05 17:09 | Inpatient (IN) | payer BC ==
[~2019-05-05] VITALS: Ht 160 cm; Wt 48.5 kg
[~2019-05-05 17:09] MED LIST changes: +ONDA4TAB7 PO; -OXYB10TA PO; +OXYB10TA2 PO; +OXYB5TAB10 PO; -OXYB5TAB7 PO; +SULF1TAB24 PO
--- NOTE | 2019-05-05 18:02 | PHYS DOC ---
Past Medical History Past Medical History: Arthritis, Cancer, COPD, GERD, Glaucoma, High Cholesterol, Heart Disease, Hypertension, UTI, Other Additional Past Medical Histor: Colon CA,L)hernia,chemotherapy,home oxygen,SPINAL/CAROTID STENOSIS Past Surgical History: Cancer Surgery, Hysterectomy, Oophorectomy, Pacemaker, Other Additional Past Surgical Histo: Colonoscopy,Breast cysts removed bilaterally, pacemaker Alcohol Use: None Drug Use: None Adult General Chief Complaint Chief Complaint: ABDOMINAL PAIN HPI HPI 81-year-old female presents to the emergency department with complaints of diarrhea 2 days. She is well describes decreased appetite. Patient states she ate some vegetables soup that had been on the stove however on low and states this started after that. No else is sick in the home. She denies any nausea, vomiting, fever. Denies any recent antibiotics or hospital stays. She denies any complaints of abdominal pain on exam however states she does feel somewhat bloated and feels "rumbling." Family states that she did complaints of abdominal pain over the last day or so. She describes double digits with regards to the number of stools she's had per day. Review of Systems Review of Systems Constitutional: Denies fever or chills [] Respiratory: Denies cough or shortness of breath [] Cardiovascular: No additional information not addressed in HPI [] GI: abdominal bloating, no nausea, vomiting, + diarrhea [] : Denies dysuria or hematuria [] Musculoskeletal: Denies back pain or joint pain [] Integument: Denies rash or skin lesions [] Neurologic: Denies headache, focal weakness or sensory changes [] All other systems were reviewed and found to be within normal limits, except as documented in this note. Current Medications Current Medications Current Medications Medications (Trade) Dose Ordered Sig/Shu Start Time Stop Time Status Last Admin Dose Admin Info (CONTRAST GIVEN -- Rx MONITORING) 1 each PRN DAILY PRN 05/05/19 19:45 05/07/19 19:44 Iohexol (Omnipaque 300 Mg/ml) 100 ml STK-MED ONCE 05/05/19 19:40 05/05/19 19:41 DC Sodium Chloride 1,000 ml @ 1,000 mls/hr 1X ONCE 05/05/19 20:15 05/05/19 21:14 DC 05/05/19 20:23 1,000 MLS/HR Allergies Allergies Allergies Coded Allergies Type Severity Reaction Last Updated Verified No Known Drug Allergies 08/19/15 No Physical Exam Physical Exam Constitutional: Well developed, well nourished, no acute distress, non-toxic appearance. [] HENT: Normocephalic, atraumatic, bilateral external ears normal, oropharynx moist, no oral exudates, nose normal. [] Eyes: PERRLA, EOMI, conjunctiva normal, no discharge. [] Cardiovascular:Heart rate regular rhythm, no murmur [] Lungs & Thorax: Bilateral breath sounds clear to auscultation [] Abdomen: Bowel sounds normal, soft, no tenderness, no masses, no pulsatile masses. [] Skin: Warm, dry, no erythema, no rash. [] Extremities: No tenderness, no edema. [] Neurologic: Alert and oriented X 3, no focal deficits noted. [] Psychologic: Affect normal, judgement normal, mood normal. [] Current Patient Data Vital Signs Vital Signs Date Time Temp Pulse Resp B/P (MAP) Pulse Ox O2 Delivery O2 Flow Rate FiO2 05/05/19 17:40 97.5 73 16 162/74 (103) 94 Room Air 97.5 Lab Values Laboratory Tests Test 05/05/19 18:42 05/05/19 20:05 White Blood Count 15.5 x10^3/uL (4.0-11.0) H Red Blood Count 4.62 x10^6/uL (3.50-5.40) Hemoglobin 14.0 g/dL (12.0-15.5) Hematocrit 42.8 % (36.0-47.0) Mean Corpuscular Volume 93 fL (79-100) Mean Corpuscular Hemoglobin 30 pg (25-35) Mean Corpuscular Hemoglobin Concent 33 g/dL (31-37) Red Cell Distribution Width 15.5 % (11.5-14.5) H Platelet Count 366 x10^3/uL (140-400) Neutrophils (%) (Auto) 87 % (31-73) H Lymphocytes (%) (Auto) 6 % (24-48) L Monocytes (%) (Auto) 7 % (0-9) Eosinophils (%) (Auto) 0 % (0-3) Basophils (%) (Auto) 0 % (0-3) Neutrophils # (Auto) 13.4 x10^3/uL (1.8-7.7) H Lymphocytes # (Auto) 0.9 x10^3/uL (1.0-4.8) L Monocytes # (Auto) 1.1 x10^3/uL (0.0-1.1) Eosinophils # (Auto) 0.0 x10^3/uL (0.0-0.7) Basophils # (Auto) 0.0 x10^3/uL (0.0-0.2) Segmented Neutrophils % 84 % (35-66) H Band Neutrophils % 1 % (0-9) Lymphocytes % 11 % (24-48) L Monocytes % 4 % (0-10) Platelet Estimate Adequate (ADEQUATE) Sodium Level 136 mmol/L (136-145) Potassium Level 4.4 mmol/L (3.5-5.1) Chloride Level 101 mmol/L (98-107) Carbon Dioxide Level 29 mmol/L (21-32) Anion Gap 6 (6-14) Blood Urea Nitrogen 14 mg/dL (7-20) Creatinine 0.8 mg/dL (0.6-1.0) Estimated GFR (Cockcroft-Gault) 67.7 BUN/Creatinine Ratio 18 (6-20) Glucose Level 127 mg/dL (70-99) H Calcium Level 9.9 mg/dL (8.5-10.1) Total Bilirubin 0.3 mg/dL (0.2-1.0) Aspartate Amino Transferase (AST) 20 U/L (15-37) Alanine Aminotransferase (ALT) 17 U/L (14-59) Alkaline Phosphatase 62 U/L (46-116) Troponin I Quantitative < 0.017 ng/mL (0.000-0.055) Total Protein 5.8 g/dL (6.4-8.2) L Albumin 3.2 g/dL (3.4-5.0) L Albumin/Globulin Ratio 1.2 (1.0-1.7) Lipase 87 U/L (73-393) Lactic Acid Level 1.2 mmol/L (0.4-2.0) Laboratory Tests 05/05/19 18:42 Laboratory Tests 05/05/19 18:42 EKG EKG EKG reviewed, normal sinus rhythm, heart rate 73, normal axis, no evidence of acute ST elevation appreciated. Nonurgent EKG, interpretation time 183[] Radiology/Procedures Radiology/Procedures [facility] [address] [place], [place] [id number] IMAGING REPORT Signed PATIENT: GLO GALAN ACCOUNT: [id number] : 1930 LOCATION: ER AGE: 89 SEX: F EXAM STATUS: REG ER ORD. PHYSICIAN: PAULY TELLO MD REASON: abdominal pain PROCEDURE: CT ABD PELV W/ IV CONTRST ONLY Study: CT abdomen/pelvis with intravenous contrast Indication: Abdominal pain. Comparison: Most recently on 12/11/2018 Technique: Helical CT imaging performed of the abdomen and pelvis after the intravenous administration of 75 cc Omnipaque 300 contrast. Sagittal and coronal reformats were obtained. One or more of the following individualized dose reduction techniques were utilized for this examination: 1. Automated exposure control 2. Adjustment of the mA and/or kV according to patient size 3. Use of iterative reconstruction technique. Findings: Emphysema. Small hiatal hernia. Unremarkable liver. Fluid around the gallbladder but favored unlikely related to cholecystitis. Normal common bile duct. No pancreatic mass is identified. Scattered splenic granulomas. Redemonstrated hypertrophy left adrenal gland. Unremarkable right adrenal gland. No newly seen renal mass. No hydroureteronephrosis. Unremarkable urinary bladder. The uterus is not well visualized and presumed surgically absent. Numerous loops of small bowel are pathologically dilated and filled with fluid and air. The stomach is not dilated nor is the proximal aspect of the small bowel raising the question of a closed-loop obstruction. Several areas of transitioning from dilated to collapsed bowel are identified such as within the left lower quadrant on image 12 series 4, as well as within the right lower quadrant on image 18 series 4 and in the central lower abdomen on image 15 series 4. Additionally, a previously only fat-containing ventral upper midline hernia now contains a short segment of colon and there is an abnormal appearance of both the colonic loops entering and exiting the hernia sac. Portions of the colon are dilated as well and it is difficult to localize the cecum as well as difficult to differentiate small and large bowel loops at different locations. No pneumatosis is seen at this time. No free air. Small volume of reactive free fluid throughout the abdomen and pelvis was not present on the prior. Extensive calcified and noncalcified atheromatous plaque throughout the aorta and bilateral iliofemoral systems. Unchanged ectasia of a segment of the infrarenal abdominal aorta. Dense ostial calcific atherosclerosis involving the renal arteries more so than the celiac and SMA as well as at the inferior mesenteric artery origin which is not well seen. 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 Osteopenia. No acute fracture is identified. Remote pars defects bilaterally at L5. Multifactorial severe degenerative changes scattered throughout the spine on a background of degenerative levoscoliosis apex at L2-L3. Impression: 1. The bowel is obstructed with multifocal pathologic dilatation of numerous loops of small bowel.There appears to be dilatation of portions of the colon as well. Note is made that the stomach is not dilated nor is the proximal small bowel. It is difficult to determine the exact cause of this obstruction as there are multiple areas of transitioning from dilated to collapsed bowel in addition to newly seen herniation of a small portion of the transverse colon into an upper ventral midline hernia that previously only contained fat. Though typically not difficult to distinguish between a small bowel obstruction and a colonic obstruction, in this patient it is uncertain if the herniated transverse colon is the etiology versus a closed-loop obstruction. No pneumatosis or perforation is identified however there is reactive small volume free abdominal and pelvic fluid that was not present on the prior. 2. Extensive calcified and noncalcified atheromatous plaque throughout the major arteries of the imaged body. No discrete celiac or SMA occlusion is seen nor ostial stenosis. The MANUEL origin is not well visualized but this was also not visualized on the comparison. No newly seen aneurysmal dilatation. 3. Additional chronic findings as detailed in the body of the report. Electronically signed by: JAMES OLEARY MD (05/05/2019 9:16 PM) [facility] DICTATED and SIGNED BY: JAMES OLEARY MD DATE: 05/05/192115 [] Course & Med Decision Making Course & Med Decision Making Pertinent Labs and Imaging studies reviewed. (See chart for details) []81-year-old female presents to the emergency department with complaints of diarrhea 2 days. She is well describes decreased appetite. Patient states she ate some vegetables soup that had been on the stove however on low and states th is started after that. No else is sick in the home. She denies any nausea, vomiting, fever. Denies any recent antibiotics or hospital stays. She denies any complaints of abdominal pain on exam however states she does feel somewhat bloated and feels "rumbling." Family states that she did complaints of abdominal pain over the last day or so. She describes double digits with regards to the number of stools she's had per day. Laboratory values as well as imaging reviewed White blood count 15.5, lactic acid 1.2. CT reveals evidence of obstructive process difficult to distinguish large versus small bowel obstructive process. There is evidence of herniated transverse colon within the ventral hernia versus a closed of obstructive process. Discussed admission with surgery, Dr. Lind. He agrees with admission, he agrees with no NG tube placement at this time. We'll admit to the hospitalist group for further observation, patient be nothing by mouth at this time. Discussed findings with patient and family at bedside. Dragon Disclaimer Dragon Disclaimer This electronic medical record was generated, in whole or in part, using a voice recognition dictation system. Departure Departure Impression: Primary Impression: Colonic obstruction Additional Impression: COPD (chronic obstructive pulmonary disease) Disposition: 09 ADMITTED INPATIENT Admitting Physician: ALONSO Condition: STABLE Referrals: IAN BLAKE MD (PCP) Problem Qualifiers Additional Impression: COPD (chronic obstructive pulmonary disease) COPD type: unspecified COPD Qualified Codes: J44.9 - Chronic obstructive pulmonary disease, unspecified PAULY TELLO MD May 05, 2019 18:02
[2019-05-05 18:52] LABS: BASO % 0 % (0-3); EOS % 0 % (0-3); HEMATOCRIT 42.8 % (36.0-47.0); LYMPH # 0.9 x10^3/uL (1.0-4.8); LYMPH % 6 % (24-48); MEAN CORPUSCULAR HEMOGLOBIN 30 pg (25-35); MEAN CORPUSCULAR HGB CONC 33 g/dL (31-37); MEAN CORPUSCULAR VOLUME 93 fL (79-100); MONO # 1.1 x10^3/uL (0.0-1.1); MONO % 7 % (0-9); NEUT # 13.4 x10^3/uL (1.8-7.7); NEUT % 87 % (31-73); PLATELET COUNT 366 x10^3/uL (140-400); RED BLOOD COUNT 4.62 x10^6/uL (3.50-5.40); RED CELL DISTRIBUTION WIDTH 15.5 % (11.5-14.5); WHITE BLOOD COUNT 15.5 x10^3/uL (4.0-11.0)
[2019-05-05 19:09] LABS: % BANDS 1 % (0-9); % LYMPHS 11 % (24-48); % MONOS 4 % (0-10); % SEGS 84 % (35-66); PLT ESTIMATE ADEQUATE (ADEQUATE)
[2019-05-05 19:13] LABS: CALCIUM 9.9 mg/dL (8.5-10.1); CREATININE 0.8 mg/dL (0.6-1.0); GFR 67.7; POTASSIUM 4.4 mmol/L (3.5-5.1)
[2019-05-05 19:19] LABS: ALBUMIN 3.2 g/dL (3.4-5.0); ALBUMIN/GLOBULIN RATIO 1.2 (1.0-1.7); TOTAL BILIRUBIN 0.3 mg/dL (0.2-1.0); TOTAL PROTEIN 5.8 g/dL (6.4-8.2)
[2019-05-05] MEDS ORDERED: IOHEXOL 300 MG/ML 100ML VIAL. ONE (19:40)
[2019-05-05] MEDS ORDERED: IOHEXOL 300 MG/ML 100ML VIAL. IV ONE (19:45)
[2019-05-05] MEDS ORDERED: CONTRAST GIVEN. MC PRN (19:45)
[2019-05-05] MEDS ORDERED: IV NORMAL SALINE 1000ML BAG 1,000 ML IV ONE (20:15)
--- NOTE | 2019-05-05 21:19 | RAD ---
Study: CT abdomen/pelvis with intravenous contrast Indication: Abdominal pain. Comparison: Most recently on 12/11/2018 Technique: Helical CT imaging performed of the abdomen and pelvis after the intravenous administration of 75 cc Omnipaque 300 contrast. Sagittal and coronal reformats were obtained. One or more of the following individualized dose reduction techniques were utilized for this examination: 1. Automated exposure control 2. Adjustment of the mA and/or kV according to patient size 3. Use of iterative reconstruction technique. Findings: Emphysema. Small hiatal hernia. Unremarkable liver. Fluid around the gallbladder but favored unlikely related to cholecystitis. Normal common bile duct. No pancreatic mass is identified. Scattered splenic granulomas. Redemonstrated hypertrophy left adrenal gland. Unremarkable right adrenal gland. No newly seen renal mass. No hydroureteronephrosis. Unremarkable urinary bladder. The uterus is not well visualized and presumed surgically absent. Numerous loops of small bowel are pathologically dilated and filled with fluid and air. The stomach is not dilated nor is the proximal aspect of the small bowel raising the question of a closed-loop obstruction. Several areas of transitioning from dilated to collapsed bowel are identified such as within the left lower quadrant on image 12 series 4, as well as within the right lower quadrant on image 18 series 4 and in the central lower abdomen on image 15 series 4. Additionally, a previously only fat-containing ventral upper midline hernia now contains a short segment of colon and there is an abnormal appearance of both the colonic loops entering and exiting the hernia sac. Portions of the colon are dilated as well and it is difficult to localize the cecum as well as difficult to differentiate small and large bowel loops at different locations. No pneumatosis is seen at this time. No free air. Small volume of reactive free fluid throughout the abdomen and pelvis was not present on the prior. Extensive calcified and noncalcified atheromatous plaque throughout the aorta and bilateral iliofemoral systems. Unchanged ectasia of a segment of the infrarenal abdominal aorta. Dense ostial calcific atherosclerosis involving the renal arteries more so than the celiac and SMA as well as at the inferior mesenteric artery origin which is not well seen. 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 Osteopenia. No acute fracture is identified. Remote pars defects bilaterally at L5. Multifactorial severe degenerative changes scattered throughout the spine on a background of degenerative levoscoliosis apex at L2-L3. Impression: 1. The bowel is obstructed with multifocal pathologic dilatation of numerous loops of small bowel.There appears to be dilatation of portions of the colon as well. Note is made that the stomach is not dilated nor is the proximal small bowel. It is difficult to determine the exact cause of this obstruction as there are multiple areas of transitioning from dilated to collapsed bowel in addition to newly seen herniation of a small portion of the transverse colon into an upper ventral midline hernia that previously only contained fat. Though typically not difficult to distinguish between a small bowel obstruction and a colonic obstruction, in this patient it is uncertain if the herniated transverse colon is the etiology versus a closed-loop obstruction. No pneumatosis or perforation is identified however there is reactive small volume free abdominal and pelvic fluid that was not present on the prior. 2. Extensive calcified and noncalcified atheromatous plaque throughout the major arteries of the imaged body. No discrete celiac or SMA occlusion is seen nor ostial stenosis. The MANUEL origin is not well visualized but this was also not visualized on the comparison. No newly seen aneurysmal dilatation. 3. Additional chronic findings as detailed in the body of the report. Electronically signed by: JAMES OLEARY MD (05/05/2019 9:16 PM) [facility]
[2019-05-05] MEDS ORDERED: ONDANSETRON PF 4 MG/2 ML VIAL. IV PRN (22:00)
[2019-05-05] MEDS ORDERED: IV DEXTROSE 5 %-0.45 % NACL 1,000 ML IV ONE (22:30)
[2019-05-05 23:00] VITALS: BP 164/73
[2019-05-06] VITALS (7 sets, daily range): BP systolic 143–250; BP diastolic 12–105
[2019-05-06 04:47] LABS: BASO % 0 % (0-3); EOS % 0 % (0-3); HEMATOCRIT 38.6 % (36.0-47.0); HEMOGLOBIN 12.6 g/dL (12.0-15.5); LYMPH # 1.3 x10^3/uL (1.0-4.8); LYMPH % 12 % (24-48); MEAN CORPUSCULAR HEMOGLOBIN 30 pg (25-35); MEAN CORPUSCULAR HGB CONC 33 g/dL (31-37); MEAN CORPUSCULAR VOLUME 93 fL (79-100); MONO # 0.9 x10^3/uL (0.0-1.1); MONO % 8 % (0-9); NEUT # 8.3 x10^3/uL (1.8-7.7); NEUT % 79 % (31-73); PLATELET COUNT 327 x10^3/uL (140-400); RED BLOOD COUNT 4.14 x10^6/uL (3.50-5.40); RED CELL DISTRIBUTION WIDTH 15.5 % (11.5-14.5); WHITE BLOOD COUNT 10.5 x10^3/uL (4.0-11.0)
[2019-05-06 05:04] LABS: ALBUMIN 2.6 g/dL (3.4-5.0); CALCIUM 8.4 mg/dL (8.5-10.1); CREATININE 0.6 mg/dL (0.6-1.0); GFR 94.3; POTASSIUM 3.9 mmol/L (3.5-5.1); TOTAL BILIRUBIN 0.3 mg/dL (0.2-1.0); TOTAL PROTEIN 5.3 g/dL (6.4-8.2)
--- NOTE | 2019-05-06 10:36 | PDOC ---
Provider Note Provider Note [id number] chronic resp fail copd colon obstruction 02 BD surgery consulted TIBURCIO LOPEZ MD May 06, 2019 10:36
--- NOTE | 2019-05-06 11:15 | CONS ---
DATE OF CONSULTATION: 05/06/2019 I was asked to see this 89-year-old lady for chronic respiratory failure, COPD. HISTORY OF PRESENT ILLNESS: The patient is a poor historian. She has a history of [id number] smoking, quit smoking 10 years ago. She is on 2 L of oxygen continuously for chronic respiratory failure and COPD. She presented to the Emergency Room with diarrhea. She does have shortness of breath, but is not worse than before. She has occasional cough, no sputum production. She has abdominal pain and diarrhea. PAST MEDICAL HISTORY: History of colon cancer, COPD, gastroesophageal reflux disease, chronic respiratory failure, hypercholesterolemia, heart disease, hypertension, hysterectomy, oophorectomy. ALLERGIES: No known drug allergies. MEDICATIONS: Currently, she is on IV fluid. SOCIAL HISTORY: History of [id number] smoking, quit smoking about 10 years ago. FAMILY HISTORY: There is no history of lung disease. REVIEW OF SYSTEMS: As mentioned as above, other systems otherwise negative. PHYSICAL EXAMINATION: GENERAL: Elderly lady. VITAL SIGNS: O2 saturation on 2 liters of oxygen is 95%, respiratory rate 18, heart rate 60, blood pressure 143/59, temperature 98.7. HEENT: Normocephalic, atraumatic. Pupils equal, round, reactive to light. Throat is clear. Nose is clear. NECK: There is no JVD, lymphadenopathy or thyromegaly. CARDIOVASCULAR: Regular rate and rhythm. PMI is not displaced. CHEST: Inspection is normal. LUNGS: There are diminished breath sounds. There is no wheezing. ABDOMEN: Soft. Diminished bowel sounds. EXTREMITIES: There is no edema. LYMPHATICS: There is no lymphadenopathy. NEUROLOGIC: Alert. SKIN: Chronic changes. LABORATORY DATA: I reviewed the following lab data: CT of abdomen and pelvis did show bowel is obstructed with multiple pathologic dilatation of numerous loops of small bowel. Extensive calcified and noncalcified atheromatous plaque throughout the major arteries of the image body noted. No SMA or celiac occlusion. WBC yesterday was 15.5, today 10.5; hemoglobin 12.6; platelets 327. Sodium 140, potassium 3.9, chloride 108, CO2 of 25, glucose 125, BUN 9, creatinine 0.6, AST 14, ALT 11, lipase 87. Lactic acid 1.2. IMPRESSION: 1. Chronic respiratory failure. 2. Chronic obstructive pulmonary disease. 3. Colonic obstruction. 4. History of colon cancer. 5. Ex-smoker. 6. Hypertension. PLAN AND RECOMMENDATIONS: 1. Titrate FiO2 to keep O2 saturation 92%. 2. Start bronchodilator. 3. Surgery is consulted. 4. Start Protonix for stress ulcer prophylaxis. 5. I have discussed the findings and recommendation with the patient and RN. 6. SCDs. Cannot use Lovenox. She may require surgery. Thank you very much for allowing me to participate in care of this very nice lady. TIBURCIO LOPEZ M.D. DR: Lamont JOB#: [id number] / [id number]
--- NOTE | 2019-05-06 11:57 | HP ---
ADMIT DATE: CHIEF COMPLAINT: Abdominal pain, nausea, vomiting, diarrhea. HISTORY OF PRESENT ILLNESS: The patient is a pleasant elderly female who presented to the ER with 2 days of diarrhea, now she has developed abdominal pain as well, rated at 9/10. She has had a decreased appetite. She did try some vegetable soup, but that did not seem to help her. She describes her symptoms as agonizing. She has been having over 10 stools a day. Food seems to make it worse, sitting still makes it a little bit better. I discussed the case with ER physician. We are going to admit the patient with consultation to General Surgery because the CAT scan is showing numerous loops of small bowel that are dilated with fluid and air consistent with probable obstruction. PAST MEDICAL HISTORY: COPD and she wears oxygen at home, GERD, glaucoma, hyperlipidemia, coronary disease, hypertension, UTIs, arthritis, colon cancer, chemotherapy, hernia repair, spinal surgery, carotid stenosis with surgical repair, hysterectomy, pacemaker, breast cyst, colonoscopies. ALLERGIES: None. FAMILY HISTORY: Coronary disease, hypertension and colon cancer. SOCIAL HISTORY: She is retired. She lives at home. She is on 2 liters of oxygen at home. She does not drink, smoke or take drugs. She states she quit smoking a long time ago. MEDICATIONS: Reviewed. She is on 21 home meds including Keflex, Bactrim, Spiriva, ProAir, pravastatin, clonidine, metoprolol, Cardizem, lisinopril, aspirin, Tylenol, mirtazapine, calcium, Symbicort, MiraLax, Zofran, Nexium, prednisone, oxybutynin, glucosamine and glaucoma eye drops. REVIEW OF SYSTEMS: GENERAL: No history of weight change, weakness or fevers. SKIN: No bruising, hair changes or rashes. EYES: No blurred, double or loss of vision. NOSE AND THROAT: No history of nosebleeds, hoarseness or sore throat. HEART: No history of palpitations, chest pain or shortness of breath on exertion. LUNGS: She complains of shortness of breath and she is having problems with exacerbation of her COPD. GASTROINTESTINAL: She complains of abdominal pain and diarrhea and some nausea. GENITOURINARY: No history of frequency, urgency, hesitancy or nocturia. NEUROLOGIC: Denies history of numbness, tingling, tremor or weakness. PSYCHIATRIC: She complains of anxiety. ENDOCRINE: No history of heat or cold intolerance, polyuria or polydipsia. EXTREMITIES: Denies muscle weakness, joint pain, pain on walking or stiffness. PHYSICAL EXAMINATION. VITAL SIGNS: She has temperature 98, pulse 62, respirations 16, blood pressure 143/59, O2 sat is 92% on 2 liters. GENERAL: No apparent distress. Alert and oriented. HEENT: Head is normocephalic, atraumatic, pupils were equally round and reactive to light and accommodation. NECK: Supple, no JVD, no thyromegaly was noted. LUNGS: She has decreased breath sounds throughout. HEART: RRR, S1, S2 present. Peripheral pulses intact, no obvious murmurs were noted. ABDOMEN: She has decreased bowel sounds and her abdomen is tender. EXTREMITIES: Without any cyanosis, clubbing, or edema. Pedal pulses intact, Homans sign is negative. NEUROLOGIC: She is intermittently confused. PSYCHIATRIC: She is anxious. SKIN: No ulcerations or rashes, good skin turgor, no jaundice. VASCULAR: Good capillary refill, neurovascular bundle appears to be intact. LABORATORY DATA: White count 15, hemoglobin 14, platelets 366. Electrolytes: Sodium 136, potassium 4.4, chloride 101, bicarbonate 29, BUN 14, creatinine 0.8, glucose 127. Troponin is 0. Albumin is low at 3.2. CAT scan of the abdomen shows bowel obstruction with multifocal pathologic dilatation of numerous loops of small bowel. ASSESSMENT AND PLAN: Small bowel obstruction and COPD exacerbation, leukocytosis, malnutrition. The patient is being admitted. We will consult GI and General Surgery. We were considering placed an NG if she vomits again. We have consulted Pulmonary Medicine regarding her COPD. I did talk to Dr. Wright just few minutes ago. She is going to give her steroids and breathing treatments. We are going to continue her home meds, DVT prophylaxis. She is full code. Serial enzymes, serial EKGs, cardiac monitoring, p.r.n. Radhaan, n.p.o. for now. I ordered some IV labetalol. PROGNOSIS: Guarded. SADIQ MAURICE DO DR: THIEN/panda JOB#: [id number] / [id number]
[2019-05-06] MEDS: IPRATRPIUM/ALBUTEROL 0.5/2.5MG 3 ML NEBU. NEB SCH ×3 (12:00→21:01)
--- NOTE | 2019-05-06 12:04 | PDOC2 ---
CONSULT Date of Consult Date of Consult DATE: 05/06/19 TIME: 11:58 Reason for Consult Reason for Consult: abdominal pain Referring Physician Referring Physician: JENNIFER (pt of Dr Mulligan) Identification/Chief Complaint Chief Complaint Abdominal pain Source Source: Chart review, Patient (Limited patient input given her baseline mental status) History of Present Illness Reason for Visit: Ms. Ramos is an 89-year-old lady who I saw earlier this year with similar complaints. She has a history of previous abdominal surgery. She presents with abdominal pain and nausea. She lives with her nephew. A baseline issues with mental status Past Medical History Cardiovascular: HTN, Hyperlipidemia, Other Pulmonary: COPD CENTRAL NERVOUS SYSTEM: Other GI: Diverticulosis, GERD, Other Heme/Onc: Cancer Hepatobiliary: No pertinent hx Psych: Anxiety Musculoskeletal: low back pain, Osteoarthritis Rheumatologic: No pertinent hx Infectious disease: No pertinent hx Renal/: Urinary Incontinence Endocrine: Osteopenia Past Surgical History Past Surgical History: Pacemaker, Arthroscopy, Hysterectomy, Colon Resection, Other Family History Family History: No Significant Social History ALCOHOL: rare Drugs: None Lives: with Family Domestic Violence: Neg Current Problem List Problem List Problems Medical Problems: (1) Colonic obstruction Status: Acute (2) COPD (chronic obstructive pulmonary disease) Status: Acute Current Medications Current Medications Current Medications Iohexol (Omnipaque 300 Mg/ml) 75 ml 1X ONCE IV Last administered on 05/05/19at 19:48; Start 05/05/19 at 19:45; Stop 05/05/19 at 19:46; Status DC Info (CONTRAST GIVEN -- Rx MONITORING) 1 each PRN DAILY PRN MC SEE COMMENTS; Start 05/05/19 at 19:45; Stop 05/07/19 at 19:44 Iohexol (Omnipaque 300 Mg/ml) 100 ml STK-MED ONCE .ROUTE ; Start 05/05/19 at 19:40; Stop 05/05/19 at 19:41; Status DC Sodium Chloride 1,000 ml @ 1,000 mls/hr 1X ONCE IV Last administered on 05/05/19at 20:23; Start 05/05/19 at 20:15; Stop 05/05/19 at 21:14; Status DC Ondansetron HCl (Zofran) 4 mg PRN Q8HRS PRN IV NAUSEA/VOMITING 1ST CHOICE; Start 05/05/19 at 22:00; Stop 05/06/19 at 21:59 Dextrose/Sodium Chloride 1,000 ml @ 100 mls/hr 1X ONCE IV Last administered on 05/05/19at 22:53; Start 05/05/19 at 22:30; Stop 05/06/19 at 08:29; Status DC Labetalol HCl (Normodyne Iv Push) 20 mg PRN Q2HR PRN IVP HYPERTENSION; Start 05/06/19 at 10:15 Amino Acids/ Glycerin/ Electrolytes 1,000 ml @ 75 mls/hr [id number] IV ; Start 05/06/19 at 11:00 Albuterol/ Ipratropium (Duoneb) 3 ml RTQID NEB ; Start 05/06/19 at 12:00 Active Scripts Active Zofran (Ondansetron Hcl) 4 Mg Tablet 1 Tab PO Q6HRS PRN Bactrim Ds Tablet (Sulfamethoxazole/Trimethoprim) 1 Each Tablet 1 Tab PO BID Keflex (Cephalexin) 500 Mg Capsule 2 Cap PO BID 3 Days Nexium Capsule (Esomeprazole Magnesium) 20 Mg Capsule.dr 1 Cap PO DAILY OTC. Symbicort 160-4.5 Mcg Inhaler (Budesonide/Formoterol Fumarate) 10.2 Gm Hfa.aer.ad 2 Puff IH BID Reported Acetaminophen 500 Mg Tablet 2 Tab PO PRN Q6HRS PRN Prednisone (Prednisone) 10 Mg Tablet 5 Mg PO DAILY Glucosamine (Glucosamine Sulfate 2KCL) 1,000 Mg Tablet 500 Mg PO BID Oxybutynin Chloride 5 Mg Tablet 5 Mg PO TID Latanoprost 2.5 Ml Drops 1 Drop EACHEYE QHS Clonidine Hcl 0.1 Mg Tablet 0.1 Mg PO TID Miralax (Polyethylene Glycol 3350) 17 Gm Powd.pack 1 Pkt PO DAILY Calcium 500 + D Tablet (Calcium Carbonate/Vitamin D3) 1 Each Tablet 1 Each PO BID Diltiazem 24HR Cd (Diltiazem Hcl) 240 Mg Cap.er.24h 240 Mg PO DAILY Lisinopril 40 Mg Tablet 1 Tab PO DAILY Spiriva (Tiotropium [place]) 18 Mcg Cap.w.dev 1 Cap IH DAILY Mirtazapine 15 Mg Tablet 0.5 Tab PO QHS Aspir 81 (Aspirin) 81 Mg Tablet.dr 1 Tab PO DAILY Pravastatin Sodium 80 Mg Tablet 80 Mg PO HS Toprol Xl (Metoprolol Succinate) 50 Mg Tab.er.24h 50 Mg PO HS Proair Hfa Inhaler (Albuterol Sulfate) 8.5 Gm Hfa.aer.ad 2 Puff INH PRN Q6HRS PRN Allergies Allergies: Coded Allergies: No Known Drug Allergies (Unverified , 08/19/15) ROS PSYCHOLOGICAL ROS: YES: Anxiety, Memory difficulties Gastrointestinal: Yes Nausea, Yes Vomiting, Yes Abdominal Pain Physical Exam General: Alert, Other (anxious, upset that she doesn't know why she is here because no one has talked with her) HEENT: Atraumatic Lungs: Normal air movement Heart: Regular rate Abdomen: Soft, Other (mildly distended, minimal tenderness to palpation, well- healed scars from previous procedures) Extremities: Other (arthritic changes) Skin: Other (warm, dry) Neuro: Normal speech Vitals VITALS Vital Signs Date Time Temp Pulse Resp B/P (MAP) Pulse Ox O2 Delivery O2 Flow Rate FiO2 05/06/19 07:00 98.7 64 16 200/74 (116) 93 Room Air 98.7 05/05/19 23:17 2.0 Labs Labs Laboratory Tests Test 05/05/19 18:42 05/05/19 20:05 05/06/19 04:35 White Blood Count 15.5 x10^3/uL (4.0-11.0) 10.5 x10^3/uL (4.0-11.0) Red Blood Count 4.62 x10^6/uL (3.50-5.40) 4.14 x10^6/uL (3.50-5.40) Hemoglobin 14.0 g/dL (12.0-15.5) 12.6 g/dL (12.0-15.5) Hematocrit 42.8 % (36.0-47.0) 38.6 % (36.0-47.0) Mean Corpuscular Volume 93 fL (79-100) 93 fL (79-100) Mean Corpuscular Hemoglobin 30 pg (25-35) 30 pg (25-35) Mean Corpuscular Hemoglobin Concent 33 g/dL (31-37) 33 g/dL (31-37) Red Cell Distribution Width 15.5 % (11.5-14.5) 15.5 % (11.5-14.5) Platelet Count 366 x10^3/uL (140-400) 327 x10^3/uL (140-400) Neutrophils (%) (Auto) 87 % (31-73) 79 % (31-73) Lymphocytes (%) (Auto) 6 % (24-48) 12 % (24-48) Monocytes (%) (Auto) 7 % (0-9) 8 % (0-9) Eosinophils (%) (Auto) 0 % (0-3) 0 % (0-3) Basophils (%) (Auto) 0 % (0-3) 0 % (0-3) Neutrophils # (Auto) 13.4 x10^3/uL (1.8-7.7) 8.3 x10^3/uL (1.8-7.7) Lymphocytes # (Auto) 0.9 x10^3/uL (1.0-4.8) 1.3 x10^3/uL (1.0-4.8) Monocytes # (Auto) 1.1 x10^3/uL (0.0-1.1) 0.9 x10^3/uL (0.0-1.1) Eosinophils # (Auto) 0.0 x10^3/uL (0.0-0.7) 0.0 x10^3/uL (0.0-0.7) Basophils # (Auto) 0.0 x10^3/uL (0.0-0.2) 0.0 x10^3/uL (0.0-0.2) Segmented Neutrophils % 84 % (35-66) Band Neutrophils % 1 % (0-9) Lymphocytes % 11 % (24-48) Monocytes % 4 % (0-10) Platelet Estimate Adequate (ADEQUATE) Sodium Level 136 mmol/L (136-145) 140 mmol/L (136-145) Potassium Level 4.4 mmol/L (3.5-5.1) 3.9 mmol/L (3.5-5.1) Chloride Level 101 mmol/L (98-107) 108 mmol/L (98-107) Carbon Dioxide Level 29 mmol/L (21-32) 25 mmol/L (21-32) Anion Gap 6 (6-14) 7 (6-14) Blood Urea Nitrogen 14 mg/dL (7-20) 9 mg/dL (7-20) Creatinine 0.8 mg/dL (0.6-1.0) 0.6 mg/dL (0.6-1.0) Estimated GFR (Cockcroft-Gault) 67.7 94.3 BUN/Creatinine Ratio 18 (6-20) 15 (6-20) Glucose Level 127 mg/dL (70-99) 125 mg/dL (70-99) Calcium Level 9.9 mg/dL (8.5-10.1) 8.4 mg/dL (8.5-10.1) Total Bilirubin 0.3 mg/dL (0.2-1.0) 0.3 mg/dL (0.2-1.0) Aspartate Amino Transf (AST/SGOT) 20 U/L (15-37) 14 U/L (15-37) Alanine Aminotransferase (ALT/SGPT) 17 U/L (14-59) 11 U/L (14-59) Alkaline Phosphatase 62 U/L (46-116) 52 U/L (46-116) Troponin I Quantitative < 0.017 ng/mL (0.000-0.055) Total Protein 5.8 g/dL (6.4-8.2) 5.3 g/dL (6.4-8.2) Albumin 3.2 g/dL (3.4-5.0) 2.6 g/dL (3.4-5.0) Albumin/Globulin Ratio 1.2 (1.0-1.7) 1.0 (1.0-1.7) Lipase 87 U/L (73-393) Lactic Acid Level 1.2 mmol/L (0.4-2.0) Laboratory Tests Test 05/05/19 18:42 05/05/19 20:05 05/06/19 04:35 White Blood Count 15.5 x10^3/uL (4.0-11.0) 10.5 x10^3/uL (4.0-11.0) Red Blood Count 4.62 x10^6/uL (3.50-5.40) 4.14 x10^6/uL (3.50-5.40) Hemoglobin 14.0 g/dL (12.0-15.5) 12.6 g/dL (12.0-15.5) Hematocrit 42.8 % (36.0-47.0) 38.6 % (36.0-47.0) Mean Corpuscular Volume 93 fL (79-100) 93 fL (79-100) Mean Corpuscular Hemoglobin 30 pg (25-35) 30 pg (25-35) Mean Corpuscular Hemoglobin Concent 33 g/dL (31-37) 33 g/dL (31-37) Red Cell Distribution Width 15.5 % (11.5-14.5) 15.5 % (11.5-14.5) Platelet Count 366 x10^3/uL (140-400) 327 x10^3/uL (140-400) Neutrophils (%) (Auto) 87 % (31-73) 79 % (31-73) Lymphocytes (%) (Auto) 6 % (24-48) 12 % (24-48) Monocytes (%) (Auto) 7 % (0-9) 8 % (0-9) Eosinophils (%) (Auto) 0 % (0-3) 0 % (0-3) Basophils (%) (Auto) 0 % (0-3) 0 % (0-3) Neutrophils # (Auto) 13.4 x10^3/uL (1.8-7.7) 8.3 x10^3/uL (1.8-7.7) Lymphocytes # (Auto) 0.9 x10^3/uL (1.0-4.8) 1.3 x10^3/uL (1.0-4.8) Monocytes # (Auto) 1.1 x10^3/uL (0.0-1.1) 0.9 x10^3/uL (0.0-1.1) Eosinophils # (Auto) 0.0 x10^3/uL (0.0-0.7) 0.0 x10^3/uL (0.0-0.7) Basophils # (Auto) 0.0 x10^3/uL (0.0-0.2) 0.0 x10^3/uL (0.0-0.2) Segmented Neutrophils % 84 % (35-66) Band Neutrophils % 1 % (0-9) Lymphocytes % 11 % (24-48) Monocytes % 4 % (0-10) Platelet Estimate Adequate (ADEQUATE) Sodium Level 136 mmol/L (136-145) 140 mmol/L (136-145) Potassium Level 4.4 mmol/L (3.5-5.1) 3.9 mmol/L (3.5-5.1) Chloride Level 101 mmol/L (98-107) 108 mmol/L (98-107) Carbon Dioxide Level 29 mmol/L (21-32) 25 mmol/L (21-32) Anion Gap 6 (6-14) 7 (6-14) Blood Urea Nitrogen 14 mg/dL (7-20) 9 mg/dL (7-20) Creatinine 0.8 mg/dL (0.6-1.0) 0.6 mg/dL (0.6-1.0) Estimated GFR (Cockcroft-Gault) 67.7 94.3 BUN/Creatinine Ratio 18 (6-20) 15 (6-20) Glucose Level 127 mg/dL (70-99) 125 mg/dL (70-99) Calcium Level 9.9 mg/dL (8.5-10.1) 8.4 mg/dL (8.5-10.1) Total Bilirubin 0.3 mg/dL (0.2-1.0) 0.3 mg/dL (0.2-1.0) Aspartate Amino Transf (AST/SGOT) 20 U/L (15-37) 14 U/L (15-37) Alanine Aminotransferase (ALT/SGPT) 17 U/L (14-59) 11 U/L (14-59) Alkaline Phosphatase 62 U/L (46-116) 52 U/L (46-116) Troponin I Quantitative < 0.017 ng/mL (0.000-0.055) Total Protein 5.8 g/dL (6.4-8.2) 5.3 g/dL (6.4-8.2) Albumin 3.2 g/dL (3.4-5.0) 2.6 g/dL (3.4-5.0) Albumin/Globulin Ratio 1.2 (1.0-1.7) 1.0 (1.0-1.7) Lipase 87 U/L (73-393) Lactic Acid Level 1.2 mmol/L (0.4-2.0) Images Images CT scan done on presentation is reviewed Assessment/Plan Assessment/Plan Abdominal pain with nausea history of previous surgery Partial obstruction versus ileus Memory issues Recommend cut rest, IV fluids, serial exams. Hope to resolve issue without further surgical intervention. Discussed with COLTON LOPEZ MD May 06, 2019 12:04
[2019-05-06] MEDS: AMINO AC 3%/ELECTROLYTE/GLYCER 1,000 ML IV SCH ×2 (12:17→21:39)
[2019-05-06] MEDS: LABETALOL 20 MG/4 ML DISP.SYRIN. IVP PRN ×4 (12:18→23:41)
[2019-05-06] MEDS: MORPHINE SULFATE 2 MG/ML VIAL. IV PRN (21:39)
[2019-05-06] MEDS ORDERED: FUROSEMIDE 20 MG/2 ML VIAL. IVP ONE (22:00)
[2019-05-07] VITALS (7 sets, daily range): BP systolic 148–210; BP diastolic 67–103
[2019-05-07] MEDS: ENALAPRILAT 1.25 MG/ML VIAL. IVP PRN ×3 (01:37→14:46)
[2019-05-07] MEDS: LABETALOL 20 MG/4 ML DISP.SYRIN. IVP PRN ×4 (02:31→19:57)
[2019-05-07] MEDS: IPRATRPIUM/ALBUTEROL 0.5/2.5MG 3 ML NEBU. NEB SCH ×4 (06:03→20:31)
--- NOTE | 2019-05-07 06:39 | EKG ---
[facility] [address] [place] [address] Test Date: 2019-05-05 Test Time: 18:26:06 Pat Name: GLO GALAN Department: Room: 438 1 Gender: F Insights Manager: : [id number] Requested By: PAULY TELLO Order Number: [id number] Reading MD: Ezra Dale Measurements Intervals Rhodelia Rate: 73 P: 132 RI: 206 QRS: 39 QRSD: 86 T: 28 QT: 374 QTc: 415 Interpretive Statements ATRIAL PACED RHYTHM T ABNORMALITY IN ANTERIOR LEADS NON SPECIFIC ST DEPRESSION ABNORMAL ECG Electronically Signed On 05-08-2019 14:37:28 CONCRETING SUPERVISOR by Ezra Dale
--- NOTE | 2019-05-07 07:37 | PDOC ---
PULMONARY PROGRESS NOTES Subjective on 02, no sob, cough, pain, agitated Vitals Vital Signs Date Time Temp Pulse Resp B/P (MAP) Pulse Ox O2 Delivery O2 Flow Rate FiO2 05/07/19 06:25 192/92 05/07/19 06:14 93 05/07/19 06:05 96 Nasal Cannula 2.0 05/07/19 03:00 97.6 18 97.6 ROS: No Nausea General: Alert, No acute distress HEENT: Other (nc at perrl ) Lungs: Other (deminished) Cardiovascular: S1, S2 Abdomen: Soft, Non-tender Neuro Exam: Alert Extremities: No Edema Skin: Warm Labs Laboratory Tests Test 05/05/19 18:42 05/05/19 20:05 05/06/19 04:35 White Blood Count 15.5 x10^3/uL (4.0-11.0) 10.5 x10^3/uL (4.0-11.0) Red Blood Count 4.62 x10^6/uL (3.50-5.40) 4.14 x10^6/uL (3.50-5.40) Hemoglobin 14.0 g/dL (12.0-15.5) 12.6 g/dL (12.0-15.5) Hematocrit 42.8 % (36.0-47.0) 38.6 % (36.0-47.0) Mean Corpuscular Volume 93 fL (79-100) 93 fL (79-100) Mean Corpuscular Hemoglobin 30 pg (25-35) 30 pg (25-35) Mean Corpuscular Hemoglobin Concent 33 g/dL (31-37) 33 g/dL (31-37) Red Cell Distribution Width 15.5 % (11.5-14.5) 15.5 % (11.5-14.5) Platelet Count 366 x10^3/uL (140-400) 327 x10^3/uL (140-400) Neutrophils (%) (Auto) 87 % (31-73) 79 % (31-73) Lymphocytes (%) (Auto) 6 % (24-48) 12 % (24-48) Monocytes (%) (Auto) 7 % (0-9) 8 % (0-9) Eosinophils (%) (Auto) 0 % (0-3) 0 % (0-3) Basophils (%) (Auto) 0 % (0-3) 0 % (0-3) Neutrophils # (Auto) 13.4 x10^3/uL (1.8-7.7) 8.3 x10^3/uL (1.8-7.7) Lymphocytes # (Auto) 0.9 x10^3/uL (1.0-4.8) 1.3 x10^3/uL (1.0-4.8) Monocytes # (Auto) 1.1 x10^3/uL (0.0-1.1) 0.9 x10^3/uL (0.0-1.1) Eosinophils # (Auto) 0.0 x10^3/uL (0.0-0.7) 0.0 x10^3/uL (0.0-0.7) Basophils # (Auto) 0.0 x10^3/uL (0.0-0.2) 0.0 x10^3/uL (0.0-0.2) Segmented Neutrophils % 84 % (35-66) Band Neutrophils % 1 % (0-9) Lymphocytes % 11 % (24-48) Monocytes % 4 % (0-10) Platelet Estimate Adequate (ADEQUATE) Sodium Level 136 mmol/L (136-145) 140 mmol/L (136-145) Potassium Level 4.4 mmol/L (3.5-5.1) 3.9 mmol/L (3.5-5.1) Chloride Level 101 mmol/L (98-107) 108 mmol/L (98-107) Carbon Dioxide Level 29 mmol/L (21-32) 25 mmol/L (21-32) Anion Gap 6 (6-14) 7 (6-14) Blood Urea Nitrogen 14 mg/dL (7-20) 9 mg/dL (7-20) Creatinine 0.8 mg/dL (0.6-1.0) 0.6 mg/dL (0.6-1.0) Estimated GFR (Cockcroft-Gault) 67.7 94.3 BUN/Creatinine Ratio 18 (6-20) 15 (6-20) Glucose Level 127 mg/dL (70-99) 125 mg/dL (70-99) Calcium Level 9.9 mg/dL (8.5-10.1) 8.4 mg/dL (8.5-10.1) Total Bilirubin 0.3 mg/dL (0.2-1.0) 0.3 mg/dL (0.2-1.0) Aspartate Amino Transf (AST/SGOT) 20 U/L (15-37) 14 U/L (15-37) Alanine Aminotransferase (ALT/SGPT) 17 U/L (14-59) 11 U/L (14-59) Alkaline Phosphatase 62 U/L (46-116) 52 U/L (46-116) Troponin I Quantitative < 0.017 ng/mL (0.000-0.055) Total Protein 5.8 g/dL (6.4-8.2) 5.3 g/dL (6.4-8.2) Albumin 3.2 g/dL (3.4-5.0) 2.6 g/dL (3.4-5.0) Albumin/Globulin Ratio 1.2 (1.0-1.7) 1.0 (1.0-1.7) Lipase 87 U/L (73-393) Lactic Acid Level 1.2 mmol/L (0.4-2.0) Medications Active Scripts Medications Dose Route/Sig Max Daily Dose Days Date Category Dose Instructions Zofran (Ondansetron Hcl) 4 Mg Tablet 1 Tab PO Q6HRS PRN 12/11/18 Rx Bactrim Ds Tablet (Sulfamethoxazole/Trimethoprim) 1 Each Tablet 1 Tab PO BID 12/11/18 Rx Keflex (Cephalexin) 500 Mg Capsule 2 Cap PO BID 3 09/29/18 Rx Acetaminophen 500 Mg Tablet 2 Tab PO PRN Q6HRS PRN 08/05/18 Reported Prednisone (Prednisone) 10 Mg Tablet 5 Mg PO DAILY 08/05/18 Reported Glucosamine (Glucosamine Sulfate 2KCL) 1,000 Mg Tablet 500 Mg PO BID 08/05/18 Reported Oxybutynin Chloride 5 Mg Tablet 5 Mg PO TID 08/05/18 Reported Latanoprost 2.5 Ml Drops 1 Drop EACHEYE QHS 08/05/18 Reported Clonidine Hcl 0.1 Mg Tablet 0.1 Mg PO TID 08/05/18 Reported Nexium Capsule (Esomeprazole Magnesium) 20 Mg Capsule.dr 1 Cap PO DAILY 09/28/17 Rx OTC. Symbicort 160-4.5 Mcg Inhaler (Budesonide/Formoterol Fumarate) 10.2 Gm Hfa.aer.ad 2 Puff IH BID 09/28/17 Rx Miralax (Polyethylene Glycol 3350) 17 Gm Powd.pack 1 Pkt PO DAILY 08/26/17 Reported Calcium 500 + D Tablet (Calcium Carbonate/Vitamin D3) 1 Each Tablet 1 Each PO BID 08/26/17 Reported Diltiazem 24HR Cd (Diltiazem Hcl) 240 Mg Cap.er.24h 240 Mg PO DAILY 08/26/17 Reported Lisinopril 40 Mg Tablet 1 Tab PO DAILY 08/26/17 Reported Spiriva (Tiotropium [place]) 18 Mcg Cap.w.dev 1 Cap IH DAILY 08/26/17 Reported Mirtazapine 15 Mg Tablet 0.5 Tab PO QHS 06/01/16 Reported Aspir 81 (Aspirin) 81 Mg Tablet.dr 1 Tab PO DAILY 04/05/15 Reported Pravastatin Sodium 80 Mg Tablet 80 Mg PO HS 02/16/15 Reported Toprol Xl (Metoprolol Succinate) 50 Mg Tab.er.24h 50 Mg PO HS 02/16/15 Reported Proair Hfa Inhaler (Albuterol Sulfate) 8.5 Gm Hfa.aer.ad 2 Puff INH PRN Q6HRS PRN 11/21/13 Reported Impression . IMPRESSION: 1. Chronic respiratory failure. 2. Chronic obstructive pulmonary disease. 3. Colonic obstruction. 4. History of colon cancer. 5. Ex-smoker. 6. Hypertension. Plan . PLAN AND RECOMMENDATIONS: 1. Titrate FiO2 to keep O2 saturation 92%. 2. cont bronchodilator. 3. Surgery is consulted. npo per surgery 4. Protonix for stress ulcer prophylaxis. 5. SCDs. Cannot use Lovenox. She may require surgery. discussed w patient and RN. TIBURCIO LOPEZ MD May 07, 2019 07:37
--- NOTE | 2019-05-07 10:46 | PDOC ---
[employer] PROGRESS NOTE Chief Complaint Chief Complaint Abdominal pain nausea vomiting diarrhea COPD and she wears oxygen at home GERD glaucoma hyperlipidemia coronary disease hypertension UTIs arthritis colon cancer chemotherapy hernia repair spinal surgery carotid stenosis with surgical repair hysterectomy pacemaker breast cyst colonoscopies History of Present Illness History of Present Illness 05/07 Pt seen and examined Pt resting comfortably DWRN Vitals/I&O Vitals/I&O: Vital Signs Date Time Temp Pulse Resp B/P (MAP) Pulse Ox O2 Delivery O2 Flow Rate FiO2 05/07/19 08:34 117 228/113 05/07/19 07:00 97.9 16 98 Nasal Cannula 2.0 97.9 I & O 05/06/19 05/06/19 05/07/19 15:00 23:00 07:00 Intake Total 600 ml Output Total 2000 ml Balance -1400 ml Physical Exam General: Alert, No acute distress, Other (anxious, upset that she doesn't know why she is here because no one has talked with her) Heart: Regular rate, Normal S1, Normal S2 Lungs: Crackles, Other Abdomen: Soft, Other (mildly distended, minimal tenderness to palpation, well- healed scars from previous procedures) Extremities: Other (arthritic changes) Skin: Other (warm, dry) Review of Systems Review of Systems: No CP, mild SOB Assessment and Plan Assessmemt and Plan Problems Medical Problems: (1) Colonic obstruction Status: Acute (2) COPD (chronic obstructive pulmonary disease) Status: Acute Assessment Abdominal pain nausea vomiting diarrhea COPD and she wears oxygen at home GERD glaucoma hyperlipidemia coronary disease hypertension UTIs arthritis colon cancer chemotherapy hernia repair spinal surgery carotid stenosis with surgical repair hysterectomy pacemaker breast cyst colonoscopies Plan Consult surgery and pulmonology NPO per surgery Conservative management Peripheral nutrition HM PT/OT O2 prn Breathing treatments prn Full code Comment Review of Relevant I have reviewed the following items forest (where applicable) has been applied. Medications: Current Medications Medications (Trade) Dose Ordered Sig/Shu Route PRN Reason Start Time Stop Time Status Last Admin Dose Admin Amino Acids/ Glycerin/ Electrolytes 1,000 ml @ 30 mls/hr Q24H IV 05/06/19 11:00 05/06/19 21:39 Albuterol/ Ipratropium (Duoneb) 3 ml RTQID NEB 05/06/19 12:00 05/07/19 06:03 Furosemide (Lasix) 60 mg 1X ONCE IVP 05/06/19 22:00 05/06/19 22:01 DC 05/06/19 21:38 Morphine Sulfate (Morphine Sulfate) 2 mg PRN Q2HR PRN IV SEVERE PAIN 7-10 05/06/19 21:30 05/06/19 21:39 Enalaprilat (Vasotec Inj) 1.25 mg PRN Q6HRS PRN IVP HYPERTENSION 05/07/19 01:45 05/07/19 08:34 Lorazepam (Ativan Inj) 1 mg PRN Q4HRS PRN IM/IV ANXIETY / AGITATION 05/07/19 08:30 05/07/19 08:33 SADIQ MAURICE III DO May 07, 2019 10:46
--- NOTE | 2019-05-07 10:56 | PDOC ---
SURGICAL PROGRESS NOTE Subjective pt sleeping (had ativan earlier for agitation) I did not wake her per RN pt has been upset, wanting to go home, feels she's "a prisoner" no further n/v Vital Signs Vital Signs Date Time Temp Pulse Resp B/P (MAP) Pulse Ox O2 Delivery O2 Flow Rate FiO2 05/07/19 08:34 117 228/113 05/07/19 07:00 97.9 16 98 Nasal Cannula 2.0 97.9 I&O Intake and Output 05/07/19 07:00 Intake Total 600 ml Output Total 2000 ml Balance -1400 ml Intake Oral 0 ml IV Total 600 ml Output Urine Total 2000 ml # Voids 1 PATIENT HAS A JOHNSON: Yes Labs Laboratory Tests Test 05/05/19 18:42 05/05/19 20:05 05/06/19 04:35 White Blood Count 15.5 x10^3/uL (4.0-11.0) 10.5 x10^3/uL (4.0-11.0) Red Blood Count 4.62 x10^6/uL (3.50-5.40) 4.14 x10^6/uL (3.50-5.40) Hemoglobin 14.0 g/dL (12.0-15.5) 12.6 g/dL (12.0-15.5) Hematocrit 42.8 % (36.0-47.0) 38.6 % (36.0-47.0) Mean Corpuscular Volume 93 fL (79-100) 93 fL (79-100) Mean Corpuscular Hemoglobin 30 pg (25-35) 30 pg (25-35) Mean Corpuscular Hemoglobin Concent 33 g/dL (31-37) 33 g/dL (31-37) Red Cell Distribution Width 15.5 % (11.5-14.5) 15.5 % (11.5-14.5) Platelet Count 366 x10^3/uL (140-400) 327 x10^3/uL (140-400) Neutrophils (%) (Auto) 87 % (31-73) 79 % (31-73) Lymphocytes (%) (Auto) 6 % (24-48) 12 % (24-48) Monocytes (%) (Auto) 7 % (0-9) 8 % (0-9) Eosinophils (%) (Auto) 0 % (0-3) 0 % (0-3) Basophils (%) (Auto) 0 % (0-3) 0 % (0-3) Neutrophils # (Auto) 13.4 x10^3/uL (1.8-7.7) 8.3 x10^3/uL (1.8-7.7) Lymphocytes # (Auto) 0.9 x10^3/uL (1.0-4.8) 1.3 x10^3/uL (1.0-4.8) Monocytes # (Auto) 1.1 x10^3/uL (0.0-1.1) 0.9 x10^3/uL (0.0-1.1) Eosinophils # (Auto) 0.0 x10^3/uL (0.0-0.7) 0.0 x10^3/uL (0.0-0.7) Basophils # (Auto) 0.0 x10^3/uL (0.0-0.2) 0.0 x10^3/uL (0.0-0.2) Segmented Neutrophils % 84 % (35-66) Band Neutrophils % 1 % (0-9) Lymphocytes % 11 % (24-48) Monocytes % 4 % (0-10) Platelet Estimate Adequate (ADEQUATE) Sodium Level 136 mmol/L (136-145) 140 mmol/L (136-145) Potassium Level 4.4 mmol/L (3.5-5.1) 3.9 mmol/L (3.5-5.1) Chloride Level 101 mmol/L (98-107) 108 mmol/L (98-107) Carbon Dioxide Level 29 mmol/L (21-32) 25 mmol/L (21-32) Anion Gap 6 (6-14) 7 (6-14) Blood Urea Nitrogen 14 mg/dL (7-20) 9 mg/dL (7-20) Creatinine 0.8 mg/dL (0.6-1.0) 0.6 mg/dL (0.6-1.0) Estimated GFR (Cockcroft-Gault) 67.7 94.3 BUN/Creatinine Ratio 18 (6-20) 15 (6-20) Glucose Level 127 mg/dL (70-99) 125 mg/dL (70-99) Calcium Level 9.9 mg/dL (8.5-10.1) 8.4 mg/dL (8.5-10.1) Total Bilirubin 0.3 mg/dL (0.2-1.0) 0.3 mg/dL (0.2-1.0) Aspartate Amino Transf (AST/SGOT) 20 U/L (15-37) 14 U/L (15-37) Alanine Aminotransferase (ALT/SGPT) 17 U/L (14-59) 11 U/L (14-59) Alkaline Phosphatase 62 U/L (46-116) 52 U/L (46-116) Troponin I Quantitative < 0.017 ng/mL (0.000-0.055) Total Protein 5.8 g/dL (6.4-8.2) 5.3 g/dL (6.4-8.2) Albumin 3.2 g/dL (3.4-5.0) 2.6 g/dL (3.4-5.0) Albumin/Globulin Ratio 1.2 (1.0-1.7) 1.0 (1.0-1.7) Lipase 87 U/L (73-393) Lactic Acid Level 1.2 mmol/L (0.4-2.0) Problem List Problems Medical Problems: (1) Colonic obstruction Status: Acute (2) COPD (chronic obstructive pulmonary disease) Status: Acute Assessment/Plan SBO had brisk (4L) diuresis after dose of lasix will check KUB to reassess COLTON BRIONES MD May 07, 2019 10:56
[2019-05-07] MEDS: AMINO AC 3%/ELECTROLYTE/GLYCER 1,000 ML IV SCH (12:44)
--- NOTE | 2019-05-07 14:46 | RAD ---
EXAM: ABDOMEN ONE VIEW. HISTORY: Small bowel obstruction. COMPARISON: 09/26/2018. FINDINGS: A frontal view of the abdomen is obtained. There is mild gaseous distention of the colon. There are no distended small bowel loops. There is gas distally. There are surgical clips in the right lower quadrant. Pacemaker leads are partially visualized. There are diffuse atherosclerotic calcifications. There is a moderate lumbar levoscoliosis. IMPRESSION: 1. Mild gaseous distention of the colon. No evidence of obstruction. Electronically signed by: Ulisses Cordon MD (05/07/2019 2:43 PM) [facility]
[2019-05-07] MEDS ORDERED: cloNIDine TTS-2 1 PATCH PATCH TD SCH (15:00)
[2019-05-07] MEDS: METOPROLOL TARTRATE 5 MG/5 ML VIAL. IVP SCH ×2 (15:10→18:26)
--- NOTE | 2019-05-07 23:03 | NUR ---
Report received from SUGEY Cordova and assumed care of patient at this time. Patient in bed and resting comfortably, will continue to monitor.
[2019-05-08] MEDS: METOPROLOL TARTRATE 5 MG/5 ML VIAL. IVP SCH ×3 (00:13→11:58)
[2019-05-08] MEDS: LABETALOL 20 MG/4 ML DISP.SYRIN. IVP PRN ×3 (01:03→08:08)
[2019-05-08 03:03] VITALS: BP 213/113
[2019-05-08 07:00] VITALS: BP 200/158
[2019-05-08] MEDS: IPRATRPIUM/ALBUTEROL 0.5/2.5MG 3 ML NEBU. NEB SCH ×4 (07:43→20:28)
--- NOTE | 2019-05-08 09:20 | PDOC ---
JOSE HILL APRN 05/08/19 0920: SURGICAL PROGRESS NOTE Subjective taking clears denies abdominal pain no n/v no stool yet Vital Signs Vital Signs Date Time Temp Pulse Resp B/P (MAP) Pulse Ox O2 Delivery O2 Flow Rate FiO2 05/08/19 08:08 94 200/158 05/08/19 07:43 96 Nasal Cannula 2.0 05/08/19 07:00 98.0 18 98.0 I&O Intake and Output 05/08/19 07:00 Intake Total 1140 ml Output Total 2000 ml Balance -860 ml Intake Oral 1140 ml Output Urine Total 2000 ml General: Cooperative, No acute distress Abdomen: Soft, No tenderness Problem List Problems Medical Problems: (1) Colonic obstruction Status: Acute (2) COPD (chronic obstructive pulmonary disease) Status: Acute Assessment/Plan improving will continue clears for now, await bowel function COLTON BRIONES MD 05/08/19 1056: SURGICAL PROGRESS NOTE Assessment/Plan pt seen and examined belly very soft, non tender easily reducible fullness LLQ at end of Pfannenstiel incisional scar SBO/ileus, improved no new surgical recs d/w JOSE Jiménez APRN May 08, 2019 09:20 COLTON BRIONES MD May 08, 2019 10:56
[2019-05-08 11:00] VITALS: BP 220/99
--- NOTE | 2019-05-08 11:27 | PDOC ---
[employer] PROGRESS NOTE Chief Complaint Chief Complaint Abdominal pain nausea vomiting diarrhea COPD and she wears oxygen at home GERD glaucoma hyperlipidemia coronary disease hypertension UTIs arthritis colon cancer chemotherapy hernia repair spinal surgery carotid stenosis with surgical repair hysterectomy pacemaker breast cyst colonoscopies History of Present Illness History of Present Illness 05/07 Pt seen and examined Pt resting comfortably DWRN 05/08/19 Pt seen and examined by me Resting comfortably DW RN Chart reviewed Vitals/I&O Vitals/I&O: Vital Signs Date Time Temp Pulse Resp B/P (MAP) Pulse Ox O2 Delivery O2 Flow Rate FiO2 05/08/19 11:06 Nasal Cannula 2.0 05/08/19 11:00 97.7 89 18 220/99 (139) 95 97.7 I & O 05/07/19 05/07/19 05/08/19 15:00 23:00 07:00 Intake Total 0 ml 840 ml 300 ml Output Total 950 ml 250 ml 800 ml Balance -950 ml 590 ml -500 ml Physical Exam General: Alert, Cooperative, No acute distress Heart: Regular rate, Normal S1, Normal S2 Lungs: Clear, Other (deminished) Abdomen: Soft, No tenderness Extremities: No clubbing, Other (arthritic changes) Skin: No rashes, Other (warm, dry) Review of Systems Review of Systems: (-) CP, SOB Assessment and Plan Assessmemt and Plan Problems Medical Problems: (1) Colonic obstruction Status: Acute (2) COPD (chronic obstructive pulmonary disease) Status: Acute Abdominal pain nausea vomiting diarrhea COPD and she wears oxygen at home GERD glaucoma hyperlipidemia coronary disease hypertension UTIs arthritis colon cancer chemotherapy hernia repair spinal surgery carotid stenosis with surgical repair hysterectomy pacemaker breast cyst colonoscopies Plan: continue 1:1 hope to advance diet pending surgery recs d/c disposition pending PT/OT dvt ppx full code Comment Review of Relevant I have reviewed the following items forest (where applicable) has been applied. Medications: Current Medications Medications (Trade) Dose Ordered Sig/Shu Route PRN Reason Start Time Stop Time Status Last Admin Dose Admin Clonidine HCl (Catapres Tts-2) 1 patch WEEKLY TD 05/07/19 15:00 05/07/19 15:11 Metoprolol Tartrate (Lopressor Vial) 5 mg Q6HRS IVP 05/07/19 15:00 05/08/19 05:52 CASTLENIAL K III DO May 08, 2019 11:27
--- NOTE | 2019-05-08 12:04 | NUR ---
SW following for discharge planning. Chart reviewed, discussed with RN, pt is from home with nephew, currently on 1:1, clear liquid diet, confused. Pt has o2 at home. PT/OT has been ordered. SW will continue to follow for discharge planning needs.
[2019-05-08] MEDS: MORPHINE SULFATE 2 MG/ML VIAL. IV PRN (13:41)
--- NOTE | 2019-05-08 14:00 | PDOC ---
PULMONARY PROGRESS NOTES Subjective on , no sob, cough, Vitals Vital Signs Date Time Temp Pulse Resp B/P (MAP) Pulse Ox O2 Delivery O2 Flow Rate FiO2 05/08/19 13:41 Nasal Cannula 2.0 05/08/19 11:58 89 220/99 05/08/19 11:00 97.7 18 95 97.7 ROS: No Nausea, No Chest Pain General: Alert, No acute distress HEENT: Other (nc at perrl ) Lungs: Other (deminished) Cardiovascular: S1, S2 Abdomen: Soft, Non-tender Neuro Exam: Alert Extremities: No Edema Skin: Warm Medications Active Scripts Medications Dose Route/Sig Max Daily Dose Days Date Category Dose Instructions Zofran (Ondansetron Hcl) 4 Mg Tablet 1 Tab PO Q6HRS PRN 12/11/18 Rx Bactrim Ds Tablet (Sulfamethoxazole/Trimethoprim) 1 Each Tablet 1 Tab PO BID 12/11/18 Rx Keflex (Cephalexin) 500 Mg Capsule 2 Cap PO BID 3 09/29/18 Rx Acetaminophen 500 Mg Tablet 2 Tab PO PRN Q6HRS PRN 08/05/18 Reported Prednisone (Prednisone) 10 Mg Tablet 5 Mg PO DAILY 08/05/18 Reported Glucosamine (Glucosamine Sulfate 2KCL) 1,000 Mg Tablet 500 Mg PO BID 08/05/18 Reported Oxybutynin Chloride 5 Mg Tablet 5 Mg PO TID 08/05/18 Reported Latanoprost 2.5 Ml Drops 1 Drop EACHEYE QHS 08/05/18 Reported Clonidine Hcl 0.1 Mg Tablet 0.1 Mg PO TID 08/05/18 Reported Nexium Capsule (Esomeprazole Magnesium) 20 Mg Capsule.dr 1 Cap PO DAILY 09/28/17 Rx OTC. Symbicort 160-4.5 Mcg Inhaler (Budesonide/Formoterol Fumarate) 10.2 Gm Hfa.aer.ad 2 Puff IH BID 09/28/17 Rx Miralax (Polyethylene Glycol 3350) 17 Gm Powd.pack 1 Pkt PO DAILY 08/26/17 Reported Calcium 500 + D Tablet (Calcium Carbonate/Vitamin D3) 1 Each Tablet 1 Each PO BID 08/26/17 Reported Diltiazem 24HR Cd (Diltiazem Hcl) 240 Mg Cap.er.24h 240 Mg PO DAILY 08/26/17 Reported Lisinopril 40 Mg Tablet 1 Tab PO DAILY 08/26/17 Reported Spiriva (Tiotropium [place]) 18 Mcg Cap.w.dev 1 Cap IH DAILY 08/26/17 Reported Mirtazapine 15 Mg Tablet 0.5 Tab PO QHS 06/01/16 Reported Aspir 81 (Aspirin) 81 Mg Tablet.dr 1 Tab PO DAILY 04/05/15 Reported Pravastatin Sodium 80 Mg Tablet 80 Mg PO HS 02/16/15 Reported Toprol Xl (Metoprolol Succinate) 50 Mg Tab.er.24h 50 Mg PO HS 02/16/15 Reported Proair Hfa Inhaler (Albuterol Sulfate) 8.5 Gm Hfa.aer.ad 2 Puff INH PRN Q6HRS PRN 11/21/13 Reported Impression . IMPRESSION: 1. Chronic respiratory failure. 2. Chronic obstructive pulmonary disease. 3. Colonic obstruction. 4. History of colon cancer. 5. Ex-smoker. 6. Hypertension. Plan . PLAN AND RECOMMENDATIONS: 1. Titrate FiO2 to keep O2 saturation 92%. 2. cont bronchodilator. 3. Surgery rec 4. Protonix for stress ulcer prophylaxis. 5. SCDs. Cannot use Lovenox. She may require surgery. 6. Nebs discussed w patient and RN. SURAJ NAVA MD May 08, 2019 14:00
[2019-05-08 15:00] VITALS: BP 238/122
[2019-05-08] MEDS: LISINOPRIL 20 MG TABLET PO SCH (16:12)
[2019-05-08] MEDS: cloNIDine HCL 0.1 MG TABLET PO SCH ×2 (16:13→23:02)
[2019-05-08 19:00] VITALS: BP 117/56
[2019-05-08] MEDS: AMINO AC 3%/ELECTROLYTE/GLYCER 1,000 ML IV SCH (19:43)
[2019-05-08 23:00] VITALS: BP 123/57
[2019-05-08] MEDS: METOPROLOL SUCC 24HR ER 50 MG TAB.ER.24H. PO SCH (23:02)
[2019-05-09 03:00] VITALS: BP 114/58
[2019-05-09 04:50] LABS: CALCIUM 8.6 mg/dL (8.5-10.1); CREATININE 0.6 mg/dL (0.6-1.0); GFR 94.3; POTASSIUM 3.2 mmol/L (3.5-5.1)
[2019-05-09 07:00] VITALS: BP 136/54
[2019-05-09] MEDS: IPRATRPIUM/ALBUTEROL 0.5/2.5MG 3 ML NEBU. NEB SCH ×4 (08:25→19:40)
[2019-05-09] MEDS: LISINOPRIL 20 MG TABLET PO SCH (08:57)
[2019-05-09] MEDS: cloNIDine HCL 0.1 MG TABLET PO SCH ×3 (08:57→21:13)
--- NOTE | 2019-05-09 09:04 | PDOC ---
SURGICAL PROGRESS NOTE Subjective no complaints tolerating liquids d/w nursing -no stool yet Vital Signs Vital Signs Date Time Temp Pulse Resp B/P (MAP) Pulse Ox O2 Delivery O2 Flow Rate FiO2 05/09/19 08:57 67 136/54 05/09/19 08:25 98 Nasal Cannula 3.0 05/09/19 07:00 98.1 16 98.1 I&O Intake and Output 05/09/19 07:00 Intake Total 220 ml Output Total 2050 ml Balance -1830 ml Intake Oral 220 ml Output Urine Total 2050 ml General: Cooperative, No acute distress Abdomen: Soft, Other (ND) Labs Laboratory Tests Test 05/09/19 03:45 Sodium Level 136 mmol/L (136-145) Potassium Level 3.2 mmol/L (3.5-5.1) Chloride Level 102 mmol/L (98-107) Carbon Dioxide Level 31 mmol/L (21-32) Anion Gap 3 (6-14) Blood Urea Nitrogen 11 mg/dL (7-20) Creatinine 0.6 mg/dL (0.6-1.0) Estimated GFR (Cockcroft-Gault) 94.3 Glucose Level 103 mg/dL (70-99) Calcium Level 8.6 mg/dL (8.5-10.1) Laboratory Tests Test 05/09/19 03:45 Sodium Level 136 mmol/L (136-145) Potassium Level 3.2 mmol/L (3.5-5.1) Chloride Level 102 mmol/L (98-107) Carbon Dioxide Level 31 mmol/L (21-32) Anion Gap 3 (6-14) Blood Urea Nitrogen 11 mg/dL (7-20) Creatinine 0.6 mg/dL (0.6-1.0) Estimated GFR (Cockcroft-Gault) 94.3 Glucose Level 103 mg/dL (70-99) Calcium Level 8.6 mg/dL (8.5-10.1) Problem List Problems Medical Problems: (1) Colonic obstruction Status: Acute (2) COPD (chronic obstructive pulmonary disease) Status: Acute Assessment/Plan advance to full liquids JOSE HILL APRN May 09, 2019 09:04
--- NOTE | 2019-05-09 10:32 | PDOC ---
[employer] PROGRESS NOTE Chief Complaint Chief Complaint Abdominal pain nausea vomiting diarrhea COPD and she wears oxygen at home GERD glaucoma hyperlipidemia coronary disease hypertension UTIs arthritis colon cancer chemotherapy hernia repair spinal surgery carotid stenosis with surgical repair hysterectomy pacemaker breast cyst colonoscopies History of Present Illness History of Present Illness 05/07 Pt seen and examined Pt resting comfortably DWRN 05/08/19 Pt seen and examined by me Resting comfortably DW RN Chart reviewed 05/09 Pt seen and examined Pt resting comfortably DWRN Chart reviewed Vitals/I&O Vitals/I&O: Vital Signs Date Time Temp Pulse Resp B/P (MAP) Pulse Ox O2 Delivery O2 Flow Rate FiO2 05/09/19 08:57 67 136/54 05/09/19 08:25 98 Nasal Cannula 3.0 05/09/19 07:00 98.1 16 98.1 I & O 05/08/19 05/08/19 05/09/19 15:00 23:00 07:00 Intake Total 120 ml 100 ml Output Total 1800 ml 250 ml Balance -1680 ml -150 ml Physical Exam General: Cooperative, No acute distress Heart: Regular rate, Normal S1, Normal S2 Lungs: Other (deminished) Abdomen: Soft, Other (ND) Extremities: No clubbing, Other (arthritic changes) Skin: No rashes, Other (warm, dry) Labs Labs: Laboratory Tests Test 05/09/19 03:45 Sodium Level 136 mmol/L (136-145) Potassium Level 3.2 mmol/L (3.5-5.1) Chloride Level 102 mmol/L (98-107) Carbon Dioxide Level 31 mmol/L (21-32) Anion Gap 3 (6-14) Blood Urea Nitrogen 11 mg/dL (7-20) Creatinine 0.6 mg/dL (0.6-1.0) Estimated GFR (Cockcroft-Gault) 94.3 Glucose Level 103 mg/dL (70-99) Calcium Level 8.6 mg/dL (8.5-10.1) Review of Systems Review of Systems: No CP, mild SOB Assessment and Plan Assessmemt and Plan Problems Medical Problems: (1) Colonic obstruction Status: Acute (2) COPD (chronic obstructive pulmonary disease) Status: Acute Assessment Abdominal pain nausea vomiting diarrhea COPD and she wears oxygen at home GERD glaucoma hyperlipidemia coronary disease hypertension UTIs arthritis colon cancer chemotherapy hernia repair spinal surgery carotid stenosis with surgical repair hysterectomy pacemaker breast cyst colonoscopies Plan Pt less agitated today, DC 1:1 hope to advance diet pending surgery recs DC when diet advance tolerated PT/OT dvt ppx full code Comment Review of Relevant I have reviewed the following items forest (where applicable) has been applied. Medications: Current Medications Medications (Trade) Dose Ordered Sig/Shu Route PRN Reason Start Time Stop Time Status Last Admin Dose Admin Clonidine HCl (Catapres) 0.1 mg TID PO 05/08/19 15:30 05/09/19 08:57 Diltiazem HCl (Cardizem 24hr Cd) 240 mg DAILY PO 05/08/19 15:30 05/09/19 08:57 Lisinopril (Prinivil) 40 mg DAILY PO 05/08/19 15:30 05/09/19 08:57 Metoprolol Succinate (Toprol Xl) 50 mg QHS PO 05/08/19 21:00 05/08/19 23:02 SADIQ MAURICE III DO May 09, 2019 10:31
[2019-05-09 11:00] VITALS: BP 120/43
--- NOTE | 2019-05-09 11:57 | SNU/HH DC ---
DISCHARGE ORDERS DISCHARGE INFORMATION: FINAL DIAGNOSIS Problems Medical Problems: (1) Colonic obstruction Status: Acute (2) COPD (chronic obstructive pulmonary disease) Status: Acute CONDITION ON DISCHARGE: Stable CODE STATUS: Code Status: Full [facility]: SNF STAY <30 DAYS: Yes HOSPICE: HOSPICE: No HOSPICE EVAL & TREAT: No LTAC: ADMIT TO LTAC: No POST DISCHARGE ORDERS: ACTIVITY ORDERS: Activity as tolerated WEIGHT BEARING STATUS: As tolerated DIET AFTER DISCHARGE: ADA WOUND/INCISION CARE: No wound care needed CHECKS AFTER DISCHARGE: CHECKS AFTER DISCHARGE: Check blood press - daily FOLLOW-UP: LAB ORDERS FOR FOLLOW-UP: CBC in one week TREATMENT/EQUIPMENT ORDERS: ADAPTIVE EQUIPMENT NEEDED: None RESPIRATORY EQUIPMENT NEEDED: Oxygen Physical Therapy For: Evalulation/Treatment Occupational Therapy For: Evaluation/Treatment DISCHARGE MEDICATIONS: Home Meds Active Scripts Ondansetron Hcl (ZOFRAN) 4 Mg Tablet, 1 TAB PO Q6HRS PRN for NAUSEA/VOMITING, #20 TAB Prov:MONALISA BROWN MD 12/11/18 Sulfamethoxazole/Trimethoprim (BACTRIM DS TABLET) 1 Each Tablet, 1 TAB PO BID, #14 TAB Prov:MONALISA BROWN MD 12/11/18 Cephalexin (KEFLEX) 500 Mg Capsule, 2 CAP PO BID for UTI for 3 Days, #12 CAP Prov:IAN BLAKE MD 09/29/18 Esomeprazole Magnesium (NEXIUM CAPSULE) 20 Mg Capsule.dr, 1 CAP PO DAILY, #30 CAP 2 Refills OTC. Prov:IAN BLAKE MD 09/28/17 Budesonide/Formoterol Fumarate (SYMBICORT 160-4.5 MCG INHALER) 10.2 Gm H fa.aer.ad, 2 PUFF IH BID, #10.6 GM 3 Refills Prov:IAN BLAKE MD 09/28/17 Reported Medications Acetaminophen (ACETAMINOPHEN) 500 Mg Tablet, 2 TAB PO PRN Q6HRS PRN for PAIN, #60 TAB 1 Refill 08/05/18 Prednisone (PREDNISONE ) 10 Mg Tablet, 5 MG PO DAILY for anti inflammatory, TAB 0 Refills 08/05/18 Glucosamine Sulfate 2KCL (GLUCOSAMINE) 1,000 Mg Tablet, 500 MG PO BID for joint pain, TAB 08/05/18 Oxybutynin Chloride (OXYBUTYNIN CHLORIDE) 5 Mg Tablet, 5 MG PO TID for bladder spasms, TAB 08/05/18 Latanoprost (LATANOPROST) 2.5 Ml Drops, 1 DROP EACHEYE QHS for glaucoma, #7.5 ML 3 Refills 08/05/18 Clonidine Hcl (CLONIDINE HCL) 0.1 Mg Tablet, 0.1 MG PO TID for hypertension, TAB 08/05/18 Polyethylene Glycol 3350 (MIRALAX) 17 Gm Powd.pack, 1 PKT PO DAILY, PKT 08/26/17 Calcium Carbonate/Vitamin D3 (CALCIUM 500 + D TABLET) 1 Each Tablet, 1 EACH PO BID, TAB 08/26/17 Diltiazem Hcl (DILTIAZEM 24HR CD) 240 Mg Cap.er.24h, 240 MG PO DAILY, CAP.SR 08/26/17 Lisinopril (LISINOPRIL) 40 Mg Tablet, 1 TAB PO DAILY, #30 TAB 5 Refills 08/26/17 Tiotropium [place] (SPIRIVA) 18 Mcg Cap.w.dev, 1 CAP IH DAILY, #30 CAP 3 Refills 08/26/17 Mirtazapine (MIRTAZAPINE) 15 Mg Tablet, 0.5 TAB PO QHS, #30 TAB 3 Refills 06/01/16 Aspirin (ASPIR 81) 81 Mg Tablet.dr, 1 TAB PO DAILY, #30 TAB 5 Refills 04/05/15 Pravastatin Sodium (PRAVASTATIN SODIUM) 80 Mg Tablet, 80 MG PO HS, TAB 02/16/15 Metoprolol Succinate (TOPROL XL) 50 Mg Tab.er.24h, 50 MG PO HS for FOR HYPERTENSION, #30 TAB 02/16/15 Albuterol Sulfate (PROAIR HFA INHALER) 8.5 Gm Hfa.aer.ad, 2 PUFF INH PRN Q6HRS PRN for SHORTNESS OF BREATH, INHALER 0 Refills 11/21/13 SADIQ MAURICE III DO May 09, 2019 11:57
--- NOTE | 2019-05-09 12:49 | PDOC ---
PULMONARY PROGRESS NOTES Subjective on 02, no sob, cough, Vitals Vital Signs Date Time Temp Pulse Resp B/P (MAP) Pulse Ox O2 Delivery O2 Flow Rate FiO2 05/09/19 12:31 92 Nasal Cannula 2.0 05/09/19 11:00 98.0 71 18 120/43 (68) 98.0 ROS: No Nausea, No Chest Pain General: Alert, No acute distress HEENT: Other (nc at perrl ) Lungs: Other (deminished) Cardiovascular: S1, S2 Abdomen: Soft, Non-tender Neuro Exam: Alert Extremities: No Edema Skin: Warm Labs Laboratory Tests Test 05/09/19 03:45 Sodium Level 136 mmol/L (136-145) Potassium Level 3.2 mmol/L (3.5-5.1) Chloride Level 102 mmol/L (98-107) Carbon Dioxide Level 31 mmol/L (21-32) Anion Gap 3 (6-14) Blood Urea Nitrogen 11 mg/dL (7-20) Creatinine 0.6 mg/dL (0.6-1.0) Estimated GFR (Cockcroft-Gault) 94.3 Glucose Level 103 mg/dL (70-99) Calcium Level 8.6 mg/dL (8.5-10.1) Laboratory Tests Test 05/09/19 03:45 Sodium Level 136 mmol/L (136-145) Potassium Level 3.2 mmol/L (3.5-5.1) Chloride Level 102 mmol/L (98-107) Carbon Dioxide Level 31 mmol/L (21-32) Anion Gap 3 (6-14) Blood Urea Nitrogen 11 mg/dL (7-20) Creatinine 0.6 mg/dL (0.6-1.0) Estimated GFR (Cockcroft-Gault) 94.3 Glucose Level 103 mg/dL (70-99) Calcium Level 8.6 mg/dL (8.5-10.1) Medications Active Scripts Medications Dose Route/Sig Max Daily Dose Days Date Category Dose Instructions Zofran (Ondansetron Hcl) 4 Mg Tablet 1 Tab PO Q6HRS PRN 12/11/18 Rx Bactrim Ds Tablet (Sulfamethoxazole/Trimethoprim) 1 Each Tablet 1 Tab PO BID 12/11/18 Rx Keflex (Cephalexin) 500 Mg Capsule 2 Cap PO BID 3 09/29/18 Rx Acetaminophen 500 Mg Tablet 2 Tab PO PRN Q6HRS PRN 08/05/18 Reported Prednisone (Prednisone) 10 Mg Tablet 5 Mg PO DAILY 08/05/18 Reported Glucosamine (Glucosamine Sulfate 2KCL) 1,000 Mg Tablet 500 Mg PO BID 08/05/18 Reported Oxybutynin Chloride 5 Mg Tablet 5 Mg PO TID 08/05/18 Reported Latanoprost 2.5 Ml Drops 1 Drop EACHEYE QHS 08/05/18 Reported Clonidine Hcl 0.1 Mg Tablet 0.1 Mg PO TID 08/05/18 Reported Nexium Capsule (Esomeprazole Magnesium) 20 Mg Capsule.dr 1 Cap PO DAILY 09/28/17 Rx OTC. Symbicort 160-4.5 Mcg Inhaler (Budesonide/Formoterol Fumarate) 10.2 Gm Hfa.aer.ad 2 Puff IH BID 09/28/17 Rx Miralax (Polyethylene Glycol 3350) 17 Gm Powd.pack 1 Pkt PO DAILY 08/26/17 Reported Calcium 500 + D Tablet (Calcium Carbonate/Vitamin D3) 1 Each Tablet 1 Each PO BID 08/26/17 Reported Diltiazem 24HR Cd (Diltiazem Hcl) 240 Mg Cap.er.24h 240 Mg PO DAILY 08/26/17 Reported Lisinopril 40 Mg Tablet 1 Tab PO DAILY 08/26/17 Reported Spiriva (Tiotropium [place]) 18 Mcg Cap.w.dev 1 Cap IH DAILY 08/26/17 Reported Mirtazapine 15 Mg Tablet 0.5 Tab PO QHS 06/01/16 Reported Aspir 81 (Aspirin) 81 Mg Tablet.dr 1 Tab PO DAILY 04/05/15 Reported Pravastatin Sodium 80 Mg Tablet 80 Mg PO HS 02/16/15 Reported Toprol Xl (Metoprolol Succinate) 50 Mg Tab.er.24h 50 Mg PO HS 02/16/15 Reported Proair Hfa Inhaler (Albuterol Sulfate) 8.5 Gm Hfa.aer.ad 2 Puff INH PRN Q6HRS PRN 11/21/13 Reported Impression . IMPRESSION: 1. Chronic respiratory failure. 2. Chronic obstructive pulmonary disease. 3. Colonic obstruction. 4. History of colon cancer. 5. Ex-smoker. 6. Hypertension. Plan . PLAN AND RECOMMENDATIONS: 1. Titrate FiO2 to keep O2 saturation 92%. 2. cont bronchodilator. 3. Surgery rec, diet advanced 4. Protonix for stress ulcer prophylaxis. 5. SCDs. 6. Nebs dc plans per surgery discussed w patient and RN. SURAJ NAVA MD May 09, 2019 12:49
--- NOTE | 2019-05-09 13:17 | NUR ---
SW following. Discussed with RN, PT/OT recommending SNU. SW met with pt, pt would like SW to speak to her nephew, but is agreeable. KO spoke with Aung, pt 's nephew ([phone]). Aung would like referral sent to [facility]. KO faxed referral to [facility], awaiting acceptance decision and insurance auth. KO will continue to follow.
--- NOTE | 2019-05-09 13:35 | NUR ---
Spoke with pt's nephew Aung. He stated wanted to bring pt home at d/c instead of SNU. Message left for KO [place].
--- NOTE | 2019-05-09 13:43 | NUR ---
SW advised [facility] to disregard SNU referral. Family has decided to take pt home upon discharge. Potential to be a high risk readmit. SW will continue to follow.
[2019-05-09 15:13] VITALS: BP 136/59
[2019-05-09 19:25] VITALS: BP 122/64
[2019-05-09] MEDS: METOPROLOL SUCC 24HR ER 50 MG TAB.ER.24H. PO SCH (21:13)
[2019-05-09 23:17] VITALS: BP 148/58
[2019-05-10 03:34] VITALS: BP 135/88
[2019-05-10] MEDS: AMINO AC 3%/ELECTROLYTE/GLYCER 1,000 ML IV SCH (05:33)
[2019-05-10 07:00] VITALS: BP 148/67
[2019-05-10] MEDS: cloNIDine HCL 0.1 MG TABLET PO SCH (08:07)
[2019-05-10] MEDS: LISINOPRIL 20 MG TABLET PO SCH (08:08)
[2019-05-10] MEDS: IPRATRPIUM/ALBUTEROL 0.5/2.5MG 3 ML NEBU. NEB SCH ×2 (08:28→12:00)
--- NOTE | 2019-05-10 09:38 | PDOC ---
SURGICAL PROGRESS NOTE Subjective no pain--besides heartache + stools Vital Signs Vital Signs Date Time Temp Pulse Resp B/P (MAP) Pulse Ox O2 Delivery O2 Flow Rate FiO2 05/10/19 08:28 96 Nasal Cannula 2.0 05/10/19 08:08 78 135/88 05/10/19 07:00 97.8 16 97.8 I&O Intake and Output 05/10/19 06:59 Intake Total 240 ml Balance 240 ml Intake Oral 240 ml # Voids 3 General: Alert, Cooperative Abdomen: Soft, No tenderness Labs Laboratory Tests Test 05/09/19 03:45 Sodium Level 136 mmol/L (136-145) Potassium Level 3.2 mmol/L (3.5-5.1) Chloride Level 102 mmol/L (98-107) Carbon Dioxide Level 31 mmol/L (21-32) Anion Gap 3 (6-14) Blood Urea Nitrogen 11 mg/dL (7-20) Creatinine 0.6 mg/dL (0.6-1.0) Estimated GFR (Cockcroft-Gault) 94.3 Glucose Level 103 mg/dL (70-99) Calcium Level 8.6 mg/dL (8.5-10.1) Problem List Problems Medical Problems: (1) Colonic obstruction Status: Acute (2) COPD (chronic obstructive pulmonary disease) Status: Acute Assessment/Plan having stools advance diet will sign off, call with questions JOSE HILL APRN May 10, 2019 09:38
[2019-05-10 11:00] VITALS: BP 189/85
--- NOTE | 2019-05-10 11:12 | SNU/HH DC ---
DISCHARGE WITH HOME HEALTH DISCHARGE INFORMATION: Final Diagnosis: Problems Medical Problems: (1) Colonic obstruction Status: Acute (2) COPD (chronic obstructive pulmonary disease) Status: Acute Condition on Discharge: Stable CODE STATUS: Code Status: Full HOME HEALTH: Face to Face: I certify this patient is under my care and that I, or a nurse practitioner or physician's pet care assistant working with me, had a face to face encounter that meets the physician face to face encounter requirements with this patient on []. Medical Complications: Other (resolving small bowel obstruction) RN For Eval/Treatment: Yes Physical Therapy For: Evalulation/Treatment Occupational Therapy For: Evaluation/Treatment Home Health Aide For: Self-care [employer] For: Community Resources Pt Meets Homebound Status: Poor coordination w/ amb. POST DISCHARGE ORDERS: Activity Instructions for Disc: Activity as tolerated Weight Bearing Status after Di: As tolerated DIET AFTER DISCHARGE: ADA Wound/Incision Care: No wound care needed CHECKS AFTER DISCHARGE: Checks after discharge: Check blood press - daily FOLLOW-UP: DC TO SNF LABS: CBC in one week TREATMENT/EQUIPMENT ORDERS: Adaptive Equipment Issued: None Discharge Respiratory Equipmen: Oxygen CERTIFICATION STATEMENT: Certification Statement: Certification Statement: Based on the above finding, I certify that this patient is confined to the home and needs intermittent residential care, physical therapy and/or speech therapy, or continues to need occupational therapy.~ This patient is under my care, and I have initiated the establishment of the plan of care.~ This patient will be followed by myself or a community physician who will periodically review the plan of care. Home Meds Active Scripts Ondansetron Hcl (ZOFRAN) 4 Mg Tablet, 1 TAB PO Q6HRS PRN for NAUSEA/VOMITING, #20 TAB Prov:MONALISA BROWN MD 12/11/18 Sulfamethoxazole/Trimethoprim (BACTRIM DS TABLET) 1 Each Tablet, 1 TAB PO BID, #14 TAB Prov:MONALISA BROWN MD 12/11/18 Cephalexin (KEFLEX) 500 Mg Capsule, 2 CAP PO BID for UTI for 3 Days, #12 CAP Prov:IAN BLAKE MD 09/29/18 Esomeprazole Magnesium (NEXIUM CAPSULE) 20 Mg Capsule.dr, 1 CAP PO DAILY, #30 CAP 2 Refills OTC. Prov:IAN BLAKE MD 09/28/17 Budesonide/Formoterol Fumarate (SYMBICORT 160-4.5 MCG INHALER) 10.2 Gm Hfa.aer.ad, 2 PUFF IH BID, #10.6 GM 3 Refills Prov:IAN BLAKE MD 09/28/17 Reported Medications Acetaminophen (ACETAMINOPHEN) 500 Mg Tablet, 2 TAB PO PRN Q6HRS PRN for PAIN, #60 TAB 1 Refill 08/05/18 Prednisone (PREDNISONE ) 10 Mg Tablet, 5 MG PO DAILY for anti inflammatory, TAB 0 Refills 08/05/18 Glucosamine Sulfate 2KCL (GLUCOSAMINE) 1,000 Mg Tablet, 500 MG PO BID for joint pain, TAB 08/05/18 Oxybutynin Chloride (OXYBUTYNIN CHLORIDE) 5 Mg Tablet, 5 MG PO TID for bladder spasms, TAB 08/05/18 Latanoprost (LATANOPROST) 2.5 Ml Drops, 1 DROP EACHEYE QHS for glaucoma, #7.5 ML 3 Refills 08/05/18 Clonidine Hcl (CLONIDINE HCL) 0.1 Mg Tablet, 0.1 MG PO TID for hypertension, TAB 08/05/18 Polyethylene Glycol 3350 (MIRALAX) 17 Gm Powd.pack, 1 PKT PO DAILY, PKT 08/26/17 Calcium Carbonate/Vitamin D3 (CALCIUM 500 + D TABLET) 1 Each Tablet, 1 EACH PO BID, TAB 08/26/17 Diltiazem Hcl (DILTIAZEM 24HR CD) 240 Mg Cap.er.24h, 240 MG PO DAILY, CAP.SR 08/26/17 Lisinopril (LISINOPRIL) 40 Mg Tablet, 1 TAB PO DAILY, #30 TAB 5 Refills 08/26/17 Tiotropium [place] (SPIRIVA) 18 Mcg Cap.w.dev, 1 CAP IH DAILY, #30 CAP 3 Refills 08/26/17 Mirtazapine (MIRTAZAPINE) 15 Mg Tablet, 0.5 TAB PO QHS, #30 TAB 3 Refills 06/01/16 Aspirin (ASPIR 81) 81 Mg Tablet.dr, 1 TAB PO DAILY, #30 TAB 5 Refills 04/05/15 Pravastatin Sodium (PRAVASTATIN SODIUM) 80 Mg Tablet, 80 MG PO HS, TAB 02/16/15 Metoprolol Succinate (TOPROL XL) 50 Mg Tab.er.24h, 50 MG PO HS for FOR HYPERTENSION, #30 TAB 02/16/15 Albuterol Sulfate (PROAIR HFA INHALER) 8.5 Gm Hfa.aer.ad, 2 PUFF INH PRN Q6HRS PRN for SHORTNESS OF BREATH, INHALER 0 Refills 11/21/13 SADIQ MAURICE III DO May 10, 2019 11:12
--- NOTE | 2019-05-10 11:17 | PDOC ---
[employer] PROGRESS NOTE Chief Complaint Chief Complaint Abdominal pain nausea vomiting diarrhea COPD and she wears oxygen at home GERD glaucoma hyperlipidemia coronary disease hypertension UTIs arthritis colon cancer chemotherapy hernia repair spinal surgery carotid stenosis with surgical repair hysterectomy pacemaker breast cyst colonoscopies History of Present Illness History of Present Illness 05/07 Pt seen and examined Pt resting comfortably DWRN 05/08/19 Pt seen and examined by me Resting comfortably DW RN Chart reviewed 05/09 Pt seen and examined Pt resting comfortably DWRN Chart reviewed\ 05/10/19 Pt seen and examined by me Pt sitting in chair comfortably DW RN Chart reviewed Vitals/I&O Vitals/I&O: Vital Signs Date Time Temp Pulse Resp B/P (MAP) Pulse Ox O2 Delivery O2 Flow Rate FiO2 05/10/19 08:28 96 Nasal Cannula 2.0 05/10/19 08:08 78 135/88 05/10/19 07:00 97.8 16 97.8 I & O 05/09/19 05/09/19 05/10/19 15:00 23:00 07:00 Intake Total 240 ml Balance 240 ml Physical Exam General: Alert, Cooperative Heart: Regular rate, Normal S1, Normal S2 Lungs: Other (deminished) Abdomen: Soft, No tenderness Extremities: No clubbing, Other (arthritic changes) Skin: No rashes, Other (warm, dry) Review of Systems Review of Systems: (-) CP, SOB Assessment and Plan Assessmemt and Plan Problems Medical Problems: (1) Colonic obstruction Status: Acute (2) COPD (chronic obstructive pulmonary disease) Status: Acute glaucoma hyperlipidemia coronary disease hypertension UTIs arthritis colon cancer chemotherapy hernia repair spinal surgery carotid stenosis with surgical repair hysterectomy pacemaker breast cyst colonoscopies Plan: diet advanced D/c home with home health home meds dvt ppx full code Comment Review of Relevant I have reviewed the following items forest (where applicable) has been applied. SADIQ MAURICE III DO May 10, 2019 11:17
--- NOTE | 2019-05-10 11:22 | NUR ---
SW following. Chart reviewed, discussed with RN. Pt is discharging home today with home health. SW left voicemail for pt's nephew, Aung requesting call back. KO met with pt, she does not have a preference as to which agency, and would like Rosalba from [facility] to come meet with her prior to discharging. SW notified Rosalba. KO will continue to follow.
--- NOTE | 2019-05-10 11:44 | PDOC ---
PULMONARY PROGRESS NOTES Subjective on , no sob, cough, Vitals Vital Signs Date Time Temp Pulse Resp B/P (MAP) Pulse Ox O2 Delivery O2 Flow Rate FiO2 05/10/19 11:00 98.1 92 16 189/85 (119) 95 Room Air 98.1 05/10/19 08:28 2.0 ROS: No Nausea, No Chest Pain General: Alert, No acute distress HEENT: Other (nc at perrl ) Lungs: Other (deminished) Cardiovascular: S1, S2 Abdomen: Soft, Non-tender Neuro Exam: Alert Extremities: No Edema Skin: Warm Labs Laboratory Tests Test 05/09/19 03:45 Sodium Level 136 mmol/L (136-145) Potassium Level 3.2 mmol/L (3.5-5.1) Chloride Level 102 mmol/L (98-107) Carbon Dioxide Level 31 mmol/L (21-32) Anion Gap 3 (6-14) Blood Urea Nitrogen 11 mg/dL (7-20) Creatinine 0.6 mg/dL (0.6-1.0) Estimated GFR (Cockcroft-Gault) 94.3 Glucose Level 103 mg/dL (70-99) Calcium Level 8.6 mg/dL (8.5-10.1) Medications Active Scripts Medications Dose Route/Sig Max Daily Dose Days Date Category Dose Instructions Zofran (Ondansetron Hcl) 4 Mg Tablet 1 Tab PO Q6HRS PRN 12/11/18 Rx Bactrim Ds Tablet (Sulfamethoxazole/Trimethoprim) 1 Each Tablet 1 Tab PO BID 12/11/18 Rx Keflex (Cephalexin) 500 Mg Capsule 2 Cap PO BID 3 09/29/18 Rx Acetaminophen 500 Mg Tablet 2 Tab PO PRN Q6HRS PRN 08/05/18 Reported Prednisone (Prednisone) 10 Mg Tablet 5 Mg PO DAILY 08/05/18 Reported Glucosamine (Glucosamine Sulfate 2KCL) 1,000 Mg Tablet 500 Mg PO BID 08/05/18 Reported Oxybutynin Chloride 5 Mg Tablet 5 Mg PO TID 08/05/18 Reported Latanoprost 2.5 Ml Drops 1 Drop EACHEYE QHS 08/05/18 Reported Clonidine Hcl 0.1 Mg Tablet 0.1 Mg PO TID 08/05/18 Reported Nexium Capsule (Esomeprazole Magnesium) 20 Mg Capsule.dr 1 Cap PO DAILY 09/28/17 Rx OTC. Symbicort 160-4.5 Mcg Inhaler (Budesonide/Formoterol Fumarate) 10.2 Gm Hfa.aer.ad 2 Puff IH BID 09/28/17 Rx Miralax (Polyethylene Glycol 3350) 17 Gm Powd.pack 1 Pkt PO DAILY 08/26/17 Reported Calcium 500 + D Tablet (Calcium Carbonate/Vitamin D3) 1 Each Tablet 1 Each PO BID 08/26/17 Reported Diltiazem 24HR Cd (Diltiazem Hcl) 240 Mg Cap.er.24h 240 Mg PO DAILY 08/26/17 Reported Lisinopril 40 Mg Tablet 1 Tab PO DAILY 08/26/17 Reported Spiriva (Tiotropium [place]) 18 Mcg Cap.w.dev 1 Cap IH DAILY 08/26/17 Reported Mirtazapine 15 Mg Tablet 0.5 Tab PO QHS 06/01/16 Reported Aspir 81 (Aspirin) 81 Mg Tablet.dr 1 Tab PO DAILY 04/05/15 Reported Pravastatin Sodium 80 Mg Tablet 80 Mg PO HS 02/16/15 Reported Toprol Xl (Metoprolol Succinate) 50 Mg Tab.er.24h 50 Mg PO HS 02/16/15 Reported Proair Hfa Inhaler (Albuterol Sulfate) 8.5 Gm Hfa.aer.ad 2 Puff INH PRN Q6HRS PRN 11/21/13 Reported Impression . IMPRESSION: 1. Chronic respiratory failure. 2. Chronic obstructive pulmonary disease. 3. Colonic obstruction. 4. History of colon cancer. 5. Ex-smoker. 6. Hypertension. Plan . PLAN AND RECOMMENDATIONS: 1. Titrate FiO2 to keep O2 saturation 92%. 2. cont bronchodilator. 3. Surgery rec, diet advanced 4. Protonix for stress ulcer prophylaxis. 5. SCDs. 6. Nebs dc plans per surgery discussed w patient and RN. SURAJ NAVA MD May 10, 2019 11:44
--- NOTE | 2019-05-10 13:18 | NUR ---
Discharge Note: GLO GALAN [address] Discharge instructions and discharge home medications reviewed with Patient and a copy given. All questions have been answered and understanding verbalized. The following instructions and handouts were given: Diet, activity, medication list and follow up instructions provided to patient. Patient given prescription for [place] [employer]. Home health arranged through social media marketing manager. Discontinued lines and drains: Peripheral IV discontinued and catheter intact. Patient discharged to Home w/services with Family Member via Wheelchair
--- NOTE | 2019-05-15 09:24 | DS ---
DATE OF DISCHARGE: 05/10/2019 ADMISSION DIAGNOSES: Small-bowel obstruction and chronic obstructive pulmonary disease. DISCHARGE DIAGNOSES: Resolving small-bowel obstruction, resolving chronic obstructive pulmonary disease. HOSPITAL COURSE: The patient is a pleasant 89-year-old female who presented with a small-bowel obstruction. She also has underlying COPD. She was admitted. We consulted General Surgery and GI, gave her bowel rest, checked serial imagings, and over the next day or 2 her symptoms resolved. We were able to advance her diet. We discharged to home with home health. DISPOSITION: Home with home health. ACTIVITY: As tolerated. DIET: Low sodium. MEDICATIONS: Please see the MRAD. TOTAL TIME: 32 minutes. SADIQ MAURICE DO DR: THIEN/panda JOB#: [id number] / [id number]
== END 2019-05-10 13:15 | disposition home health service (06) | DRG 191 ==
LOC: ER 17:09 → 4 NORTH 22:14
PROVIDERS: ADMIT Family Medicine; ATTEND Family Medicine
DX: J44.1 Chronic obstructive pulmonary disease with (acute) exacerbation (principal); K56.609 Unspecified intestinal obstruction, unspecified as to partial versus complete obstruction; C18.9 Malignant neoplasm of colon, unspecified; J96.10 Chronic respiratory failure, unspecified whether with hypoxia or hypercapnia; E46 Unspecified protein-calorie malnutrition; Z68.1 Body mass index [BMI] 19.9 or less, adult; K56.7 Ileus, unspecified; E78.00 Pure hypercholesterolemia, unspecified; E78.5 Hyperlipidemia, unspecified; H40.9 Unspecified glaucoma; I10 Essential (primary) hypertension; K21.9 Gastro-esophageal reflux disease without esophagitis; N60.09 Solitary cyst of unspecified breast; K57.90 Diverticulosis of intestine, part unspecified, without perforation or abscess without bleeding; M19.90 Unspecified osteoarthritis, unspecified site; Z80.0 Family history of malignant neoplasm of digestive organs; Z82.49 Family history of ischemic heart disease and other diseases of the circulatory system; Z90.710 Acquired absence of both cervix and uterus; Z85.038 Personal history of other malignant neoplasm of large intestine; Z87.891 Personal history of nicotine dependence; Z99.81 Dependence on supplemental oxygen; F41.9 Anxiety disorder, unspecified; Z87.440 Personal history of urinary (tract) infections
CPT/HCPCS: 36415; 74018; 74177; 80048; 80053; 83605; 83690; 84484; 85007; 85025; 93005; 94640; 94760; 96360; J1940; J2060; J2270; J3490; J7030; J7620; Q9967; 97110; 97116; 97530; 97535; 99285-25; G0378

== ENCOUNTER 2020-06-16 18:00 | Inpatient (IN) | payer BC ==
[~2020-06-16] VITALS: Ht 160 cm; Wt 52.2 kg
[~2020-06-16 18:00] MED LIST changes: -CALC600T4 PO; +CALC600T60 PO; +CEFU250T59 PO; +HYDR-2867 PO; +LABE200T4 PO; +LISI10TA16 PO; -LISI10TA2 PO; +MIRT-7 PO; -MIRT15TA3 PO; -OXYB10TA2 PO; +OXYB10TA26 PO; +POTA20TA4 PO
--- NOTE | 2020-06-16 18:40 | PHYS DOC ---
Past Medical History Past Medical History: COPD, Hypertension Additional Past Medical Histor: Colon CA,L)hernia,chemotherapy,home oxygen,SPINAL/CAROTID STENOSIS Past Surgical History: Pacemaker Additional Past Surgical Histo: Colonoscopy,Breast cysts removed bilaterally, pacemaker Smoking Status: Former Smoker Alcohol Use: None Drug Use: None General Adult EDM: Chief Complaint: ABDOMINAL PAIN HPI: HPI: Patient is a 89 year old female past medical history of COPD hypertension on 3 L nasal cannula baseline presents with a chief complaint of abdominal discomfort. Patient with a history of dementia she is A/O x1. Patient states she feels as if her abdomen is going to explode. She has past medical history of small bowel obstruction. On exam patient's abdoment appears to be distended--- Tender to palpation. No associated nausea vomiting or diarrhea. Review of Systems: Review of Systems: Unable to obtain due to dementia Heart Score: Risk Factors: Risk Factors: DM, Current or recent (<one month) smoker, HTN, HLP, family history of CAD, obesity. Risk Scores: Score 0 - 3: 2.5% MACE over next 6 weeks - Discharge Home Score 4 - 6: 20.3% MACE over next 6 weeks - Admit for Clinical Observation Score 7 - 10: 72.7% MACE over next 6 weeks - Early Invasive Strategies Allergies: Allergies: Allergies Coded Allergies Type Severity Reaction Last Updated Verified No Known Drug Allergies 08/19/15 No Physical Exam: PE: Constitutional: Well developed, well nourished, no acute distress, non-toxic appearance. [] HENT: Normocephalic, atraumatic, bilateral external ears normal, oropharynx moist, no oral exudates, nose normal. [] Eyes:, EOMI, conjunctiva normal, no discharge. [] Neck: Normal range of motion, no tenderness, supple, no stridor. [] Cardiovascular:Heart rate regular rhythm, no murmur [] Lungs & Thorax: Bilateral breath sounds clear to auscultation [] Abdomen:, positive tenderness, distention abdomen, no masses, no pulsatile masses. [] Skin: Warm, dry, no erythema, no rash. [] Back: No tenderness, no CVA tenderness. [] Extremities: No tenderness, no cyanosis, no clubbing, ROM intact, no edema. [] Neurologic: Alert and oriented X x1, normal motor function, normal sensory function, no focal deficits noted. [Hard of hearing] Psychologic: Affect normal, judgement normal, mood normal. [] Current Patient Data: Vital Signs: Vital Signs Date Time Temp Pulse Resp B/P (MAP) Pulse Ox O2 Delivery O2 Flow Rate FiO2 06/16/20 18:04 98.5 87 24 198/96 (130) 96 Nasal Cannula 3.0 98.5 EKG: EKG: [] Radiology/Procedures: Radiology/Procedures: [] Impression: FINDINGS: Heart size is normal. No pericardial effusion. Moderate-sized hiatal hernia. Strandy opacities at dependent portion lungs likely representing atelectasis. Liver, spleen, pancreas, gallbladder and adrenals are unremarkable. No perinephric inflammation or hydronephrosis. No renal or ureteral calculi are identified. Bladder is decompressed not well evaluated. Uterus is absent. No abnormal adnexal mass. Diverticulosis is noted at the sigmoid colon. There is a large amount of stool noted in the descending and transverse colon. There is abrupt transition to decompressed bowel at the ascending colon seen on series 2 image 55. The cecum is dilated and there are numerous dilated loops of small bowel throughout the abdomen. Abdominal aorta has a normal course and caliber. No enlarged abdominal lymph nodes are identified. Abdominal vasculature is patent. No suspicious osseous lesions or acute fractures. IMPRESSION: Examination is limited secondary to the degree of bowel dilatation. Overall findings are suspicious for obstruction however a distinct transition point is not definitively identified. Question possible transition point in the ascending colon in the right lower quadrant series 2 image 56. Colonic obstruction versus closed-loop obstruction is suspected. Continued follow-up imaging is recom mended, preferably with oral contrast. Course & Med Decision Making: Course & Med Decision Making Pertinent Labs and Imaging studies reviewed. (See chart for details) [] After exam Morales catheter ordered. Patient had approximately [address] imaging consistent with a small bowel obstruction. NG tube was ordered and placed by nursing. Patient admitted to the hospitalist with general surgery consult. Julieta Disclaimer: Julieta Disclaimer: This electronic medical record was generated, in whole or in part, using a voice recognition dictation system. Departure Departure Impression: Primary Impression: SBO (small bowel obstruction) Disposition: 09 ADMITTED INPT THIS HOSP Admitting Physician: ALONSO Condition: STABLE Referrals: IAN BLAKE MD (PCP) BC BENITEZ DO Jun 16, 2020 18:40
[2020-06-16 18:49] LABS: BASO % 0 % (0-3); EOS % 0 % (0-3); HEMATOCRIT 41.9 % (36.0-47.0); HEMOGLOBIN 13.9 g/dL (12.0-15.5); LYMPH # 0.8 x10^3/uL (1.0-4.8); LYMPH % 6 % (24-48); MEAN CORPUSCULAR HEMOGLOBIN 32 pg (25-35); MEAN CORPUSCULAR HGB CONC 33 g/dL (31-37); MEAN CORPUSCULAR VOLUME 96 fL (79-100); MONO # 0.5 x10^3/uL (0.0-1.1); MONO % 4 % (0-9); NEUT % 89 % (31-73); PLATELET COUNT 271 x10^3/uL (140-400); RED BLOOD COUNT 4.37 x10^6/uL (3.50-5.40); RED CELL DISTRIBUTION WIDTH 15.7 % (11.5-14.5); WHITE BLOOD COUNT 12.3 x10^3/uL (4.0-11.0)
[2020-06-16 19:09] LABS: CALCIUM 9.5 mg/dL (8.5-10.1); CREATININE 0.7 mg/dL (0.6-1.0); GFR 78.8; POTASSIUM 4.7 mmol/L (3.5-5.1)
[2020-06-16 19:13] LABS: ALBUMIN 3.7 g/dL (3.4-5.0); ALBUMIN/GLOBULIN RATIO 1.2 (1.0-1.7); TOTAL BILIRUBIN 0.3 mg/dL (0.2-1.0); TOTAL PROTEIN 6.7 g/dL (6.4-8.2)
[2020-06-16] MEDS ORDERED: IOHEXOL 300 MG/ML 100ML VIAL. IV ONE (19:15)
[2020-06-16] MEDS ORDERED: CONTRAST GIVEN. MC PRN (19:30)
[2020-06-16 19:42] LABS: % BANDS 5 % (0-9); % EOS 1 % (0-5); % LYMPHS 6 % (24-48); % MONOS 5 % (0-10); % SEGS 83 % (35-66); PLT ESTIMATE ADEQUATE (ADEQUATE); POIKILOCYTOSIS SLIGHT
[2020-06-16 20:06] LABS: BILIRUBIN,URINE NEGATIVE (NEG); CLARITY,URINE CLEAR; COLOR,URINE YELLOW; NITRITE,URINE NEGATIVE (NEG); PH,URINE 7.5 (<5.0-8.0); PROTEIN,URINE NEGATIVE (NEG-TRACE); UROBILINOGEN,URINE 0.2 mg/dL (0.2 mg/dL)
--- NOTE | 2020-06-16 20:06 | RAD ---
Exam: CT of abdomen and pelvis INDICATION: Abdominal pain TECHNIQUE: Sequential axial images through the abdomen and pelvis obtained following the administrati on of 75 mL of Isovue-370 IV contrast. Sagittal and coronal reformatted images were reconstructed fro m the axial data and reviewed. Comparisons: 05/09/2020 FINDINGS: Heart size is normal. No pericardial effusion. Moderate-sized hiatal hernia. Strandy opacities at dep endent portion lungs likely representing atelectasis. Liver, spleen, pancreas, gallbladder and adrenals are unremarkable. No perinephric inflammation or hydronephrosis. No renal or ureteral calculi are identified. Bladder is decompressed not well evaluated. Uterus is absent. No abnormal adnexal mass. Diverticulosis is noted at the sigmoid colon. There is a large amount of stool noted in the descendin g and transverse colon. There is abrupt transition to decompressed bowel at the ascending colon seen on series 2 image 55. The cecum is dilated and there are numerous dilated loops of small bowel throug hout the abdomen. Abdominal aorta has a normal course and caliber. No enlarged abdominal lymph nodes are identified. Ab dominal vasculature is patent. No suspicious osseous lesions or acute fractures. IMPRESSION: Examination is limited secondary to the degree of bowel dilatation. Overall findings are suspicious f or obstruction however a distinct transition point is not definitively identified. Question possible transition point in the ascending colon in the right lower quadrant series 2 image 56. Colonic obstru ction versus closed-loop obstruction is suspected. Continued follow-up imaging is recommended, prefer ably with oral contrast. Exposure: One or more of the following in the visualized dose reduction techniques were utilized for this examination: 1. Automated exposure control 2. Adjustment of the MA and/or KV according to patient size 3. Use of iterative of reconstructive technique Electronically signed by: Maycol Jackson MD (06/16/2020 8:03 PM) [facility]
[2020-06-16 20:15] LABS: BACTERIA,URINE 0 /HPF (0-FEW); RBC,URINE 0 /HPF (0-2); WBC,URINE OCC /HPF (0-4)
[2020-06-16] MEDS ORDERED: ONDANSETRON PF 4 MG/2 ML VIAL. ONE (20:25)
[2020-06-16] MEDS ORDERED: LIDOCAINE/PRILOCAINE TOPICAL CREAM 5GM TUBE. TP ONE (20:30)
[2020-06-16] MEDS ORDERED: MORPHINE SULFATE 2 MG/ML VIAL. IV ONE (20:30)
[2020-06-16] MEDS ORDERED: ONDANSETRON PF 4 MG/2 ML VIAL. IV PRN (20:30)
[2020-06-16] MEDS ORDERED: IV NORMAL SALINE 1000ML BAG 1,000 ML IV ONE (20:30)
--- NOTE | 2020-06-16 21:20 | RAD ---
Exam: Abdomen one view INDICATION: NG placement TECHNIQUE: Frontal view of the chest Comparisons: CT same day FINDINGS: Enteric tube with tip at the mid/lower esophagus. Pacer with leads terminating the right atrium and v entricle. The cardiomediastinal silhouette and pulmonary vessels are within normal limits. The lung and pleural spaces are clear. IMPRESSION: Enteric tube with tip at the distal esophagus. Recommend advancing. Electronically signed by: Maycol Jackson MD (06/16/2020 9:18 PM) JOHNNY
--- NOTE | 2020-06-16 22:01 | RAD ---
Exam: Abdomen one view INDICATION: NG placement TECHNIQUE: Frontal view of the abdomen Comparisons: None FINDINGS: Enteric tube with tip in the midabdomen likely within the distal stomach. Visualized bowel gas pattern is nonobstructive. IMPRESSION: Enteric tube with tip likely at the distal stomach. Electronically signed by: Maycol Jackson MD (06/16/2020 9:58 PM) JOHNNY
[2020-06-16 23:30] VITALS: BP 210/93
--- NOTE | 2020-06-16 23:45 | NUR ---
ADMISSION NOTE: Patient arrived to room 510 via gurney. Accompanied by ED staff. Bed low, locked, call light within reach. NG tube present to Joe hitchcock. Patient has no complaints at this time. Will continue to monitor.
[2020-06-17] VITALS (10 sets, daily range): BP systolic 99–216; BP diastolic 66–97
[2020-06-17] MEDS ORDERED: LABETALOL 20 MG/4 ML DISP.SYRIN. IVP ONE
[2020-06-17] MEDS: MORPHINE SULFATE 2 MG/ML VIAL. IV PRN ×2 (03:13→13:17)
--- NOTE | 2020-06-17 03:17 | NUR ---
150mL of benito/grove liquid noted in suction canister. Somewhat frothy layer on top.
--- NOTE | 2020-06-17 08:33 | PDOC1 ---
History and Physical Date of Admission Date of Admission 06/17/2020 Identification/Chief Complaint Chief Complaint Abdominal pain Source Source: Caregiver, Chart review History of Present Illness History of Present Illness Patient is an 89-year-old female who had a similar presentation on 05/10/2020. Patient has history of dementia COPD hypertension and has history of colon cancer who presented again with abdominal discomfort sudden onset lower abdominal pain no radiation to the back not to the epigastrium nor the right upper quadrant. The patient does not remember if he had a bowel movement. Patient when she was evaluated in the emergency department seem to be in very acute distress, at the time of my evaluation she is in no acute distress her pain level seems to be at 0. The patient has been seen by surgery at the time of my visit and small bowel series has been ordered since they seem to have been the answer on her last hospital stay. In her last hospital stay and we discussed with certified surgical assistant that intervening on the patient would not be appropriate given the risk and they would certainly outweighed the benefit in this case. Patient's healthcare surrogate is her nephew and I have discussed the case with him at length at bedside. All of their concerns were addressed to the best my abilities ER history is as follows: Past Medical History Past Medical History: COPD, Hypertension Additional Past Medical Histor: Colon CA,L)hernia,chemotherapy,home oxygen,SPINAL/CAROTID STENOSIS Past Surgical History: Pacemaker Additional Past Surgical Histo: Colonoscopy,Breast cysts removed bilaterally, pacemaker Smoking Status: Former Smoker Alcohol Use: None Drug Use: None General Adult EDM: Chief Complaint: ABDOMINAL PAIN HPI: HPI: Patient is a 89 year old female past medical history of COPD hypertension on 3 L nasal cannula baseline presents with a chief complaint of abdominal dis comfort. Patient with a history of dementia she is A/O x1. Patient states she feels as if her abdomen is going to explode. She has past medical history of small bowel obstruction. On exam patient's abdoment appears to be distended--- Tender to palpation. No associated nausea vomiting or diarrhea. Past Medical History Cardiovascular: HTN, Syncope, Hyperlipidemia, Other Pulmonary: COPD CENTRAL NERVOUS SYSTEM: Other GI: Constipation, GERD Heme/Onc: Cancer Hepatobiliary: No pertinent hx Psych: Anxiety Rheumatologic: No pertinent hx Infectious disease: No pertinent hx Renal/: Urinary Incontinence Endocrine: Osteopenia, Other Past Surgical History Past Surgical History: Pacemaker, Hysterectomy, Colectomy, Other Family History Family History: No Significant Social History ALCOHOL: none Drugs: None Current Medications Current Medications Current Medications Medications (Trade) Dose Ordered Sig/Shu Start Time Stop Time Status Last Admin Dose Admin Info (CONTRAST GIVEN -- Rx MONITORING) 1 each PRN DAILY PRN 06/16/20 19:30 06/18/20 19:29 Iohexol (Omnipaque 300 Mg/ml) 75 ml 1X ONCE 06/16/20 19:15 06/16/20 19:16 DC 06/16/20 19:28 75 ML Labetalol HCl (Normodyne Iv Push) 20 mg 1X ONCE 06/17/20 00:00 06/17/20 00:01 DC 06/17/20 00:29 20 MG Lidocaine/ Prilocaine (Emla) 1 shraddha 1X ONCE 06/16/20 20:30 06/16/20 20:31 Cancel Morphine Sulfate (Morphine Sulfate) 2 mg 1X ONCE 06/16/20 20:30 06/16/20 20:31 DC 06/16/20 20:28 2 MG Ondansetron HCl (Zofran) 4 mg STK-MED ONCE 06/16/20 20:25 06/16/20 20:25 DC Sodium Chloride 1,000 ml @ 1,000 mls/hr 1X ONCE 06/16/20 20:30 06/16/20 21:29 DC 06/16/20 20:28 1,000 MLS/HR Allergies Allergies Allergies Coded Allergies Type Severity Reaction Last Updated Verified No Known Drug Allergies 08/19/15 No ROS Review of System CONSTITUTIONAL: No fever or chills EYES: No recent changes SKIN: No rash or itching CARDIOVASCULAR: No chest pain, syncope, palpitations, or edema RESPIRATORY: No SOB or cough GASTROINTESTINAL: No nausea, vomiting or abdominal pain NEUROLOGICAL: No headaches or weakness ENDOCRINE: No cold or heat intolerance GENITOURINARY: No urgency or frequency of urination MUSCULOSKELETAL: No back pain or joint pain LYMPHATICS: No enlarged lymph nodes PSYCHIATRIC: No anxiety or depression Physical Exam Physical Exam GEN.: No apparent distress. Alert and oriented. HEENT: Head is normocephalic, atraumatic NECK: Supple. LUNGS: Clear to auscultation. HEART: RRR, S1, S2 present. Peripheral pulses intact ABDOMEN: Soft, nontender. Positive bowel sounds. EXTREMITIES: Without any cyanosis. NEUROLOGIC: Normal speech, normal tone PSYCHIATRIC: Normal affect, normal mood. SKIN: No ulcerations Vitals Vitals Vital Signs Date Time Temp Pulse Resp B/P (MAP) Pulse Ox O2 Delivery O2 Flow Rate FiO2 06/17/20 03:59 68 167/72 (103) 06/17/20 03:52 92 Nasal Cannula 3.0 06/17/20 03:13 15 06/17/20 03:00 97.9 97.9 Labs Labs Laboratory Tests Test 06/16/20 18:40 06/16/20 19:55 06/16/20 21:33 White Blood Count 12.3 x10^3/uL (4.0-11.0) Red Blood Count 4.37 x10^6/uL (3.50-5.40) Hemoglobin 13.9 g/dL (12.0-15.5) Hematocrit 41.9 % (36.0-47.0) Mean Corpuscular Volume 96 fL (79-100) Mean Corpuscular Hemoglobin 32 pg (25-35) Mean Corpuscular Hemoglobin Concent 33 g/dL (31-37) Red Cell Distribution Width 15.7 % (11.5-14.5) Platelet Count 271 x10^3/uL (140-400) Neutrophils (%) (Auto) 89 % (31-73) Lymphocytes (%) (Auto) 6 % (24-48) Monocytes (%) (Auto) 4 % (0-9) Eosinophils (%) (Auto) 0 % (0-3) Basophils (%) (Auto) 0 % (0-3) Neutrophils # (Auto) 11.0 x10^3/uL (1.8-7.7) Lymphocytes # (Auto) 0.8 x10^3/uL (1.0-4.8) Monocytes # (Auto) 0.5 x10^3/uL (0.0-1.1) Eosinophils # (Auto) 0.0 x10^3/uL (0.0-0.7) Basophils # (Auto) 0.0 x10^3/uL (0.0-0.2) Segmented Neutrophils % 83 % (35-66) Band Neutrophils % 5 % (0-9) Lymphocytes % 6 % (24-48) Monocytes % 5 % (0-10) Eosinophils % 1 % (0-5) Platelet Estimate Adequate (ADEQUATE) Poikilocytosis Slight Sodium Level 141 mmol/L (136-145) Potassium Level 4.7 mmol/L (3.5-5.1) Chloride Level 105 mmol/L (98-107) Carbon Dioxide Level 25 mmol/L (21-32) Anion Gap 11 (6-14) Blood Urea Nitrogen 14 mg/dL (7-20) Creatinine 0.7 mg/dL (0.6-1.0) Estimated GFR (Cockcroft-Gault) 78.8 BUN/Creatinine Ratio 20 (6-20) Glucose Level 155 mg/dL (70-99) Calcium Level 9.5 mg/dL (8.5-10.1) Total Bilirubin 0.3 mg/dL (0.2-1.0) Aspartate Amino Transf (AST/SGOT) 19 U/L (15-37) Alanine Aminotransferase (ALT/SGPT) 21 U/L (14-59) Alkaline Phosphatase 78 U/L (46-116) Total Protein 6.7 g/dL (6.4-8.2) Albumin 3.7 g/dL (3.4-5.0) Albumin/Globulin Ratio 1.2 (1.0-1.7) Lipase 103 U/L (73-393) Urine Collection Type Unknown Urine Color Yellow Urine Clarity Clear Urine pH 7.5 (<5.0-8.0) Urine Specific [place] 1.020 (1.000-1.030) Urine Protein Negative mg/dL (NEG-TRACE) Urine Glucose (UA) Negative mg/dL (NEG) Urine Ketones (Stick) Negative mg/dL (NEG) Urine Blood Negative (NEG) Urine Nitrite Negative (NEG) Urine Bilirubin Negative (NEG) Urine Urobilinogen Dipstick 0.2 mg/dL (0.2 mg/dL) Urine Leukocyte Esterase Negative (NEG) Urine RBC 0 /HPF (0-2) Urine WBC Occ /HPF (0-4) Urine Bacteria 0 /HPF (0-FEW) Lactic Acid Level 1.0 mmol/L (0.4-2.0) Laboratory Tests Test 06/16/20 18:40 06/16/20 19:55 06/16/20 21:33 White Blood Count 12.3 x10^3/uL (4.0-11.0) Red Blood Count 4.37 x10^6/uL (3.50-5.40) Hemoglobin 13.9 g/dL (12.0-15.5) Hematocrit 41.9 % (36.0-47.0) Mean Corpuscular Volume 96 fL (79-100) Mean Corpuscular Hemoglobin 32 pg (25-35) Mean Corpuscular Hemoglobin Concent 33 g/dL (31-37) Red Cell Distribution Width 15.7 % (11.5-14.5) Platelet Count 271 x10^3/uL (140-400) Neutrophils (%) (Auto) 89 % (31-73) Lymphocytes (%) (Auto) 6 % (24-48) Monocytes (%) (Auto) 4 % (0-9) Eosinophils (%) (Auto) 0 % (0-3) Basophils (%) (Auto) 0 % (0-3) Neutrophils # (Auto) 11.0 x10^3/uL (1.8-7.7) Lymphocytes # (Auto) 0.8 x10^3/uL (1.0-4.8) Monocytes # (Auto) 0.5 x10^3/uL (0.0-1.1) Eosinophils # (Auto) 0.0 x10^3/uL (0.0-0.7) Basophils # (Auto) 0.0 x10^3/uL (0.0-0.2) Segmented Neutrophils % 83 % (35-66) Band Neutrophils % 5 % (0-9) Lymphocytes % 6 % (24-48) Monocytes % 5 % (0-10) Eosinophils % 1 % (0-5) Platelet Estimate Adequate (ADEQUATE) Poikilocytosis Slight Sodium Level 141 mmol/L (136-145) Potassium Level 4.7 mmol/L (3.5-5.1) Chloride Level 105 mmol/L (98-107) Carbon Dioxide Level 25 mmol/L (21-32) Anion Gap 11 (6-14) Blood Urea Nitrogen 14 mg/dL (7-20) Creatinine 0.7 mg/dL (0.6-1.0) Estimated GFR (Cockcroft-Gault) 78.8 BUN/Creatinine Ratio 20 (6-20) Glucose Level 155 mg/dL (70-99) Calcium Level 9.5 mg/dL (8.5-10.1) Total Bilirubin 0.3 mg/dL (0.2-1.0) Aspartate Amino Transf (AST/SGOT) 19 U/L (15-37) Alanine Aminotransferase (ALT/SGPT) 21 U/L (14-59) Alkaline Phosphatase 78 U/L (46-116) Total Protein 6.7 g/dL (6.4-8.2) Albumin 3.7 g/dL (3.4-5.0) Albumin/Globulin Ratio 1.2 (1.0-1.7) Lipase 103 U/L (73-393) Urine Collection Type Unknown Urine Color Yellow Urine Clarity Clear Urine pH 7.5 (<5.0-8.0) Urine Specific [place] 1.020 (1.000-1.030) Urine Protein Negative mg/dL (NEG-TRACE) Urine Glucose (UA) Negative mg/dL (NEG) Urine Ketones (Stick) Negative mg/dL (NEG) Urine Blood Negative (NEG) Urine Nitrite Negative (NEG) Urine Bilirubin Negative (NEG) Urine Urobilinogen Dipstick 0.2 mg/dL (0.2 mg/dL) Urine Leukocyte Esterase Negative (NEG) Urine RBC 0 /HPF (0-2) Urine WBC Occ /HPF (0-4) Urine Bacteria 0 /HPF (0-FEW) Lactic Acid Level 1.0 mmol/L (0.4-2.0) Images Images IMAGING REPORT Signed PATIENT: GLO GALAN ACCOUNT: [id number] : 1930 LOCATION: ER AGE: 89 SEX: F EXAM STATUS: REG ER ORD. PHYSICIAN: BC BENITEZ DO REASON: abd pain abd distension, OMNI 300, 75 ML IV PROCEDURE: CT ABD PELV W/ IV CONTRST ONLY Exam: CT of abdomen and pelvis INDICATION: Abdominal pain TECHNIQUE: Sequential axial images through the abdomen and pelvis obtained following the administration of 75 mL of Isovue-370 IV contrast. Sagittal and coronal reformatted images were reconstructed from the axial data and reviewed. Comparisons: 05/09/2020 FINDINGS: Heart size is normal. No pericardial effusion. Moderate-sized hiatal hernia. Strandy opacities at dependent portion lungs likely representing atelectasis. Liver, spleen, pancreas, gallbladder and adrenals are unremarkable. No perinephric inflammation or hydronephrosis. No renal or ureteral calculi are identified. Bladder is decompressed not well evaluated. Uterus is absent. No abnormal adnexal mass. Diverticulosis is noted at the sigmoid colon. There is a large amount of stool noted in the descending and transverse colon. There is abrupt transition to decompressed bowel at the ascending colon seen on series 2 image 55. The cecum is dilated and there are numerous dilated loops of small bowel throughout the abdomen. Abdominal aorta has a normal course and caliber. No enlarged abdominal lymph nodes are identified. Abdominal vasculature is patent. No suspicious osseous lesions or acute fractures. IMPRESSION: Examination is limited secondary to the degree of bowel dilatation. Overall findings are suspicious for obstruction however a distinct transition point is not definitively identified. Question possible transition point in the ascending colon in the right lower quadrant series 2 image 56. Colonic obstruction versus closed-loop obstruction is suspected. Continued follow-up imaging is recommended, preferably with oral contrast. Exposure: One or more of the following in the visualized dose reduction techniques were utilized for this examination: 1. Automated exposure control 2. Adjustment of the MA and/or KV according to patient size 3. Use of iterative of reconstructive technique Electronically signed by: Maycol García MD (06/16/2020 8:03 PM) [facility] DICTATED and SIGNED BY: MAYCOL GARCÍA MD DATE: 06/16/20 [id number] VTE Prophylaxis Ordered VTE Prophylaxis Devices: No VTE Pharmacological Prophylaxi: Yes Assessment/Plan Assessment/Plan Small bowel obstruction History ofCOPD, home oxygen therapy Essential Hypertension History of Colon CA, History fo L)hernia , Hsitory of SPINAL/CAROTID STENOSIS History of Pacemaker Plan: We will follow recommendation from certified surgical assistant Small bowel series ordered for the a.m. Discussed healthcare surrogate at bedside Continues to be a full code Medications have been reviewed Justifications for Admission Other Justification EVGENY PEREA MD Jun 17, 2020 08:33
[2020-06-17] MEDS: LABETALOL 20 MG/4 ML DISP.SYRIN. IVP PRN (08:44)
--- NOTE | 2020-06-17 11:52 | PDOC2 ---
JOSE HILL MEDICAL RECORD CONSULTANT 06/17/20 1152: CONSULT Date of Consult Date of Consult DATE: 06/17/20 TIME: 11:35 Reason for Consult Reason for Consult: sbo Referring Physician Referring Physician: ER Identification/Chief Complaint Chief Complaint abdominal pain Source Source: Chart review, Patient History of Present Illness Reason for Visit: Comes in with abdominal distention, tells me she feels better now Hx of SBO just seen end april very similar CT findings with questionable closed loop obstruction--improved with SBFT Past Medical History Cardiovascular: HTN, Syncope, Hyperlipidemia, Other Pulmonary: COPD CENTRAL NERVOUS SYSTEM: Other GI: Constipation, GERD Heme/Onc: Cancer Hepatobiliary: No pertinent hx Psych: Anxiety Musculoskeletal: low back pain, Osteoarthritis, Weakness Rheumatologic: No pertinent hx Infectious disease: No pertinent hx Renal/: Urinary Incontinence Endocrine: Osteopenia, Other Past Surgical History Past Surgical History: Pacemaker, Hysterectomy, Colectomy, Other Family History Family History: No Significant Social History ALCOHOL: none Drugs: None Lives: with Family Domestic Violence: Neg Current Medications Current Medications Current Medications Iohexol (Omnipaque 300 Mg/ml) 75 ml 1X ONCE IV Last administered on 06/16/20at 19:28; Start 06/16/20 at 19:15; Stop 06/16/20 at 19:16; Status DC Info (CONTRAST GIVEN -- Rx MONITORING) 1 each PRN DAILY PRN MC SEE COMMENTS; Start 06/16/20 at 19:30; Stop 06/18/20 at 19:29 Sodium Chloride 1,000 ml @ 1,000 mls/hr 1X ONCE IV Last administered on 06/16/20at 20:28; Start 06/16/20 at 20:30; Stop 06/16/20 at 21:29; Status DC Ondansetron HCl (Zofran) 4 mg PRN Q8HRS PRN IV NAUSEA/VOMITING Last administered on 06/16/20at 20:28; Start 06/16/20 at 20:30; Stop 06/17/20 at 20:29 Morphine Sulfate (Morphine Sulfate) 2 mg PRN Q2HR PRN IV PAIN Last administered on 06/17/20at 03:13; Start 06/16/20 at 20:30; Stop 06/17/20 at 20:29 Morphine Sulfate (Morphine Sulfate) 2 mg 1X ONCE IV Last administered on 06/16/20at 20:28; Start 06/16/20 at 20:30; Stop 06/16/20 at 20:31; Status DC Lidocaine/ Prilocaine (Emla) 1 shraddah 1X ONCE TP ; Start 06/16/20 at 20:30; Stop 06/16/20 at 20:31; Status Cancel Ondansetron HCl (Zofran) 4 mg STK-MED ONCE .ROUTE ; Start 06/16/20 at 20:25; Stop 06/16/20 at 20:25; Status DC Labetalol HCl (Normodyne Iv Push) 20 mg 1X ONCE IVP Last administered on 06/17/20at 00:29; Start 06/17/20 at 00:00; Stop 06/17/20 at 00:01; Status DC Labetalol HCl (Normodyne Iv Push) 10 mg PRN Q6HRS PRN IVP HYPERTENSION Last administered on 06/17/20at 08:44; Start 06/17/20 at 08:45 Hydralazine HCl (Apresoline Inj) 10 mg PRN Q4HRS PRN IVP ELEVATED BP, SEE COMMENTS; Start 06/17/20 at 08:45 Active Scripts Active Klor-Con M20 (Potassium Chloride) 20 Meq Tab.er.prt 20 Meq PO DAILYWBKFT 14 Days Hydralazine Hcl 10 Mg Tablet 1 Tab PO BID 30 Days Zofran (Ondansetron Hcl) 4 Mg Tablet 1 Tab PO Q6HRS PRN Nexium Capsule (Esomeprazole Magnesium) 20 Mg Capsule.dr 1 Cap PO DAILY OTC. Symbicort 160-4.5 Mcg Inhaler (Budesonide/Formoterol Fumarate) 10.2 Gm Hfa.aer.ad 2 Puff IH BID Reported Labetalol Hcl 200 Mg Tablet 1 Tab PO BID Acetaminophen 500 Mg Tablet 2 Tab PO PRN Q6HRS PRN Prednisone (Prednisone) 10 Mg Tablet 5 Mg PO DAILY Glucosamine (Glucosamine Sulfate 2KCL) 1,000 Mg Tablet 500 Mg PO BID Oxybutynin Chloride 5 Mg Tablet 5 Mg PO TID Latanoprost 2.5 Ml Drops 1 Drop EACHEYE QHS Clonidine Hcl 0.1 Mg Tablet 0.1 Mg PO TID Miralax (Polyethylene Glycol 3350) 17 Gm Powd.pack 1 Pkt PO DAILY Calcium 500 + D Tablet (Calcium Carbonate/Vitamin D3) 1 Each Tablet 1 Each PO BID Diltiazem 24HR Cd (Diltiazem Hcl) 240 Mg Cap.er.24h 240 Mg PO DAILY Lisinopril 40 Mg Tablet 1 Tab PO DAILY Spiriva (Tiotropium [place]) 18 Mcg Cap.w.dev 1 Cap IH DAILY Mirtazapine 15 Mg Tablet 0.5 Tab PO QHS Aspir 81 (Aspirin) 81 Mg Tablet.dr 1 Tab PO DAILY Pravastatin Sodium 80 Mg Tablet 80 Mg PO HS Proair Hfa Inhaler (Albuterol Sulfate) 8.5 Gm Hfa.aer.ad 2 Puff INH PRN Q6HRS PRN Allergies Allergies: Coded Allergies: No Known Drug Allergies (Unverified , 08/19/15) ROS General: No: Chills, Fatigue PSYCHOLOGICAL ROS: No: Anxiety, Decreased libido Eyes: No Blurry vision HEENT: No: Heacaches, Sore Throat Hematological and Lymphatic: No: Bleeding Problems, Blood Clots Respiratory: No: Cough, Shortness of breath Cardiovascular: No Chest Pain, No Palpitations Gastrointestinal: Yes Other (see hpi) Genitourinary: No Dysuria, No Hematuria Musculoskeletal: No Joint Pain, No Muscle Pain Physical Exam General: Alert, Cooperative HEENT: Other (ng in place) Lungs: Clear to auscultation, Normal air movement Heart: Regular rate, Normal S1, Normal S2 Abdomen: Soft, Other (distended, nontender ) Extremities: No clubbing, No cyanosis Skin: No rashes, No breakdown Neuro: Normal gait, Normal speech Psych/Mental Status: Mental status NL, Mood NL Vitals VITALS Vital Signs Date Time Temp Pulse Resp B/P (MAP) Pulse Ox O2 Delivery O2 Flow Rate FiO2 06/17/20 11:00 98.0 83 17 196/83 (120) 93 Nasal Cannula 2.0 98.0 Labs Labs Laboratory Tests Test 06/16/20 18:40 06/16/20 19:55 06/16/20 21:33 White Blood Count 12.3 x10^3/uL (4.0-11.0) Red Blood Count 4.37 x10^6/uL (3.50-5.40) Hemoglobin 13.9 g/dL (12.0-15.5) Hematocrit 41.9 % (36.0-47.0) Mean Corpuscular Volume 96 fL (79-100) Mean Corpuscular Hemoglobin 32 pg (25-35) Mean Corpuscular Hemoglobin Concent 33 g/dL (31-37) Red Cell Distribution Width 15.7 % (11.5-14.5) Platelet Count 271 x10^3/uL (140-400) Neutrophils (%) (Auto) 89 % (31-73) Lymphocytes (%) (Auto) 6 % (24-48) Monocytes (%) (Auto) 4 % (0-9) Eosinophils (%) (Auto) 0 % (0-3) Basophils (%) (Auto) 0 % (0-3) Neutrophils # (Auto) 11.0 x10^3/uL (1.8-7.7) Lymphocytes # (Auto) 0.8 x10^3/uL (1.0-4.8) Monocytes # (Auto) 0.5 x10^3/uL (0.0-1.1) Eosinophils # (Auto) 0.0 x10^3/uL (0.0-0.7) Basophils # (Auto) 0.0 x10^3/uL (0.0-0.2) Segmented Neutrophils % 83 % (35-66) Band Neutrophils % 5 % (0-9) Lymphocytes % 6 % (24-48) Monocytes % 5 % (0-10) Eosinophils % 1 % (0-5) Platelet Estimate Adequate (ADEQUATE) Poikilocytosis Slight Sodium Level 141 mmol/L (136-145) Potassium Level 4.7 mmol/L (3.5-5.1) Chloride Level 105 mmol/L (98-107) Carbon Dioxide Level 25 mmol/L (21-32) Anion Gap 11 (6-14) Blood Urea Nitrogen 14 mg/dL (7-20) Creatinine 0.7 mg/dL (0.6-1.0) Estimated GFR (Cockcroft-Gault) 78.8 BUN/Creatinine Ratio 20 (6-20) Glucose Level 155 mg/dL (70-99) Calcium Level 9.5 mg/dL (8.5-10.1) Total Bilirubin 0.3 mg/dL (0.2-1.0) Aspartate Amino Transf (AST/SGOT) 19 U/L (15-37) Alanine Aminotransferase (ALT/SGPT) 21 U/L (14-59) Alkaline Phosphatase 78 U/L (46-116) Total Protein 6.7 g/dL (6.4-8.2) Albumin 3.7 g/dL (3.4-5.0) Albumin/Globulin Ratio 1.2 (1.0-1.7) Lipase 103 U/L (73-393) Urine Collection Type Unknown Urine Color Yellow Urine Clarity Clear Urine pH 7.5 (<5.0-8.0) Urine Specific [place] 1.020 (1.000-1.030) Urine Protein Negative mg/dL (NEG-TRACE) Urine Glucose (UA) Negative mg/dL (NEG) Urine Ketones (Stick) Negative mg/dL (NEG) Urine Blood Negative (NEG) Urine Nitrite Negative (NEG) Urine Bilirubin Negative (NEG) Urine Urobilinogen Dipstick 0.2 mg/dL (0.2 mg/dL) Urine Leukocyte Esterase Negative (NEG) Urine RBC 0 /HPF (0-2) Urine WBC Occ /HPF (0-4) Urine Bacteria 0 /HPF (0-FEW) Lactic Acid Level 1.0 mmol/L (0.4-2.0) Laboratory Tests Test 06/16/20 18:40 06/16/20 19:55 06/16/20 21:33 White Blood Count 12.3 x10^3/uL (4.0-11.0) Red Blood Count 4.37 x10^6/uL (3.50-5.40) Hemoglobin 13.9 g/dL (12.0-15.5) Hematocrit 41.9 % (36.0-47.0) Mean Corpuscular Volume 96 fL (79-100) Mean Corpuscular Hemoglobin 32 pg (25-35) Mean Corpuscular Hemoglobin Concent 33 g/dL (31-37) Red Cell Distribution Width 15.7 % (11.5-14.5) Platelet Count 271 x10^3/uL (140-400) Neutrophils (%) (Auto) 89 % (31-73) Lymphocytes (%) (Auto) 6 % (24-48) Monocytes (%) (Auto) 4 % (0-9) Eosinophils (%) (Auto) 0 % (0-3) Basophils (%) (Auto) 0 % (0-3) Neutrophils # (Auto) 11.0 x10^3/uL (1.8-7.7) Lymphocytes # (Auto) 0.8 x10^3/uL (1.0-4.8) Monocytes # (Auto) 0.5 x10^3/uL (0.0-1.1) Eosinophils # (Auto) 0.0 x10^3/uL (0.0-0.7) Basophils # (Auto) 0.0 x10^3/uL (0.0-0.2) Segmented Neutrophils % 83 % (35-66) Band Neutrophils % 5 % (0-9) Lymphocytes % 6 % (24-48) Monocytes % 5 % (0-10) Eosinophils % 1 % (0-5) Platelet Estimate Adequate (ADEQUATE) Poikilocytosis Slight Sodium Level 141 mmol/L (136-145) Potassium Level 4.7 mmol/L (3.5-5.1) Chloride Level 105 mmol/L (98-107) Carbon Dioxide Level 25 mmol/L (21-32) Anion Gap 11 (6-14) Blood Urea Nitrogen 14 mg/dL (7-20) Creatinine 0.7 mg/dL (0.6-1.0) Estimated GFR (Cockcroft-Gault) 78.8 BUN/Creatinine Ratio 20 (6-20) Glucose Level 155 mg/dL (70-99) Calcium Level 9.5 mg/dL (8.5-10.1) Total Bilirubin 0.3 mg/dL (0.2-1.0) Aspartate Amino Transf (AST/SGOT) 19 U/L (15-37) Alanine Aminotransferase (ALT/SGPT) 21 U/L (14-59) Alkaline Phosphatase 78 U/L (46-116) Total Protein 6.7 g/dL (6.4-8.2) Albumin 3.7 g/dL (3.4-5.0) Albumin/Globulin Ratio 1.2 (1.0-1.7) Lipase 103 U/L (73-393) Urine Collection Type Unknown Urine Color Yellow Urine Clarity Clear Urine pH 7.5 (<5.0-8.0) Urine Specific [place] 1.020 (1.000-1.030) Urine Protein Negative mg/dL (NEG-TRACE) Urine Glucose (UA) Negative mg/dL (NEG) Urine Ketones (Stick) Negative mg/dL (NEG) Urine Blood Negative (NEG) Urine Nitrite Negative (NEG) Urine Bilirubin Negative (NEG) Urine Urobilinogen Dipstick 0.2 mg/dL (0.2 mg/dL) Urine Leukocyte Esterase Negative (NEG) Urine RBC 0 /HPF (0-2) Urine WBC Occ /HPF (0-4) Urine Bacteria 0 /HPF (0-FEW) Lactic Acid Level 1.0 mmol/L (0.4-2.0) Assessment/Plan Assessment/Plan SBO will check SBFT KRISTAN BELLA MD 06/17/20 1351: CONSULT Assessment/Plan Assessment/Plan Agree with Shaggy's assessment and plan CAROL GEIGER MD 06/17/20 1900: CONSULT Assessment/Plan Assessment/Plan Pt seen and examined. Agree with Hasmukh Hill's note Pt feels better, NGT out abd soft, ND, NTTP if continues to do well plan clears in AM D/w pt and pt's DPOA of poor surgical candidate. Thanks for consult! JOSE HILL APRN Jun 17, 2020 11:52 KRISTAN BELLA MD Jun 17, 2020 13:51 CAROL GEIGER MD Jun 17, 2020 19:00
[2020-06-17] MEDS: hydrALAZINE 20 MG/ML VIAL. IVP PRN (12:36)
--- NOTE | 2020-06-17 13:15 | NUR ---
SW following. Discussed with RN, pt from home with nephew, 3L oxygen (uses at home), NPO. Pt has a hx of dementia. RN ordered PT/OT. SW will continue to follow.
--- NOTE | 2020-06-17 13:20 | NUR ---
Have called for rapid due to patient stating she was having a hard time breathing. Pt c/o abd and some chest discomfort. Patient was given Morphine 2mg IVP. Have paged Dr Giles overhead and through service, first to ask for order to check NG tube placement, as seems to be further out. Tube check with air, did not confirm in stomach.
[2020-06-17] MEDS ORDERED: ALBUTEROL SULFATE 2.5 MG/3 ML NEBU. NEB PRN (13:30)
--- NOTE | 2020-06-17 13:32 | EKG ---
[facility] [address] [place] [id number] Test Date: 2020-06-17 Test Time: 13:28:07 Pat Name: GLO GALAN Department: Room: [facility] Gender: F [employer] Specialist: RADHA : 1930 Requested By: EVGENY PEREA Order Number: [id number] Reading MD: Measurements Intervals [place] Rate: 96 P: 90 LA: 192 QRS: 56 QRSD: 86 T: 35 QT: 374 QTc: 473 Interpretive Statements SINUS RHYTHM PROLONGED QT NO SPECIFIC ECG ABNORMALITIES RI6.02 Compared to ECG 07/08/2019 18:04:37 Prolonged QT interval now present Sinus tachycardia no longer present Left ventricular hypertrophy no longer present Early repolarization no longer present
--- NOTE | 2020-06-17 14:12 | RAD ---
EXAM: Chest, single view. HISTORY: Difficulty breathing. COMPARISON: 07/08/2019 FINDINGS: A frontal view of the chest is obtained. There is suspected chronic diffuse interstitial pr ominence. There is no consolidation, protrusion or pneumothorax. There is a stable cardiac silhouette and cardiac pacemaker. IMPRESSION: Stable suspected chronic interstitial changes. Electronically signed by: Joi Stiles MD (06/17/2020 2:10 PM) [id number]
--- NOTE | 2020-06-17 15:00 | NUR ---
In speaking with radiologist re ng tube placement, nurse was informed that ng tube did not show up in field. Dr Seo on unit, informed nurse was going to pull current ng. NG was pulled, approx 4 inches was past nare entrance. Patient has related that she has been feeling better. Nephew back to bedside. Have spoke with Dr Chan marcos poss IVF as patient NPO, will address.
[2020-06-17] MEDS: IPRATRPIUM/ALBUTEROL 0.5/2.5MG 3 ML NEBU. NEB SCH ×2 (15:59→19:52)
[2020-06-17] MEDS: IV RINGERS,LACTATED 1000ML 1,000 ML IV SCH (16:07)
[2020-06-17] MEDS: BUDESONIDE 0.5 MG/2 ML NEBU. NEB SCH (19:52)
[2020-06-18] VITALS (13 sets, daily range): BP systolic 124–257; BP diastolic 59–133
[2020-06-18] MEDS: IV RINGERS,LACTATED 1000ML 1,000 ML IV SCH ×2 (05:15→19:40)
[2020-06-18] MEDS: hydrALAZINE 20 MG/ML VIAL. IVP PRN ×3 (07:51→21:18)
[2020-06-18] MEDS ORDERED: IOHEXOL 300 MG/ML 100ML VIAL. PO ONE (08:00)
[2020-06-18] MEDS: LABETALOL 20 MG/4 ML DISP.SYRIN. IVP PRN ×2 (08:06→19:45)
[2020-06-18] MEDS: IPRATRPIUM/ALBUTEROL 0.5/2.5MG 3 ML NEBU. NEB SCH ×4 (08:11→20:56)
[2020-06-18] MEDS: BUDESONIDE 0.5 MG/2 ML NEBU. NEB SCH ×2 (08:11→20:56)
[2020-06-18] MEDS ORDERED: CONTRAST GIVEN. MC PRN (08:15)
--- NOTE | 2020-06-18 10:24 | NUR ---
SW following. Discussed with RN, pt from home with nephew, uses oxygen at home, NPO. Pt having a small bowel series today. SW asked behavioral health case manager to order PT/OT since it was not ordered yesterday. Per RN, pt's blood pressure is not stable today. SW will continue to follow.
--- NOTE | 2020-06-18 12:02 | PDOC ---
SURGICAL PROGRESS NOTE DATE: 06/18/20 TIME: 12:01 Subjective Pt reports feeling horrible secondary to back pain, notes abd bloating, but no N/V Vital Signs Vital Signs Date Time Temp Pulse Resp B/P (MAP) Pulse Ox O2 Delivery O2 Flow Rate FiO2 06/18/20 11:25 100 Nasal Cannula 3.0 06/18/20 08:15 20 174/79 (110) 06/18/20 08:06 119 06/18/20 07:00 98.1 98.1 I&O Intake and Output 06/18/20 06:59 Output Total 675 ml Balance -675 ml Output Urine Total 675 ml # Bowel Movements 1 General: Alert, No acute distress Abdomen: Soft, No tenderness Labs Laboratory Tests Test 06/16/20 18:40 06/16/20 19:55 06/16/20 21:33 White Blood Count 12.3 x10^3/uL (4.0-11.0) Red Blood Count 4.37 x10^6/uL (3.50-5.40) Hemoglobin 13.9 g/dL (12.0-15.5) Hematocrit 41.9 % (36.0-47.0) Mean Corpuscular Volume 96 fL (79-100) Mean Corpuscular Hemoglobin 32 pg (25-35) Mean Corpuscular Hemoglobin Concent 33 g/dL (31-37) Red Cell Distribution Width 15.7 % (11.5-14.5) Platelet Count 271 x10^3/uL (140-400) Neutrophils (%) (Auto) 89 % (31-73) Lymphocytes (%) (Auto) 6 % (24-48) Monocytes (%) (Auto) 4 % (0-9) Eosinophils (%) (Auto) 0 % (0-3) Basophils (%) (Auto) 0 % (0-3) Neutrophils # (Auto) 11.0 x10^3/uL (1.8-7.7) Lymphocytes # (Auto) 0.8 x10^3/uL (1.0-4.8) Monocytes # (Auto) 0.5 x10^3/uL (0.0-1.1) Eosinophils # (Auto) 0.0 x10^3/uL (0.0-0.7) Basophils # (Auto) 0.0 x10^3/uL (0.0-0.2) Segmented Neutrophils % 83 % (35-66) Band Neutrophils % 5 % (0-9) Lymphocytes % 6 % (24-48) Monocytes % 5 % (0-10) Eosinophils % 1 % (0-5) Platelet Estimate Adequate (ADEQUATE) Poikilocytosis Slight Sodium Level 141 mmol/L (136-145) Potassium Level 4.7 mmol/L (3.5-5.1) Chloride Level 105 mmol/L (98-107) Carbon Dioxide Level 25 mmol/L (21-32) Anion Gap 11 (6-14) Blood Urea Nitrogen 14 mg/dL (7-20) Creatinine 0.7 mg/dL (0.6-1.0) Estimated GFR (Cockcroft-Gault) 78.8 BUN/Creatinine Ratio 20 (6-20) Glucose Level 155 mg/dL (70-99) Calcium Level 9.5 mg/dL (8.5-10.1) Total Bilirubin 0.3 mg/dL (0.2-1.0) Aspartate Amino Transf (AST/SGOT) 19 U/L (15-37) Alanine Aminotransferase (ALT/SGPT) 21 U/L (14-59) Alkaline Phosphatase 78 U/L (46-116) Total Protein 6.7 g/dL (6.4-8.2) Albumin 3.7 g/dL (3.4-5.0) Albumin/Globulin Ratio 1.2 (1.0-1.7) Lipase 103 U/L (73-393) Urine Collection Type Unknown Urine Color Yellow Urine Clarity Clear Urine pH 7.5 (<5.0-8.0) Urine Specific [place] 1.020 (1.000-1.030) Urine Protein Negative mg/dL (NEG-TRACE) Urine Glucose (UA) Negative mg/dL (NEG) Urine Ketones (Stick) Negative mg/dL (NEG) Urine Blood Negative (NEG) Urine Nitrite Negative (NEG) Urine Bilirubin Negative (NEG) Urine Urobilinogen Dipstick 0.2 mg/dL (0.2 mg/dL) Urine Leukocyte Esterase Negative (NEG) Urine RBC 0 /HPF (0-2) Urine WBC Occ /HPF (0-4) Urine Bacteria 0 /HPF (0-FEW) Lactic Acid Level 1.0 mmol/L (0.4-2.0) I have reviewed the following SBFT pending Problem List SBO appears to be improving cont supportive care poor surgical candidate. Justicifation of Admission Dx: Justifications for Admission: Justification of Admission Dx: Comment: CAROL GEIGER MD Jun 18, 2020 12:02
[2020-06-18] MEDS: MORPHINE SULFATE 2 MG/ML VIAL. IV PRN ×2 (13:02→21:12)
--- NOTE | 2020-06-18 13:44 | RAD ---
EXAM: Small bowel follow-through exam. HISTORY: Pain. Obstruction. TECHNIQUE: A vocational rehabilitation supervisor image of the abdomen was obtained. Overhead images were then obtained following th e oral measures Doppler segmental contrast. 3 fluoroscopic spot images were obtained at the conclusio n of the exam. The total fluoroscopy time was 0 minutes. COMPARISON: CT dated 06/16/2020. FINDINGS: A vocational rehabilitation supervisor image of the abdomen demonstrates gas and stool within the colon. There are nonspec ific air-filled loops of small bowel within the abdomen. 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 There are surgical clips overlying the pelvis. 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 There are cardiac pacemaker leads in expected position. The images obtained following the admi nistration of contrast demonstrate contrast opacification of a patulous esophagus and distended stoma ch. There is a small hiatal hernia. The subsequent images demonstrate contrast opacification of the s mall bowel. The small bowel transit time is approximately 75 minutes. The bowel loops are prominent i n caliber. However, no small bowel stricture, fistula, extravasation or transition point to suggest s mall bowel obstruction is seen. There is reflux of contrast into the distal esophagus during fluorosc opic spot imaging. IMPRESSION: 1. Prominent loops of small bowel throughout the abdomen with slightly delayed transit time. No mucos al lesion or small bowel obstruction is seen. 2. Patulous esophagus and small hiatal hernia. There is reflux of contrast into the esophagus with re cumbent positioning. 3. Distended stomach. Electronically signed by: Joi Stiles MD (06/18/2020 1:42 PM) [id number]
--- NOTE | 2020-06-18 15:35 | NUR ---
Wound/Ostomy Care Wound Type/Assessment: Patient seen per wound care consult. See wound assessment. Pt has skin tear to the right lower leg. Wound cleansed and assessed. Treatment Recommendations/Plan: Recommendations for xeroform gauze and foam dressing. Change on Wednesday and Wednesday and wound care will follow up on 06/26/19. Dressing applied. Education provided: Pt educated on dressing changes. Offloading surface/device: N/A Recommended Referrals/Tests: N/A Discharge Recommendations for dressings: Dressing change instructions left in room. No other wounds noted. Coccyx is reddened but remains blanchable. Calazime cream applied. Bed lowered and call light in reach. Will follow patient regarding wound care.
--- NOTE | 2020-06-18 17:23 | PDOC ---
PROGRESS NOTES Date of Service: DATE: 06/18/20 TIME: 17:16 Chief Complaint Chief Complaint Assessment/Plan Small bowel obstruction History ofCOPD, home oxygen therapy Essential Hypertension History of Colon CA, History fo L)hernia , Hsitory of SPINAL/CAROTID STENOSIS History of Pacemaker Plan: We will follow recommendation from home energy consultant Small bowel series noted Hopefully will be able to restart her oral route soon and restart home meds to control blood pressure Increase hydralazine for better blood pressure control Poor surgical candidate Continues to be a full code Medications have been reviewed History of Present Illness History of Present Illness History of Present Illness Patient is an 89-year-old female who had a similar presentation on 05/10/2020. Patient has history of dementia COPD hypertension and has history of colon cancer who presented again with abdominal discomfort sudden onset lower abdominal pain no radiation to the back not to the epigastrium nor the right upper quadrant. The patient does not remember if he had a bowel movement. Patient when she was evaluated in the emergency department seem to be in very acute distress, at the time of my evaluation she is in no acute distress her pain level seems to be at 0. The patient has been seen by surgery at the time of my visit and small bowel series has been ordered since they seem to have been the answer on her last hospital stay. In her last hospital stay and we discussed with home energy consultant that intervening on the patient would not be appropriate given the risk and they would certainly outweighed the benefit in this case. Patient's healthcare surrogate is her nephew and I have discussed the case with him at length at bedside. All of their concerns were addressed to the best my abilities 06/18 Patient does not seem to be in acute distress at the time of my visit today. Nursing staff has reported blood pressure rise. We will address this which probably is related to her discomfort, she did have a bowel movement and hopefully we can restart her oral route if okay with senior business consultant Vitals Vitals Vital Signs Date Time Temp Pulse Resp B/P (MAP) Pulse Ox O2 Delivery O2 Flow Rate FiO2 06/18/20 15:57 116 182/107 06/18/20 15:49 98 Nasal Cannula 3.0 06/18/20 13:32 20 06/18/20 11:00 97.9 97.9 Physical Exam General: Alert, No acute distress Heart: Regular rate, Normal S1, Normal S2 Lungs: Clear, Other Abdomen: Soft, No tenderness Extremities: No clubbing, No cyanosis Skin: No rashes, No breakdown Comment Review of Relevant I have reviewed the following items forest (where applicable) has been applied. Labs Laboratory Tests Test 06/16/20 18:40 06/16/20 19:55 06/16/20 21:33 White Blood Count 12.3 x10^3/uL (4.0-11.0) Red Blood Count 4.37 x10^6/uL (3.50-5.40) Hemoglobin 13.9 g/dL (12.0-15.5) Hematocrit 41.9 % (36.0-47.0) Mean Corpuscular Volume 96 fL (79-100) Mean Corpuscular Hemoglobin 32 pg (25-35) Mean Corpuscular Hemoglobin Concent 33 g/dL (31-37) Red Cell Distribution Width 15.7 % (11.5-14.5) Platelet Count 271 x10^3/uL (140-400) Neutrophils (%) (Auto) 89 % (31-73) Lymphocytes (%) (Auto) 6 % (24-48) Monocytes (%) (Auto) 4 % (0-9) Eosinophils (%) (Auto) 0 % (0-3) Basophils (%) (Auto) 0 % (0-3) Neutrophils # (Auto) 11.0 x10^3/uL (1.8-7.7) Lymphocytes # (Auto) 0.8 x10^3/uL (1.0-4.8) Monocytes # (Auto) 0.5 x10^3/uL (0.0-1.1) Eosinophils # (Auto) 0.0 x10^3/uL (0.0-0.7) Basophils # (Auto) 0.0 x10^3/uL (0.0-0.2) Segmented Neutrophils % 83 % (35-66) Band Neutrophils % 5 % (0-9) Lymphocytes % 6 % (24-48) Monocytes % 5 % (0-10) Eosinophils % 1 % (0-5) Platelet Estimate Adequate (ADEQUATE) Poikilocytosis Slight Sodium Level 141 mmol/L (136-145) Potassium Level 4.7 mmol/L (3.5-5.1) Chloride Level 105 mmol/L (98-107) Carbon Dioxide Level 25 mmol/L (21-32) Anion Gap 11 (6-14) Blood Urea Nitrogen 14 mg/dL (7-20) Creatinine 0.7 mg/dL (0.6-1.0) Estimated GFR (Cockcroft-Gault) 78.8 BUN/Creatinine Ratio 20 (6-20) Glucose Level 155 mg/dL (70-99) Calcium Level 9.5 mg/dL (8.5-10.1) Total Bilirubin 0.3 mg/dL (0.2-1.0) Aspartate Amino Transf (AST/SGOT) 19 U/L (15-37) Alanine Aminotransferase (ALT/SGPT) 21 U/L (14-59) Alkaline Phosphatase 78 U/L (46-116) Total Protein 6.7 g/dL (6.4-8.2) Albumin 3.7 g/dL (3.4-5.0) Albumin/Globulin Ratio 1.2 (1.0-1.7) Lipase 103 U/L (73-393) Urine Collection Type Unknown Urine Color Yellow Urine Clarity Clear Urine pH 7.5 (<5.0-8.0) Urine Specific [place] 1.020 (1.000-1.030) Urine Protein Negative mg/dL (NEG-TRACE) Urine Glucose (UA) Negative mg/dL (NEG) Urine Ketones (Stick) Negative mg/dL (NEG) Urine Blood Negative (NEG) Urine Nitrite Negative (NEG) Urine Bilirubin Negative (NEG) Urine Urobilinogen Dipstick 0.2 mg/dL (0.2 mg/dL) Urine Leukocyte Esterase Negative (NEG) Urine RBC 0 /HPF (0-2) Urine WBC Occ /HPF (0-4) Urine Bacteria 0 /HPF (0-FEW) Lactic Acid Level 1.0 mmol/L (0.4-2.0) Medications Current Medications Iohexol (Omnipaque 300 Mg/ml) 75 ml 1X ONCE IV Last administered on 06/16/20at 19:28; Start 06/16/20 at 19:15; Stop 06/16/20 at 19:16; Status DC Info (CONTRAST GIVEN -- Rx MONITORING) 1 each PRN DAILY PRN MC SEE COMMENTS; Start 06/16/20 at 19:30; Stop 06/18/20 at 08:02; Status DC Sodium Chloride 1,000 ml @ 1,000 mls/hr 1X ONCE IV Last administered on 06/16/20at 20:28; Start 06/16/20 at 20:30; Stop 06/16/20 at 21:29; Status DC Ondansetron HCl (Zofran) 4 mg PRN Q8HRS PRN IV NAUSEA/VOMITING Last administered on 06/16/20at 20:28; Start 06/16/20 at 20:30; Stop 06/17/20 at 20:29; Status DC Morphine Sulfate (Morphine Sulfate) 2 mg PRN Q2HR PRN IV PAIN Last administered on 06/17/20at 13:17; Start 06/16/20 at 20:30; Stop 06/17/20 at 20:29; Status DC Morphine Sulfate (Morphine Sulfate) 2 mg 1X ONCE IV Last administered on 06/16/20at 20:28; Start 06/16/20 at 20:30; Stop 06/16/20 at 20:31; Status DC Lidocaine/ Prilocaine (Emla) 1 shraddha 1X ONCE TP ; Start 06/16/20 at 20:30; Stop 06/16/20 at 20:31; Status Cancel Ondansetron HCl (Zofran) 4 mg STK-MED ONCE .ROUTE ; Start 06/16/20 at 20:25; Stop 06/16/20 at 20:25; Status DC Labetalol HCl (Normodyne Iv Push) 20 mg 1X ONCE IVP Last administered on 06/17/20at 00:29; Start 06/17/20 at 00:00; Stop 06/17/20 at 00:01; Status DC Labetalol HCl (Normodyne Iv Push) 10 mg PRN Q6HRS PRN IVP HYPERTENSION, 2ND CHOICE Last administered on 06/18/20at 08:06; Start 06/17/20 at 08:45; Stop 06/18/20 at 14:59; Status DC Hydralazine HCl (Apresoline Inj) 10 mg PRN Q4HRS PRN IVP ELEVATED BP, 1ST CHOICE Last administered on 06/18/20at 07:51; Start 06/17/20 at 08:45; Stop 06/18/20 at 14:59; Status DC Albuterol/ Ipratropium (Duoneb) 3 ml RTQID NEB Last administered on 06/18/20at 15:47; Start 06/17/20 at 16:00 Budesonide (Pulmicort) 0.5 mg RTBID NEB Last administered on 06/18/20at 08:11; Start 06/17/20 at 20:00 Albuterol Sulfate (Ventolin Neb Soln) 2.5 mg PRN Q4HRS PRN NEB SHORTNESS OF BREATH Last administered on 06/17/20at 13:32; Start 06/17/20 at 13:30 Ringer's Solution 1,000 ml @ 75 mls/hr [id number] IV Last administered on 06/18/20at 05:15; Start 06/17/20 at 15:30 Iohexol (Omnipaque 300 Mg/ml) 400 ml 1X ONCE PO Last administered on 06/18/20at 08:00; Start 06/18/20 at 08:00; Stop 06/18/20 at 08:02; Status DC Info (CONTRAST GIVEN -- Rx MONITORING) 1 each PRN DAILY PRN MC SEE COMMENTS; Start 06/18/20 at 08:15; Stop 06/20/20 at 08:14 Morphine Sulfate (Morphine Sulfate) 2 mg PRN Q4HRS PRN IV PAIN Last administered on 06/18/20at 13:02; Start 06/18/20 at 12:15 Hydralazine HCl (Apresoline Inj) 25 mg PRN Q4HRS PRN IVP ELEVATED BP, 1ST CHOICE Last administered on 06/18/20at 15:57; Start 06/18/20 at 15:00 Labetalol HCl (Normodyne Iv Push) 10 mg PRN Q4HRS PRN IVP HYPERTENSION, 2ND CHO ICE; Start 06/18/20 at 15:00 Active Scripts Active Klor-Con M20 (Potassium Chloride) 20 Meq Tab.er.prt 20 Meq PO DAILYWBKFT 14 Days Hydralazine Hcl 10 Mg Tablet 1 Tab PO BID 30 Days Zofran (Ondansetron Hcl) 4 Mg Tablet 1 Tab PO Q6HRS PRN Nexium Capsule (Esomeprazole Magnesium) 20 Mg Capsule. 1 Cap PO DAILY OTC. Symbicort 160-4.5 Mcg Inhaler (Budesonide/Formoterol Fumarate) 10.2 Gm Hfa.aer.ad 2 Puff IH BID Reported Labetalol Hcl 200 Mg Tablet 1 Tab PO BID Acetaminophen 500 Mg Tablet 2 Tab PO PRN Q6HRS PRN Prednisone (Prednisone) 10 Mg Tablet 5 Mg PO DAILY Glucosamine (Glucosamine Sulfate 2KCL) 1,000 Mg Tablet 500 Mg PO BID Oxybutynin Chloride 5 Mg Tablet 5 Mg PO TID Latanoprost 2.5 Ml Drops 1 Drop EACHEYE QHS Clonidine Hcl 0.1 Mg Tablet 0.1 Mg PO TID Miralax (Polyethylene Glycol 3350) 17 Gm Powd.pack 1 Pkt PO DAILY Calcium 500 + D Tablet (Calcium Carbonate/Vitamin D3) 1 Each Tablet 1 Each PO BID Diltiazem 24HR Cd (Diltiazem Hcl) 240 Mg Cap.er.24h 240 Mg PO DAILY Lisinopril 40 Mg Tablet 1 Tab PO DAILY Spiriva (Tiotropium [place]) 18 Mcg Cap.w.dev 1 Cap IH DAILY Mirtazapine 15 Mg Tablet 0.5 Tab PO QHS Aspir 81 (Aspirin) 81 Mg Tablet.dr 1 Tab PO DAILY Pravastatin Sodium 80 Mg Tablet 80 Mg PO HS Proair Hfa Inhaler (Albuterol Sulfate) 8.5 Gm Hfa.aer.ad 2 Puff INH PRN Q6HRS PRN Vitals/I & O Vital Sign - Last 24 Hours 06/17/20 06/17/20 06/17/20 06/17/20 19:00 19:52 20:00 23:00 Temp 97.6 97.4 97.6 97.4 Pulse 126 111 Resp 17 17 B/P (MAP) 99/66 (77) 189/89 (122) Pulse Ox 95 95 O2 Delivery Nasal Cannula Nasal Cannula Nasal Cannula Nasal Cannula O2 Flow Rate 3.0 3.0 3.0 3.0 06/18/20 06/18/20 06/18/20 06/18/20 07:00 07:51 07:52 07:54 Temp 98.1 98.1 Pulse 111 112 112 114 Resp 18 18 18 B/P (MAP) 248/133 (171) 248/133 257/132 (173) 240/127 (164) Pulse Ox 97 94 O2 Delivery Nasal Cannula Nasal Cannula Nasal Cannula O2 Flow Rate 3.0 3.0 95.0 06/18/20 06/18/20 06/18/20 06/18/20 07:59 08:00 08:06 08:06 Pulse 116 119 Resp 18 20 B/P (MAP) 233/116 (155) 216/102 205/99 (134) Pulse Ox 95 O2 Delivery Nasal Cannula Nasal Cannula Nasal Cannula O2 Flow Rate 95.0 3.0 3.0 06/18/20 06/18/20 06/18/20 06/18/20 08:14 08:15 08:15 11:00 Temp 97.9 97.9 Pulse 108 Resp 20 18 B/P (MAP) 174/79 (110) 206/98 (134) Pulse Ox 95 95 95 98 O2 Delivery Nasal Cannula Nasal Cannula Nasal Cannula Nasal Cannula O2 Flow Rate 3.0 3.0 3.0 3.0 06/18/20 06/18/20 06/18/20 06/18/20 11:25 13:02 13:32 15:49 Resp 20 20 Pulse Ox 100 100 95 98 O2 Delivery Nasal Cannula Nasal Cannula Nasal Cannula Nasal Cannula O2 Flow Rate 3.0 3.0 3.0 3.0 06/18/20 15:57 Pulse 116 B/P (MAP) 182/107 Intake and Output 06/17/20 06/17/20 06/18/20 15:00 23:00 07:00 Output Total 225 ml 100 ml 350 ml Balance -225 ml -100 ml -350 ml Justicifation of Admission Dx: Justifications for Admission: Justification of Admission Dx: Comment: EVGENY PEREA MD Jun 18, 2020 17:23
[2020-06-19] VITALS (7 sets, daily range): BP systolic 103–199; BP diastolic 38–87
[2020-06-19] MEDS: MORPHINE SULFATE 2 MG/ML VIAL. IV PRN (01:17)
[2020-06-19] MEDS: hydrALAZINE 20 MG/ML VIAL. IVP PRN (03:42)
[2020-06-19] MEDS: IPRATRPIUM/ALBUTEROL 0.5/2.5MG 3 ML NEBU. NEB SCH ×4 (07:09→20:24)
[2020-06-19] MEDS: BUDESONIDE 0.5 MG/2 ML NEBU. NEB SCH (07:10)
[2020-06-19] MEDS: LABETALOL 20 MG/4 ML DISP.SYRIN. IVP PRN (07:36)
[2020-06-19] MEDS: IV RINGERS,LACTATED 1000ML 1,000 ML IV SCH ×2 (08:57→20:50)
--- NOTE | 2020-06-19 11:17 | NUR ---
SW following. Discussed with RN, pt from home with nephew, uses oxygen at home. OT recommending [facility] health [facility] RN advised no SW needs at this time. SW will continue to follow.
[2020-06-19] MEDS ORDERED: ACETAMINOPHEN 500 MG TABLET PO PRN (15:15)
[2020-06-19] MEDS ORDERED: ALBUTEROL SULFATE 2.5 MG/3 ML NEBU. INH PRN (15:15)
[2020-06-19] MEDS ORDERED: ONDANSETRON ODT 4 MG TAB.RAPDIS. PO PRN (15:45)
[2020-06-19] MEDS: hydrALAZINE 10 MG TABLET PO SCH ×2 (16:00→21:34)
[2020-06-19] MEDS: predniSONE 5 MG TABLET PO SCH (16:00)
[2020-06-19] MEDS: POLYETHYLENE GLYCOL 3350 17 GM PACKET. PO SCH (16:00)
[2020-06-19] MEDS: OXYBUTYNIN CHLORIDE 5 MG TABLET PO SCH ×2 (16:01→21:34)
[2020-06-19] MEDS: CALCIUM CARB/VIT D3 500/200 TABLET. PO SCH (16:01)
[2020-06-19] MEDS: LISINOPRIL 20 MG TABLET PO SCH (16:01)
[2020-06-19] MEDS: cloNIDine HCL 0.1 MG TABLET PO SCH ×2 (16:02→21:36)
[2020-06-19] MEDS: POTASSIUM CHLORIDE 20 MEQ TABLET.ER. PO SCH (16:03)
--- NOTE | 2020-06-19 16:10 | PDOC ---
SURGICAL PROGRESS NOTE DATE: 06/19/20 TIME: 16:08 Subjective Pt appears to be feeling better, denies c/o. Vital Signs Vital Signs Date Time Temp Pulse Resp B/P (MAP) Pulse Ox O2 Delivery O2 Flow Rate FiO2 06/19/20 16:04 118 192/87 06/19/20 15:29 96 Nasal Cannula 3.0 06/19/20 15:00 97.3 16 97.3 I&O Intake and Output 06/19/20 07:00 Intake Total 1440 ml Output Total 1100 ml Balance 340 ml Intake Oral 440 ml IV Total 1000 ml Output Urine Total 1100 ml Gastric Drainage Total 0 ml # Bowel Movements 2 General: Alert, Cooperative, No acute distress Abdomen: Soft, No tenderness Problem List SBO appears to be doing well cont supportive care Justicifation of Admission Dx: Justifications for Admission: Justification of Admission Dx: Comment: CAROL GEIGER MD Jun 19, 2020 16:10
--- NOTE | 2020-06-19 16:14 | PDOC ---
PROGRESS NOTES Date of Service: DATE: 06/19/20 TIME: 16:13 Chief Complaint Chief Complaint Assessment/Plan Small bowel obstruction History ofCOPD, home oxygen therapy Essential Hypertension History of Colon CA, History fo L)hernia , Hsitory of SPINAL/CAROTID STENOSIS History of Pacemaker Plan: We will follow recommendation from surgical endoscopist Small bowel series noted Hopefully will be able to restart her oral route soon and restart home meds to control blood pressure Increase hydralazine for better blood pressure control Poor surgical candidate Continues to be a full code Medications have been reviewed History of Present Illness History of Present Illness History of Present Illness Patient is an 89-year-old female who had a similar presentation on 05/10/2020. Patient has history of dementia COPD hypertension and has history of colon cancer who presented again with abdominal discomfort sudden onset lower abdominal pain no radiation to the back not to the epigastrium nor the right upper quadrant. The patient does not remember if he had a bowel movement. Patient when she was evaluated in the emergency department seem to be in very acute distress, at the time of my evaluation she is in no acute distress her pain level seems to be at 0. The patient has been seen by surgery at the time of my visit and small bowel series has been ordered since they seem to have been the answer on her last hospital stay. In her last hospital stay and we discussed with surgical endoscopist that intervening on the patient would not be appropriate given the risk and they would certainly outweighed the benefit in this case. Patient's healthcare surrogate is her nephew and I have discussed the case with him at length at bedside. All of their concerns were addressed to the best my abilities 06/18 Patient does not seem to be in acute distress at the time of my visit today. Nursing staff has reported blood pressure rise. We will address this which probably is related to her discomfort, she did have a bowel movement and hopefully we can restart her oral route if okay with executive talent acquisition consultant 06/19 Patient doing much better after several bowel movements yesterday. Patient is passing gas and able to tolerate her liquid diet. We will advance as recommended by our surgical endoscopist. I have discussed plan of care with nephew who is at bedside Vitals Vitals Vital Signs Date Time Temp Pulse Resp B/P (MAP) Pulse Ox O2 Delivery O2 Flow Rate FiO2 06/19/20 16:04 118 192/87 06/19/20 15:29 96 Nasal Cannula 3.0 06/19/20 15:00 97.3 16 97.3 Physical Exam General: Alert, Cooperative, No acute distress Heart: Regular rate, Normal S1, Normal S2 Lungs: Clear, Other Abdomen: Soft, No tenderness Extremities: No clubbing, No cyanosis Skin: No rashes, No breakdown Comment Review of Relevant I have reviewed the following items forest (where applicable) has been applied. Medications Current Medications Iohexol (Omnipaque 300 Mg/ml) 75 ml 1X ONCE IV Last administered on 06/16/20at 19:28; Start 06/16/20 at 19:15; Stop 06/16/20 at 19:16; Status DC Info (CONTRAST GIVEN -- Rx MONITORING) 1 each PRN DAILY PRN MC SEE COMMENTS; Start 06/16/20 at 19:30; Stop 06/18/20 at 08:02; Status DC Sodium Chloride 1,000 ml @ 1,000 mls/hr 1X ONCE IV Last administered on at 20:28; Start 06/16/20 at 20:30; Stop 06/16/20 at 21:29; Status DC Ondansetron HCl (Zofran) 4 mg PRN Q8HRS PRN IV NAUSEA/VOMITING Last administered on 06/16/20at 20:28; Start 06/16/20 at 20:30; Stop 06/17/20 at 20:29; Status DC Morphine Sulfate (Morphine Sulfate) 2 mg PRN Q2HR PRN IV PAIN Last administered on 06/17/20at 13:17; Start 06/16/20 at 20:30; Stop 06/17/20 at 20:29; Status DC Morphine Sulfate (Morphine Sulfate) 2 mg 1X ONCE IV Last administered on 06/16/20at 20:28; Start 06/16/20 at 20:30; Stop 06/16/20 at 20:31; Status DC Lidocaine/ Prilocaine (Emla) 1 shraddha 1X ONCE TP ; Start 06/16/20 at 20:30; Stop 06/16/20 at 20:31; Status Cancel Ondansetron HCl (Zofran) 4 mg STK-MED ONCE .ROUTE ; Start 06/16/20 at 20:25; Stop 06/16/20 at 20:25; Status DC Labetalol HCl (Normodyne Iv Push) 20 mg 1X ONCE IVP Last administered on 06/17/20at 00:29; Start 06/17/20 at 00:00; Stop 06/17/20 at 00:01; Status DC Labetalol HCl (Normodyne Iv Push) 10 mg PRN Q6HRS PRN IVP HYPERTENSION, 2ND CHOICE Last administered on 06/18/20at 08:06; Start 06/17/20 at 08:45; Stop 06/18/20 at 14:59; Status DC Hydralazine HCl (Apresoline Inj) 10 mg PRN Q4HRS PRN IVP ELEVATED BP, 1ST CHOICE Last administered on 06/18/20at 07:51; Start 06/17/20 at 08:45; Stop 06/18/20 at 14:59; Status DC Albuterol/ Ipratropium (Duoneb) 3 ml RTQID NEB Last administered on 06/19/20at 10:48; Start 06/17/20 at 16:00; Stop 06/19/20 at 15:54; Status DC Budesonide (Pulmicort) 0.5 mg RTBID NEB Last administered on 06/19/20at 07:10; Start 06/17/20 at 20:00; Stop 06/19/20 at 15:52; Status DC Albuterol Sulfate (Ventolin Neb Soln) 2.5 mg PRN Q4HRS PRN NEB SHORTNESS OF BREATH Last administered on 06/17/20at 13:32; Start 06/17/20 at 13:30 Ringer's Solution 1,000 ml @ 75 mls/hr [id number] IV Last administered on 06/19/20at 08:57; Start 06/17/20 at 15:30 Iohexol (Omnipaque 300 Mg/ml) 400 ml 1X ONCE PO Last administered on 06/18/20at 08:00; Start 06/18/20 at 08:00; Stop 06/18/20 at 08:02; Status DC Info (CONTRAST GIVEN -- Rx MONITORING) 1 each PRN DAILY PRN MC SEE COMMENTS; Start 06/18/20 at 08:15; Stop 06/20/20 at 08:14 Morphine Sulfate (Morphine Sulfate) 2 mg PRN Q4HRS PRN IV PAIN Last administered on 06/19/20at 01:17; Start 06/18/20 at 12:15 Hydralazine HCl (Apresoline Inj) 25 mg PRN Q4HRS PRN IVP ELEVATED BP, 1ST CHOICE Last administered on 06/19/20at 03:42; Start 06/18/20 at 15:00 Labetalol HCl (Normodyne Iv Push) 10 mg PRN Q4HRS PRN IVP HYPERTENSION, 2ND CHOICE Last administered on 06/19/20at 07:36; Start 06/18/20 at 15:00 Acetaminophen (Tylenol) 1,000 mg PRN Q6HRS PRN PO MILD PAIN 1-3; Start 06/19/20 at 15:15 Albuterol Sulfate (Ventolin Neb Soln) 2.5 mg PRN Q6HRS PRN INH SHORTNESS OF BREATH; Start 06/19/20 at 15:15; Stop 06/19/20 at 15:51; Status DC Aspirin (Ecotrin) 81 mg DAILY PO ; Start 06/20/20 at 09:00 Clonidine HCl (Catapres) 0.1 mg TID PO Last administered on 06/19/20at 16:02; Start 06/19/20 at 15:30 Diltiazem HCl (Cardizem 24hr Cd) 240 mg DAILY PO Last administered on 06/19/20at 16:04; Start 06/19/20 at 16:00 Hydralazine HCl (Apresoline) 10 mg BID PO Last administered on 06/19/20at 16:00; Start 06/19/20 at 16:00 Labetalol HCl (Trandate) 200 mg BID PO ; Start 06/19/20 at 21:00 Latanoprost (Xalatan) 1 drop QHS OU ; Start 06/19/20 at 21:00 Lisinopril (Prinivil) 40 mg DAILY PO Last administered on 06/19/20at 16:01; Start 06/19/20 at 16:00 Mirtazapine (Remeron) 7.5 mg QHS PO ; Start 06/19/20 at 21:00 Oxybutynin Chloride (Ditropan) 5 mg TID PO Last administered on 06/19/20at 16:01; Start 06/19/20 at 16:00 Polyethylene Glycol (miraLAX PACKET) 17 gm DAILY PO ; Start 06/19/20 at 16:00 Potassium Chloride (Klor-Con) 20 meq DAILYWBKFT PO Last administered on 06/19/20at 16:03; Start 06/19/20 at 16:00 Prednisone (Prednisone) 5 mg DAILY PO Last administered on 06/19/20at 16:00; Start 06/19/20 at 16:00 Non-Formulary Medication (Budesonide/ Formoterol Fumarate (Symbicort 160-4.5 Mcg Inhaler)) 2 puff BID IH ; Start 06/19/20 at 21:00; Status UNV Calcium/Vitamin D (Oscal D 500mg/ 200uts) 1 tab BIDWMEALS PO Last administered on 06/19/20at 16:01; Start 06/19/20 at 17:00 Pantoprazole Sodium (Protonix) 40 mg DAILYAC PO ; Start 06/20/20 at 07:30 Non-Formulary Medication (Glucosamine Sulfate 2KCL (Glucosamine)) 500 mg BID PO ; Start 06/19/20 at 21:00; Status UNV Ondansetron HCl (Zofran Odt) 4 mg PRN Q6HRS PRN PO NAUSEA/VOMITING; Start 06/19/20 at 15:45 Atorvastatin Calcium (Lipitor) 20 mg QHS PO ; Start 06/19/20 at 21:00 Non-Formulary Medication (Tiotropium [place] (Spiriva)) 1 cap DAILY IH ; Start 06/20/20 at 09:00; Status UNV Albuterol/ Ipratropium (Duoneb) 3 ml RTQID NEB ; Start 06/19/20 at 16:00 Budesonide (Pulmicort) 0.5 mg RTBID NEB ; Start 06/19/20 at 20:00 Active Scripts Active Klor-Con M20 (Potassium Chloride) 20 Meq Tab.er.prt 20 Meq PO DAILYWBKFT 14 Days Hydralazine Hcl 10 Mg Tablet 1 Tab PO BID 30 Days Zofran (Ondansetron Hcl) 4 Mg Tablet 1 Tab PO Q6HRS PRN Nexium Capsule (Esomeprazole Magnesium) 20 Mg Capsule.dr 1 Cap PO DAILY OTC. Symbicort 160-4.5 Mcg Inhaler (Budesonide/Formoterol Fumarate) 10.2 Gm Hfa.aer.ad 2 Puff IH BID Reported Labetalol Hcl 200 Mg Tablet 1 Tab PO BID Acetaminophen 500 Mg Tablet 2 Tab PO PRN Q6HRS PRN Prednisone (Prednisone) 10 Mg Tablet 5 Mg PO DAILY Glucosamine (Glucosamine Sulfate 2KCL) 1,000 Mg Tablet 500 Mg PO BID Oxybutynin Chloride 5 Mg Tablet 5 Mg PO TID Latanoprost 2.5 Ml Drops 1 Drop EACHEYE QHS Clonidine Hcl 0.1 Mg Tablet 0.1 Mg PO TID Miralax (Polyethylene Glycol 3350) 17 Gm Powd.pack 1 Pkt PO DAILY Calcium 500 + D Tablet (Calcium Carbonate/Vitamin D3) 1 Each Tablet 1 Each PO BID Diltiazem 24HR Cd (Diltiazem Hcl) 240 Mg Cap.er.24h 240 Mg PO DAILY Lisinopril 40 Mg Tablet 1 Tab PO DAILY Spiriva (Tiotropium [place]) 18 Mcg Cap.w.dev 1 Cap IH DAILY Mirtazapine 15 Mg Tablet 0.5 Tab PO QHS Aspir 81 (Aspirin) 81 Mg Tablet.dr 1 Tab PO DAILY Pravastatin Sodium 80 Mg Tablet 80 Mg PO HS Proair Hfa Inhaler (Albuterol Sulfate) 8.5 Gm Hfa.aer.ad 2 Puff INH PRN Q6HRS PRN Vitals/I & O Vital Sign - Last 24 Hours 06/18/20 06/18/20 06/18/20 06/18/20 16:30 17:00 19:00 19:05 Temp 98.3 98.3 Pulse 138 Resp 24 B/P (MAP) 124/59 (80) 148/72 (97) 199/99 (132) Pulse Ox 93 O2 Delivery Nasal Cannula Nasal Cannula O2 Flow Rate 3.0 3.0 06/18/20 06/18/20 06/18/20 06/18/20 19:45 20:56 21:12 21:18 Pulse 134 105 Resp 20 B/P (MAP) 194/90 198/86 Pulse Ox 97 O2 Delivery Nasal Cannula Nasal Cannula O2 Flow Rate 3.0 3.0 06/18/20 06/18/20 06/19/20 06/19/20 21:40 23:00 01:17 01:45 Temp 98.4 98.4 Pulse 101 Resp 19 21 19 19 B/P (MAP) 165/79 (107) Pulse Ox 96 O2 Delivery Nasal Cannula Room Air Nasal Cannula Nasal Cannula O2 Flow Rate 3.0 3.0 3.0 06/19/20 06/19/20 06/19/20 06/19/20 03:00 03:42 04:15 07:00 Temp 98.2 98.3 98.2 98.3 Pulse 103 103 105 109 Resp 22 18 B/P (MAP) 185/82 (116) 185/82 159/78 (105) 199/82 (121) Pulse Ox 96 93 O2 Delivery Nasal Cannula Nasal Cannula O2 Flow Rate 3.0 3.0 06/19/20 06/19/20 06/19/20 06/19/20 07:12 07:36 07:55 10:49 Pulse 109 B/P (MAP) 199/82 Pulse Ox 93 97 O2 Delivery Nasal Cannula Nasal Cannula Nasal Cannula O2 Flow Rate 3.0 3.0 3.0 06/19/20 06/19/20 06/19/20 06/19/20 11:00 15:00 15:29 16:00 Temp 97.9 97.3 97.9 97.3 Pulse 103 118 118 Resp 16 16 B/P (MAP) 192/84 (120) 192/87 (122) 192/87 Pulse Ox 97 96 96 O2 Delivery Nasal Cannula Nasal Cannula Nasal Cannula O2 Flow Rate 3.0 3.0 3.0 06/19/20 06/19/20 06/19/20 16:01 16:02 16:04 Pulse 118 118 118 B/P (MAP) 192/87 192/87 192/87 Intake and Output 06/18/20 06/18/20 06/19/20 14:59 22:59 06:59 Intake Total 1320 ml 120 ml Output Total 700 ml 150 ml 250 ml Balance -700 ml 1170 ml -130 ml Nutrition Consultation Dietary Evaluation: Recommendations by RD: Dietary education by RD, Increase Calorie Intake, Protein supplementation Comments: adding clear liquid supplements for extra kcal and protein REC advance diet to regular as tolerated with oral supplements for optimum nutrition. REC mvi and vit c for skin breakdown prevention. Expected Outcomes/Goals: to meet >75% est nutr needs Malnutrition Findings: Body Fat Depletion (Non Severe: Mild Depletion Weight Status: Underweight Justicifation of Admission Dx: Justifications for Admission: Justification of Admission Dx: Comment: EVGENY PEREA MD Jun 19, 2020 16:14
[2020-06-19] MEDS ORDERED: NON FORMULARY ITEM (Budesonide/Formoterol Fumarate (Symbicort 160-4.5 Mcg Inhaler) 2 PUFF) IH SCH (21:00)
[2020-06-19] MEDS ORDERED: LATANOPROST 0.005% OPHTH SOLUTION 2.5ML BOTTLE. OU SCH (21:00)
[2020-06-19] MEDS ORDERED: MIRTAZAPINE 15 MG TABLET PO SCH (21:00)
[2020-06-19] MEDS ORDERED: NON FORMULARY ITEM (Glucosamine Sulfate 2KCL (Glucosamine) 500 MG) PO SCH (21:00)
[2020-06-19] MEDS ORDERED: ATORVASTATIN CALCIUM 20 MG TABLET PO SCH (21:00)
[2020-06-19] MEDS: LABETALOL HCL 200 MG TABLET PO SCH (21:35)
[2020-06-20 03:00] VITALS: BP 138/49
[2020-06-20 07:00] VITALS: BP 144/41
[2020-06-20] MEDS ORDERED: PANTOPRAZOLE 40 MG TABLET.DR. PO SCH (07:30)
[2020-06-20] MEDS: BUDESONIDE 0.5 MG/2 ML NEBU. NEB SCH ×2 (08:00→09:40)
[2020-06-20] MEDS ORDERED: ASPIRIN ENTERIC COATED 81 MG TABLET.DR. PO SCH (09:00)
[2020-06-20] MEDS ORDERED: NON FORMULARY ITEM (Tiotropium Bromide (Spiriva) 1 CAP) IH SCH (09:00)
[2020-06-20] MEDS: POTASSIUM CHLORIDE 20 MEQ TABLET.ER. PO SCH (09:16)
[2020-06-20] MEDS: cloNIDine HCL 0.1 MG TABLET PO SCH ×2 (09:16→15:42)
[2020-06-20] MEDS: predniSONE 5 MG TABLET PO SCH (09:16)
[2020-06-20] MEDS: OXYBUTYNIN CHLORIDE 5 MG TABLET PO SCH ×2 (09:18→15:42)
[2020-06-20] MEDS: CALCIUM CARB/VIT D3 500/200 TABLET. PO SCH (09:18)
[2020-06-20] MEDS: LABETALOL HCL 200 MG TABLET PO SCH (09:18)
[2020-06-20] MEDS: LISINOPRIL 20 MG TABLET PO SCH (09:18)
[2020-06-20] MEDS: POLYETHYLENE GLYCOL 3350 17 GM PACKET. PO SCH (09:19)
[2020-06-20] MEDS: IPRATRPIUM/ALBUTEROL 0.5/2.5MG 3 ML NEBU. NEB SCH ×2 (09:39→12:47)
[2020-06-20] MEDS: IV RINGERS,LACTATED 1000ML 1,000 ML IV SCH (10:10)
--- NOTE | 2020-06-20 10:15 | PDOC ---
SURGICAL PROGRESS NOTE DATE: 06/20/20 TIME: 10:15 Subjective doing well tolerating clears having stools Vital Signs Vital Signs Date Time Temp Pulse Resp B/P (MAP) Pulse Ox O2 Delivery O2 Flow Rate FiO2 06/20/20 09:40 97 Nasal Cannula 3.0 06/20/20 09:18 74 144/41 06/20/20 07:00 98.4 16 98.4 I&O Intake and Output 06/20/20 07:00 Intake Total 2520 ml Output Total 1200 ml Balance 1320 ml Intake Oral 1520 ml IV Total 1000 ml Output Urine Total 1200 ml # Bowel Movements 6 General: Cooperative Abdomen: Soft, No tenderness Assessment/Plan can advance diet Justicifation of Admission Dx: Justifications for Admission: Justification of Admission Dx: Comment: JOSE HILL VICE PRESIDENT OF HUMAN RESOURCES Jun 20, 2020 10:15
--- NOTE | 2020-06-20 10:40 | NUR ---
KO following. Discussed with RN, pt from home with nephew, uses oxygen at home, clear liquid diet advanced this morning. [facility] RN anticipates discharge home today or tomorrow (06/21/20). Discharge orders to be faxed to [facility] when available (fax: [phone]). OK will continue to follow. Addendum: 06/20/20 at 1149 by SAMUEL CONNELL Discharge orders for home with home health. Belinda Navarrete RN faxing discharge orders to [facility].
[2020-06-20 11:00] VITALS: BP 142/61
--- NOTE | 2020-06-20 11:19 | SNU/HH DC ---
DISCHARGE WITH HOME HEALTH DISCHARGE INFORMATION: Discharge Date: Jun 20, 2020 Final Diagnosis: SBO Condition on Discharge: Stable CODE STATUS: Code Status: Full HOME HEALTH: Face to Face: I certify this patient is under my care and that I, or a nurse practitioner or physician's assistant project engineer working with me, had a face to face encounter that meets the physician face to face encounter requirements with this patient on []. RN For Eval/Treatment: Yes Physical Therapy For: Evalulation/Treatment Pt Meets Homebound Status: Limited distance walking POST DISCHARGE ORDERS: Activity Instructions for Disc: Activity as tolerated Weight Bearing Status after Di: No restrictions, As tolerated DIET AFTER DISCHARGE: Cardiac Wound/Incision Care: No wound care needed CHECKS AFTER DISCHARGE: Checks after discharge: Check blood press - daily FOLLOW-UP: DC TO SNF LABS: CBC in one week TREATMENT/EQUIPMENT ORDERS: Adaptive Equipment Issued: Walker Discharge Respiratory Equipmen: Oxygen CERTIFICATION STATEMENT: Certification Statement: Certification Statement: Based on the above finding, I certify that this patient is confined to the home and needs intermittent senior living care, physical therapy and/or speech therapy, or continues to need occupational therapy.~ This patient is under my care, and I have initiated the establishment of the plan of care.~ This patient will be followed by myself or a community physician who will periodically review the plan of care. Home Meds Active Scripts Potassium Chloride (KLOR-CON M20) 20 Meq Tab.er.prt, 20 MEQ PO DAILYWBKFT for SUPPLEMENT for 14 Days, #14 TAB.SR Prov:KRISTAN CHAKRABORTY MD 05/16/20 Hydralazine Hcl (HYDRALAZINE HCL) 10 Mg Tablet, 1 TAB PO BID for HTN for 30 Days, #60 TAB 3 Refills Prov:BHAVNA BRITTON MD 07/07/19 Ondansetron Hcl (ZOFRAN) 4 Mg Tablet, 1 TAB PO Q6HRS PRN for NAUSEA/VOMITING, #20 TAB Prov:MONALISA BROWN MD 12/11/18 Esomeprazole Magnesium (NEXIUM CAPSULE) 20 Mg Capsule.dr, 1 CAP PO DAILY, #30 CAP 2 Refills OTC. Prov:IAN BLAKE MD 09/28/17 Budesonide/Formoterol Fumarate (SYMBICORT 160-4.5 MCG INHALER) 10.2 Gm Hfa.aer.ad, 2 PUFF IH BID, #10.6 GM 3 Refills Prov:IAN BLAKE MD 09/28/17 Reported Medications Labetalol Hcl (LABETALOL HCL) 200 Mg Tablet, 1 TAB PO BID for , #60 TAB 5 Refills 07/10/19 Acetaminophen (ACETAMINOPHEN) 500 Mg Tablet, 2 TAB PO PRN Q6HRS PRN for PAIN, #60 TAB 1 Refill 08/05/18 Prednisone (PREDNISONE ) 10 Mg Tablet, 5 MG PO DAILY for anti inflammatory, TAB 0 Refills 08/05/18 Glucosamine Sulfate 2KCL (GLUCOSAMINE) 1,000 Mg Tablet, 500 MG PO BID for joint pain, TAB 08/05/18 Oxybutynin Chloride (OXYBUTYNIN CHLORIDE) 5 Mg Tablet, 5 MG PO TID for bladder spasms, TAB 08/05/18 Latanoprost (LATANOPROST) 2.5 Ml Drops, 1 DROP EACHEYE QHS for glaucoma, #7.5 ML 3 Refills 08/05/18 Clonidine Hcl (CLONIDINE HCL) 0.1 Mg Tablet, 0.1 MG PO TID for hypertension, TAB 08/05/18 Polyethylene Glycol 3350 (MIRALAX) 17 Gm Powd.pack, 1 PKT PO DAILY, PKT 08/26/17 Calcium Carbonate/Vitamin D3 (CALCIUM 500 + D TABLET) 1 Each Tablet, 1 EACH PO BID, TAB 08/26/17 Diltiazem Hcl (DILTIAZEM 24HR CD) 240 Mg Cap.er.24h, 240 MG PO DAILY, CAP.SR 08/26/17 Lisinopril (LISINOPRIL) 40 Mg Tablet, 1 TAB PO DAILY, #30 TAB 5 Refills 08/26/17 Tiotropium [place] (SPIRIVA) 18 Mcg Cap.w.dev, 1 CAP IH DAILY, #30 CAP 3 Refills 08/26/17 Mirtazapine (MIRTAZAPINE) 15 Mg Tablet, 0.5 TAB PO QHS, #30 TAB 3 Refills 06/01/16 Aspirin (ASPIR 81) 81 Mg Tablet.dr, 1 TAB PO DAILY, #30 TAB 5 Refills 04/05/15 Pravastatin Sodium (PRAVASTATIN SODIUM) 80 Mg Tablet, 80 MG PO HS, TAB 02/16/15 Albuterol Sulfate (PROAIR HFA INHALER) 8.5 Gm Hfa.aer.ad, 2 PUFF INH PRN Q6HRS PRN for SHORTNESS OF BREATH, INHALER 0 Refills 11/21/13 EVGENY PEREA MD Jun 20, 2020 11:18
[2020-06-20 15:42] VITALS: BP 114/51
--- NOTE | 2020-06-20 16:24 | NUR ---
Discharge Note: GLO GALAN Discharge instructions and discharge home medications reviewed with Patient and a copy given. All questions have been answered and understanding verbalized. The following instructions and handouts were given: discharge instructions and education. Discontinued lines and drains: Peripheral IV discontinued intact. Patient discharged to Home w/services with Family Member via Wheelchair off unit by TR.
--- NOTE | 2020-06-20 18:08 | PDOC3 ---
Discharge Summary Visit Information Date of Admission: Jun 17, 2020 Date of Discharge: Jun 20, 2020 Admitting Diagnosis Comment: Small bowel obstruction History ofCOPD, home oxygen therapy Essential Hypertension History of Colon CA, History fo L)hernia , Hsitory of SPINAL/CAROTID STENOSIS History of Pacemaker Final Diagnosis Small bowel obstruction History ofCOPD, home oxygen therapy Essential Hypertension History of Colon CA, status post right-sided resection History fo L)hernia , Hsitory of SPINAL/CAROTID STENOSIS History of Pacemaker Brief Hospital Course Allergies Allergies Coded Allergies Type Severity Reaction Last Updated Verified No Known Drug Allergies 08/19/15 No Vital Signs Vital Signs Date Time Temp Pulse Resp B/P (MAP) Pulse Ox O2 Delivery O2 Flow Rate FiO2 06/20/20 15:42 74 114/51 06/20/20 12:48 95 Nasal Cannula 3.0 06/20/20 11:00 97.7 16 97.7 Brief Hospital Course istory of Present Illness Patient is an 89-year-old female who had a similar presentation on 05/10/2020. Patient has history of dementia COPD hypertension and has history of colon cancer who presented again with abdominal discomfort sudden onset lower abdominal pain no radiation to the back not to the epigastrium nor the right upper quadrant. The patient does not remember if he had a bowel movement. Patient when she was evaluated in the emergency department seem to be in very acute distress, at the time of my evaluation she is in no acute distress her pain level seems to be at 0. The patient has been seen by surgery at the time of my visit and small bowel series has been ordered since they seem to have been the answer on her last hospital stay. In her last hospital stay and we disc ussed with surgical attendant that intervening on the patient would not be appropriate given the risk and they would certainly outweighed the benefit in this case. Patient's healthcare surrogate is her nephew and I have discussed the case with him at length at bedside. All of their concerns were addressed to the best my abilities 06/18 Patient does not seem to be in acute distress at the time of my visit today. Nursing staff has reported blood pressure rise. We will address this which probably is related to her discomfort, she did have a bowel movement and hopefully we can restart her oral route if okay with independent marketing consultant 06/19 Patient doing much better after several bowel movements yesterday. Patient is passing gas and able to tolerate her liquid diet. We will advance as recommended by our surgical attendant. I have discussed plan of care with nephew who is at bedside 06/20 Patient fortunately was able to have her diet advanced over the last 24 hours of her hospital stay. She did not have a recurrence of her symptoms dietary counseling was done to the caregiver who is also her DPOA. We discussed the option of seeking a hospice consultation when she goes back home since he related to me that is taking a lot out of the patient this frequent trips to the hospital. Patient had a very similar presentation on her last hospital stay approximately 2 months ago. Fortunately enough that this 2 bouts have concluded after a small bowel series recommended by our surgical attendant. She certainly is a very high risk surgical candidate and probably would not survive a procedure at this point. She has provided advanced dementia but she is able to have quality of life at home as related by patient's DPOA. I stressed the importance of keeping this quality of life and that transitioning to a palliative care treatment plan would probably be beneficial for the patient and avoid future trips to the emergency department with the subsequent hospitalization. All of their concerns were discussed at length and I reviewed past medical records with the DPOA. Greater than 35 minutes were spent in the discharge process the patient counseling coordination of care and arrangement for a safe discharge Physical Exam General: Alert, Cooperative, No acute distress Heart: Regular rate, Normal S1, Normal S2 Lungs: Clear, Other Abdomen: Soft, No tenderness Extremities: No clubbing, No cyanosis Skin: No rashes, No breakdown Assessment Assessment IMAGING REPORT Signed PATIENT: GLO GALAN ACCOUNT: [id number] : 1930 LOCATION: [address] [place] [address] AGE: 89 SEX: F EXAM STATUS: ADM IN ORD. PHYSICIAN: JOSE HILL APRN REASON: sbo PROCEDURE: SMALL BOWEL SERIES EXAM: Small bowel follow-through exam. HISTORY: Pain. Obstruction. TECHNIQUE: A hand potter image of the abdomen was obtained. Overhead images were then obtained following the oral measures Doppler segmental contrast. 3 fluoroscopic spot images were obtained at the conclusion of the exam. The total fluoroscopy time was 0 minutes. COMPARISON: CT dated 06/16/2020. FINDINGS: A hand potter image of the abdomen demonstrates gas and stool within the colon. There are nonspecific air-filled loops of small bowel within the abdomen. There is rotatory scoliosis of the lumbar spine. There are surgical clips overlying the pelvis. 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 There are cardiac pacemaker leads in expected position. The images obtained following the administration of contrast demonstrate contrast opacification of a patulous esophagus and distended stomach. There is a small hiatal hernia. The subsequent images demonstrate contrast opacification of the small bowel. The small bowel transit time is approximately 75 minutes. The bowel loops are prominent in caliber. However, no small bowel stricture, fistula, extravasation or transition point to suggest small bowel obstruction is seen. There is reflux of contrast into the distal esophagus during fluoroscopic spot imaging. IMPRESSION: 1. Prominent loops of small bowel throughout the abdomen with slightly delayed transit time. No mucosal lesion or small bowel obstruction is seen. 2. Patulous esophagus and small hiatal hernia. There is reflux of contrast into the esophagus with recumbent positioning. 3. Distended stomach. Electronically signed by: Joi Stiles MD (06/18/2020 1:42 PM) [id number] Discharge Information Condition at Discharge: Improved Follow Up: Weeks Disposition/Orders: D/C to Home Scheduled Aspirin (Aspir 81) 81 Mg Tablet.dr, 1 TAB PO DAILY, #30 Ref 5 (Reported) Entered as Reported by: GAVIN REZA on 04/05/15 1109 Last Action: Continued on 06/19/201512 by EVGENY PEREA MD Budesonide/Formoterol Fumarate (Symbicort 160-4.5 Mcg Inhaler) 10.2 Gm Hfa.aer.a d, 2 PUFF IH BID, #10.6 Ref 3 Prescribed by: IAN BLAKE on 09/28/17 0857 Last Action: Converted on 06/19/201512 by EVGENY PEREA MD Calcium Carbonate/Vitamin D3 (Calcium 500 + D Tablet) 1 Each Tablet, 1 EACH PO BID, (Reported) Entered as Reported by: FREDRICK DESIR on 08/26/17 2132 Last Action: Converted on 06/19/201512 by EVGENY PEREA MD Clonidine Hcl (Clonidine Hcl) 0.1 Mg Tablet, 0.1 MG PO TID for hypertension, (Re ported) Entered as Reported by: CAROL NDIAYE on 08/05/18 1313 Last Action: Continued on 06/19/201512 by EVGENY PEREA MD Diltiazem Hcl (Diltiazem 24HR Cd) 240 Mg Cap.er.24h, 240 MG PO DAILY, (Reported) Entered as Reported by: RAMIRO HARRIS on 08/26/17 1524 Last Action: Continued on 06/19/201512 by EVGENY PEREA MD Esomeprazole Magnesium (Nexium Capsule) 20 Mg Capsule.dr, 1 CAP PO DAILY, #30 Ref 2 OTC. Prescribed by: IAN BLAKE on 09/28/17 0859 Last Action: Converted on 06/19/201512 by EVGENY PEREA MD Glucosamine Sulfate 2KCL (Glucosamine) 1,000 Mg Tablet, 500 MG PO BID for joint pain, (Reported) Entered as Reported by: CAROL NDIAYE on 08/05/18 1315 Last Action: Converted on 06/19/201512 by EVGENY PEREA MD Hydralazine Hcl (Hydralazine Hcl) 10 Mg Tablet, 1 TAB PO BID for HTN for 30 Days, #60 Ref 3 Prescribed by: BHAVNA BRITTON MD on 07/07/19 1117 Last Action: Continued on 06/19/201512 by EVGENY PEREA MD Labetalol Hcl (Labetalol Hcl) 200 Mg Tablet, 1 TAB PO BID for , #60 Ref 5 (Reported) Entered as Reported by: SHARIFA CRONIN RN on 07/10/19 1609 Last Action: Continued on 06/19/201512 by EVGENY PEREA MD Latanoprost (Latanoprost) 2.5 Ml Drops, 1 DROP EACHEYE QHS for glaucoma, #7.5 Ref 3 (Reported) Entered as Reported by: CAROL NDIAYE on 08/05/18 1313 Last Action: Continued on 06/19/201512 by EVGENY PEREA MD Lisinopril (Lisinopril) 40 Mg Tablet, 1 TAB PO DAILY, #30 Ref 5 (Reported) Entered as Reported by: RAMIRO HARRIS on 08/26/17 1523 Last Action: Continued on 06/19/201512 by EVGENY PEREA MD Mirtazapine (Mirtazapine) 15 Mg Tablet, 0.5 TAB PO QHS, #30 Ref 3 (Reported) Entered as Reported by: GUERLINE BRADFORD on 06/01/16 1055 Last Action: Continued on 06/19/201512 by EVGENY PEREA MD Oxybutynin Chloride (Oxybutynin Chloride) 5 Mg Tablet, 5 MG PO TID for bladder spasms, (Reported) Entered as Reported by: CAROL NDIAYE on 08/05/18 1313 Last Action: Continued on 06/19/201512 by EVGENY PEREA MD Polyethylene Glycol 3350 (Miralax) 17 Gm Powd.pack, 1 PKT PO DAILY, (Reported) Entered as Reported by: FREDRICK DESIR on 08/26/17 2132 Last Action: Continued on 06/19/201512 by EVGENY PEREA MD Potassium Chloride (Klor-Con M20) 20 Meq Tab.er.prt, 20 MEQ PO DAILYWBKFT for SUPPLEMENT for 14 Days, #14 Prescribed by: KRISTAN CHAKRABORTY MD on 05/16/20 1019 Last Action: Continued on 06/19/201512 by EVGENY PEREA MD Pravastatin Sodium (Pravastatin Sodium) 80 Mg Tablet, 80 MG PO HS, (Reported) Entered as Reported by: ANTOINE SERRANO on 02/16/15 1732 Last Action: Converted on 06/19/201512 by EVGENY PEREA MD Prednisone (Prednisone ) 10 Mg Tablet, 5 MG PO DAILY for anti inflammatory, Ref 0 (Reported) Entered as Reported by: CAROL NDIAYE on 08/05/18 1335 Last Action: Continued on 06/19/201512 by EVGENY PEREA MD Tiotropium [place] (Spiriva) 18 Mcg Cap.w.dev, 1 CAP IH DAILY, #30 Ref 3 (Reported) Entered as Reported by: CRISTI MUNOZ, STUDENT on 08/26/17 1523 Last Action: Converted on 06/19/201512 by EVGENY PEREA MD Scheduled PRN Acetaminophen (Acetaminophen) 500 Mg Tablet, 2 TAB PO PRN Q6HRS PRN for PAIN, #60 Ref 1 (Reported) Entered as Reported by: CAROL NDIAYE on 08/05/18 1335 Last Action: Continued on 06/19/201512 by EVGENY PEREA MD Albuterol Sulfate (Proair Hfa Inhaler) 8.5 Gm Hfa.aer.ad, 2 PUFF INH PRN Q6HRS PRN for SHORTNESS OF BREATH, Ref 0 (Reported) Entered as Reported by: VICENTE JENKINS on 11/21/13 0656 Last Action: Continued on 06/19/201512 by EVGENY PEREA MD Ondansetron Hcl (Zofran) 4 Mg Tablet, 1 TAB PO Q6HRS PRN for NAUSEA/VOMITING, #20 Prescribed by: MONALISA BROWN MD on 12/11/18 1848 Last Action: Converted on 06/19/201512 by EVGENY PEREA MD Justicifation of Admission Dx: Justifications for Admission: Justification of Admission Dx: Comment: EVGENY PEREA MD Jun 20, 2020 18:08
[2020-09-15] MEDS ORDERED: ESCI20TA8 PO (00:14)
[2020-09-15] MEDS ORDERED: OXYB-36 PO (00:14)
[2020-09-15] MEDS ORDERED: HYDR-2867 PO (00:14)
[2020-09-15] MEDS ORDERED: FLUT1BLS3 INH (00:14)
[2020-09-17] MEDS ORDERED: AMLO-187 PO (10:26)
[2020-09-17] MEDS ORDERED: AMOX250S20 PO (10:26)
[2020-09-17] MEDS ORDERED: LACT1CAP19 PO (10:26)
[2020-09-17] MEDS ORDERED: BISA10SU4 PR (10:26)
[2020-09-17] MEDS ORDERED: MAGN400O7 PO (10:26)
== END 2020-06-20 16:30 | disposition home health service (06) | DRG 390 ==
LOC: ER 18:00 → 5 NORTH 23:50
PROVIDERS: ADMIT Internal Medicine; ATTEND Internal Medicine
PROC: 0D9670Z Drainage of Stomach with Drainage Device, Via Natural or Artificial Opening (ICD-10-PCS; principal; 2020-06-16)
DX: K56.609 Unspecified intestinal obstruction, unspecified as to partial versus complete obstruction (principal); E78.5 Hyperlipidemia, unspecified; F03.90 Unspecified dementia, unspecified severity, without behavioral disturbance, psychotic disturbance, mood disturbance, and anxiety; I10 Essential (primary) hypertension; J44.9 Chronic obstructive pulmonary disease, unspecified; M85.80 Other specified disorders of bone density and structure, unspecified site; Z51.5 Encounter for palliative care; Z85.038 Personal history of other malignant neoplasm of large intestine; Z87.891 Personal history of nicotine dependence; Z90.710 Acquired absence of both cervix and uterus; Z95.0 Presence of cardiac pacemaker; F41.9 Anxiety disorder, unspecified; K21.9 Gastro-esophageal reflux disease without esophagitis
CPT/HCPCS: 36415; 51702; 71045; 74018; 74177; 74250; 80053; 81001; 83605; 83690; 85007; 85025; 93005; 94640; 94760; 96361; 96374; 96375; 99285; J0360; J2270; J2405; J3490; J7030; J7120; J7512; Q9967; 97116-GP; 97530-GO; 97530-GP; 97535-GO; G0378; J7613; J7626

== ENCOUNTER 2020-06-25 16:36 | Inpatient (IN) | payer BC ==
[~2020-06-25] VITALS: Ht 160 cm; Wt 49.3 kg
[2020-06-25] MEDS: IV NORMAL SALINE 1000ML BAG 1,000 ML IV SCH (01:10)
--- NOTE | 2020-06-25 18:34 | ED.ADGEN ---
Past Medical History Past Medical History: COPD, Hypertension Additional Past Medical Histor: Colon CA,L)hernia,chemotherapy,home oxygen,SPINAL/CAROTID STENOSIS Past Surgical History: Pacemaker Additional Past Surgical Histo: Colonoscopy,Breast cysts removed bilaterally, pacemaker Smoking Status: Former Smoker Alcohol Use: None Drug Use: None General Adult EDM: Chief Complaint: ABDOMINAL PAIN HPI: HPI: Patient is a 89 year old female coming in with caregiver for intermittent abdominal pain and distention. Patient has a history of intermittent small bowel obstructions and has been admitted multiple times in the past few months. Patient states she has had very little appetite or p.o. intake but has been trying to drink water. Has not had a bowel movement in 2 days despite using 2 enemas and MiraLAX. 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 Denies any nausea or vomiting. Patient has had decreased urination but no dysuria. Patient normally has a bowel movement every day. Denies any fevers, cough, shortness of breath, chest pain, or changes in skin color. Review of Systems: Review of Systems: All other systems within normal limits except for as noted in the HPI Current Medications: Current Medications Medications (Trade) Dose Ordered Sig/Shu Start Time Stop Time Status Last Admin Dose Admin Iohexol (Omnipaque 300 Mg/ml) 75 ml 1X ONCE 06/25/20 21:15 06/25/20 21:16 DC 06/25/20 21:31 75 ML Sodium Chloride 500 ml @ 500 mls/hr 1X ONCE 06/25/20 18:45 06/25/20 19:44 DC 06/25/20 18:45 500 MLS/HR Allergies: Allergies: Allergies Coded Allergies Type Severity Reaction Last Updated Verified No Known Drug Allergies 08/19/15 No Physical Exam: PE: Constitutional: Well developed, well nourished, no acute distress, non-toxic appearance. [] HENT: Normocephalic, atraumatic, bilateral external ears normal, nose normal. [] Eyes: PERRLA, conjunctiva normal, no discharge. [] Neck: No rigidity, supple, no stridor. [] Cardiovascular: Regular rate and rhythm, brisk cap refill [] Lungs & Thorax: Non labored symmetric respirations, no tachypnea or respiratory distress [] Abdomen: Soft, mildly distended, no tenderness to palpation. Skin: Warm, dry, no erythema, no rash. Decreased skin turgor [] Back: No tenderness, no CVA tenderness. [] Extremities: No deformities, range of motion grossly intact, no lower extremity edema [] Neurologic: Alert and oriented X 3, no focal deficits noted. [] Psychologic: Affect normal, judgement normal, mood normal. [] Current Patient Data: Labs: Laboratory Tests Test 06/25/20 18:05 06/25/20 19:00 White Blood Count 11.2 x10^3/uL (4.0-11.0) H Red Blood Count 4.12 x10^6/uL (3.50-5.40) Hemoglobin 13.0 g/dL (12.0-15.5) Hematocrit 39.4 % (36.0-47.0) Mean Corpuscular Volume 96 fL (79-100) Mean Corpuscular Hemoglobin 32 pg (25-35) Mean Corpuscular Hemoglobin Concent 33 g/dL (31-37) Red Cell Distribution Width 15.0 % (11.5-14.5) H Platelet Count 331 x10^3/uL (140-400) Neutrophils (%) (Auto) 90 % (31-73) H Lymphocytes (%) (Auto) 6 % (24-48) L Monocytes (%) (Auto) 4 % (0-9) Eosinophils (%) (Auto) 1 % (0-3) Basophils (%) (Auto) 0 % (0-3) Neutrophils # (Auto) 10.0 x10^3/uL (1.8-7.7) H Lymphocytes # (Auto) 0.7 x10^3/uL (1.0-4.8) L Monocytes # (Auto) 0.4 x10^3/uL (0.0-1.1) Eosinophils # (Auto) 0.1 x10^3/uL (0.0-0.7) Basophils # (Auto) 0.0 x10^3/uL (0.0-0.2) Segmented Neutrophils % 84 % (35-66) H Band Neutrophils % 5 % (0-9) Lymphocytes % 6 % (24-48) L Monocytes % 5 % (0-10) Platelet Estimate Adequate (ADEQUATE) Sodium Level 141 mmol/L (136-145) Potassium Level 4.4 mmol/L (3.5-5.1) Chloride Level 104 mmol/L (98-107) Carbon Dioxide Level 29 mmol/L (21-32) Anion Gap 8 (6-14) Blood Urea Nitrogen 13 mg/dL (7-20) Creatinine 0.7 mg/dL (0.6-1.0) Estimated GFR (Cockcroft-Gault) 78.8 BUN/Creatinine Ratio 19 (6-20) Glucose Level 125 mg/dL (70-99) H Calcium Level 9.7 mg/dL (8.5-10.1) Magnesium Level 2.1 mg/dL (1.8-2.4) Total Bilirubin 0.3 mg/dL (0.2-1.0) Aspartate Amino Transferase (AST) 19 U/L (15-37) Alanine Aminotransferase (ALT) 23 U/L (14-59) Alkaline Phosphatase 67 U/L (46-116) Troponin I Quantitative 0.045 ng/mL (0.000-0.055) Total Protein 6.4 g/dL (6.4-8.2) Albumin 3.5 g/dL (3.4-5.0) Albumin/Globulin Ratio 1.2 (1.0-1.7) Lipase 120 U/L (73-393) Urine Collection Type Unknown Urine Color Yellow Urine Clarity Clear Urine pH 7.0 (<5.0-8.0) Urine Specific Elizabeth <=1.005 (1.000-1.030) Urine Protein Negative mg/dL (NEG-TRACE) Urine Glucose (UA) Negative mg/dL (NEG) Urine Ketones (Stick) Trace mg/dL (NEG) Urine Blood Negative (NEG) Urine Nitrite Positive (NEG) Urine Bilirubin Negative (NEG) Urine Urobilinogen Dipstick 0.2 mg/dL (0.2 mg/dL) Urine Leukocyte Esterase Moderate (NEG) Urine RBC Occ /HPF (0-2) Urine WBC 1-4 /HPF (0-4) Urine Bacteria Many /HPF (0-FEW) Lactic Acid Level 1.3 mmol/L (0.4-2.0) Laboratory Tests 06/25/20 18:05 Laboratory Tests 06/25/20 18:05 Vital Signs: Vital Signs Date Time Temp Pulse Resp B/P (MAP) Pulse Ox O2 Delivery O2 Flow Rate FiO2 06/25/20 23:00 98.1 76 22 198/91 (126) 97 Nasal Cannula 2.0 98.1 EKG: EKG: Sinus rhythm, indeterminate axis, no ST elevation present, no ectopy, normal intervals. [] Heart Score: Risk Factors: Risk Factors: DM, Current or recent (<one month) smoker, HTN, HLP, family history of CAD, obesity. Risk Scores: Score 0 - 3: 2.5% MACE over next 6 weeks - Discharge Home Score 4 - 6: 20.3% MACE over next 6 weeks - Admit for Clinical Observation Score 7 - 10: 72.7% MACE over next 6 weeks - Early Invasive Strategies Radiology/Procedures: Radiology/Procedures: CT ABDOMEN+PELVIS W History: Reason: sbo / Spl. Instructions: [id number] 75ML / History: Technique: After the administration of intravenous contrast, CT imaging was performed of the abdomen and pelvis. Multiplanar images are reviewed. Exposure: One or more of the following individualized dose reduction techniques were utilized for this examination: 1. Automated exposure control 2. Adjustment of the mA and/or kV according to patient size 3. Use of iterative reconstruction technique. Comparison: June 16, 2020 Findings: Lower chest: Emphysematous changes. Calcified right lower lobe pulmonary nodule, likely prior granulomatous disease. Abdomen and pelvis: The liver, spleen, pancreas and gallbladder are unremarkable. No biliary ductal dilatation. Bilateral adrenal adenomas thickening, unchanged. Bilateral renal hypodensities, likely cysts, unchanged. No hydronephrosis. Increased within the mesentery within the lower abdomen with twisting of the proximal transverse colon and descending colon (series 2 image 48 and series 4 image 19. Dilated fluid-filled ascending colon and cecum increased compared to prior. Fluid-filled small bowel loops. Stool within the distal colon. Colonic diverticulosis. No pneumatosis or pneumoperitoneum. No pathologic lymphadenopathy. No ascites. Ventral upper abdominal wall fat- containing hernia, increased compared to prior measures 4.4 cm compared to 2.8 cm. Extensive atheromatous plaque throughout the nonaneurysmal abdominal aorta. 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 Extensive plaque within the common iliac arteries with significant narrowing, unchanged. Bones: Grade 1 anterolisthesis L5 on S1. Leftward curvature the lumbar spine. Multilevel lumbar spondylosis. Impression: 1. Increased swirling of the mesentery within the lower abdomen with severe narrowing and swirling of the proximal transverse and ascending colon contributing to colonic obstruction. 2. Extensive atheromatous plaque with significant narrowing of the iliac arteries, unchanged. 3. Increased upper abdominal ventral fat-containing hernia. [] Course & Med Decision Making: Course & Med Decision Making Pertinent Labs and Imaging studies reviewed. (See chart for details) [] Dragon Disclaimer: Dragon Disclaimer: This electronic medical record was generated, in whole or in part, using a voice recognition dictation system. Departure Departure Impression: Primary Impression: SBO (small bowel obstruction) Disposition: 09 ADMITTED INPT THIS HOSP Admitting Physician: ALONSO Condition: STABLE Referrals: IAN BLAKE MD (PCP) JANIYA JUAN MD Jun 25, 2020 18:34
[2020-06-25 18:39] LABS: BASO % 0 % (0-3); EOS # 0.1 x10^3/uL (0.0-0.7); EOS % 1 % (0-3); HEMATOCRIT 39.4 % (36.0-47.0); LYMPH # 0.7 x10^3/uL (1.0-4.8); LYMPH % 6 % (24-48); MEAN CORPUSCULAR HEMOGLOBIN 32 pg (25-35); MEAN CORPUSCULAR HGB CONC 33 g/dL (31-37); MEAN CORPUSCULAR VOLUME 96 fL (79-100); MONO # 0.4 x10^3/uL (0.0-1.1); MONO % 4 % (0-9); NEUT % 90 % (31-73); PLATELET COUNT 331 x10^3/uL (140-400); RED BLOOD COUNT 4.12 x10^6/uL (3.50-5.40); WHITE BLOOD COUNT 11.2 x10^3/uL (4.0-11.0)
[2020-06-25] MEDS ORDERED: IV NORMAL SALINE 500ML BAG 500 ML IV ONE (18:45)
[2020-06-25 18:56] LABS: CALCIUM 9.7 mg/dL (8.5-10.1); CREATININE 0.7 mg/dL (0.6-1.0); GFR 78.8; POTASSIUM 4.4 mmol/L (3.5-5.1)
[2020-06-25 19:00] LABS: ALBUMIN 3.5 g/dL (3.4-5.0); ALBUMIN/GLOBULIN RATIO 1.2 (1.0-1.7); MAGNESIUM 2.1 mg/dL (1.8-2.4); TOTAL BILIRUBIN 0.3 mg/dL (0.2-1.0); TOTAL PROTEIN 6.4 g/dL (6.4-8.2)
[2020-06-25 19:11] LABS: % BANDS 5 % (0-9); % LYMPHS 6 % (24-48); % MONOS 5 % (0-10); % SEGS 84 % (35-66); PLT ESTIMATE ADEQUATE (ADEQUATE)
[2020-06-25 19:13] LABS: BILIRUBIN,URINE NEGATIVE (NEG); CLARITY,URINE CLEAR; COLOR,URINE YELLOW; NITRITE,URINE POSITIVE (NEG); PROTEIN,URINE NEGATIVE (NEG-TRACE); UROBILINOGEN,URINE 0.2 mg/dL (0.2 mg/dL)
[2020-06-25 19:26] LABS: BACTERIA,URINE MANY /HPF (0-FEW); RBC,URINE OCC /HPF (0-2)
[2020-06-25] MEDS ORDERED: IOHEXOL 300 MG/ML 100ML VIAL. IV ONE (21:15)
--- NOTE | 2020-06-25 22:46 | RAD ---
CT ABDOMEN+PELVIS W History: Reason: sbo / Spl. Instructions: [id number] 75ML / History: Technique: After the administration of intravenous contrast, CT imaging was performed of the abdomen and pelvis. Multiplanar images are reviewed. Exposure: One or more of the following individualized dose reduction techniques were utilized for thi s examination: 1. Automated exposure control 2. Adjustment of the mA and/or kV according to patient size 3. Use of iterative reconstruction technique. Comparison: June 16, 2020 Findings: Lower chest: Emphysematous changes. Calcified right lower lobe pulmonary nodule, likely prior granulo matous disease. Abdomen and pelvis: The liver, spleen, pancreas and gallbladder are unremarkable. No biliary ductal d ilatation. Bilateral adrenal adenomas thickening, unchanged. Bilateral renal hypodensities, likely cy sts, unchanged. No hydronephrosis. Increased within the mesentery within the lower abdomen with twisting of the proximal transverse col on and descending colon (series 2 image 48 and series 4 image 19. Dilated fluid-filled ascending colo n and cecum increased compared to prior. Fluid-filled small bowel loops. Stool within the distal colo n. Colonic diverticulosis. No pneumatosis or pneumoperitoneum. No pathologic lymphadenopathy. No ascites. Ventral upper abdominal wall fat-containing hernia, increa sed compared to prior measures 4.4 cm compared to 2.8 cm. Extensive atheromatous plaque throughout th e nonaneurysmal abdominal aorta. 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 Extens elsa plaque within the common iliac arteries with significant narrowing, unchanged. Bones: Grade 1 anterolisthesis L5 on S1. Leftward curvature the lumbar spine. Multilevel lumbar spond ylosis. Impression: 1. Increased swirling of the mesentery within the lower abdomen with severe narrowing and swirling o f the proximal transverse and ascending colon contributing to colonic obstruction. 2. Extensive atheromatous plaque with significant narrowing of the iliac arteries, unchanged. 3. Increased upper abdominal ventral fat-containing hernia. Electronically signed by: Steven Oliver DO (06/25/2020 10:43 PM) [facility] [place]
--- NOTE | 2020-06-25 22:47 | RAD ---
XR ABDOMEN 1V History: Reason: contrast / Spl. Instructions: / History: Abdominal pain. Technique: Supine views of the abdomen. Comparison: June 16, [address] June 25, 2020. Findings: No evidence of oral contrast within the abdomen and pelvis. Distended loops of colon throughout the a bdomen. Mildly dilated loops of small bowel. Advanced multilevel lumbar spondylosis with leftward cur vature. Imaged lung bases are unremarkable. Impression: 1. Distended loops of colon throughout the abdomen. Findings better characterize on recently perform ed CT. Electronically signed by: Steven Oliver DO (06/25/2020 10:45 PM) [facility]
[2020-06-25] MEDS ORDERED: ONDANSETRON PF 4 MG/2 ML VIAL. IV PRN (23:30)
[2020-06-26] VITALS (8 sets, daily range): BP systolic 148–227; BP diastolic 71–94
[2020-06-26] MEDS ORDERED: cloNIDine HCL 0.1 MG TABLET PO ONE (00:45)
[2020-06-26] MEDS ORDERED: LABETALOL HCL 200 MG TABLET PO ONE (00:45)
[2020-06-26] MEDS: IV NORMAL SALINE 1000ML BAG 1,000 ML IV SCH ×4 (01:10→19:39)
[2020-06-26] MEDS ORDERED: MORPHINE SULFATE 4 MG/ML VIAL. IV PRN (04:00)
--- NOTE | 2020-06-26 04:06 | EKG ---
[facility] [address] [place] [address] Test Date: 2020-06-25 Test Time: 20:20:21 Pat Name: GLO GALAN Department: Room: Gender: F Clinical Review Nurse: : 1930 Requested By: JANIYA JUAN Order Number: [id number] Reading MD: Measurements Intervals [place] Rate: 85 P: 12 VA: 200 QRS: 11 QRSD: 80 T: 25 QT: 372 QTc: 448 Interpretive Statements SINUS RHYTHM ATRIAL PREMATURE COMPLEX(ES) OTHERWISE NORMAL ECG RI6.01 No previous ECG available for comparison
[2020-06-26] MEDS ORDERED: ACETAMINOPHEN 325 MG TABLET. PO PRN (08:30)
[2020-06-26] MEDS ORDERED: MORPHINE SULFATE 2 MG/ML VIAL. IV PRN (08:30)
[2020-06-26] MEDS ORDERED: SENNOSIDES 8.6 MG TABLET PO PRN (08:30)
[2020-06-26] MEDS ORDERED: DEXTROSE 50% 25 GM / 50ML DISP.SYRIN. IV PRN (08:30)
[2020-06-26] MEDS ORDERED: ONDANSETRON PF 4 MG/2 ML VIAL. IVP PRN (08:30)
[2020-06-26] MEDS ORDERED: DOCUSATE SODIUM 100 MG CAPSULE. PO PRN (08:30)
--- NOTE | 2020-06-26 08:31 | PDOC1 ---
History and Physical Date of Service: DOS: DATE: 06/26/20 TIME: 08:25 Chief Complaint: Chief Complain: ABD Pain History of Present Illness: HPI: 89 year old female coming in with caregiver for intermittent abdominal pain and distention. Patient has a history of intermittent small bowel obstructions and has been admitted multiple times in the past few months. Patient states she has had very little appetite or p.o. intake but has been trying to drink water. Has not had a bowel movement in 2 days despite using 2 enemas and MiraLAX. 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 Denies any nausea or vomiting. Patient has had decreased urination but no dysuria. Patient normally has a bowel movement every day. Denies any fevers, cough, shortness of breath, chest pain, or changes in skin color. Past Medical/Surgical History: PMH/PSH: Past Medical History: COPD, Hypertension, Colon CA,L)hernia,chemotherapy,home oxygen,SPINAL/CAROTID STENOSIS Past Surgical History: Pacemaker, Colonoscopy, Breast cysts removed bilat erally, pacemaker Allergies: Allergies: Coded Allergies: No Known Drug Allergies (Unverified , 08/19/15) Family History: Family History: Reviewed with no relevant findings Social History: Social History: Smoking Status: Former Smoker Alcohol Use: None Drug Use: None Current Medications: Current Medications Current Medications Sodium Chloride 500 ml @ 500 mls/hr 1X ONCE IV Last administered on 06/25/20at 18:45; Start 06/25/20 at 18:45; Stop 06/25/20 at 19:44; Status DC Iohexol (Omnipaque 300 Mg/ml) 75 ml 1X ONCE IV Last administered on 06/25/20at 21:31; Start 06/25/20 at 21:15; Stop 06/25/20 at 21:16; Status DC Ondansetron HCl (Zofran) 4 mg PRN Q8HRS PRN IV NAUSEA/VOMITING; Start 06/25/20 at 23:30; Stop 06/26/20 at 23:29 Morphine Sulfate (Morphine Sulfate) 2 mg PRN Q2HR PRN IV PAIN; Start 06/25/20 at 23:30; Stop 06/26/20 at 23:29 Sodium Chloride 1,000 ml @ 75 mls/hr [id number] IV Last administered on 06/26/20at 01:10; Start 06/25/20 at 23:30; Stop 06/26/20 at 23:29 Clonidine HCl (Catapres) 0.1 mg 1X ONCE PO Last administered on 06/26/20at 00:44; Start 06/26/20 at 00:45; Stop 06/26/20 at 00:46; Status DC Labetalol HCl (Trandate) 200 mg 1X ONCE PO Last administered on 06/26/20at 00:46; Start 06/26/20 at 00:45; Stop 06/26/20 at 00:46; Status DC Active Scripts Active Klor-Con M20 (Potassium Chloride) 20 Meq Tab.er.prt 20 Meq PO DAILYWBKFT 14 Days Hydralazine Hcl 10 Mg Tablet 1 Tab PO BID 30 Days Zofran (Ondansetron Hcl) 4 Mg Tablet 1 Tab PO Q6HRS PRN Nexium Capsule (Esomeprazole Magnesium) 20 Mg Capsule.dr 1 Cap PO DAILY OTC. Symbicort 160-4.5 Mcg Inhaler (Budesonide/Formoterol Fumarate) 10.2 Gm Hfa.aer.ad 2 Puff IH BID Reported Labetalol Hcl 200 Mg Tablet 1 Tab PO BID Acetaminophen 500 Mg Tablet 2 Tab PO PRN Q6HRS PRN Prednisone (Prednisone) 10 Mg Tablet 5 Mg PO DAILY Glucosamine (Glucosamine Sulfate 2KCL) 1,000 Mg Tablet 500 Mg PO BID Oxybutynin Chloride 5 Mg Tablet 5 Mg PO TID Latanoprost 2.5 Ml Drops 1 Drop EACHEYE QHS Clonidine Hcl 0.1 Mg Tablet 0.1 Mg PO TID Miralax (Polyethylene Glycol 3350) 17 Gm Powd.pack 1 Pkt PO DAILY Calcium 500 + D Tablet (Calcium Carbonate/Vitamin D3) 1 Each Tablet 1 Each PO BID Diltiazem 24HR Cd (Diltiazem Hcl) 240 Mg Cap.er.24h 240 Mg PO DAILY Lisinopril 40 Mg Tablet 1 Tab PO DAILY Spiriva (Tiotropium [place]) 18 Mcg Cap.w.dev 1 Cap IH DAILY Mirtazapine 15 Mg Tablet 0.5 Tab PO QHS Aspir 81 (Aspirin) 81 Mg Tablet.dr 1 Tab PO DAILY Pravastatin Sodium 80 Mg Tablet 80 Mg PO HS Proair Hfa Inhaler (Albuterol Sulfate) 8.5 Gm Hfa.aer.ad 2 Puff INH PRN Q6HRS PRN ROS: Review of Systems Review of System REVIEW OF SYSTEMS: GENERAL: Denies weakness SKIN: No bruising, hair changes or rashes. EYES: No blurred, double or loss of vision. NOSE AND THROAT: No history of nosebleeds, hoarseness or sore throat. HEART: No history of palpitations, chest pain or shortness of breath on exertion. LUNGS: Denies cough, hemoptysis, wheezing or shortness of breath. GASTROINTESTINAL: Denies changes in appetite, nausea, vomiting, diarrhea or constipation. GENITOURINARY: No history of frequency, urgency, hesitancy or nocturia. NEUROLOGIC: Denies history of numbness, tingling, or tremor. PSYCHIATRIC: No history of panic, anxiety or depression. ENDOCRINE: No history of heat or cold intolerance, polyuria or polydipsia. EXTREMITIES: Denies joint pain, pain on walking or stiffness. Physical Exam: Vital Signs: Vital Signs Date Time Temp Pulse Resp B/P (MAP) Pulse Ox O2 Delivery O2 Flow Rate FiO2 06/26/20 03:31 Nasal Cannula 3.0 06/26/20 03:00 98.1 69 18 178/71 (106) 96 98.1 Physcial Exam: GEN: No apparent distress. Alert and oriented HEENT: Normal cephalic, atraumatic, external auditory canals are patent EYES: Extraocular muscles are intact, pupil are equally round and reactive to light and accommodation MUSCULOSKELETAL: Well developed , well nourished, good range of motion ENDOCRINE: No thyromegaly was palpated LYMPHATICS: No cervical chain or axillary nodes were noted HEMATOPOIETIC: No bruising NECK: Supple, no JVD, no thyromegaly was noted LUNGS: Clear to auscultation in all lung campos without rhonchi or wheezing HEART: RRR, S!, S2 present. Peripheral pulses intact, no obvious murmurs noted ABDOMEN: Soft, nontender. Positive bowel sounds, no organomegaly, normal bowel sounds EXTREMITIES: Without clubbing, cyanosis, or edema. Pedal pulses intact. Negative Homans sign NEUROLOGIC: Normal speech and tone. A&O x 3, moves all extremities, no obvious focal deficits PSYCHIATRIC: Normal affect, normal mood. Stable SKIN: No ulcerations or rashes, good skin turgor, no jaundice VASCULAR: Good capillary refill, neurovascular bundle appears to be intact Labs: Labs: Laboratory Tests Test 06/25/20 18:05 06/25/20 19:00 06/26/20 02:15 White Blood Count 11.2 x10^3/uL (4.0-11.0) Red Blood Count 4.12 x10^6/uL (3.50-5.40) Hemoglobin 13.0 g/dL (12.0-15.5) Hematocrit 39.4 % (36.0-47.0) Mean Corpuscular Volume 96 fL (79-100) Mean Corpuscular Hemoglobin 32 pg (25-35) Mean Corpuscular Hemoglobin Concent 33 g/dL (31-37) Red Cell Distribution Width 15.0 % (11.5-14.5) Platelet Count 331 x10^3/uL (140-400) Neutrophils (%) (Auto) 90 % (31-73) Lymphocytes (%) (Auto) 6 % (24-48) Monocytes (%) (Auto) 4 % (0-9) Eosinophils (%) (Auto) 1 % (0-3) Basophils (%) (Auto) 0 % (0-3) Neutrophils # (Auto) 10.0 x10^3/uL (1.8-7.7) Lymphocytes # (Auto) 0.7 x10^3/uL (1.0-4.8) Monocytes # (Auto) 0.4 x10^3/uL (0.0-1.1) Eosinophils # (Auto) 0.1 x10^3/uL (0.0-0.7) Basophils # (Auto) 0.0 x10^3/uL (0.0-0.2) Segmented Neutrophils % 84 % (35-66) Band Neutrophils % 5 % (0-9) Lymphocytes % 6 % (24-48) Monocytes % 5 % (0-10) Platelet Estimate Adequate (ADEQUATE) Sodium Level 141 mmol/L (136-145) Potassium Level 4.4 mmol/L (3.5-5.1) Chloride Level 104 mmol/L (98-107) Carbon Dioxide Level 29 mmol/L (21-32) Anion Gap 8 (6-14) Blood Urea Nitrogen 13 mg/dL (7-20) Creatinine 0.7 mg/dL (0.6-1.0) Estimated GFR (Cockcroft-Gault) 78.8 BUN/Creatinine Ratio 19 (6-20) Glucose Level 125 mg/dL (70-99) Calcium Level 9.7 mg/dL (8.5-10.1) Magnesium Level 2.1 mg/dL (1.8-2.4) Total Bilirubin 0.3 mg/dL (0.2-1.0) Aspartate Amino Transf (AST/SGOT) 19 U/L (15-37) Alanine Aminotransferase (ALT/SGPT) 23 U/L (14-59) Alkaline Phosphatase 67 U/L (46-116) Troponin I Quantitative 0.045 ng/mL (0.000-0.055) 0.049 ng/mL (0.000-0.055) Total Protein 6.4 g/dL (6.4-8.2) Albumin 3.5 g/dL (3.4-5.0) Albumin/Globulin Ratio 1.2 (1.0-1.7) Lipase 120 U/L (73-393) Urine Collection Type Unknown Urine Color Yellow Urine Clarity Clear Urine pH 7.0 (<5.0-8.0) Urine Specific [place] <=1.005 (1.000-1.030) Urine Protein Negative mg/dL (NEG-TRACE) Urine Glucose (UA) Negative mg/dL (NEG) Urine Ketones (Stick) Trace mg/dL (NEG) Urine Blood Negative (NEG) Urine Nitrite Positive (NEG) Urine Bilirubin Negative (NEG) Urine Urobilinogen Dipstick 0.2 mg/dL (0.2 mg/dL) Urine Leukocyte Esterase Moderate (NEG) Urine RBC Occ /HPF (0-2) Urine WBC 1-4 /HPF (0-4) Urine Bacteria Many /HPF (0-FEW) Lactic Acid Level 1.3 mmol/L (0.4-2.0) Laboratory Tests Test 06/25/20 18:05 06/25/20 19:00 06/26/20 02:15 White Blood Count 11.2 x10^3/uL (4.0-11.0) Red Blood Count 4.12 x10^6/uL (3.50-5.40) Hemoglobin 13.0 g/dL (12.0-15.5) Hematocrit 39.4 % (36.0-47.0) Mean Corpuscular Volume 96 fL (79-100) Mean Corpuscular Hemoglobin 32 pg (25-35) Mean Corpuscular Hemoglobin Concent 33 g/dL (31-37) Red Cell Distribution Width 15.0 % (11.5-14.5) Platelet Count 331 x10^3/uL (140-400) Neutrophils (%) (Auto) 90 % (31-73) Lymphocytes (%) (Auto) 6 % (24-48) Monocytes (%) (Auto) 4 % (0-9) Eosinophils (%) (Auto) 1 % (0-3) Basophils (%) (Auto) 0 % (0-3) Neutrophils # (Auto) 10.0 x10^3/uL (1.8-7.7) Lymphocytes # (Auto) 0.7 x10^3/uL (1.0-4.8) Monocytes # (Auto) 0.4 x10^3/uL (0.0-1.1) Eosinophils # (Auto) 0.1 x10^3/uL (0.0-0.7) Basophils # (Auto) 0.0 x10^3/uL (0.0-0.2) Segmented Neutrophils % 84 % (35-66) Band Neutrophils % 5 % (0-9) Lymphocytes % 6 % (24-48) Monocytes % 5 % (0-10) Platelet Estimate Adequate (ADEQUATE) Sodium Level 141 mmol/L (136-145) Potassium Level 4.4 mmol/L (3.5-5.1) Chloride Level 104 mmol/L (98-107) Carbon Dioxide Level 29 mmol/L (21-32) Anion Gap 8 (6-14) Blood Urea Nitrogen 13 mg/dL (7-20) Creatinine 0.7 mg/dL (0.6-1.0) Estimated GFR (Cockcroft-Gault) 78.8 BUN/Creatinine Ratio 19 (6-20) Glucose Level 125 mg/dL (70-99) Calcium Level 9.7 mg/dL (8.5-10.1) Magnesium Level 2.1 mg/dL (1.8-2.4) Total Bilirubin 0.3 mg/dL (0.2-1.0) Aspartate Amino Transf (AST/SGOT) 19 U/L (15-37) Alanine Aminotransferase (ALT/SGPT) 23 U/L (14-59) Alkaline Phosphatase 67 U/L (46-116) Troponin I Quantitative 0.045 ng/mL (0.000-0.055) 0.049 ng/mL (0.000-0.055) Total Protein 6.4 g/dL (6.4-8.2) Albumin 3.5 g/dL (3.4-5.0) Albumin/Globulin Ratio 1.2 (1.0-1.7) Lipase 120 U/L (73-393) Urine Collection Type Unknown Urine Color Yellow Urine Clarity Clear Urine pH 7.0 (<5.0-8.0) Urine Specific [place] <=1.005 (1.000-1.030) Urine Protein Negative mg/dL (NEG-TRACE) Urine Glucose (UA) Negative mg/dL (NEG) Urine Ketones (Stick) Trace mg/dL (NEG) Urine Blood Negative (NEG) Urine Nitrite Positive (NEG) Urine Bilirubin Negative (NEG) Urine Urobilinogen Dipstick 0.2 mg/dL (0.2 mg/dL) Urine Leukocyte Esterase Moderate (NEG) Urine RBC Occ /HPF (0-2) Urine WBC 1-4 /HPF (0-4) Urine Bacteria Many /HPF (0-FEW) Lactic Acid Level 1.3 mmol/L (0.4-2.0) Images: Images Impression: 1. Increased swirling of the mesentery within the lower abdomen with severe narrowing and swirling of the proximal transverse and ascending colon contributing to colonic obstruction. 2. Extensive atheromatous plaque with significant narrowing of the iliac arteries, unchanged. 3. Increased upper abdominal ventral fat-containing hernia. Assessment/Plan Assessment/Plan Acute abdominal pain concerning for complete SBO Acute electrolyte derangementhypokalemia, hypernatremia Admit to medicine for further management Surgery consult N.p.o. Pending NGT placement for intermittent suctioning and decompression Continue IV fluids Serial abdominal exams Pending small bowel follow-through per surgery Lovenox for DVT prophylaxis Protonix GI prophylaxis ADA diet Full code Discussed with RN and SW Disposition pending surgical evaluation Surrogate decision maker is Aung Alberts Justifications for Admission Other Justification SUZY TORRES MD Jun 26, 2020 08:31
[2020-06-26 09:01] LABS: BASO % 0 % (0-3); EOS # 0.1 x10^3/uL (0.0-0.7); EOS % 1 % (0-3); HEMATOCRIT 38.2 % (36.0-47.0); HEMOGLOBIN 12.4 g/dL (12.0-15.5); LYMPH # 0.9 x10^3/uL (1.0-4.8); LYMPH % 9 % (24-48); MEAN CORPUSCULAR HEMOGLOBIN 31 pg (25-35); MEAN CORPUSCULAR HGB CONC 33 g/dL (31-37); MEAN CORPUSCULAR VOLUME 96 fL (79-100); MONO # 0.9 x10^3/uL (0.0-1.1); MONO % 10 % (0-9); NEUT # 7.3 x10^3/uL (1.8-7.7); NEUT % 79 % (31-73); PLATELET COUNT 337 x10^3/uL (140-400); RED BLOOD COUNT 3.99 x10^6/uL (3.50-5.40); RED CELL DISTRIBUTION WIDTH 15.3 % (11.5-14.5); WHITE BLOOD COUNT 9.2 x10^3/uL (4.0-11.0)
[2020-06-26 09:23] LABS: CALCIUM 8.5 mg/dL (8.5-10.1); CREATININE 0.6 mg/dL (0.6-1.0); GFR 94.1; POTASSIUM 3.4 mmol/L (3.5-5.1)
--- NOTE | 2020-06-26 09:27 | PDOC2 ---
[employer] 06/26/20 0927: CONSULT Date of Consult Date of Consult DATE: 06/26/20 TIME: 09:23 Reason for Consult Reason for Consult: sbo Referring Physician Referring Physician: Dr Tucker Identification/Chief Complaint Chief Complaint constipation Source Source: Caregiver, Chart review, Patient History of Present Illness Reason for Visit: Patient known from recent admissions for SBO. She returns with constipation x 2 days or so. She is a very poor historian, guardian present, however limited information from him also Denies nausea or emesis no improvement with laxatives Past Medical History Cardiovascular: HTN, Syncope, Hyperlipidemia, Other Pulmonary: COPD CENTRAL NERVOUS SYSTEM: Other GI: Constipation, GERD Heme/Onc: Cancer Hepatobiliary: No pertinent hx Psych: Anxiety Musculoskeletal: low back pain, Osteoarthritis, Weakness Rheumatologic: No pertinent hx Infectious disease: No pertinent hx Renal/: Urinary Incontinence Endocrine: Osteopenia, Other Past Surgical History Past Surgical History: Pacemaker, Hysterectomy, Colectomy, Other Family History Family History: No Significant Social History ALCOHOL: none Drugs: None Lives: with Family Domestic Violence: Neg Current Medications Current Medications Current Medications Sodium Chloride 500 ml @ 500 mls/hr 1X ONCE IV Last administered on 06/25/20at 18:45; Start 06/25/20 at 18:45; Stop 06/25/20 at 19:44; Status DC Iohexol (Omnipaque 300 Mg/ml) 75 ml 1X ONCE IV Last administered on 06/25/20at 21:31; Start 06/25/20 at 21:15; Stop 06/25/20 at 21:16; Status DC Ondansetron HCl (Zofran) 4 mg PRN Q8HRS PRN IV NAUSEA/VOMITING; Start 06/25/20 at 23:30; Stop 06/26/20 at 08:30; Status DC Morphine Sulfate (Morphine Sulfate) 2 mg PRN Q2HR PRN IV PAIN; Start 06/25/20 at 23:30; Stop 06/26/20 at 23:29 Sodium Chloride 1,000 ml @ 75 mls/hr [id number] IV Last administered on 06/26/20at 01:10; Start 06/25/20 at 23:30; Stop 06/26/20 at 23:29 Clonidine HCl (Catapres) 0.1 mg 1X ONCE PO Last administered on 06/26/20at 00:44; Start 06/26/20 at 00:45; Stop 06/26/20 at 00:46; Status DC Labetalol HCl (Trandate) 200 mg 1X ONCE PO Last administered on 06/26/20at 00:46; Start 06/26/20 at 00:45; Stop 06/26/20 at 00:46; Status DC Sennosides (Senna) 17.2 mg PRN BID PRN PO CONSTIPATION; Start 06/26/20 at 08:30 Docusate Sodium (Colace) 100 mg PRN DAILY PRN PO HARD STOOLS; Start 06/26/20 at 08:30 Ondansetron HCl (Zofran) 4 mg PRN Q6HRS PRN IVP NAUSEA/VOMITING; Start 06/26/20 at 08:30 Dextrose (Dextrose 50%-Water Syringe) 12.5 gm PRN Q15MIN PRN IV SEE COMMENTS; Start 06/26/20 at 08:30 Sodium Chloride 1,000 ml @ 100 mls/hr Q10H IV Last administered on 06/26/20at 08:30; Start 06/26/20 at 08:30 Acetaminophen (Tylenol) 650 mg PRN Q4HRS PRN PO TEMP OVER 100.4F OR MILD PAIN; Start 06/26/20 at 08:30 Enoxaparin Sodium (Lovenox 30mg Syringe) 30 mg Q24H SQ ; Start 06/26/20 at 09:00 Morphine Sulfate (Morphine Sulfate) 1 mg PRN Q1HR PRN IV PAIN; Start 06/26/20 at 08:30 Morphine Sulfate (Morphine Sulfate) 2 mg PRN Q2HR PRN IV SEVERE PAIN 7-10; Start 06/26/20 at 04:00; Stop 06/27/20 at 03:59 Active Scripts Active Klor-Con M20 (Potassium Chloride) 20 Meq Tab.er.prt 20 Meq PO DAILYWBKFT 14 Days Hydralazine Hcl 10 Mg Tablet 1 Tab PO BID 30 Days Zofran (Ondansetron Hcl) 4 Mg Tablet 1 Tab PO Q6HRS PRN Nexium Capsule (Esomeprazole Magnesium) 20 Mg Capsule.dr 1 Cap PO DAILY OTC. Symbicort 160-4.5 Mcg Inhaler (Budesonide/Formoterol Fumarate) 10.2 Gm Hfa.aer.ad 2 Puff IH BID Reported Labetalol Hcl 200 Mg Tablet 1 Tab PO BID Acetaminophen 500 Mg Tablet 2 Tab PO PRN Q6HRS PRN Prednisone (Prednisone) 10 Mg Tablet 5 Mg PO DAILY Glucosamine (Glucosamine Sulfate 2KCL) 1,000 Mg Tablet 500 Mg PO BID Oxybutynin Chloride 5 Mg Tablet 5 Mg PO TID Latanoprost 2.5 Ml Drops 1 Drop EACHEYE QHS Clonidine Hcl 0.1 Mg Tablet 0.1 Mg PO TID Miralax (Polyethylene Glycol 3350) 17 Gm Powd.pack 1 Pkt PO DAILY Calcium 500 + D Tablet (Calcium Carbonate/Vitamin D3) 1 Each Tablet 1 Each PO BI D Diltiazem 24HR Cd (Diltiazem Hcl) 240 Mg Cap.er.24h 240 Mg PO DAILY Lisinopril 40 Mg Tablet 1 Tab PO DAILY Spiriva (Tiotropium [place]) 18 Mcg Cap.w.dev 1 Cap IH DAILY Mirtazapine 15 Mg Tablet 0.5 Tab PO QHS Aspir 81 (Aspirin) 81 Mg Tablet.dr 1 Tab PO DAILY Pravastatin Sodium 80 Mg Tablet 80 Mg PO HS Proair Hfa Inhaler (Albuterol Sulfate) 8.5 Gm Hfa.aer.ad 2 Puff INH PRN Q6HRS ID N Allergies Allergies: Coded Allergies: No Known Drug Allergies (Unverified , 08/19/15) ROS General: No: Chills, Other (fevers ) PSYCHOLOGICAL ROS: No: Anxiety, Depression Eyes: No Blurry vision, No Double vision HEENT: No: Heacaches, Sore Throat Hematological and Lymphatic: No: Bleeding Problems, Blood Clots Respiratory: No: Cough, Shortness of breath Cardiovascular: No Chest Pain, No Palpitations Gastrointestinal: Yes Other (see hpi) Genitourinary: No Dysuria, No Hematuria Musculoskeletal: No Joint Pain, No Muscle Pain Neurological: No Impaired Coord/balance, No Numbness/Tingling Skin: No Pruritus, No Rash Physical Exam General: Cooperative, No acute distress, Other (dementia ) HEENT: Atraumatic, PERRLA Lungs: Clear to auscultation, Normal air movement Heart: Regular rate, Normal S1, Normal S2 Abdomen: Soft, Other (distended, mild ttp, scars noted abdominal --no peritoneal signs ) Extremities: No clubbing, No cyanosis Skin: No rashes, No breakdown Neuro: Normal speech, Sensation intact Psych/Mental Status: Mental status NL, Mood NL Vitals VITALS Vital Signs Date Time Temp Pulse Resp B/P (MAP) Pulse Ox O2 Delivery O2 Flow Rate FiO2 06/26/20 07:00 98.2 79 16 148/73 (98) 92 Nasal Cannula 3.0 98.2 Labs Labs Laboratory Tests Test 06/25/20 18:05 06/25/20 19:00 06/26/20 02:15 06/26/20 08:15 White Blood Count 11.2 x10^3/uL (4.0-11.0) 9.2 x10^3/uL (4.0-11.0) Red Blood Count 4.12 x10^6/uL (3.50-5.40) 3.99 x10^6/uL (3.50-5.40) Hemoglobin 13.0 g/dL (12.0-15.5) 12.4 g/dL (12.0-15.5) Hematocrit 39.4 % (36.0-47.0) 38.2 % (36.0-47.0) Mean Corpuscular Volume 96 fL (79-100) 96 fL (79-100) Mean Corpuscular Hemoglobin 32 pg (25-35) 31 pg (25-35) Mean Corpuscular Hemoglobin Concent 33 g/dL (31-37) 33 g/dL (31-37) Red Cell Distribution Width 15.0 % (11.5-14.5) 15.3 % (11.5-14.5) Platelet Count 331 x10^3/uL (140-400) 337 x10^3/uL (140-400) Neutrophils (%) (Auto) 90 % (31-73) 79 % (31-73) Lymphocytes (%) (Auto) 6 % (24-48) 9 % (24-48) Monocytes (%) (Auto) 4 % (0-9) 10 % (0-9) Eosinophils (%) (Auto) 1 % (0-3) 1 % (0-3) Basophils (%) (Auto) 0 % (0-3) 0 % (0-3) Neutrophils # (Auto) 10.0 x10^3/uL (1.8-7.7) 7.3 x10^3/uL (1.8-7.7) Lymphocytes # (Auto) 0.7 x10^3/uL (1.0-4.8) 0.9 x10^3/uL (1.0-4.8) Monocytes # (Auto) 0.4 x10^3/uL (0.0-1.1) 0.9 x10^3/uL (0.0-1.1) Eosinophils # (Auto) 0.1 x10^3/uL (0.0-0.7) 0.1 x10^3/uL (0.0-0.7) Basophils # (Auto) 0.0 x10^3/uL (0.0-0.2) 0.0 x10^3/uL (0.0-0.2) Segmented Neutrophils % 84 % (35-66) Band Neutrophils % 5 % (0-9) Lymphocytes % 6 % (24-48) Monocytes % 5 % (0-10) Platelet Estimate Adequate (ADEQUATE) Sodium Level 141 mmol/L (136-145) Potassium Level 4.4 mmol/L (3.5-5.1) Chloride Level 104 mmol/L (98-107) Carbon Dioxide Level 29 mmol/L (21-32) Anion Gap 8 (6-14) Blood Urea Nitrogen 13 mg/dL (7-20) Creatinine 0.7 mg/dL (0.6-1.0) Estimated GFR (Cockcroft-Gault) 78.8 BUN/Creatinine Ratio 19 (6-20) Glucose Level 125 mg/dL (70-99) Calcium Level 9.7 mg/dL (8.5-10.1) Magnesium Level 2.1 mg/dL (1.8-2.4) Total Bilirubin 0.3 mg/dL (0.2-1.0) Aspartate Amino Transf (AST/SGOT) 19 U/L (15-37) Alanine Aminotransferase (ALT/SGPT) 23 U/L (14-59) Alkaline Phosphatase 67 U/L (46-116) Troponin I Quantitative 0.045 ng/mL (0.000-0.055) 0.049 ng/mL (0.000-0.055) Total Protein 6.4 g/dL (6.4-8.2) Albumin 3.5 g/dL (3.4-5.0) Albumin/Globulin Ratio 1.2 (1.0-1.7) Lipase 120 U/L (73-393) Urine Collection Type Unknown Urine Color Yellow Urine Clarity Clear Urine pH 7.0 (<5.0-8.0) Urine Specific [place] <=1.005 (1.000-1.030) Urine Protein Negative mg/dL (NEG-TRACE) Urine Glucose (UA) Negative mg/dL (NEG) Urine Ketones (Stick) Trace mg/dL (NEG) Urine Blood Negative (NEG) Urine Nitrite Positive (NEG) Urine Bilirubin Negative (NEG) Urine Urobilinogen Dipstick 0.2 mg/dL (0.2 mg/dL) Urine Leukocyte Esterase Moderate (NEG) Urine RBC Occ /HPF (0-2) Urine WBC 1-4 /HPF (0-4) Urine Bacteria Many /HPF (0-FEW) Lactic Acid Level 1.3 mmol/L (0.4-2.0) Laboratory Tests Test 06/25/20 18:05 06/25/20 19:00 06/26/20 02:15 06/26/20 08:15 White Blood Count 11.2 x10^3/uL (4.0-11.0) 9.2 x10^3/uL (4.0-11.0) Red Blood Count 4.12 x10^6/uL (3.50-5.40) 3.99 x10^6/uL (3.50-5.40) Hemoglobin 13.0 g/dL (12.0-15.5) 12.4 g/dL (12.0-15.5) Hematocrit 39.4 % (36.0-47.0) 38.2 % (36.0-47.0) Mean Corpuscular Volume 96 fL (79-100) 96 fL (79-100) Mean Corpuscular Hemoglobin 32 pg (25-35) 31 pg (25-35) Mean Corpuscular Hemoglobin Concent 33 g/dL (31-37) 33 g/dL (31-37) Red Cell Distribution Width 15.0 % (11.5-14.5) 15.3 % (11.5-14.5) Platelet Count 331 x10^3/uL (140-400) 337 x10^3/uL (140-400) Neutrophils (%) (Auto) 90 % (31-73) 79 % (31-73) Lymphocytes (%) (Auto) 6 % (24-48) 9 % (24-48) Monocytes (%) (Auto) 4 % (0-9) 10 % (0-9) Eosinophils (%) (Auto) 1 % (0-3) 1 % (0-3) Basophils (%) (Auto) 0 % (0-3) 0 % (0-3) Neutrophils # (Auto) 10.0 x10^3/uL (1.8-7.7) 7.3 x10^3/uL (1.8-7.7) Lymphocytes # (Auto) 0.7 x10^3/uL (1.0-4.8) 0.9 x10^3/uL (1.0-4.8) Monocytes # (Auto) 0.4 x10^3/uL (0.0-1.1) 0.9 x10^3/uL (0.0-1.1) Eosinophils # (Auto) 0.1 x10^3/uL (0.0-0.7) 0.1 x10^3/uL (0.0-0.7) Basophils # (Auto) 0.0 x10^3/uL (0.0-0.2) 0.0 x10^3/uL (0.0-0.2) Segmented Neutrophils % 84 % (35-66) Band Neutrophils % 5 % (0-9) Lymphocytes % 6 % (24-48) Monocytes % 5 % (0-10) Platelet Estimate Adequate (ADEQUATE) Sodium Level 141 mmol/L (136-145) Potassium Level 4.4 mmol/L (3.5-5.1) Chloride Level 104 mmol/L (98-107) Carbon Dioxide Level 29 mmol/L (21-32) Anion Gap 8 (6-14) Blood Urea Nitrogen 13 mg/dL (7-20) Creatinine 0.7 mg/dL (0.6-1.0) Estimated GFR (Cockcroft-Gault) 78.8 BUN/Creatinine Ratio 19 (6-20) Glucose Level 125 mg/dL (70-99) Calcium Level 9.7 mg/dL (8.5-10.1) Magnesium Level 2.1 mg/dL (1.8-2.4) Total Bilirubin 0.3 mg/dL (0.2-1.0) Aspartate Amino Transf (AST/SGOT) 19 U/L (15-37) Alanine Aminotransferase (ALT/SGPT) 23 U/L (14-59) Alkaline Phosphatase 67 U/L (46-116) Troponin I Quantitative 0.045 ng/mL (0.000-0.055) 0.049 ng/mL (0.000-0.055) Total Protein 6.4 g/dL (6.4-8.2) Albumin 3.5 g/dL (3.4-5.0) Albumin/Globulin Ratio 1.2 (1.0-1.7) Lipase 120 U/L (73-393) Urine Collection Type Unknown Urine Color Yellow Urine Clarity Clear Urine pH 7.0 (<5.0-8.0) Urine Specific [place] <=1.005 (1.000-1.030) Urine Protein Negative mg/dL (NEG-TRACE) Urine Glucose (UA) Negative mg/dL (NEG) Urine Ketones (Stick) Trace mg/dL (NEG) Urine Blood Negative (NEG) Urine Nitrite Positive (NEG) Urine Bilirubin Negative (NEG) Urine Urobilinogen Dipstick 0.2 mg/dL (0.2 mg/dL) Urine Leukocyte Esterase Moderate (NEG) Urine RBC Occ /HPF (0-2) Urine WBC 1-4 /HPF (0-4) Urine Bacteria Many /HPF (0-FEW) Lactic Acid Level 1.3 mmol/L (0.4-2.0) Assessment/Plan Assessment/Plan SBO ongoing recurrent issues, very poor surgical candidate reviewed with Dr Clark NG, decompression, sesame seed oil--if not improving SBFT in AM--typically responses well to SBFT will ask Dr Granados to eval for peg placement--benefit for chronic obstructive decompression CAROL CLARK MD 06/26/20 1216: CONSULT Assessment/Plan Assessment/Plan Pt seen and examined. Agree with Shaggy's note Pt main c/o is throat abd soft, distended. agree with asking Dr. Granados, if not improved, may ultimately need to consider surgery, given multiple recurrences, but poor candidate. Thanks for consult! JOSE HILL [employer] Jun 26, 2020 09:27 CAROL CLARK MD Jun 26, 2020 12:16
--- NOTE | 2020-06-26 10:35 | NUR ---
SW following. Discussed with RN, pt from home with nephew, uses oxygen at home, NPO. Surgery following - NG being placed, if not improving SBFT in the morning. Dr. Granados to do a peg placement eval. PT/OT ordered. Pt is current with [facility] [facility] [facility]. SW will continue to follow.
[2020-06-26] MEDS: ENOXAPARIN 30 MG/0.3 ML SYRINGE. SQ SCH (10:55)
--- NOTE | 2020-06-26 13:01 | RAD ---
AP view of the abdomen Clinical indications: NG tube placement. FINDINGS/ IMPRESSION: Tip of an NG tube is seen within the mid body of the stomach. Stomach is low in position. No obstructive bowel pattern is seen. Electronically signed by: Jonas Gallardo MD (06/26/2020 12:59 PM) [id number]
[2020-06-26] MEDS: PHENOL ORAL SPRAY 177ML BOTTLE. PO PRN ×2 (13:04→17:52)
[2020-06-26] MEDS: MORPHINE SULFATE 2 MG/ML VIAL. IV PRN ×2 (13:05→21:12)
[2020-06-26] MEDS: LABETALOL 20 MG/4 ML DISP.SYRIN. IVP PRN ×3 (13:54→15:41)
[2020-06-26] MEDS: hydrALAZINE 20 MG/ML VIAL. IVP PRN (17:53)
[2020-06-26] MEDS ORDERED: ALBUTEROL SULFATE 2.5 MG/3 ML NEBU. NEB PRN (18:30)
[2020-06-26] MEDS: IPRATRPIUM/ALBUTEROL 0.5/2.5MG 3 ML NEBU. NEB SCH (18:41)
[2020-06-27] VITALS (10 sets, daily range): BP systolic 149–225; BP diastolic 56–123
[2020-06-27] MEDS: hydrALAZINE 20 MG/ML VIAL. IVP PRN ×3 (00:12→15:05)
[2020-06-27] MEDS: LABETALOL 20 MG/4 ML DISP.SYRIN. IVP PRN ×2 (03:42→21:30)
[2020-06-27] MEDS: IV NORMAL SALINE 1000ML BAG 1,000 ML IV SCH ×2 (05:12→16:54)
[2020-06-27] MEDS: IPRATRPIUM/ALBUTEROL 0.5/2.5MG 3 ML NEBU. NEB SCH ×4 (07:45→19:13)
--- NOTE | 2020-06-27 07:46 | PDOC2 ---
CONSULT Date of Consult Date of Consult DATE: 06/27/20 TIME: 07:42 Reason for Consult Reason for Consult: Request for gastrostomy tube Referring Physician Referring Physician: Flavia Identification/Chief Complaint Chief Complaint Abdominal pain Source Source: Chart review History of Present Illness Reason for Visit: 89-year-old female with intermittent episodes of obstruction-like symptoms she has been omitted a number of times for NG compression has resolved and then returns with symptoms. Patient is very poor surgical candidate. Past Medical History Cardiovascular: HTN, Syncope, Hyperlipidemia, Other Pulmonary: COPD CENTRAL NERVOUS SYSTEM: Other GI: Constipation, GERD Heme/Onc: Cancer Hepatobiliary: No pertinent hx Psych: Anxiety Musculoskeletal: low back pain, Osteoarthritis, Weakness Rheumatologic: No pertinent hx Infectious disease: No pertinent hx Renal/: Urinary Incontinence Endocrine: Osteopenia, Other Past Surgical History Past Surgical History: Pacemaker, Hysterectomy, Colectomy, Other Family History Family History: No Significant Social History ALCOHOL: none Drugs: None Lives: with Family Domestic Violence: Neg Current Medications Current Medications Current Medications Sodium Chloride 500 ml @ 500 mls/hr 1X ONCE IV Last administered on 06/25/20at 18:45; Start 06/25/20 at 18:45; Stop 06/25/20 at 19:44; Status DC Iohexol (Omnipaque 300 Mg/ml) 75 ml 1X ONCE IV Last administered on 06/25/20at 21:31; Start 06/25/20 at 21:15; Stop 06/25/20 at 21:16; Status DC Ondansetron HCl (Zofran) 4 mg PRN Q8HRS PRN IV NAUSEA/VOMITING; Start 06/25/20 at 23:30; Stop 06/26/20 at 08:30; Status DC Morphine Sulfate (Morphine Sulfate) 2 mg PRN Q2HR PRN IV PAIN Last administered on 06/26/20at 21:12; Start 06/25/20 at 23:30; Stop 06/26/20 at 23:29; Status DC Sodium Chloride 1,000 ml @ 75 mls/hr [id number] IV Last administered on 06/26/20at 01:10; Start 06/25/20 at 23:30; Stop 06/26/20 at 23:29; Status DC Clonidine HCl (Catapres) 0.1 mg 1X ONCE PO Last administered on 06/26/20at 00:44; Start 06/26/20 at 00:45; Stop 06/26/20 at 00:46; Status DC Labetalol HCl (Trandate) 200 mg 1X ONCE PO Last administered on 06/26/20at 00:46; Start 06/26/20 at 00:45; Stop 06/26/20 at 00:46; Status DC Sennosides (Senna) 17.2 mg PRN BID PRN PO CONSTIPATION; Start 06/26/20 at 08:30 Docusate Sodium (Colace) 100 mg PRN DAILY PRN PO HARD STOOLS; Start 06/26/20 at 08:30 Ondansetron HCl (Zofran) 4 mg PRN Q6HRS PRN IVP NAUSEA/VOMITING; Start 06/26/20 at 08:30 Dextrose (Dextrose 50%-Water Syringe) 12.5 gm PRN Q15MIN PRN IV SEE COMMENTS; Start 06/26/20 at 08:30 Sodium Chloride 1,000 ml @ 100 mls/hr Q10H IV Last administered on 06/27/20at 05:12; Start 06/26/20 at 08:30 Acetaminophen (Tylenol) 650 mg PRN Q4HRS PRN PO TEMP OVER 100.4F OR MILD PAIN; Start 06/26/20 at 08:30 Enoxaparin Sodium (Lovenox 30mg Syringe) 30 mg Q24H SQ Last administered on at 10:55; Start 06/26/20 at 09:00 Morphine Sulfate (Morphine Sulfate) 1 mg PRN Q1HR PRN IV PAIN; Start 06/26/20 at 08:30 Morphine Sulfate (Morphine Sulfate) 2 mg PRN Q2HR PRN IV SEVERE PAIN 7-10; Start 06/26/20 at 04:00; Stop 06/27/20 at 03:59; Status DC Phenol (Chloraseptic) 2 spray PRN Q2HR PRN PO SORE THROAT Last administered on 06/26/20at 17:52; Start 06/26/20 at 12:15 Labetalol HCl (Normodyne Iv Push) 10 mg PRN Q2HRS PRN IVP HYPERTENSION Last administered on 06/27/20at 03:42; Start 06/26/20 at 13:30 Hydralazine HCl (Apresoline Inj) 20 mg PRN Q2HR PRN IVP ELEVATED BP, SEE COMMENTS Last administered on 06/27/20at 05:13; Start 06/26/20 at 17:30 Albuterol/ Ipratropium (Duoneb) 3 ml RTQID NEB Last administered on 06/26/20at 18:41; Start 06/26/20 at 20:00 Albuterol Sulfate (Ventolin Neb Soln) 2.5 mg PRN Q4HRS PRN NEB SHORTNESS OF BREATH; Start 06/26/20 at 18:30 Lorazepam (Ativan Inj) 0.25 mg PRN Q6HRS PRN IVP ANXIETY / AGITATION Last administered on 06/27/20at 00:15; Start 06/26/20 at 19:15 Active Scripts Active Klor-Con M20 (Potassium Chloride) 20 Meq Tab.er.prt 20 Meq PO DAILYWBKFT 14 Days Hydralazine Hcl 10 Mg Tablet 1 Tab PO BID 30 Days Zofran (Ondansetron Hcl) 4 Mg Tablet 1 Tab PO Q6HRS PRN Nexium Capsule (Esomeprazole Magnesium) 20 Mg Capsule.dr 1 Cap PO DAILY OTC. Symbicort 160-4.5 Mcg Inhaler (Budesonide/Formoterol Fumarate) 10.2 Gm Hfa.aer.ad 2 Puff IH BID Reported Labetalol Hcl 200 Mg Tablet 1 Tab PO BID Acetaminophen 500 Mg Tablet 2 Tab PO PRN Q6HRS PRN Prednisone (Prednisone) 10 Mg Tablet 5 Mg PO DAILY Glucosamine (Glucosamine Sulfate 2KCL) 1,000 Mg Tablet 500 Mg PO BID Oxybutynin Chloride 5 Mg Tablet 5 Mg PO TID Latanoprost 2.5 Ml Drops 1 Drop EACHEYE QHS Clonidine Hcl 0.1 Mg Tablet 0.1 Mg PO TID Miralax (Polyethylene Glycol 3350) 17 Gm Powd.pack 1 Pkt PO DAILY Calcium 500 + D Tablet (Calcium Carbonate/Vitamin D3) 1 Each Tablet 1 Each PO BID Diltiazem 24HR Cd (Diltiazem Hcl) 240 Mg Cap.er.24h 240 Mg PO DAILY Lisinopril 40 Mg Tablet 1 Tab PO DAILY Spiriva (Tiotropium [place]) 18 Mcg Cap.w.dev 1 Cap IH DAILY Mirtazapine 15 Mg Tablet 0.5 Tab PO QHS Aspir 81 (Aspirin) 81 Mg Tablet.dr 1 Tab PO DAILY Pravastatin Sodium 80 Mg Tablet 80 Mg PO HS Proair Hfa Inhaler (Albuterol Sulfate) 8.5 Gm Hfa.aer.ad 2 Puff INH PRN Q6HRS PRN Allergies Allergies: Coded Allergies: No Known Drug Allergies (Unverified , 08/19/15) ROS Gastrointestinal: Yes Nausea, Yes Abdominal Pain, Yes Constipation Physical Exam General: Cooperative, mild distress HEENT: Atraumatic Lungs: Clear to auscultation, Normal air movement Heart: Regular rate, No murmurs Abdomen: Soft, Other (Mildly distended diffusely tender no peritoneal signs) Extremities: No edema Skin: No significant lesion Neuro: Normal speech Vitals VITALS Vital Signs Date Time Temp Pulse Resp B/P (MAP) Pulse Ox O2 Delivery O2 Flow Rate FiO2 06/27/20 06:15 113 149/56 (87) 06/27/20 03:00 98.7 16 98 Nasal Cannula 3.0 98.7 Labs Labs Laboratory Tests Test 06/25/20 18:05 06/25/20 19:00 06/26/20 02:15 06/26/20 08:15 White Blood Count 11.2 x10^3/uL (4.0-11.0) 9.2 x10^3/uL (4.0-11.0) Red Blood Count 4.12 x10^6/uL (3.50-5.40) 3.99 x10^6/uL (3.50-5.40) Hemoglobin 13.0 g/dL (12.0-15.5) 12.4 g/dL (12.0-15.5) Hematocrit 39.4 % (36.0-47.0) 38.2 % (36.0-47.0) Mean Corpuscular Volume 96 fL (79-100) 96 fL (79-100) Mean Corpuscular Hemoglobin 32 pg (25-35) 31 pg (25-35) Mean Corpuscular Hemoglobin Concent 33 g/dL (31-37) 33 g/dL (31-37) Red Cell Distribution Width 15.0 % (11.5-14.5) 15.3 % (11.5-14.5) Platelet Count 331 x10^3/uL (140-400) 337 x10^3/uL (140-400) Neutrophils (%) (Auto) 90 % (31-73) 79 % (31-73) Lymphocytes (%) (Auto) 6 % (24-48) 9 % (24-48) Monocytes (%) (Auto) 4 % (0-9) 10 % (0-9) Eosinophils (%) (Auto) 1 % (0-3) 1 % (0-3) Basophils (%) (Auto) 0 % (0-3) 0 % (0-3) Neutrophils # (Auto) 10.0 x10^3/uL (1.8-7.7) 7.3 x10^3/uL (1.8-7.7) Lymphocytes # (Auto) 0.7 x10^3/uL (1.0-4.8) 0.9 x10^3/uL (1.0-4.8) Monocytes # (Auto) 0.4 x10^3/uL (0.0-1.1) 0.9 x10^3/uL (0.0-1.1) Eosinophils # (Auto) 0.1 x10^3/uL (0.0-0.7) 0.1 x10^3/uL (0.0-0.7) Basophils # (Auto) 0.0 x10^3/uL (0.0-0.2) 0.0 x10^3/uL (0.0-0.2) Segmented Neutrophils % 84 % (35-66) Band Neutrophils % 5 % (0-9) Lymphocytes % 6 % (24-48) Monocytes % 5 % (0-10) Platelet Estimate Adequate (ADEQUATE) Sodium Level 141 mmol/L (136-145) 146 mmol/L (136-145) Potassium Level 4.4 mmol/L (3.5-5.1) 3.4 mmol/L (3.5-5.1) Chloride Level 104 mmol/L (98-107) 109 mmol/L (98-107) Carbon Dioxide Level 29 mmol/L (21-32) 28 mmol/L (21-32) Anion Gap 8 (6-14) 9 (6-14) Blood Urea Nitrogen 13 mg/dL (7-20) 12 mg/dL (7-20) Creatinine 0.7 mg/dL (0.6-1.0) 0.6 mg/dL (0.6-1.0) Estimated GFR (Cockcroft-Gault) 78.8 94.1 BUN/Creatinine Ratio 19 (6-20) Glucose Level 125 mg/dL (70-99) 96 mg/dL (70-99) Calcium Level 9.7 mg/dL (8.5-10.1) 8.5 mg/dL (8.5-10.1) Magnesium Level 2.1 mg/dL (1.8-2.4) Total Bilirubin 0.3 mg/dL (0.2-1.0) Aspartate Amino Transf (AST/SGOT) 19 U/L (15-37) Alanine Aminotransferase (ALT/SGPT) 23 U/L (14-59) Alkaline Phosphatase 67 U/L (46-116) Troponin I Quantitative 0.045 ng/mL (0.000-0.055) 0.049 ng/mL (0.000-0.055) Total Protein 6.4 g/dL (6.4-8.2) Albumin 3.5 g/dL (3.4-5.0) Albumin/Globulin Ratio 1.2 (1.0-1.7) Lipase 120 U/L (73-393) Urine Collection Type Unknown Urine Color Yellow Urine Clarity Clear Urine pH 7.0 (<5.0-8.0) Urine Specific [place] <=1.005 (1.000-1.030) Urine Protein Negative mg/dL (NEG-TRACE) Urine Glucose (UA) Negative mg/dL (NEG) Urine Ketones (Stick) Trace mg/dL (NEG) Urine Blood Negative (NEG) Urine Nitrite Positive (NEG) Urine Bilirubin Negative (NEG) Urine Urobilinogen Dipstick 0.2 mg/dL (0.2 mg/dL) Urine Leukocyte Esterase Moderate (NEG) Urine RBC Occ /HPF (0-2) Urine WBC 1-4 /HPF (0-4) Urine Bacteria Many /HPF (0-FEW) Lactic Acid Level 1.3 mmol/L (0.4-2.0) Laboratory Tests Test 06/26/20 08:15 White Blood Count 9.2 x10^3/uL (4.0-11.0) Red Blood Count 3.99 x10^6/uL (3.50-5.40) Hemoglobin 12.4 g/dL (12.0-15.5) Hematocrit 38.2 % (36.0-47.0) Mean Corpuscular Volume 96 fL (79-100) Mean Corpuscular Hemoglobin 31 pg (25-35) Mean Corpuscular Hemoglobin Concent 33 g/dL (31-37) Red Cell Distribution Width 15.3 % (11.5-14.5) Platelet Count 337 x10^3/uL (140-400) Neutrophils (%) (Auto) 79 % (31-73) Lymphocytes (%) (Auto) 9 % (24-48) Monocytes (%) (Auto) 10 % (0-9) Eosinophils (%) (Auto) 1 % (0-3) Basophils (%) (Auto) 0 % (0-3) Neutrophils # (Auto) 7.3 x10^3/uL (1.8-7.7) Lymphocytes # (Auto) 0.9 x10^3/uL (1.0-4.8) Monocytes # (Auto) 0.9 x10^3/uL (0.0-1.1) Eosinophils # (Auto) 0.1 x10^3/uL (0.0-0.7) Basophils # (Auto) 0.0 x10^3/uL (0.0-0.2) Sodium Level 146 mmol/L (136-145) Potassium Level 3.4 mmol/L (3.5-5.1) Chloride Level 109 mmol/L (98-107) Carbon Dioxide Level 28 mmol/L (21-32) Anion Gap 9 (6-14) Blood Urea Nitrogen 12 mg/dL (7-20) Creatinine 0.6 mg/dL (0.6-1.0) Estimated GFR (Cockcroft-Gault) 94.1 Glucose Level 96 mg/dL (70-99) Calcium Level 8.5 mg/dL (8.5-10.1) Assessment/Plan Assessment/Plan Request was made for possible gastrostomy tube for intermittent decompression due to ongoing recurrent obstructive symptoms. This would be a palliative measure. Patient's son makes medical decisions for her we will need to talk with him about whether there willingness to proceed with gastrostomy tube unlikely that would be able to be done endoscopically due to previous surgeries and hernia. Awaiting results of her small bowel follow-through. KRISTAN BELLA MD Jun 27, 2020 07:46
--- NOTE | 2020-06-27 07:57 | NUR ---
Pt had V tach past midnight lasting 30 secs, hypertensive 240/110. Pt has a pacemaker (A paced). Administered labetalol and hydralazine as ordered. See v/s. Administered sesame oil as ordered @ 2330 and 0730. Clamped 2 hrs after giving.
[2020-06-27] MEDS: ENOXAPARIN 30 MG/0.3 ML SYRINGE. SQ SCH (08:18)
[2020-06-27] MEDS: PHENOL ORAL SPRAY 177ML BOTTLE. PO PRN (08:19)
--- NOTE | 2020-06-27 08:39 | PDOC ---
[facility]SE [facility] 06/27/20 0839: SURGICAL PROGRESS NOTE DATE: 06/27/20 TIME: 08:38 Subjective having stools cardiac issues overnight with v tach Vital Signs Vital Signs Date Time Temp Pulse Resp B/P (MAP) Pulse Ox O2 Delivery O2 Flow Rate FiO2 06/27/20 07:46 93 Nasal Cannula 3.0 06/27/20 07:00 98.8 104 18 170/68 (102) 98.8 I&O Intake and Output0 06/27/20 07:00 Intake Total 1000 ml Balance 1000 ml IV Total 1000 ml # Voids 5 # Bowel Movements 6 General: Cooperative, No acute distress HEENT: Other (ng in place) Abdomen: Soft Labs Laboratory Tests Test 06/25/20 18:05 06/25/20 19:00 06/26/20 02:15 06/26/20 08:15 White Blood Count 11.2 x10^3/uL (4.0-11.0) 9.2 x10^3/uL (4.0-11.0) Red Blood Count 4.12 x10^6/uL (3.50-5.40) 3.99 x10^6/uL (3.50-5.40) Hemoglobin 13.0 g/dL (12.0-15.5) 12.4 g/dL (12.0-15.5) Hematocrit 39.4 % (36.0-47.0) 38.2 % (36.0-47.0) Mean Corpuscular Volume 96 fL (79-100) 96 fL (79-100) Mean Corpuscular Hemoglobin 32 pg (25-35) 31 pg (25-35) Mean Corpuscular Hemoglobin Concent 33 g/dL (31-37) 33 g/dL (31-37) Red Cell Distribution Width 15.0 % (11.5-14.5) 15.3 % (11.5-14.5) Platelet Count 331 x10^3/uL (140-400) 337 x10^3/uL (140-400) Neutrophils (%) (Auto) 90 % (31-73) 79 % (31-73) Lymphocytes (%) (Auto) 6 % (24-48) 9 % (24-48) Monocytes (%) (Auto) 4 % (0-9) 10 % (0-9) Eosinophils (%) (Auto) 1 % (0-3) 1 % (0-3) Basophils (%) (Auto) 0 % (0-3) 0 % (0-3) Neutrophils # (Auto) 10.0 x10^3/uL (1.8-7.7) 7.3 x10^3/uL (1.8-7.7) Lymphocytes # (Auto) 0.7 x10^3/uL (1.0-4.8) 0.9 x10^3/uL (1.0-4.8) Monocytes # (Auto) 0.4 x10^3/uL (0.0-1.1) 0.9 x10^3/uL (0.0-1.1) Eosinophils # (Auto) 0.1 x10^3/uL (0.0-0.7) 0.1 x10^3/uL (0.0-0.7) Basophils # (Auto) 0.0 x10^3/uL (0.0-0.2) 0.0 x10^3/uL (0.0-0.2) Segmented Neutrophils % 84 % (35-66) Band Neutrophils % 5 % (0-9) Lymphocytes % 6 % (24-48) Monocytes % 5 % (0-10) Platelet Estimate Adequate (ADEQUATE) Sodium Level 141 mmol/L (136-145) 146 mmol/L (136-145) Potassium Level 4.4 mmol/L (3.5-5.1) 3.4 mmol/L (3.5-5.1) Chloride Level 104 mmol/L (98-107) 109 mmol/L (98-107) Carbon Dioxide Level 29 mmol/L (21-32) 28 mmol/L (21-32) Anion Gap 8 (6-14) 9 (6-14) Blood Urea Nitrogen 13 mg/dL (7-20) 12 mg/dL (7-20) Creatinine 0.7 mg/dL (0.6-1.0) 0.6 mg/dL (0.6-1.0) Estimated GFR (Cockcroft-Gault) 78.8 94.1 BUN/Creatinine Ratio 19 (6-20) Glucose Level 125 mg/dL (70-99) 96 mg/dL (70-99) Calcium Level 9.7 mg/dL (8.5-10.1) 8.5 mg/dL (8.5-10.1) Magnesium Level 2.1 mg/dL (1.8-2.4) Total Bilirubin 0.3 mg/dL (0.2-1.0) Aspartate Amino Transf (AST/SGOT) 19 U/L (15-37) Alanine Aminotransferase (ALT/SGPT) 23 U/L (14-59) Alkaline Phosphatase 67 U/L (46-116) Troponin I Quantitative 0.045 ng/mL (0.000-0.055) 0.049 ng/mL (0.000-0.055) Total Protein 6.4 g/dL (6.4-8.2) Albumin 3.5 g/dL (3.4-5.0) Albumin/Globulin Ratio 1.2 (1.0-1.7) Lipase 120 U/L (73-393) Urine Collection Type Unknown Urine Color Yellow Urine Clarity Clear Urine pH 7.0 (<5.0-8.0) Urine Specific [place] <=1.005 (1.000-1.030) Urine Protein Negative mg/dL (NEG-TRACE) Urine Glucose (UA) Negative mg/dL (NEG) Urine Ketones (Stick) Trace mg/dL (NEG) Urine Blood Negative (NEG) Urine Nitrite Positive (NEG) Urine Bilirubin Negative (NEG) Urine Urobilinogen Dipstick 0.2 mg/dL (0.2 mg/dL) Urine Leukocyte Esterase Moderate (NEG) Urine RBC Occ /HPF (0-2) Urine WBC 1-4 /HPF (0-4) Urine Bacteria Many /HPF (0-FEW) Lactic Acid Level 1.3 mmol/L (0.4-2.0) Assessment/Plan leave ng clamped, trial clears await XR, if improved pull ng Justicifation of Admission Dx: Justifications for Admission: Justification of Admission Dx: Comment: CAROL GEIGER MD 06/27/20 0000: SURGICAL PROGRESS NOTE Assessment/Plan Pt seen and examined. Agree with Ms. Hill's note Pt reports "enemies all around me" abd soft start clears and work to d/c NGT poor surgical candidate. d/w pt's dpoa [facility] Jun 27, 2020 08:39 CAROL GEIGER MD Jun 27, 2020 09:45
[2020-06-27 09:28] LABS: BASO # 0.1 x10^3/uL (0.0-0.2); BASO % 0 % (0-3); EOS % 0 % (0-3); HEMATOCRIT 43.4 % (36.0-47.0); HEMOGLOBIN 14.2 g/dL (12.0-15.5); LYMPH # 0.9 x10^3/uL (1.0-4.8); LYMPH % 5 % (24-48); MEAN CORPUSCULAR HEMOGLOBIN 32 pg (25-35); MEAN CORPUSCULAR HGB CONC 33 g/dL (31-37); MEAN CORPUSCULAR VOLUME 97 fL (79-100); MONO # 1.1 x10^3/uL (0.0-1.1); MONO % 6 % (0-9); NEUT # 15.6 x10^3/uL (1.8-7.7); NEUT % 88 % (31-73); PLATELET COUNT 369 x10^3/uL (140-400); RED BLOOD COUNT 4.49 x10^6/uL (3.50-5.40); RED CELL DISTRIBUTION WIDTH 15.3 % (11.5-14.5); WHITE BLOOD COUNT 17.7 x10^3/uL (4.0-11.0)
[2020-06-27 10:06] LABS: CALCIUM 8.6 mg/dL (8.5-10.1); CREATININE 0.5 mg/dL (0.6-1.0); GFR 116.2; MAGNESIUM 1.9 mg/dL (1.8-2.4); PHOSPHORUS 3.1 mg/dL (2.6-4.7)
[2020-06-27 10:20] LABS: POTASSIUM 2.9 mmol/L (3.5-5.1)
--- NOTE | 2020-06-27 10:42 | NUR ---
SW following. Discussed with RN, pt from home with nephew, has home o2, clear liquid diet, NG clamped. Pt having an xray today. Daniella (KO) meeting with pt and pt's nephew RE VITOOA paperwork. Pt current with [facility]. Pt is a poor surgical candidate. SW will continue to follow.
[2020-06-27] MEDS: POTASSIUM CHLORIDE 10MEQ 100 ML IV SCH ×4 (11:15→16:54)
--- NOTE | 2020-06-27 11:18 | NUR ---
SW consulted to complete POA for HC. SW met with pt. Pt confused about the date but was able to verbalize that Aung Alberts is her Nephew and the person to make HC decisions on her behalf. POA for HC completed and notarized (copy placed on pt's chart). Aung Alberts ([phone]) listed as the primary agent and Aung's Melissa ([phone]) listed as an alternate agent. No further needs from this SW.
--- NOTE | 2020-06-27 12:00 | PDOC ---
[facility] PROGRESS NOTE Date of Service DOS: DATE: 06/27/20 TIME: 11:59 Chief Complaint Chief Complaint Acute abdominal pain concerning for complete SBO Acute electrolyte derangementhypokalemia, hypernatremia Admit to medicine for further management Surgery consult N.p.o. Pending NGT placement for intermittent suctioning and decompression Continue IV fluids Serial abdominal exams Pending small bowel follow-through per surgery Lovenox for DVT prophylaxis Protonix GI prophylaxis ADA diet Full code Discussed with RN and SW Disposition pending surgical evaluation Surrogate decision maker is Aung Alberts History of Present Illness History of Present Illness 06/27/2020 No acute events overnight. NG tube is still to intermittent wall suction. Patient says sees feels uncomfortable. She is unable to elaborate her abdominal pain symptoms. Will attempt for small bowel follow-through. Patient did have episode of V. tach of 30 seconds overnight, asymptomatic and hemodynamically stable. Cardiology has been consulted. Patient's chart, labs, images were reviewed and discussed with RN 89 year old female coming in with caregiver for intermittent abdominal pain and distention. Patient has a history of intermittent small bowel obstructions and has been admitted multiple times in the past few months. Patient states she has had very little appetite or p.o. intake but has been trying to drink water. Has not had a bowel movement in 2 days despite using 2 enemas and MiraLAX. 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 Denies any nausea or vomiting. Patient has had decreased urination but no dysuria. Patient normally has a bowel movement every day. Denies any fevers, cough, shortness of breath, chest pain, or changes in skin color. Vitals/I&O Vitals/I&O: Vital Signs Date Time Temp Pulse Resp B/P (MAP) Pulse Ox O2 Delivery O2 Flow Rate FiO2 06/27/20 11:31 Nasal Cannula 3.0 06/27/20 11:00 98.6 113 18 175/73 (107) 95 98.6 I & O 06/26/20 06/26/20 06/27/20 15:00 23:00 07:00 Intake Total 1000 ml Balance 1000 ml Physical Exam General: Cooperative, No acute distress Heart: Regular rate, No murmurs Lungs: Clear, Other Abdomen: Soft Extremities: No edema Skin: No significant lesion Labs Labs: Laboratory Tests Test 06/27/20 08:10 White Blood Count 17.7 x10^3/uL (4.0-11.0) Red Blood Count 4.49 x10^6/uL (3.50-5.40) Hemoglobin 14.2 g/dL (12.0-15.5) Hematocrit 43.4 % (36.0-47.0) Mean Corpuscular Volume 97 fL (79-100) Mean Corpuscular Hemoglobin 32 pg (25-35) Mean Corpuscular Hemoglobin Concent 33 g/dL (31-37) Red Cell Distribution Width 15.3 % (11.5-14.5) Platelet Count 369 x10^3/uL (140-400) Neutrophils (%) (Auto) 88 % (31-73) Lymphocytes (%) (Auto) 5 % (24-48) Monocytes (%) (Auto) 6 % (0-9) Eosinophils (%) (Auto) 0 % (0-3) Basophils (%) (Auto) 0 % (0-3) Neutrophils # (Auto) 15.6 x10^3/uL (1.8-7.7) Lymphocytes # (Auto) 0.9 x10^3/uL (1.0-4.8) Monocytes # (Auto) 1.1 x10^3/uL (0.0-1.1) Eosinophils # (Auto) 0.0 x10^3/uL (0.0-0.7) Basophils # (Auto) 0.1 x10^3/uL (0.0-0.2) Sodium Level 141 mmol/L (136-145) Potassium Level 2.9 mmol/L (3.5-5.1) Chloride Level 104 mmol/L (98-107) Carbon Dioxide Level 19 mmol/L (21-32) Anion Gap 18 (6-14) Blood Urea Nitrogen 10 mg/dL (7-20) Creatinine 0.5 mg/dL (0.6-1.0) Estimated GFR (Cockcroft-Gault) 116.2 Glucose Level 73 mg/dL (70-99) Calcium Level 8.6 mg/dL (8.5-10.1) Phosphorus Level 3.1 mg/dL (2.6-4.7) Magnesium Level 1.9 mg/dL (1.8-2.4) Comment Review of Relevant I have reviewed the following items forest (where applicable) has been applied. Medications: Current Medications Medications (Trade) Dose Ordered Sig/Shu Route PRN Reason Start Time Stop Time Status Last Admin Dose Admin Phenol (Chloraseptic) 2 spray PRN Q2HR PRN PO SORE THROAT 06/26/20 12:15 06/27/20 08:19 Labetalol HCl (Normodyne Iv Push) 10 mg PRN Q2HRS PRN IVP HYPERTENSION 06/26/20 13:30 06/27/20 03:42 Hydralazine HCl (Apresoline Inj) 20 mg PRN Q2HR PRN IVP ELEVATED BP, SEE COMMENTS 06/26/20 17:30 06/27/20 05:13 Albuterol/ Ipratropium (Duoneb) 3 ml RTQID NEB 06/26/20 20:00 06/27/20 11:28 Lorazepam (Ativan Inj) 0.25 mg PRN Q6HRS PRN IVP ANXIETY / AGITATION 06/26/20 19:15 06/27/20 00:15 Potassium Chloride/Water 100 ml @ 100 mls/hr Q1H IV 06/27/20 11:00 06/27/20 14:59 06/27/20 11:15 Justifications for Admission Abdominal Pain Indications Is NPO status required?: Yes Justification for admission: Patient may require to be NPO for greater 24hours making it medically necessary to manage patient as inpatient. Other Justification SUZY TORRES MD Jun 27, 2020 12:00
--- NOTE | 2020-06-27 12:21 | PDOC2 ---
ML CAMACHO CEMETERY WARDEN 06/27/20 1221: CARDIAC CONSULT DATE OF CONSULT Date of Consult DATE: 06/27/20 TIME: 12:03 REASON FOR CONSULT Reason for Consult: nonsustained VT REFERRING PHYSICIAN Referring Physician: Dr. Wong SOURCE Source: Chart review, Patient HISTORY OF PRESENT ILLNESS HISTORY OF PRESENT ILLNESS This is an 89 yo female who presented secondary to abdominal pain and distention. Has a history of SBO conservatively managed as patient is poor surgical candidate. She denies any chest pain, palpitations, dizziness, diaphoresis, or SOA. Tele noted with arrhythmia overnight, which prompted this consult. Tele reviewed including strip of concern. No VT noted. Noted with brief v-pacing, wide complex. PAST MEDICAL HISTORY Past Medical History Cardiovascular: HTN, Syncope (CSH), Hyperlipidemia, Other (carotid stenosis) Pulmonary: COPD CENTRAL NERVOUS SYSTEM: Other (No pertinent history) GI: Constipation, GERD Heme/Onc: Cancer (colon) Musculoskeletal: low back pain (spinal stenosis), Osteoarthritis Rheumatologic: No pertinent hx Infectious disease: No pertinent hx ENT: Other (glaucoma) Renal/: Urinary Incontinence Endocrine: Osteopenia, Other (metabolic syndrome) Dermatology: No pertinent hx PAST SURGICAL HISTORY Past Surgical History Pacemaker, Hysterectomy, Colectomy, Other (portacath placement and removal; right ankle surgery; breast cyst removal) FAMILY HISTORY Family History noncontributory SOCIAL HISTORY Social History Smoke: Quit ALCOHOL: none Drugs: None Lives: with Family CURRENT MEDICATIONS CURRENT MEDICATIONS Current Medications Medications (Trade) Dose Ordered Sig/Shu Route PRN Reason Start Time Stop Time Status Last Admin Dose Admin Phenol (Chloraseptic) 2 spray PRN Q2HR PRN PO SORE THROAT 06/26/20 12:15 06/27/20 08:19 Labetalol HCl (Normodyne Iv Push) 10 mg PRN Q2HRS PRN IVP HYPERTENSION 06/26/20 13:30 06/27/20 03:42 Hydralazine HCl (Apresoline Inj) 20 mg PRN Q2HR PRN IVP ELEVATED BP, SEE COMMENTS 06/26/20 17:30 06/27/20 05:13 Albuterol/ Ipratropium (Duoneb) 3 ml RTQID NEB 06/26/20 20:00 06/27/20 11:28 Lorazepam (Ativan Inj) 0.25 mg PRN Q6HRS PRN IVP ANXIETY / AGITATION 06/26/20 19:15 06/27/20 00:15 Potassium Chloride/Water 100 ml @ 100 mls/hr Q1H IV 06/27/20 11:00 06/27/20 14:59 06/27/20 11:15 ALLERGIES ALLERGIES: Coded Allergies: No Known Drug Allergies (Unverified , 08/19/15) ROS Review of System 14 point ROS conducted with pertinent positives noted above in HPI PHYSICAL EXAM PHYSICAL EXAM General: Alert, Oriented X3, Cooperative, No acute distress HEENT: Atraumatic, Mucous membr. moist/pink. NGT Lungs: CTA Heart: Regular rate (SR), Normal S1, Normal S2, No murmurs Abdomen: Soft Extremities: No cyanosis, No edema Skin: No breakdown, No significant lesion Neuro: Normal speech, Sensation intact Psych/Mental Status: Mental status NL, Mood NL MUSCULOSKELETAL: Osteoarthritic changes both hands VITALS/I&O VITALS/I&O: Vital Signs Date Time Temp Pulse Resp B/P (MAP) Pulse Ox O2 Delivery O2 Flow Rate FiO2 06/27/20 11:31 Nasal Cannula 3.0 06/27/20 11:00 98.6 113 18 175/73 (107) 95 98.6 I & O 06/26/20 06/26/20 06/27/20 15:00 23:00 07:00 Intake Total 1000 ml Balance 1000 ml LABS Lab: Laboratory Tests Test 06/27/20 08:10 White Blood Count 17.7 x10^3/uL (4.0-11.0) H Red Blood Count 4.49 x10^6/uL (3.50-5.40) Hemoglobin 14.2 g/dL (12.0-15.5) Hematocrit 43.4 % (36.0-47.0) Mean Corpuscular Volume 97 fL (79-100) Mean Corpuscular Hemoglobin 32 pg (25-35) Mean Corpuscular Hemoglobin Concent 33 g/dL (31-37) Red Cell Distribution Width 15.3 % (11.5-14.5) H Platelet Count 369 x10^3/uL (140-400) Neutrophils (%) (Auto) 88 % (31-73) H Lymphocytes (%) (Auto) 5 % (24-48) L Monocytes (%) (Auto) 6 % (0-9) Eosinophils (%) (Auto) 0 % (0-3) Basophils (%) (Auto) 0 % (0-3) Neutrophils # (Auto) 15.6 x10^3/uL (1.8-7.7) H Lymphocytes # (Auto) 0.9 x10^3/uL (1.0-4.8) L Monocytes # (Auto) 1.1 x10^3/uL (0.0-1.1) Eosinophils # (Auto) 0.0 x10^3/uL (0.0-0.7) Basophils # (Auto) 0.1 x10^3/uL (0.0-0.2) Sodium Level 141 mmol/L (136-145) Potassium Level 2.9 mmol/L (3.5-5.1) *L Chloride Level 104 mmol/L (98-107) Carbon Dioxide Level 19 mmol/L (21-32) L Anion Gap 18 (6-14) H Blood Urea Nitrogen 10 mg/dL (7-20) Creatinine 0.5 mg/dL (0.6-1.0) L Estimated GFR (Cockcroft-Gault) 116.2 Glucose Level 73 mg/dL (70-99) Calcium Level 8.6 mg/dL (8.5-10.1) Phosphorus Level 3.1 mg/dL (2.6-4.7) Magnesium Level 1.9 mg/dL (1.8-2.4) Laboratory Tests 06/27/20 08:10 Laboratory Tests 06/27/20 08:10 ECHOCARDIOGRAM ECHOCARDIOGRAM <Conclusion> The left ventricular systolic function is normal and the ejection fraction is within normal range. The Ejection Fraction is 55-60%. There is normal LV segmental wall motion. There is a pacemaker lead in the right ventricle. DATE: 08/30/17 1383 ASSESSMENT/PLAN ASSESSMENT/PLAN 1. Abdominal pain, distention; concerns for recurrent SBO. NGT. Poor surgical candidate 2. Hypertensive urgency; remains elevated. NPO 3. Arrhythmia; tele noted with very brief bursts of AFIB. Strip with concerns for NSVT in v-paced rhythm. No VT noted on tele. 4. Hypokalemia 5. Carotid sinus hypersensitivity s/p PPM (Biotronik). Recent device check with normal function and adequate battery life. AF burden 0%. 6. Hyperlipidemia 7. Chronic diastolic CHF: clinically compensated 8. Leukocytosis 9. UTI Recommendations Device interrogation Add IV metoprolol for rate control while NPO PRN labetalol, hydralazine for BP control Replace K. Keep K >4.0 and K > 2.0 Treatment of UTI as per IM Follow GS recommendations Supportive care RASHID TREVINO MD 06/27/20 1706: CARDIAC CONSULT ASSESSMENT/PLAN ASSESSMENT/PLAN Patient seen and examined. Agree with INSULATION INSPECTOR's assessment and plan. Patient admitted with abdominal pain and distention concerning for SBO. General surgery team following. Telemetry with brief AF episodes. Wide-complex rhythm appears to be ventricular paced rhythm. We will have her device interrogated to rule out VT. 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 Agree with intravenous beta-blockers for better blood pressure control. Chronic diastolic heart failure well compensated. Thank you for your consultation ML CAMACHO APRN Jun 27, 2020 12:21 RASHID TREVINO MD Jun 27, 2020 17:06
[2020-06-27] MEDS: cefTRIAXone IV Push 1 GM VIAL. IVP SCH (16:54)
--- NOTE | 2020-06-27 17:22 | RAD ---
PROCEDURE: XR ABDOMEN COMP ACUTE STUDY DATE: 06/27/2020 CLINICAL INDICATION / HISTORY: Reason: sbo / Spl. Instructions: / History: . TECHNIQUE: Upright PA chest, supine and upright films of the abdomen were obtained. COMPARISON: 06/26/2020 abdominal x-ray FINDINGS: AP view the chest reveals the lungs to be hyperlucent and show coarse reticular densities c ompatible with chronic lung disease but no focal infiltrates. Left pacemaker redemonstrated.. Cardi ac and mediastinal silhouette show aortic calcifications but otherwise unremarkable. No free air is identified below the diaphragms. Supine and upright views of the abdomen reveal an enteric tube that terminates in the midabdomen, likely in the distal body of a hydropic stomach. There has been improv ement in dilated loops of bowel and there are no air-fluid levels. No organomegaly is present. No d estructive osseous lesions. IMPRESSION: Nonspecific bowel gas pattern with an enteric tube in apparent satisfactory position sakshi lar to prior. There is been interval improvement in bowel gas pattern with fewer gas-filled bowel loo ps present. No evidence of bowel perforation. Electronically signed by: Fermín Hall MD (06/27/2020 5:19 PM) [id number]
[2020-06-27] MEDS: METOPROLOL IV PUSH 5 MG/5 ML VIAL. IVP SCH (18:33)
[2020-06-28] VITALS (7 sets, daily range): BP systolic 136–209; BP diastolic 52–91
[2020-06-28] MEDS: METOPROLOL IV PUSH 5 MG/5 ML VIAL. IVP SCH ×3 (00:22→12:00)
[2020-06-28] MEDS: IV NORMAL SALINE 1000ML BAG 1,000 ML IV SCH ×3 (03:27→22:29)
[2020-06-28] MEDS: IPRATRPIUM/ALBUTEROL 0.5/2.5MG 3 ML NEBU. NEB SCH ×4 (07:51→19:31)
[2020-06-28] MEDS: ENOXAPARIN 30 MG/0.3 ML SYRINGE. SQ SCH (08:33)
[2020-06-28] MEDS: hydrALAZINE 20 MG/ML VIAL. IVP PRN (08:34)
--- NOTE | 2020-06-28 09:25 | PDOC ---
JOSE HILL QUOTATION CHECKER 06/28/20 0925: SURGICAL PROGRESS NOTE DATE: 06/28/20 TIME: 09:28 Subjective says her is today no pain no nausea Vital Signs Vital Signs Date Time Temp Pulse Resp B/P (MAP) Pulse Ox O2 Delivery O2 Flow Rate FiO2 06/28/20 08:34 95 209/85 06/28/20 07:54 85 Room Air 06/28/20 07:00 97.3 18 3.0 97.3 I&O Intake and Output 06/28/20 06:55 Intake Total 1440 ml Balance 1440 ml Intake Oral 440 ml IV Total 1000 ml # Voids 4 # Bowel Movements 3 General: Alert, Oriented X3, Cooperative HEENT: Other (ng in place) Abdomen: Soft, Other (ND, NTTP) Labs Laboratory Tests Test 06/27/20 08:10 White Blood Count 17.7 x10^3/uL (4.0-11.0) Red Blood Count 4.49 x10^6/uL (3.50-5.40) Hemoglobin 14.2 g/dL (12.0-15.5) Hematocrit 43.4 % (36.0-47.0) Mean Corpuscular Volume 97 fL (79-100) Mean Corpuscular Hemoglobin 32 pg (25-35) Mean Corpuscular Hemoglobin Concent 33 g/dL (31-37) Red Cell Distribution Width 15.3 % (11.5-14.5) Platelet Count 369 x10^3/uL (140-400) Neutrophils (%) (Auto) 88 % (31-73) Lymphocytes (%) (Auto) 5 % (24-48) Monocytes (%) (Auto) 6 % (0-9) Eosinophils (%) (Auto) 0 % (0-3) Basophils (%) (Auto) 0 % (0-3) Neutrophils # (Auto) 15.6 x10^3/uL (1.8-7.7) Lymphocytes # (Auto) 0.9 x10^3/uL (1.0-4.8) Monocytes # (Auto) 1.1 x10^3/uL (0.0-1.1) Eosinophils # (Auto) 0.0 x10^3/uL (0.0-0.7) Basophils # (Auto) 0.1 x10^3/uL (0.0-0.2) Sodium Level 141 mmol/L (136-145) Potassium Level 2.9 mmol/L (3.5-5.1) Chloride Level 104 mmol/L (98-107) Carbon Dioxide Level 19 mmol/L (21-32) Anion Gap 18 (6-14) Blood Urea Nitrogen 10 mg/dL (7-20) Creatinine 0.5 mg/dL (0.6-1.0) Estimated GFR (Cockcroft-Gault) 116.2 Glucose Level 73 mg/dL (70-99) Calcium Level 8.6 mg/dL (8.5-10.1) Phosphorus Level 3.1 mg/dL (2.6-4.7) Magnesium Level 1.9 mg/dL (1.8-2.4) Problem List remove NG, advance diet as tolerate plan for ongoing symptom management NG decompression when needed would be reasonable to give sesame seed oil 50cc weekly for preventive assistance Justicifation of Admission Dx: Justifications for Admission: Justification of Admission Dx: Comment: CAROL GEIGER MD 06/28/20 1349: SURGICAL PROGRESS NOTE Assessment/Plan Pt seen and examined. Agree with Ms. Hill's note Pt with confusion, believes her is today abd soft, marsha clears d/w DPOA ADAT and work towards d/c. JOSE HILL APRN Jun 28, 2020 09:25 CAROL GEIGER MD Jun 28, 2020 13:49
--- NOTE | 2020-06-28 10:39 | NUR ---
SW following. Discussed with RN, pt from home with nephew, uses oxygen at home, clear liquid diet - being advanced as tolerated today. NG tube to be removed today too. PT/OT recommending home health. [facility] - SW added pt to weekend discharge list in case of discharge. SW will continue to follow. Addendum: 06/28/20 at [address] Tucker discussed hospice with pt's nephew, Aung, was agreeable. KO spoke with Aung, he does not want hospice or palliative home health as he wants to stay with [facility]. Aung also does not think the pt is close to passing, or anywhere near the hospice stage. KO notified Aung to speak with [facility] if he changes his mind or wants more information about hospice/ palliative care. Aung verbalized understanding. [facility] notified. KO will continue to follow.
[2020-06-28] MEDS: hydrALAZINE 10 MG TABLET PO SCH ×2 (11:53→20:30)
[2020-06-28] MEDS: LABETALOL HCL 200 MG TABLET PO SCH ×2 (11:53→20:29)
[2020-06-28] MEDS: LISINOPRIL 20 MG TABLET PO SCH (11:53)
--- NOTE | 2020-06-28 13:19 | PDOC ---
ELA BORGES REEL FILM INSPECTOR 06/28/20 1319: CARDIO Progress Notes Date and Time Date of Service 06/28/2020 Time of Evaluation 1220 Subjective Subjective: No Chest Pain, No shortness of breath, No Palpitations Vitals Vitals Vital Signs Date Time Temp Pulse Resp B/P (MAP) Pulse Ox O2 Delivery O2 Flow Rate FiO2 06/28/20 11:53 108 189/94 06/28/20 11:44 Nasal Cannula 3.0 06/28/20 11:00 97.3 18 95 97.3 Weight Weight [ ] Input and Output Intake and Output Intake and Output 06/28/20 07:00 Intake Total 1440 ml Balance 1440 ml Intake Oral 440 ml IV Total 1000 ml # Voids 4 # Bowel Movements 3 Microbiology Micro Microbiology 06/25/20 Urine Culture - Final, Complete 06/25/20 Antimicrobic Susceptibility - Final, Complete Physical Exam HEENT: Neck Supple W Full Motion Chest: Symmetric LUNGS: Other (diminished bases) Heart: RRR (atrial tach) Abdomen: Soft N/T Extremities: No Calf Tenderness Neurology: alert, oriented, follow commands Assessment Assessment 1. Abdominal pain, distention; concerns for recurrent SBO. NGT. Poor surgical candidate. Now tolerating diet advancement. GS following 2. Hypertensive urgency: no KAIDEN from prior arteriogram. Likely from missed meds 3. Arrhythmia; no VT, noted PAT. Presently sinus tach due to missed BB and CCB 4. Hypokalemia: replaced 5. Carotid sinus hypersensitivity s/p PPM (Biotronik). Recent device check with normal function and adequate battery life. AF burden 0%. 6. Hyperlipidemia 7. Chronic diastolic CHF: clinically compensated 8. Leukocytosis 9. UTI: per PCP 10. 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 No symptoms of claudications Recommendations 1. Resume labetolol and cardizem CD. Resume other BP regimen 2. BMP today 3. Restart ASA and statin. check lipids Justicifation of Admission Dx: Justifications for Admission: Justification of Admission Dx: Comment: RASHID TREVINO MD 06/28/20 1923: CARDIO Progress Notes Assessment Assessment Patient seen and examined. Agree with PRODUCE TEAM LEAD's assessment and plan. Abdominal pain and distention concerning for SBO, general surgery team following. Telemetry with brief AF episodes. Wide-complex rhythm appears to be ventricular paced rhythm. 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 Agree with resuming labetalol and cardizem Chronic diastolic heart failure well compensated. ELA BORGES APRN Jun 28, 2020 13:19 RASHID TREVINO MD Jun 28, 2020 16:53
--- NOTE | 2020-06-28 13:20 | NUR ---
Non administered patients IV metoprolol at noon due to patient receiving her Cardizem PO around 1130. LUCRECIA Gambino aware.
--- NOTE | 2020-06-28 14:30 | PDOC ---
[facility] PROGRESS NOTE Date of Service DOS: DATE: 06/28/20 TIME: 14:28 Chief Complaint Chief Complaint Acute abdominal pain concerning for complete SBO Acute electrolyte derangementhypokalemia, hypernatremia Atrial fibrillation Altered mental status. Admit to medicine for further management Surgery consult Advance diet as tolerated Appreciate cardiology recommendationsrestart home cardiac medications Continue IV fluids Serial abdominal exams Pending small bowel follow-through per surgery Lovenox for DVT prophylaxis Protonix GI prophylaxis ADA diet Full code Discussed with RN and SW Disposition pending surgical evaluation Surrogate decision maker is Aung Alberts History of Present Illness History of Present Illness 06/28/2020 No acute events overnight. NG tube has removed and patient is tolerating diet. She is starting to take her blood pressure medications. She remains hypertensive but we will repeat her vitals in the afternoon. Patient has been more confused per the nephew. 06/27/2020 No acute events overnight. NG tube is still to intermittent wall suction. Patient says sees feels uncomfortable. She is unable to elaborate her abdominal pain symptoms. Will attempt for small bowel follow-through. Patient did have episode of V. tach of 30 seconds overnight, asymptomatic and hemodynamically stable. Cardiology has been consulted. Patient's chart, labs, images were reviewed and discussed with RN 89 year old female coming in with caregiver for intermittent abdominal pain and distention. Patient has a history of intermittent small bowel obstructions and has been admitted multiple times in the past few months. Patient states she has had very little appetite or p.o. intake but has been trying to drink water. Has not had a bowel movement in 2 days despite using 2 enemas and MiraLAX. 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 Denies any nausea or vomiting. Patient has had decreased urination but no dysuria. Patient normally has a bowel movement every day. Denies any fevers, cough, shortness of breath, chest pain, or changes in skin color. Vitals/I&O Vitals/I&O: Vital Signs Date Time Temp Pulse Resp B/P (MAP) Pulse Ox O2 Delivery O2 Flow Rate FiO2 06/28/20 11:53 108 189/94 06/28/20 11:44 Nasal Cannula 3.0 06/28/20 11:00 97.3 18 95 97.3 I & O 06/27/20 06/27/2021 15:00 23:00 07:00 Intake Total 200 ml 240 ml 1000 ml Balance 200 ml 240 ml 1000 ml Physical Exam General: Alert, Oriented X3, Cooperative Heart: Regular rate, No murmurs Lungs: Clear, Other Abdomen: Soft, Other (ND, NTTP) Extremities: No edema Skin: No significant lesion Comment Review of Relevant I have reviewed the following items forest (where applicable) has been applied. Medications: Current Medications Medications (Trade) Dose Ordered Sig/Shu Route PRN Reason Start Time Stop Time Status Last Admin Dose Admin Ceftriaxone Sodium (Rocephin) 1 gm Q24H IVP 06/27/20 16:00 06/27/20 16:54 Metoprolol Tartrate (Lopressor Vial) 5 mg Q6HRS IVP 06/27/20 18:00 06/28/20 06:15 Diltiazem HCl (Cardizem 24hr Cd) 240 mg DAILY PO 06/28/20 12:00 06/28/20 11:52 Hydralazine HCl (Apresoline) 10 mg BID PO 06/28/20 11:15 06/28/20 11:53 Labetalol HCl (Trandate) 200 mg BID PO 06/28/20 11:15 06/28/20 11:53 Lisinopril (Prinivil) 40 mg DAILY PO 06/28/20 11:15 06/28/20 11:53 Justifications for Admission Abdominal Pain Indications Is NPO status required?: Yes Justification for admission: Patient may require to be NPO for greater 24hours making it medically necessary to manage patient as inpatient. Other Justification SUZY TORRES MD Jun 28, 2020 14:30
[2020-06-28 15:13] LABS: BASO # 0.1 x10^3/uL (0.0-0.2); BASO % 1 % (0-3); EOS # 0.1 x10^3/uL (0.0-0.7); EOS % 1 % (0-3); HEMOGLOBIN 12.2 g/dL (12.0-15.5); LYMPH # 0.8 x10^3/uL (1.0-4.8); LYMPH % 7 % (24-48); MEAN CORPUSCULAR HEMOGLOBIN 31 pg (25-35); MEAN CORPUSCULAR HGB CONC 33 g/dL (31-37); MEAN CORPUSCULAR VOLUME 95 fL (79-100); MONO # 1.1 x10^3/uL (0.0-1.1); MONO % 10 % (0-9); NEUT # 9.1 x10^3/uL (1.8-7.7); NEUT % 82 % (31-73); PLATELET COUNT 314 x10^3/uL (140-400); RED CELL DISTRIBUTION WIDTH 15.3 % (11.5-14.5); WHITE BLOOD COUNT 11.1 x10^3/uL (4.0-11.0)
[2020-06-28 15:24] LABS: CALCIUM 7.9 mg/dL (8.5-10.1); CREATININE 0.6 mg/dL (0.6-1.0); GFR 94.1; MAGNESIUM 1.7 mg/dL (1.8-2.4); PHOSPHORUS 2.2 mg/dL (2.6-4.7); POTASSIUM 3.3 mmol/L (3.5-5.1)
[2020-06-28 15:35] LABS: CHOLESTEROL/HDL RATIO 3.1
[2020-06-28] MEDS: PANTOPRAZOLE 40 MG TABLET.DR. PO SCH (16:22)
[2020-06-28] MEDS: ASPIRIN ENTERIC COATED 81 MG TABLET.DR. PO SCH (16:22)
[2020-06-28] MEDS: cloNIDine HCL 0.1 MG TABLET PO SCH ×2 (16:22→20:28)
[2020-06-28] MEDS: cefTRIAXone IV Push 1 GM VIAL. IVP SCH (16:22)
[2020-06-28] MEDS: ATORVASTATIN CALCIUM 20 MG TABLET PO SCH (20:28)
[2020-06-28] MEDS: LACTOBACILLUS RHAMNOSUS GG 1 CAPSULE. PO SCH (20:28)
[2020-06-28] MEDS: MIRTAZAPINE 7.5 MG TABLET. PO SCH (20:28)
[2020-06-29 03:00] VITALS: BP 173/77
[2020-06-29] MEDS: IV NORMAL SALINE 1000ML BAG 1,000 ML IV SCH (06:30)
[2020-06-29 07:00] VITALS: BP 170/69
[2020-06-29] MEDS: IPRATRPIUM/ALBUTEROL 0.5/2.5MG 3 ML NEBU. NEB SCH ×4 (07:32→19:35)
[2020-06-29] MEDS: PANTOPRAZOLE 40 MG TABLET.DR. PO SCH (09:04)
[2020-06-29] MEDS: LABETALOL HCL 200 MG TABLET PO SCH ×2 (09:05→20:39)
[2020-06-29] MEDS: cloNIDine HCL 0.1 MG TABLET PO SCH ×3 (09:05→20:38)
[2020-06-29] MEDS: LISINOPRIL 20 MG TABLET PO SCH (09:05)
[2020-06-29] MEDS: LACTOBACILLUS RHAMNOSUS GG 1 CAPSULE. PO SCH ×2 (09:05→20:40)
[2020-06-29] MEDS: ASPIRIN ENTERIC COATED 81 MG TABLET.DR. PO SCH (09:06)
[2020-06-29] MEDS: ENOXAPARIN 30 MG/0.3 ML SYRINGE. SQ SCH (09:06)
[2020-06-29] MEDS: hydrALAZINE 10 MG TABLET PO SCH ×2 (09:06→20:39)
--- NOTE | 2020-06-29 10:25 | PDOC ---
[facility] PROGRESS NOTE Date of Service DOS: DATE: 06/29/20 TIME: 10:24 Chief Complaint Chief Complaint Acute abdominal pain due to SBO Acute electrolyte derangementhypokalemia, hypernatremia Atrial fibrillation Altered mental status. Admit to medicine for further management Surgery consult Advance diet as tolerated Appreciate cardiology recommendationsrestart home cardiac medications Continue IV fluids Serial abdominal exams Small bowel follow-through completed showing improvement in dilatation and bowel loops. Lovenox for DVT prophylaxis Protonix GI prophylaxis ADA diet Full code Discussed with RN and SW Disposition pending surgical evaluation Surrogate decision maker is Aung Alberst History of Present Illness History of Present Illness 06/29/2020 No acute events overnight. Patient has tolerated diet clear liquids, and pending surgery to advance her diet further. Patient's chart, labs, images were reviewed and discussed with RN 06/28/2020 No acute events overnight. NG tube has removed and patient is tolerating diet. She is starting to take her blood pressure medications. She remains hypertensive but we will repeat her vitals in the afternoon. Patient has been more confused per the nephew. 06/27/2020 No acute events overnight. NG tube is still to intermittent wall suction. Patient says sees feels uncomfortable. She is unable to elaborate her abdominal pain symptoms. Will attempt for small bowel follow-through. Patient did have episode of V. tach of 30 seconds overnight, asymptomatic and hemodynamically stable. Cardiology has been consulted. Patient's chart, labs, images were reviewed and discussed with RN 89 year old female coming in with caregiver for intermittent abdominal pain and distention. Patient has a history of intermittent small bowel obstructions and has been admitted multiple times in the past few months. Patient states she has had very little appetite or p.o. intake but has been trying to drink water. Has not had a bowel movement in 2 days despite using 2 enemas and MiraLAX. 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 Denies any nausea or vomiting. Patient has had decreased urination but no dysuria. Patient normally has a bowel movement every day. Denies any fevers, cough, shortness of breath, chest pain, or changes in skin color. Vitals/I&O Vitals/I&O: Vital Signs Date Time Temp Pulse Resp B/P (MAP) Pulse Ox O2 Delivery O2 Flow Rate FiO2 06/29/20 09:06 80 170/69 06/29/20 08:00 Nasal Cannula 3.0 06/29/20 07:33 99 06/29/20 07:00 98.5 18 98.5 I & O 06/28/20 06/28/20 06/29/20 15:00 23:00 07:00 Intake Total 240 ml 1480 ml 120 ml Balance 240 ml 1480 ml 120 ml Physical Exam General: Alert, Oriented X3, Cooperative Heart: Regular rate, No murmurs Lungs: Clear, Other Abdomen: Soft, Other (ND, NTTP) Extremities: No edema Skin: No significant lesion Labs Labs: Laboratory Tests Test 06/28/20 14:53 White Blood Count 11.1 x10^3/uL (4.0-11.0) Red Blood Count 3.90 x10^6/uL (3.50-5.40) Hemoglobin 12.2 g/dL (12.0-15.5) Hematocrit 37.0 % (36.0-47.0) Mean Corpuscular Volume 95 fL (79-100) Mean Corpuscular Hemoglobin 31 pg (25-35) Mean Corpuscular Hemoglobin Concent 33 g/dL (31-37) Red Cell Distribution Width 15.3 % (11.5-14.5) Platelet Count 314 x10^3/uL (140-400) Neutrophils (%) (Auto) 82 % (31-73) Lymphocytes (%) (Auto) 7 % (24-48) Monocytes (%) (Auto) 10 % (0-9) Eosinophils (%) (Auto) 1 % (0-3) Basophils (%) (Auto) 1 % (0-3) Neutrophils # (Auto) 9.1 x10^3/uL (1.8-7.7) Lymphocytes # (Auto) 0.8 x10^3/uL (1.0-4.8) Monocytes # (Auto) 1.1 x10^3/uL (0.0-1.1) Eosinophils # (Auto) 0.1 x10^3/uL (0.0-0.7) Basophils # (Auto) 0.1 x10^3/uL (0.0-0.2) Sodium Level 142 mmol/L (136-145) Potassium Level 3.3 mmol/L (3.5-5.1) Chloride Level 107 mmol/L (98-107) Carbon Dioxide Level 26 mmol/L (21-32) Anion Gap 9 (6-14) Blood Urea Nitrogen 7 mg/dL (7-20) Creatinine 0.6 mg/dL (0.6-1.0) Estimated GFR (Cockcroft-Gault) 94.1 Glucose Level 130 mg/dL (70-99) Calcium Level 7.9 mg/dL (8.5-10.1) Phosphorus Level 2.2 mg/dL (2.6-4.7) Magnesium Level 1.7 mg/dL (1.8-2.4) Triglycerides Level 94 mg/dL (0-150) Cholesterol Level 195 mg/dL (0-200) LDL Cholesterol, Calculated 113 mg/dL (0-100) VLDL Cholesterol, Calculated 19 mg/dL (0-40) Non-HDL Cholesterol Calculated 132 mg/dL (0-129) HDL Cholesterol 63 mg/dL (40-60) Cholesterol/HDL Ratio 3.1 Comment Review of Relevant I have reviewed the following items forest (where applicable) has been applied. Medications: Current Medications Medications (Trade) Dose Ordered Sig/Shu Route PRN Reason Start Time Stop Time Status Last Admin Dose Admin Clonidine HCl (Catapres) 0.1 mg TID PO 06/28/20 14:00 06/29/20 09:05 Diltiazem HCl (Cardizem 24hr Cd) 240 mg DAILY PO 06/28/20 12:00 06/29/20 09:06 Hydralazine HCl (Apresoline) 10 mg BID PO 06/28/20 11:15 06/29/20 09:06 Labetalol HCl (Trandate) 200 mg BID PO 06/28/20 11:15 06/29/20 09:05 Lisinopril (Prinivil) 40 mg DAILY PO 06/28/20 11:15 06/29/20 09:05 Aspirin (Ecotrin) 81 mg DAILY PO 06/28/20 17:00 06/29/20 09:06 Atorvastatin Calcium (Lipitor) 20 mg QHS PO 06/28/20 21:00 06/28/20 20:28 Lactobacillus Rhamnosus (Culturelle) 1 cap BID PO 06/28/20 21:00 06/29/20 09:05 Mirtazapine (Remeron) 7.5 mg QHS PO 06/28/20 21:00 06/28/20 20:28 Pantoprazole Sodium (Protonix) 40 mg DAILYAC PO 06/28/20 15:00 06/29/20 09:04 Justifications for Admission Abdominal Pain Indications Is NPO status required?: Yes Justification for admission: Patient may require to be NPO for greater 24hours making it medically necessary to manage patient as inpatient. Other Justification SUZY TRORES MD Jun 29, 2020 10:25
[2020-06-29 10:35] VITALS: BP 102/39
--- NOTE | 2020-06-29 12:50 | PDOC ---
PROGRESS NOTES Date of Service DATE: 06/29/20 TIME: 12:49 Subjective Subjective no complaints, nurse states she is having stools Objective Objective Vital Signs Date Time Temp Pulse Resp B/P (MAP) Pulse Ox O2 Delivery O2 Flow Rate FiO2 06/29/20 11:44 95 Nasal Cannula 3.0 06/29/20 10:35 97.2 64 18 102/39 (60) 97.2 Intake and Output 06/29/20 07:00 Intake Total 1840 ml Balance 1840 ml Intake Oral 840 ml IV Total 1000 ml # Voids 3 Physical Exam Abdomen: Soft, No tenderness Extremities: No clubbing, No cyanosis General: Alert, Cooperative HEENT: Atraumatic Neuro: Normal speech Assessment Assessment SBO Plan Plan of Care Doing well, advance diet; no further surgical recs, we will sign off; please call if needed in the future Comment Review of Relevant I have reviewed the following items forest (where applicable) has been applied. Labs Laboratory Tests Test 06/28/20 14:53 White Blood Count 11.1 x10^3/uL (4.0-11.0) Red Blood Count 3.90 x10^6/uL (3.50-5.40) Hemoglobin 12.2 g/dL (12.0-15.5) Hematocrit 37.0 % (36.0-47.0) Mean Corpuscular Volume 95 fL (79-100) Mean Corpuscular Hemoglobin 31 pg (25-35) Mean Corpuscular Hemoglobin Concent 33 g/dL (31-37) Red Cell Distribution Width 15.3 % (11.5-14.5) Platelet Count 314 x10^3/uL (140-400) Neutrophils (%) (Auto) 82 % (31-73) Lymphocytes (%) (Auto) 7 % (24-48) Monocytes (%) (Auto) 10 % (0-9) Eosinophils (%) (Auto) 1 % (0-3) Basophils (%) (Auto) 1 % (0-3) Neutrophils # (Auto) 9.1 x10^3/uL (1.8-7.7) Lymphocytes # (Auto) 0.8 x10^3/uL (1.0-4.8) Monocytes # (Auto) 1.1 x10^3/uL (0.0-1.1) Eosinophils # (Auto) 0.1 x10^3/uL (0.0-0.7) Basophils # (Auto) 0.1 x10^3/uL (0.0-0.2) Sodium Level 142 mmol/L (136-145) Potassium Level 3.3 mmol/L (3.5-5.1) Chloride Level 107 mmol/L (98-107) Carbon Dioxide Level 26 mmol/L (21-32) Anion Gap 9 (6-14) Blood Urea Nitrogen 7 mg/dL (7-20) Creatinine 0.6 mg/dL (0.6-1.0) Estimated GFR (Cockcroft-Gault) 94.1 Glucose Level 130 mg/dL (70-99) Calcium Level 7.9 mg/dL (8.5-10.1) Phosphorus Level 2.2 mg/dL (2.6-4.7) Magnesium Level 1.7 mg/dL (1.8-2.4) Triglycerides Level 94 mg/dL (0-150) Cholesterol Level 195 mg/dL (0-200) LDL Cholesterol, Calculated 113 mg/dL (0-100) VLDL Cholesterol, Calculated 19 mg/dL (0-40) Non-HDL Cholesterol Calculated 132 mg/dL (0-129) HDL Cholesterol 63 mg/dL (40-60) Cholesterol/HDL Ratio 3.1 Laboratory Tests Test 06/28/20 14:53 White Blood Count 11.1 x10^3/uL (4.0-11.0) Red Blood Count 3.90 x10^6/uL (3.50-5.40) Hemoglobin 12.2 g/dL (12.0-15.5) Hematocrit 37.0 % (36.0-47.0) Mean Corpuscular Volume 95 fL (79-100) Mean Corpuscular Hemoglobin 31 pg (25-35) Mean Corpuscular Hemoglobin Concent 33 g/dL (31-37) Red Cell Distribution Width 15.3 % (11.5-14.5) Platelet Count 314 x10^3/uL (140-400) Neutrophils (%) (Auto) 82 % (31-73) Lymphocytes (%) (Auto) 7 % (24-48) Monocytes (%) (Auto) 10 % (0-9) Eosinophils (%) (Auto) 1 % (0-3) Basophils (%) (Auto) 1 % (0-3) Neutrophils # (Auto) 9.1 x10^3/uL (1.8-7.7) Lymphocytes # (Auto) 0.8 x10^3/uL (1.0-4.8) Monocytes # (Auto) 1.1 x10^3/uL (0.0-1.1) Eosinophils # (Auto) 0.1 x10^3/uL (0.0-0.7) Basophils # (Auto) 0.1 x10^3/uL (0.0-0.2) Sodium Level 142 mmol/L (136-145) Potassium Level 3.3 mmol/L (3.5-5.1) Chloride Level 107 mmol/L (98-107) Carbon Dioxide Level 26 mmol/L (21-32) Anion Gap 9 (6-14) Blood Urea Nitrogen 7 mg/dL (7-20) Creatinine 0.6 mg/dL (0.6-1.0) Estimated GFR (Cockcroft-Gault) 94.1 Glucose Level 130 mg/dL (70-99) Calcium Level 7.9 mg/dL (8.5-10.1) Phosphorus Level 2.2 mg/dL (2.6-4.7) Magnesium Level 1.7 mg/dL (1.8-2.4) Triglycerides Level 94 mg/dL (0-150) Cholesterol Level 195 mg/dL (0-200) LDL Cholesterol, Calculated 113 mg/dL (0-100) VLDL Cholesterol, Calculated 19 mg/dL (0-40) Non-HDL Cholesterol Calculated 132 mg/dL (0-129) HDL Cholesterol 63 mg/dL (40-60) Cholesterol/HDL Ratio 3.1 Microbiology 06/25/20 Urine Culture - Final, Complete 06/25/20 Antimicrobic Susceptibility - Final, Complete Medications Current Medications Sodium Chloride 500 ml @ 500 mls/hr 1X ONCE IV Last administered on 06/25/20at 18:45; Start 06/25/20 at 18:45; Stop 06/25/20 at 19:44; Status DC Iohexol (Omnipaque 300 Mg/ml) 75 ml 1X ONCE IV Last administered on 06/25/20at 21:31; Start 06/25/20 at 21:15; Stop 06/25/20 at 21:16; Status DC Ondansetron HCl (Zofran) 4 mg PRN Q8HRS PRN IV NAUSEA/VOMITING; Start 06/25/20 at 23:30; Stop 06/26/20 at 08:30; Status DC Morphine Sulfate (Morphine Sulfate) 2 mg PRN Q2HR PRN IV PAIN Last administered on 06/26/20at 21:12; Start 06/25/20 at 23:30; Stop 06/26/20 at 23:29; Status DC Sodium Chloride 1,000 ml @ 75 mls/hr [id number] IV Last administered on 06/26/20at 01:10; Start 06/25/20 at 23:30; Stop 06/26/20 at 23:29; Status DC Clonidine HCl (Catapres) 0.1 mg 1X ONCE PO Last administered on 06/26/20at 00:44; Start 06/26/20 at 00:45; Stop 06/26/20 at 00:46; Status DC Labetalol HCl (Trandate) 200 mg 1X ONCE PO Last administered on 06/26/20at 00:46; Start 06/26/20 at 00:45; Stop 06/26/20 at 00:46; Status DC Sennosides (Senna) 17.2 mg PRN BID PRN PO CONSTIPATION; Start 06/26/20 at 08:30 Docusate Sodium (Colace) 100 mg PRN DAILY PRN PO HARD STOOLS; Start 06/26/20 at 08:30 Ondansetron HCl (Zofran) 4 mg PRN Q6HRS PRN IVP NAUSEA/VOMITING; Start 06/26/20 at 08:30 Dextrose (Dextrose 50%-Water Syringe) 12.5 gm PRN Q15MIN PRN IV SEE COMMENTS; Start 06/26/20 at 08:30 Sodium Chloride 1,000 ml @ 100 mls/hr Q10H IV Last administered on 06/28/20at 22:29; Start 06/26/20 at 08:30 Acetaminophen (Tylenol) 650 mg PRN Q4HRS PRN PO TEMP OVER 100.4F OR MILD PAIN; Start 06/26/20 at 08:30 Enoxaparin Sodium (Lovenox 30mg Syringe) 30 mg Q24H SQ Last administered on 06/29/20at 09:06; Start 06/26/20 at 09:00 Morphine Sulfate (Morphine Sulfate) 1 mg PRN Q1HR PRN IV PAIN; Start 06/26/20 at 08:30 Morphine Sulfate (Morphine Sulfate) 2 mg PRN Q2HR PRN IV SEVERE PAIN 7-10; Start 06/26/20 at 04:00; Stop 06/27/20 at 03:59; Status DC Phenol (Chloraseptic) 2 spray PRN Q2HR PRN PO SORE THROAT Last administered on 06/27/20at 08:19; Start 06/26/20 at 12:15 Labetalol HCl (Normodyne Iv Push) 10 mg PRN Q2HRS PRN IVP HYPERTENSION, 1st CHOICE Last administered on 06/27/20at 21:30; Start 06/26/20 at 13:30 Hydralazine HCl (Apresoline Inj) 20 mg PRN Q2HR PRN IVP ELEVATED BP, 2nd CHOICE Last administered on 06/28/20at 08:34; Start 06/26/20 at 17:30 Albuterol/ Ipratropium (Duoneb) 3 ml RTQID NEB Last administered on 06/29/20at 11:43; Start 06/26/20 at 20:00 Albuterol Sulfate (Ventolin Neb Soln) 2.5 mg PRN Q4HRS PRN NEB SHORTNESS OF BREATH; Start 06/26/20 at 18:30 Lorazepam (Ativan Inj) 0.25 mg PRN Q6HRS PRN IVP ANXIETY / AGITATION Last administered on 06/27/20at 21:38; Start 06/26/20 at 19:15 Potassium Chloride/Water 100 ml @ 100 mls/hr Q1H IV Last administered on 06/27/20at 16:54; Start 06/27/20 at 11:00; Stop 06/27/20 at 14:59; Status DC Ceftriaxone Sodium (Rocephin) 1 gm Q24H IVP Last administered on 06/28/20at 16:22; Start 06/27/20 at 16:00 Metoprolol Tartrate (Lopressor Vial) 5 mg Q6HRS IVP Last administered on 06/28/20at 06:15; Start 06/27/20 at 18:00; Stop 06/28/20 at 18:04; Status DC Clonidine HCl (Catapres) 0.1 mg TID PO Last administered on 06/29/20 09:05; Start 06/28/20 at 14:00 Diltiazem HCl (Cardizem 24hr Cd) 240 mg DAILY PO Last administered on 06/29/20 09:06; Start 06/28/20 at 12:00 Hydralazine HCl (Apresoline) 10 mg BID PO Last administered on 06/29/20 09:06; Start 06/28/20 at 11:15 Labetalol HCl (Trandate) 200 mg BID PO Last administered on 06/29/20 09:05; Start 06/28/20 at 11:15 Lisinopril (Prinivil) 40 mg DAILY PO Last administered on 06/29/20 09:05; Start 06/28/20 at 11:15 Aspirin (Ecotrin) 81 mg DAILY PO Last administered on 06/29/20 09:06; Start 06/28/20 at 17:00 Atorvastatin Calcium (Lipitor) 20 mg QHS PO Last administered on 06/28/20at 20:28; Start 06/28/20 at 21:00 Lactobacillus Rhamnosus (Culturelle) 1 cap BID PO Last administered on 06/29/20at 09:05; Start 06/28/20 at 21:00 Mirtazapine (Remeron) 7.5 mg QHS PO Last administered on 06/28/20 20:28; Start 06/28/20 at 21:00 Pantoprazole Sodium (Protonix) 40 mg DAILYAC PO Last administered on 06/29/20at 09:04; Start 06/28/20 at 15:00 Active Scripts Active Klor-Con M20 (Potassium Chloride) 20 Meq Tab.er.prt 20 Meq PO [id number] 14 Days Hydralazine Hcl 10 Mg Tablet 1 Tab PO BID 30 Days Zofran (Ondansetron Hcl) 4 Mg Tablet 1 Tab PO Q6HRS PRN Nexium Capsule (Esomeprazole Magnesium) 20 Mg Capsule.dr 1 Cap PO DAILY OTC. Symbicort 160-4.5 Mcg Inhaler (Budesonide/Formoterol Fumarate) 10.2 Gm Hfa.aer.ad 2 Puff IH BID Reported Labetalol Hcl 200 Mg Tablet 1 Tab PO BID Acetaminophen 500 Mg Tablet 2 Tab PO PRN Q6HRS PRN Prednisone (Prednisone) 10 Mg Tablet 5 Mg PO DAILY Glucosamine (Glucosamine Sulfate 2KCL) 1,000 Mg Tablet 500 Mg PO BID Oxybutynin Chloride 5 Mg Tablet 5 Mg PO TID Latanoprost 2.5 Ml Drops 1 Drop EACHEYE QHS Clonidine Hcl 0.1 Mg Tablet 0.1 Mg PO TID Miralax (Polyethylene Glycol 3350) 17 Gm Powd.pack 1 Pkt PO DAILY Calcium 500 + D Tablet (Calcium Carbonate/Vitamin D3) 1 Each Tablet 1 Each PO BID Diltiazem 24HR Cd (Diltiazem Hcl) 240 Mg Cap.er.24h 240 Mg PO DAILY Lisinopril 40 Mg Tablet 1 Tab PO DAILY Spiriva (Tiotropium Carmichaels) 18 Mcg Cap.w.dev 1 Cap IH DAILY Mirtazapine 15 Mg Tablet 0.5 Tab PO QHS Aspir 81 (Aspirin) 81 Mg Tablet.dr 1 Tab PO DAILY Pravastatin Sodium 80 Mg Tablet 80 Mg PO HS Proair Hfa Inhaler (Albuterol Sulfate) 8.5 Gm Hfa.aer.ad 2 Puff INH PRN Q6HRS PRN Vitals/I & O Vital Sign - Last 24 Hours 06/28/20 06/28/20 06/28/20 06/28/20 15:27 15:39 16:22 19:30 Temp 98.9 97.9 98.9 97.9 Pulse 89 89 61 Resp 18 20 B/P (MAP) 160/70 (100) 160/70 139/52 (81) Pulse Ox 97 94 94 O2 Delivery Nasal Cannula Nasal Cannula Nasal Cannula O2 Flow Rate 3.0 3.0 3.0 06/28/20 06/28/20 06/28/20 06/28/20 19:34 20:20 20:28 20:29 Pulse 61 61 B/P (MAP) 139/52 139/52 Pulse Ox 97 O2 Delivery Nasal Cannula Nasal Cannula O2 Flow Rate 3.0 3.0 06/28/20 06/28/20 06/29/20 06/29/20 20:30 23:00 03:00 07:00 Temp 98.3 98.3 98.5 98.3 98.3 98.5 Pulse 61 75 85 80 Resp 20 20 18 B/P (MAP) 139/52 136/54 (81) 173/77 (109) 170/69 (102) Pulse Ox 95 94 96 O2 Delivery Nasal Cannula Nasal Cannula Nasal Cannula O2 Flow Rate 3.0 3.0 3.0 06/29/20 06/29/20 06/29/20 06/29/20 07:33 08:00 09:05 09:05 Pulse 80 80 B/P (MAP) 170/69 170/69 Pulse Ox 99 O2 Delivery Nasal Cannula Nasal Cannula O2 Flow Rate 3.0 3.0 06/29/20 06/29/20 06/29/20 06/29/20 09:05 09:06 09:06 10:35 Temp 97.2 97.2 Pulse 80 80 80 64 Resp 18 B/P (MAP) 170/69 170/69 170/69 102/39 (60) Pulse Ox 97 O2 Delivery Nasal Cannula O2 Flow Rate 3.0 06/29/20 11:44 Pulse Ox 95 O2 Delivery Nasal Cannula O2 Flow Rate 3.0 Intake and Output 06/28/20 06/28/20 06/29/20 15:00 23:00 07:00 Intake Total 240 ml 1480 ml 120 ml Balance 240 ml 1480 ml 120 ml Justifications for Admission Abdominal Pain Indications Is NPO status required?: Yes Justification for admission: Patient may require to be NPO for greater 24hours making it medically necessary to manage patient as inpatient. Other Justification Nutrition Consultation Dietary Evaluation: Recommendations by RD: Dietary education by RD, Increase Calorie Intake, Protein supplementation Comments: rec ensure tid Expected Outcomes/Goals: diet adv/tolerance Malnutrition Findings: Food and Nutrition Intake (Sev: <50% est energy req 5days Body Fat Depletion (Non Severe: Mod to Severe Weight Status: Underweight HEMA LU MD Jun 29, 2020 12:50
[2020-06-29 14:17] LABS: CALCIUM 8.5 mg/dL (8.5-10.1); CREATININE 0.7 mg/dL (0.6-1.0); GFR 78.8; MAGNESIUM 1.5 mg/dL (1.8-2.4); POTASSIUM 3.6 mmol/L (3.5-5.1); URIC ACID 4.3 mg/dL (2.6-6.0)
[2020-06-29 15:00] VITALS: BP 168/60
--- NOTE | 2020-06-29 16:12 | PDOC ---
PROGRESS NOTES Date of Service: DATE: 06/29/20 TIME: 16:09 Subjective Subjective Feeling better with improvement in abdominal pain Objective Objective Vital Signs Date Time Temp Pulse Resp B/P (MAP) Pulse Ox O2 Delivery O2 Flow Rate FiO2 06/29/20 15:00 98.6 68 168/60 (96) 97 Nasal Cannula 3.0 98.6 06/29/20 10:35 18 Intake and Output 06/29/20 07:00 Intake Total 1840 ml Balance 1840 ml Intake Oral 840 ml IV Total 1000 ml # Voids 3 Physical Exam Abdomen: Soft, No tenderness Heart: Regular rate, No murmurs Extremities: No clubbing, No cyanosis General: Alert, Cooperative HEENT: Atraumatic Lungs: Clear to auscultation, Normal air movement Neuro: Normal speech Psych/Mental Status: Mental status NL, Mood NL Skin: No significant lesion Assessment Assessment 1. Abdominal pain, distention, recurrent SBO. Poor surgical candidate. [facility] and currently tolerating diet advancement. GS following 2. Hypertensive urgency: no KAIDEN from prior arteriogram. Blood pressure better controlled but still labile probably secondary to abdominal pain. 3. Arrhythmia; no VT, noted PAT. telemetry showed sinus tachycardia without any significant arrhythmias. 4. Hypokalemia: replaced 5. 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 Recent device check with normal function and adequate battery life. AF burden 0%. 6. Hyperlipidemia: Continue statins 7. Chronic diastolic CHF: clinically well compensated Comment Review of Relevant I have reviewed the following items forest (where applicable) has been applied. Labs Laboratory Tests Test 06/29/20 13:54 Sodium Level 141 mmol/L (136-145) Potassium Level 3.6 mmol/L (3.5-5.1) Chloride Level 107 mmol/L (98-107) Carbon Dioxide Level 28 mmol/L (21-32) Anion Gap 6 (6-14) Blood Urea Nitrogen 8 mg/dL (7-20) Creatinine 0.7 mg/dL (0.6-1.0) Estimated GFR (Cockcroft-Gault) 78.8 Glucose Level 141 mg/dL (70-99) Uric Acid 4.3 mg/dL (2.6-6.0) Calcium Level 8.5 mg/dL (8.5-10.1) Magnesium Level 1.5 mg/dL (1.8-2.4) Microbiology 06/25/20 Urine Culture - Final, Complete 06/25/20 Antimicrobic Susceptibility - Final, Complete Medications Current Medications Aspirin (Ecotrin) 81 mg DAILY PO Last administered on 06/29/20at 09:06; Start 06/28/20 at 17:00 Atorvastatin Calcium (Lipitor) 20 mg QHS PO Last administered on 06/28/20at 20:28; Start 06/28/20 at 21:00 Lactobacillus Rhamnosus (Culturelle) 1 cap BID PO Last administered on 06/29/20 at 09:05; Start 06/28/20 at 21:00 Mirtazapine (Remeron) 7.5 mg QHS PO Last administered on 06/28/20at 20:28; Start 06/28/20 at 21:00 Vitals/I & O Vital Sign - Last 24 Hours 06/28/20 06/28/20 06/28/20 06/28/20 16:22 19:30 19:34 20:20 Temp 97.9 97.9 Pulse 89 61 Resp 20 B/P (MAP) 160/70 139/52 (81) Pulse Ox 94 97 O2 Delivery Nasal Cannula Nasal Cannula Nasal Cannula O2 Flow Rate 3.0 3.0 3.0 06/28/20 06/28/20 06/28/20 06/28/20 20:28 20:29 20:30 23:00 Temp 98.3 98.3 Pulse 61 61 61 75 Resp 20 B/P (MAP) 139/52 139/52 139/52 136/54 (81) Pulse Ox 95 O2 Delivery Nasal Cannula O2 Flow Rate 3.0 06/29/20 06/29/20 06/29/20 06/29/20 03:00 07:00 07:33 08:00 Temp 98.3 98.5 98.3 98.5 Pulse 85 80 Resp 20 18 B/P (MAP) 173/77 (109) 170/69 (102) Pulse Ox 94 96 99 O2 Delivery Nasal Cannula Nasal Cannula Nasal Cannula Nasal Cannula O2 Flow Rate 3.0 3.0 3.0 3.0 06/29/20 06/29/20 06/29/20 06/29/20 09:05 09:05 09:05 09:06 Pulse 80 80 80 80 B/P (MAP) 170/69 170/69 170/69 170/69 06/29/20 06/29/20 06/29/20 06/29/20 09:06 10:35 11:44 15:00 Temp 97.2 98.6 97.2 98.6 Pulse 80 64 68 Resp 18 B/P (MAP) 170/69 102/39 (60) 168/60 (96) Pulse Ox 97 95 97 O2 Delivery Nasal Cannula Nasal Cannula Nasal Cannula O2 Flow Rate 3.0 3.0 3.0 Intake and Output 06/28/20 06/28/20 06/29/20 15:00 23:00 07:00 Intake Total 240 ml 1480 ml 120 ml Balance 240 ml 1480 ml 120 ml RASHID TREVINO MD Jun 29, 2020 16:12
[2020-06-29] MEDS: ATORVASTATIN CALCIUM 20 MG TABLET PO SCH (20:39)
[2020-06-29] MEDS: MIRTAZAPINE 7.5 MG TABLET. PO SCH (20:39)
[2020-06-29] MEDS: LORazepam 0.5 MG TABLET PO PRN (22:21)
[2020-06-29 23:00] VITALS: BP 151/57
[2020-06-30 03:00] VITALS: BP 189/75
[2020-06-30] MEDS: LORazepam 0.5 MG TABLET PO PRN (06:45)
[2020-06-30 07:00] VITALS: BP 189/87
[2020-06-30] MEDS: IPRATRPIUM/ALBUTEROL 0.5/2.5MG 3 ML NEBU. NEB SCH ×2 (07:29→11:23)
[2020-06-30] MEDS: PANTOPRAZOLE 40 MG TABLET.DR. PO SCH (07:30)
[2020-06-30] MEDS: LABETALOL HCL 200 MG TABLET PO SCH (08:29)
[2020-06-30] MEDS: LACTOBACILLUS RHAMNOSUS GG 1 CAPSULE. PO SCH (08:30)
[2020-06-30] MEDS: hydrALAZINE 10 MG TABLET PO SCH (08:30)
[2020-06-30] MEDS: cloNIDine HCL 0.1 MG TABLET PO SCH (08:31)
[2020-06-30] MEDS: LISINOPRIL 20 MG TABLET PO SCH (08:31)
[2020-06-30] MEDS: ASPIRIN ENTERIC COATED 81 MG TABLET.DR. PO SCH (08:31)
[2020-06-30] MEDS: ENOXAPARIN 30 MG/0.3 ML SYRINGE. SQ SCH (08:32)
--- NOTE | 2020-06-30 09:50 | PDOC ---
[facility] PROGRESS NOTE Date of Service DOS: DATE: 06/30/20 TIME: 09:45 Chief Complaint Chief Complaint Acute abdominal pain due to SBO Acute electrolyte derangementhypokalemia, hypernatremia Atrial fibrillation Altered mental status. Admit to medicine for further management Surgery consult Advance diet as tolerated Appreciate cardiology recommendationsrestart home cardiac medications Continue IV fluids Serial abdominal exams Small bowel follow-through completed showing improvement in dilatation and bowel loops. Lovenox for DVT prophylaxis Protonix GI prophylaxis ADA diet Full code Discussed with RN and SW Disposition pending surgical evaluation Surrogate decision maker is Aung Alberts History of Present Illness History of Present Illness 06/30/2020 No acute events overnight. Patient is tolerating diet and waiting for to advance diet further per surgery. Patient had BM x2 yesterday afternoon. A gitated overnight and was given Ativan. Patient seen resting in the recliner with her feet upright. Patient's chart, labs, images were reviewed and discussed with RN 06/29/2020 No acute events overnight. Patient has tolerated diet clear liquids, and pen ding surgery to advance her diet further. Patient's chart, labs, images were reviewed and discussed with RN 06/28/2020 No acute events overnight. NG tube has removed and patient is tolerating diet. She is starting to take her blood pressure medications. She remains hypertensive but we will repeat her vitals in the afternoon. Patient has been more confused per the nephew. 06/27/2020 No acute events overnight. NG tube is still to intermittent wall suction. Patient says sees feels uncomfortable. She is unable to elaborate her abdominal pain symptoms. Will attempt for small bowel follow-through. Patient did have episode of V. tach of 30 seconds overnight, asymptomatic and hemodynamically stable. Cardiology has been consulted. Patient's chart, labs, images were reviewed and discussed with RN 89 year old female coming in with caregiver for intermittent abdominal pain and distention. Patient has a history of intermittent small bowel obstructions and has been admitted multiple times in the past few months. Patient states she has had very little appetite or p.o. intake but has been trying to drink water. Has not had a bowel movement in 2 days despite using 2 enemas and MiraLAX. 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 Denies any nausea or vomiting. Patient has had decreased urination but no dysuria. Patient normally has a bowel movement every day. Denies any fevers, cough, shortness of breath, chest pain, or changes in skin color. Vitals/I&O Vitals/I&O: Vital Signs Date Time Temp Pulse Resp B/P (MAP) Pulse Ox O2 Delivery O2 Flow Rate FiO2 06/30/20 08:31 76 189/75 06/30/20 08:00 Nasal Cannula 3.0 06/30/20 07:31 97 06/30/20 07:00 97.6 18 97.6 I & O 06/29/20 06/29/20 06/30/20 15:00 23:00 07:00 Intake Total 430 ml 200 ml 200 ml Balance 430 ml 200 ml 200 ml Physical Exam General: Alert, Cooperative Heart: Regular rate, No murmurs Lungs: Clear, Other Abdomen: Soft, No tenderness Extremities: No clubbing, No cyanosis Skin: No significant lesion Labs Labs: Laboratory Tests Test 06/29/20 13:54 Sodium Level 141 mmol/L (136-145) Potassium Level 3.6 mmol/L (3.5-5.1) Chloride Level 107 mmol/L (98-107) Carbon Dioxide Level 28 mmol/L (21-32) Anion Gap 6 (6-14) Blood Urea Nitrogen 8 mg/dL (7-20) Creatinine 0.7 mg/dL (0.6-1.0) Estimated GFR (Cockcroft-Gault) 78.8 Glucose Level 141 mg/dL (70-99) Uric Acid 4.3 mg/dL (2.6-6.0) Calcium Level 8.5 mg/dL (8.5-10.1) Magnesium Level 1.5 mg/dL (1.8-2.4) Comment Review of Relevant I have reviewed the following items forest (where applicable) has been applied. Medications: Current Medications Medications (Trade) Dose Ordered Sig/Shu Route PRN Reason Start Time Stop Time Status Last Admin Dose Admin Lorazepam (Ativan) 0.25 mg PRN Q6HRS PRN PO ANXIETY / AGITATION 06/29/20 21:15 06/30/20 06:45 Justifications for Admission Abdominal Pain Indications Is NPO status required?: Yes Justification for admission: Patient may require to be NPO for greater 24hours making it medically necessary to manage patient as inpatient. Other Justification SUZY TORRES MD 17, 2021 09:50
--- NOTE | 2020-06-30 10:10 | RAD ---
PROCEDURE: XR FOOT_LEFT 2 VIEWS STUDY DATE: 06/30/2020 CLINICAL INDICATION / HISTORY: Reason: toe pain / Spl. Instructions: / History: . TECHNIQUE: AP, and lateral views of the left foot. COMPARISON: None FINDINGS: No fracture or dislocation is identified. The bone density is mildly demineralized.. The berna int space widths are maintained, and there are no erosions to suggest an inflammatory arthropathy. No soft tissue abnormality is seen. IMPRESSION: No acute osseous abnormality. Electronically signed by: Fermín Hall MD (06/30/2020 10:07 AM) [facility] [place]
[2020-06-30 10:14] LABS: CALCIUM 8.7 mg/dL (8.5-10.1); CREATININE 0.6 mg/dL (0.6-1.0); GFR 94.1; MAGNESIUM 1.6 mg/dL (1.8-2.4); PHOSPHORUS 3.2 mg/dL (2.6-4.7); POTASSIUM 3.5 mmol/L (3.5-5.1)
[2020-06-30 11:00] VITALS: BP 124/47
[2020-06-30] MEDS ORDERED: ATOR20TA58 PO (13:45)
--- NOTE | 2020-06-30 13:48 | SNU/HH DC ---
DISCHARGE WITH HOME HEALTH DISCHARGE INFORMATION: Discharge Date: Jun 30, 2020 Condition on Discharge: Guarded CODE STATUS: Code Status: Full HOME HEALTH: Face to Face: I certify this patient is under my care and that I, or a nurse practitioner or physician's assistant product manager working with me, had a face to face encounter that meets the physician face to face encounter requirements with this patient on []. Medical Complications: CHF, COPD, Falls, HTN Senior Care For: Assess Cardiopulm Status, Assess & Educate Safety, Assess/Skilled Observatio, Medication Management, Other: RN For Eval/Treatment: Yes Physical Therapy For: Evalulation/Treatment Occupational Therapy For: Evaluation/Treatment Speech Language Pathology For: Swallow Cognition Home Health Aide For: Self-care Pt Meets Homebound Status: Poor coordination w/ amb., Unsteady balance w/ amb,, Frequent falls w/ injury, Limited distance walking, Poor cognition, Unable to negotiate home POST DISCHARGE ORDERS: Activity Instructions for Disc: Activity as tolerated Weight Bearing Status after Di: No restrictions, As tolerated DIET AFTER DISCHARGE: Cardiac Wound/Incision Care: No wound care needed CHECKS AFTER DISCHARGE: Checks after discharge: Check blood press - daily FOLLOW-UP: Follow up with: PCP within 2 weeks of discharge Follow Up With: Surgery and cardiology as needed DC TO SNF LABS: CBC, CMP in one week TREATMENT/EQUIPMENT ORDERS: Adaptive Equipment Issued: Bath Bench, Front wheeled walker, Raised toilet seat w/arms, Walker Discharge Respiratory Equipmen: Oxygen CERTIFICATION STATEMENT: Certification Statement: Certification Statement: Based on the above finding, I certify that this patient is confined to the home and needs intermittent long term care, physical therapy and/or speech therapy, or continues to need occupational therapy.~ This patient is under my care, and I have initiated the establishment of the plan of care.~ This patient will be followed by myself or a community physician who will periodically review the plan of care. Home Meds Active Scripts Atorvastatin Calcium (ATORVASTATIN CALCIUM) 20 Mg Tablet, 20 MG PO QHS for cholesterol for 30 Days, #30 TAB Prov:SUZY TORRES MD 06/30/20 Potassium Chloride (KLOR-CON M20) 20 Meq Tab.er.prt, 20 MEQ PO DAILYWBKFT for SUPPLEMENT for 14 Days, #14 TAB.SR Prov:KRISTAN CHAKRABORTY MD 12/3/20 Ondansetron Hcl (ZOFRAN) 4 Mg Tablet, 1 TAB PO Q6HRS PRN for NAUSEA/VOMITING, #20 TAB Prov:MONALISA BROWN MD 12/11/18 Esomeprazole Magnesium (NEXIUM CAPSULE) 20 Mg Capsule.dr, 1 CAP PO DAILY, #30 CAP 2 Refills OTC. Prov:IAN BLAKE MD 09/28/17 Budesonide/Formoterol Fumarate (SYMBICORT 160-4.5 MCG INHALER) 10.2 Gm Hfa.aer.ad, 2 PUFF IH BID, #10.6 GM 3 Refills Prov:IAN BLAKE MD 09/28/17 Reported Medications Labetalol Hcl (LABETALOL HCL) 200 Mg Tablet, 1 TAB PO BID for , #60 TAB 5 Refills 07/10/19 Acetaminophen (ACETAMINOPHEN) 500 Mg Tablet, 2 TAB PO PRN Q6HRS PRN for PAIN, #60 TAB 1 Refill 08/05/18 Glucosamine Sulfate 2KCL (GLUCOSAMINE) 1,000 Mg Tablet, 500 MG PO BID for joint pain, TAB 08/05/18 Oxybutynin Chloride (OXYBUTYNIN CHLORIDE) 5 Mg Tablet, 5 MG PO TID for bladder spasms, TAB 08/05/18 Latanoprost (LATANOPROST) 2.5 Ml Drops, 1 DROP EACHEYE QHS for glaucoma, #7.5 ML 3 Refills 08/05/18 Clonidine Hcl (CLONIDINE HCL) 0.1 Mg Tablet, 0.1 MG PO TID for hypertension, TAB 08/05/18 Polyethylene Glycol 3350 (MIRALAX) 17 Gm Powd.pack, 1 PKT PO DAILY, PKT 08/26/17 Calcium Carbonate/Vitamin D3 (CALCIUM 500 + D TABLET) 1 Each Tablet, 1 EACH PO BID, TAB 08/26/17 Diltiazem Hcl (DILTIAZEM 24HR CD) 240 Mg Cap.er.24h, 240 MG PO DAILY, CAP.SR 08/26/17 Lisinopril (LISINOPRIL) 40 Mg Tablet, 1 TAB PO DAILY, #30 TAB 5 Refills 08/26/17 Tiotropium [place] (SPIRIVA) 18 Mcg Cap.w.dev, 1 CAP IH DAILY, #30 CAP 3 Refills 08/26/17 Mirtazapine (MIRTAZAPINE) 15 Mg Tablet, 0.5 TAB PO QHS, #30 TAB 3 Refills 06/01/16 Aspirin (ASPIR 81) 81 Mg Tablet.dr, 1 TAB PO DAILY, #30 TAB 5 Refills 04/05/15 Albuterol Sulfate (PROAIR HFA INHALER) 8.5 Gm Hfa.aer.ad, 2 PUFF INH PRN Q6HRS PRN for SHORTNESS OF BREATH, INHALER 0 Refills 11/21/13 Discontinued Reported Medications Prednisone (PREDNISONE ) 10 Mg Tablet, 5 MG PO DAILY for anti inflammatory, TAB 0 Refills 08/05/18 Pravastatin Sodium (PRAVASTATIN SODIUM) 80 Mg Tablet, 80 MG PO HS, TAB 02/16/15 Discontinued Scripts Hydralazine Hcl (HYDRALAZINE HCL) 10 Mg Tablet, 1 TAB PO BID for HTN for 30 Days, #60 TAB 3 Refills Prov:RIFFELBHAVNA MD 07/07/19 SUZY TORRES MD Jun 30, 2020 13:48
--- NOTE | 2020-06-30 15:05 | PDOC ---
PROGRESS NOTES Date of Service: DATE: 06/30/20 TIME: 15:04 Subjective Subjective Tolerating diet well. Objective Objective Vital Signs Date Time Temp Pulse Resp B/P (MAP) Pulse Ox O2 Delivery O2 Flow Rate FiO2 06/30/20 11:24 Nasal Cannula 3.0 06/30/20 11:00 97.4 75 18 124/47 (72) 95 97.4 Intake and Output 06/30/20 07:00 Intake Total 830 ml Balance 830 ml Intake Oral 830 ml # Voids 2 Physical Exam Abdomen: Soft, No tenderness Heart: Regular rate, No murmurs Extremities: No clubbing, No cyanosis General: Alert, Cooperative HEENT: Atraumatic Lungs: Clear to auscultation, Normal air movement Neuro: Normal speech Psych/Mental Status: Mental status NL, Mood NL Skin: No significant lesion Assessment Assessment 1. Abdominal pain, distention, recurrent SBO. Poor surgical candidate. Improved and currently tolerating diet advancement. GS following 2. Hypertensive urgency: no KAIDEN from prior arteriogram. Blood pressure better controlled but still labile probably secondary to abdominal pain. 3. Arrhythmia; no VT, noted PAT. telemetry showed sinus tachycardia without any significant arrhythmias. 4. Hypokalemia: replaced 5. Carotid sinus hypersensitivity s/p PPM (Motoratorronik). Recent device check with normal function and adequate battery life. AF burden 0%. 6. Hyperlipidemia: Continue statins 7. Chronic diastolic CHF: clinically well compensated Comment Review of Relevant I have reviewed the following items forest (where applicable) has been applied. Labs Laboratory Tests Test 06/30/20 09:35 Sodium Level 145 mmol/L (136-145) Potassium Level 3.5 mmol/L (3.5-5.1) Chloride Level 109 mmol/L (98-107) Carbon Dioxide Level 29 mmol/L (21-32) Anion Gap 7 (6-14) Blood Urea Nitrogen 11 mg/dL (7-20) Creatinine 0.6 mg/dL (0.6-1.0) Estimated GFR (Cockcroft-Gault) 94.1 Glucose Level 156 mg/dL (70-99) Calcium Level 8.7 mg/dL (8.5-10.1) Phosphorus Level 3.2 mg/dL (2.6-4.7) Magnesium Level 1.6 mg/dL (1.8-2.4) Microbiology 06/25/20 Urine Culture - Final, Complete 06/25/20 Antimicrobic Susceptibility - Final, Complete Medications Current Medications Lorazepam (Ativan) 0.25 mg PRN Q6HRS PRN PO ANXIETY / AGITATION Last administered on 06/30/20at 06:45; Start 06/29/20 at 21:15 Vitals/I & O Vital Sign - Last 24 Hours 06/29/20 06/29/20 06/29/20 06/29/20 17:00 19:00 19:39 20:00 Temp 98.9 98.9 Pulse 80 Resp 18 B/P (MAP) Pulse Ox 96 96 O2 Delivery Nasal Cannula Room Air Nasal Cannula Nasal Cannula O2 Flow Rate 3.0 3.0 3.0 06/29/20 06/29/20 06/29/20 06/29/20 20:38 20:39 20:39 23:00 Temp 98.6 98.6 Pulse 80 80 80 73 Resp 18 B/P (MAP) 198/74 198/74 198/74 151/57 (88) Pulse Ox 94 O2 Delivery Nasal Cannula O2 Flow Rate 3.0 06/30/20 06/30/20 06/30/20 06/30/20 03:00 07:00 07:31 08:00 Temp 99.0 97.6 99.0 97.6 Pulse 76 95 Resp 18 18 B/P (MAP) 189/75 (113) 189/87 (121) Pulse Ox 96 93 97 O2 Delivery Nasal Cannula Nasal Cannula Nasal Cannula Nasal Cannula O2 Flow Rate 3.0 3.0 3.0 3.0 06/30/20 06/30/20 06/30/20 06/30/20 08:29 08:30 08:31 08:31 Pulse 76 76 76 76 B/P (MAP) 189/75 189/75 189/75 189/75 06/30/20 06/30/20 06/30/20 08:31 11:00 11:24 Temp 97.4 97.4 Pulse 76 75 Resp 18 B/P (MAP) 189/75 124/47 (72) Pulse Ox 95 O2 Delivery Nasal Cannula Nasal Cannula O2 Flow Rate 3.0 3.0 Intake and Output 06/29/20 06/29/20 06/30/20 15:00 23:00 07:00 Intake Total 430 ml 200 ml 200 ml Balance 430 ml 200 ml 200 ml RASHID TREVINO MD Jun 30, 2020 15:05
--- NOTE | 2020-06-30 15:47 | NUR ---
pt discharged home with nephew. meds and follow up reviewed. pt on 3L O2 upon dc, which is her home setting. pt stable upon dc. no IV access
--- NOTE | 2020-07-03 08:44 | PDOC3 ---
[facility]-Discharge Summary Date of Admission: Date of Admission: Jun 26, 2020 Date of Discharge: Date of Discharge: Jun 30, 2020 Discharge Diagnosis: Discharge Diagnosis: Acute abdominal pain due to SBO Acute electrolyte derangementhypokalemia, hypernatremia Atrial fibrillation Altered mental status. Hospital Course: Hospital Course: Patient's mental status has improved without any acute confusion episodes. She is tolerating diet and has had bowel movements and passing flatus. Surgery did evaluate patient for possible surgery but has stated patient is a poor surgical candidate and even considered a G-tube for decompression to reduce readmissions. Family did choose a conservative approach at this time and I did discuss with the nephew who is the DPOA that the patient will need to consider having a more mild diet such as a soft GI or full liquid and regulated bowel regimen very closely. They understood and the patient will be DC'd with home health. The rest of her hospital course was uneventful. 06/30/2020 No acute events overnight. Patient is tolerating diet and waiting for to advance diet further per surgery. Patient had BM x2 yesterday afternoon. Agitated overnight and was given Ativan. Patient seen resting in the recliner with her feet upright. Patient's chart, labs, images were reviewed and discussed with RN 06/29/2020 No acute events overnight. Patient has tolerated diet clear liquids, and pending surgery to advance her diet further. Patient's chart, labs, images were reviewed and discussed with RN 06/28/2020 No acute events overnight. NG tube has removed and patient is tolerating diet. She is starting to take her blood pressure medications. She remains hypertensive but we will repeat her vitals in the afternoon. Patient has been more confused per the nephew. 06/27/2020 No acute events overnight. NG tube is still to intermittent wall suction. Pasha desai says sees feels uncomfortable. She is unable to elaborate her abdominal pain symptoms. Will attempt for small bowel follow-through. Patient did have episode of V. tach of 30 seconds overnight, asymptomatic and hemodynamically stable. Cardiology has been consulted. Patient's chart, labs, images were reviewed and discussed with RN 89 year old female coming in with caregiver for intermittent abdominal pain and distention. Patient has a history of intermittent small bowel obstructions and has been admitted multiple times in the past few months. Patient states she has had very little appetite or p.o. intake but has been trying to drink water. Has not had a bowel movement in 2 days despite using 2 enemas and MiraLAX. 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 Denies any nausea or vomiting. Patient has had decreased urination but no dysuria. Patient normally has a bowel movement every day. Denies any fevers, cough, shortness of breath, chest pain, or changes in skin color. Disposition: Disposition/Orders: D/C to Home, D/C to Home w/ HH Activity: Activity: Resume previous activity Diet: Diet: Soft Medications: Home Meds Active Scripts Atorvastatin Calcium (ATORVASTATIN CALCIUM) 20 Mg Tablet, 20 MG PO QHS for cholesterol for 30 Days, #30 TAB Prov:SUZY TORRES MD 06/30/20 Potassium Chloride (KLOR-CON M20) 20 Meq Tab.er.prt, 20 MEQ PO DAILYWBKFT for SUPPLEMENT for 14 Days, #14 TAB.SR Prov:KRISTAN CHAKRABORTY MD 05/16/20 Ondansetron Hcl (ZOFRAN) 4 Mg Tablet, 1 TAB PO Q6HRS PRN for NAUSEA/VOMITING, #20 TAB Prov:MONALISA BROWN MD 12/11/18 Esomeprazole Magnesium (NEXIUM CAPSULE) 20 Mg Capsule.dr, 1 CAP PO DAILY, #30 CAP 2 Refills OTC. Prov:IAN BLAKE MD 09/28/17 Budesonide/Formoterol Fumarate (SYMBICORT 160-4.5 MCG INHALER) 10.2 Gm Hfa .aer.ad, 2 PUFF IH BID, #10.6 GM 3 Refills Prov:IAN BLAKE MD 09/28/17 Reported Medications Labetalol Hcl (LABETALOL HCL) 200 Mg Tablet, 1 TAB PO BID for , #60 TAB 5 Refills 07/10/19 Acetaminophen (ACETAMINOPHEN) 500 Mg Tablet, 2 TAB PO PRN Q6HRS PRN for PAIN, #60 TAB 1 Refill 08/05/18 Glucosamine Sulfate 2KCL (GLUCOSAMINE) 1,000 Mg Tablet, 500 MG PO BID for joint pain, TAB 08/05/18 Oxybutynin Chloride (OXYBUTYNIN CHLORIDE) 5 Mg Tablet, 5 MG PO TID for bladder spasms, TAB 08/05/18 Latanoprost (LATANOPROST) 2.5 Ml Drops, 1 DROP EACHEYE QHS for glaucoma, #7.5 ML 3 Refills 08/05/18 Clonidine Hcl (CLONIDINE HCL) 0.1 Mg Tablet, 0.1 MG PO TID for hypertension, TAB 08/05/18 Polyethylene Glycol 3350 (MIRALAX) 17 Gm Powd.pack, 1 PKT PO DAILY, PKT 08/26/17 Calcium Carbonate/Vitamin D3 (CALCIUM 500 + D TABLET) 1 Each Tablet, 1 EACH PO BID, TAB 08/26/17 Diltiazem Hcl (DILTIAZEM 24HR CD) 240 Mg Cap.er.24h, 240 MG PO DAILY, CAP.SR 08/26/17 Lisinopril (LISINOPRIL) 40 Mg Tablet, 1 TAB PO DAILY, #30 TAB 5 Refills 08/26/17 Tiotropium [place] (SPIRIVA) 18 Mcg Cap.w.dev, 1 CAP IH DAILY, #30 CAP 3 Refills 08/26/17 Mirtazapine (MIRTAZAPINE) 15 Mg Tablet, 0.5 TAB PO QHS, #30 TAB 3 Refills 06/01/16 Aspirin (ASPIR 81) 81 Mg Tablet.dr, 1 TAB PO DAILY, #30 TAB 5 Refills 04/05/15 Albuterol Sulfate (PROAIR HFA INHALER) 8.5 Gm Hfa.aer.ad, 2 PUFF INH PRN Q6HRS PRN for SHORTNESS OF BREATH, INHALER 0 Refills 11/21/13 Discontinued Reported Medications Prednisone (PREDNISONE ) 10 Mg Tablet, 5 MG PO DAILY for anti inflammatory, TAB 0 Refills 08/05/18 Pravastatin Sodium (PRAVASTATIN SODIUM) 80 Mg Tablet, 80 MG PO HS, TAB 02/16/15 Discontinued Scripts Hydralazine Hcl (HYDRALAZINE HCL) 10 Mg Tablet, 1 TAB PO BID for HTN for 30 Days, #60 TAB 3 Refills Prov:BHAVNA BRITTON MD 07/07/19 Scheduled Aspirin (Aspir 81), 1 TAB PO DAILY, (Reported) Atorvastatin Calcium (Atorvastatin Calcium), 20 MG PO QHS Budesonide/Formoterol Fumarate (Symbicort 160-4.5 Mcg Inhaler), 2 PUFF IH BID Calcium Carbonate/Vitamin D3 (Calcium 500 + D Tablet), 1 EACH PO BID, (Reported) Clonidine Hcl (Clonidine Hcl), 0.1 MG PO TID, (Reported) Diltiazem Hcl (Diltiazem 24HR Cd), 240 MG PO DAILY, (Reported) Esomeprazole Magnesium (Nexium Capsule), 1 CAP PO DAILY Glucosamine Sulfate 2KCL (Glucosamine), 500 MG PO BID, (Reported) Labetalol Hcl (Labetalol Hcl), 1 TAB PO BID, (Reported) Latanoprost (Latanoprost), 1 DROP EACHEYE QHS, (Reported) Lisinopril (Lisinopril), 1 TAB PO DAILY, (Reported) Mirtazapine (Mirtazapine), 0.5 TAB PO QHS, (Reported) Oxybutynin Chloride (Oxybutynin Chloride), 5 MG PO TID, (Reported) Polyethylene Glycol 3350 (Miralax), 1 PKT PO DAILY, (Reported) Potassium Chloride (Klor-Con M20), 20 MEQ PO DAILYWBKFT Tiotropium [place] (Spiriva), 1 CAP IH DAILY, (Reported) Scheduled PRN Acetaminophen (Acetaminophen), 2 TAB PO PRN Q6HRS PRN for PAIN, (Reported) Albuterol Sulfate (Proair Hfa Inhaler), 2 PUFF INH PRN Q6HRS PRN for SHORTNESS OF BREATH, (Reported) Ondansetron Hcl (Zofran), 1 TAB PO Q6HRS PRN for NAUSEA/VOMITING Discontinued Medications Hydralazine Hcl (Hydralazine Hcl), 1 TAB PO BID Pravastatin Sodium (Pravastatin Sodium), 80 MG PO HS, (Reported) Prednisone (Prednisone ), 5 MG PO DAILY, (Reported) Total Time: Total Time: Total time spent was 55 minutes in preparing scripts, discharge planning with SW and RN, and preparing this discharge summary. Patient seen and examined on day of discharge. Justicifation of Admission Dx: Justifications for Admission: Justification of Admission Dx: Comment: SUZY TORRES MD Jul 03, 2020 08:44
[2020-09-15] MEDS ORDERED: HYDR-2867 PO (00:14)
[2020-09-15] MEDS ORDERED: ESCI20TA8 PO (00:14)
[2020-09-15] MEDS ORDERED: FLUT1BLS3 INH (00:14)
[2020-09-15] MEDS ORDERED: OXYB-36 PO (00:14)
[2020-09-17] MEDS ORDERED: LACT1CAP19 PO (10:26)
[2020-09-17] MEDS ORDERED: MAGN400O7 PO (10:26)
[2020-09-17] MEDS ORDERED: AMOX250S20 PO (10:26)
[2020-09-17] MEDS ORDERED: BISA10SU4 PR (10:26)
[2020-09-17] MEDS ORDERED: AMLO-187 PO (10:26)
== END 2020-06-30 15:48 | disposition home health service (06) | DRG 389 ==
LOC: ER 16:36 → 5 NORTH 23:22
PROVIDERS: ADMIT Internal Medicine; ATTEND Internal Medicine
PROC: 0D9670Z Drainage of Stomach with Drainage Device, Via Natural or Artificial Opening (ICD-10-PCS; principal; 2020-06-26)
DX: K56.601 Complete intestinal obstruction, unspecified as to cause (principal); E87.0 Hyperosmolality and hypernatremia; I47.2 Ventricular tachycardia; I50.32 Chronic diastolic (congestive) heart failure; N39.0 Urinary tract infection, site not specified; E87.6 Hypokalemia; E78.5 Hyperlipidemia, unspecified; G90.01 Carotid sinus syncope; I11.0 Hypertensive heart disease with heart failure; I16.0 Hypertensive urgency; I48.91 Unspecified atrial fibrillation; J44.9 Chronic obstructive pulmonary disease, unspecified; M85.80 Other specified disorders of bone density and structure, unspecified site; Z85.038 Personal history of other malignant neoplasm of large intestine; Z87.891 Personal history of nicotine dependence; Z90.710 Acquired absence of both cervix and uterus; Z95.0 Presence of cardiac pacemaker; F41.9 Anxiety disorder, unspecified; H40.9 Unspecified glaucoma; I65.29 Occlusion and stenosis of unspecified carotid artery; K21.9 Gastro-esophageal reflux disease without esophagitis; M48.00 Spinal stenosis, site unspecified; Z92.21 Personal history of antineoplastic chemotherapy; M19.90 Unspecified osteoarthritis, unspecified site; M54.5 Low back pain; Z90.49 Acquired absence of other specified parts of digestive tract; I73.9 Peripheral vascular disease, unspecified; I49.9 Cardiac arrhythmia, unspecified
CPT/HCPCS: 36415; 73620; 74018; 74022; 74177; 80048; 80053; 80061; 81001; 83605; 83690; 83735; 84100; 84484; 84550; 85007; 85025; 87077; 87086; 87186; 93005; 94640; 94760; 96360; J0360; J0696; J1650; J2060; J2270; J3480; J3490; J7030; J7040; Q9967; 97110-GP; 97116-GP; 97535-GO; 99285-25; G0378